=== PATIENT | female | born 1935 | race Caucasian/White ===

== ENCOUNTER 2019-03-11 09:50 | Day surgery (SDC) | payer OTHER | END 2019-03-11 15:15 | disposition home or self-care (01) | LOC: JASU-ENDO 09:50 ==

== ENCOUNTER 2019-05-12 09:10 | Day surgery (SDC) | payer OTHER | END 2019-05-12 15:35 | disposition home or self-care (01) | LOC: JRADIR 09:10 ==

== ENCOUNTER → 2019-05-24 | Day surgery (SDC) | payer OTHER | LOC: JRADIR 08:41 ==

== ENCOUNTER 2019-08-03 11:47 | Inpatient (IN) | payer OTHER ==
--- NOTE | 2019-08-03 12:14 | PDOC ---
History of Present Illness - General Stated Complaint: GI BLEED Time Seen by Provider: 08/03/19 12:11 Past History - Past Medical History Allergies/Adverse Reactions: Allergies Allergy/AdvReac Type Severity Reaction Status Date / Time morphine Allergy Nausea Verified 05/11/19 12:44 Home Medications: Ambulatory Orders Allopurinol 300 mg PO DAILY 03/10/19 Famotidine 20 mg PO DAILY 03/10/19 Fluticasone Prop 0.05% Nasal [Flonase -] 1 spray PO ASDIR 03/10/19 Glipizide [Glipizide ER] 1 tab PO DAILY 03/10/19 Insulin Sliding Scale [Novolog Vial Sliding Scale -] 15 - 30 units SQ ASDIR Levetiracetam [Keppra] 500 mg PO DAILY 03/10/19 Lisinopril 5 mg PO DAILY 03/10/19 Metoprolol Succinate [Toprol Xl] 25 mg PO DAILY 03/10/19 Pregabalin [Lyrica] 50 mg PO DAILY 03/10/19 Rivaroxaban [Xarelto] 15 mg PO DAILY 03/10/19 Simvastatin 10 mg PO HS 03/10/19 Anemia: Yes (PERNICIOUS) Cancer: Yes (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/RAD) Cardiac Disorders: (ATRIAL FIBRILATION,CHF) COPD: Yes (CHF) Diabetes: Yes Hypercholesterolemia: Yes Thyroid Disease: Yes (THYROID NODULES) - Surgical History Lung Surgery: Yes (LOBECTOMY SECONDARY TO LUNG METASTASES) Orthopedic Surgery: Yes (BILATERAL KNEE REPLACEMENTS) - Psycho Social/Smoking Cessation Hx Smoking History: Never smoked Hx Alcohol Use: No Drug/Substance Use Hx: No Substance Use Type: None ED Treatment Course - LABORATORY CBC & Chemistry Diagram: 08/04/19 06:13 08/04/19 06:13 Medical Decision Making - Medical Decision Making HPI: 83yo F with PMH of HLD, DM, CKD, neuropathy, SAUL, CHF, Afib on Xarelto, colon CA (recently diagnosed, scheduled for resection on 08/24 at [facility]) sent by her banana carrier for low hemoglobin of 6.9. Patient states she has felt lightheaded for the past two weeks or so, but denies chest pain or dyspnea on exertion. Patient states her last bowel movement was on Friday. On or Friday, she noticed black formed stools but no blood. Denies hematemesis. Patient was visiting her banana carrier for regular follow-up. No fevers or chills. ROS: Constitutional: no fever, no chills HEENT: no throat pain, no dysphagia Cardiovascular: no chest pain, no palpitations Respiratory: no cough, no shortness of breath Gastrointestinal: no abdominal pain, no nausea Genitourinary: no dysuria, no hematuria Musculoskeletal: no myalgia, no arthralgia Skin: no rash, no itching Neurologic: no headache, +lightheaded PE: General: Awake, alert, and fully oriented, in no acute distress Head: No signs of trauma Eyes: EOMI, sclera anicteric ENT: Moist mucus membranes Neck: Normal ROM, supple Lungs: Lungs clear, Normal breath sounds Cardio: Regular rhythm, S1 and S2 present Abdomen: Soft, nontender. No guarding, no rebound, no masses Extremities: Normal range of motion, Distal pulses present SKIN: Warm, Dry, pallorous Neurologic: Cranial nerves II through XII grossly intact. Normal speech ED Course/MDM: DDX including but not limited to anemia, GI bleed- upper vs lower, electrolyte abnormality Labs, EKG, CXR Protonix 08/03/19 12:14 Rectal exam performed by Dr. Reyes, +stool occult blood test CBC WBC 5.0 K/mm3 (4.0-10.0) 08/03/19 13:00 RBC 2.64 M/mm3 (3.60-5.2) L 08/03/19 13:00 Hgb 7.1 GM/dL (10.7-15.3) L 08/03/19 13:00 Hct 22.6 % (32.4-45.2) L D 08/03/19 13:00 MCV 85.4 fl (80-96) 08/03/19 13:00 MCH 26.8 pg (25.7-33.7) 08/03/19 13:00 MCHC 31.4 g/dl (32.0-36.0) L 08/03/19 13:00 RDW 15.6 % (11.6-15.6) 08/03/19 13:00 Plt Count 231 K/MM3 (134-434) 08/03/19 13:00 MPV 10.5 fl (7.5-11.1) 08/03/19 13:00 Absolute Neuts (auto) 3.1 K/mm3 (1.5-8.0) 08/03/19 13:00 Neutrophils % 62.2 % (42.8-82.8) 08/03/19 13:00 Lymphocytes % 18.4 % (8-40) 08/03/19 13:00 Monocytes % 15.0 % (3.8-10.2) H 08/03/19 13:00 Eosinophils % 3.5 % (0-4.5) 08/03/19 13:00 Basophils % 0.9 % (0-2.0) 08/03/19 13:00 Nucleated RBC % 0 % (0-0) 08/03/19 13:00 No leukocytosis Hgb low, 7.1 CMP Sodium 144 mmol/L (136-145) 08/03/19 13:00 Potassium 5.2 mmol/L (3.5-5.1) H 08/03/19 13:00 Chloride 116 mmol/L (98-107) H 08/03/19 13:00 Carbon Dioxide 25 mmol/L (21-32) 08/03/19 13:00 Anion Gap 3 MMOL/L (8-16) L 08/03/19 13:00 BUN 46.1 mg/dL (7-18) H 08/03/19 13:00 Creatinine 1.5 mg/dL (0.55-1.3) H 08/03/19 13:00 Est GFR (CKD-EPI)AfAm 37.21 08/03/19 13:00 Est GFR (CKD-EPI)NonAf 32.11 08/03/19 13:00 Random Glucose 88 mg/dL (74-106) 08/03/19 13:00 Calcium 9.2 mg/dL (8.5-10.1) 08/03/19 13:00 Total Bilirubin 0.1 mg/dL (0.2-1) L 08/03/19 13:00 AST 21 U/L (15-37) 08/03/19 13:00 ALT 14 U/L (13-61) 08/03/19 13:00 Alkaline Phosphatase 112 U/L (45-117) 08/03/19 13:00 Creatine Kinase 72 U/L (26-192) 08/03/19 13:00 Troponin I < 0.02 ng/ml (0.00-0.05) 08/03/19 13:00 Total Protein 6.0 g/dl (6.4-8.2) L 08/03/19 13:00 Albumin 3.2 g/dl (3.4-5.0) L 08/03/19 13:00 Potassium mildly elevated Cr elevated, 1.5 Tpn undetectable EKG: rate 61, QTc 469, paced rhythm, LBBB 1 unit PRBC ordered for anemia CXR as read by radiology: "Single apical lordotic view reveals a prominent mediastinum, right clips, right base atelectasis or infiltrate and pacemaker. There are degenerative changes. The angles are sharp and the soft tissues are intact. An acute process is not seen. Impression: No acute chest pathology. " Plan for admission for anemia and GI bleed 08/03/19 15:[address] Martinez who accepted patient for med/surg admission under Dr. De Anda 08/03/19 15:51 Discharge - Discharge Information Problems reviewed: Yes Clinical Impression/Diagnosis: Anemia Qualifiers: Anemia type: other cause Other causes of anemia: other cause, not classified Qualified Code(s): D64.89 - Other specified anemias GI bleed Qualifiers: GI bleed type/associated pathology: unspecified gastrointestinal hemorrhage type Qualified Code(s): K92.2 - Gastrointestinal hemorrhage, unspecified Condition: Guarded - Admission Yes - Follow up/Referral - Patient Discharge Instructions - Post Discharge Activity
--- NOTE | 2019-08-03 12:22 | PDOC ---
Attending Attestation - Resident Resident Name: Adri Sun - ED Attending Attestation I have performed the following: I have examined & evaluated the patient, The case was reviewed & discussed with the resident, I agree w/resident's findings & plan, Exceptions are as noted - HPI HPI: 08/03/19 13:17 83yo F hx AF on xarelto and ASA, PPM, colon ca scheduled for resection 08/24 at [facility], CKD, HTN, gout, HL, DM presents to the ED with 1 week of dark, tarry BM and outpt hgb 6.9. Pt reports lightheadedness and generalized weakness , otherwise denies chest pain, shortness of breath. She denies abdominal pain, nausea, vomiting, diarrhea. She denies headache, focal weakness or numbness, lower extremity edema, urinary symptoms. - Physicial Exam PE: 08/03/19 13:26 agree with resident exam - Medical Decision Making 08/03/19 13:26 84-year-old female with multiple medical problems including colon cancer, scheduled for resection on August 24. fib on Xarelto presents the emergency department with 1 week of black tarry stools and anemia to 6.9. Vitals unremarkable. Patient is pale but otherwise well-appearing and in no acute distress. Dr. Traore her electric razor mechanic is at the bedside, reports her rectal exam reveals brown guaiac tracely positive stool, but no melena. Plan at this time will be to repeat labs, transfuse packed red blood cells if anemia is confirmed, give PPI, and admit.
[2019-08-03] MEDS ORDERED: PANTOPRAZOLE SODIUM 40 MG VIAL IVPUSH ONE (12:37)
[2019-08-03] MEDS ORDERED: PANTOPRAZOLE SODIUM 40 MG/100 ML BAG IVPB ONE (13:30)
[2019-08-03 13:43] LABS: BASO % 0.9 % (0-2.0); EOS % 3.5 % (0-4.5); HEMATOCRIT 22.6 % (32.4-45.2); HEMOGLOBIN 7.1 GM/dL (10.7-15.3); LYMPH % 18.4 % (8-40); MCH 26.8 pg (25.7-33.7); MCHC 31.4 g/dl (32.0-36.0); MEAN CELL VOLUME 85.4 fl (80-96); MEAN PLT VOLUME 10.5 fl (7.5-11.1); NEUT % 62.2 % (42.8-82.8); PLATELET COUNT 231 K/MM3 (134-434); RBC 2.64 M/mm3 (3.60-5.2); RDW 15.6 % (11.6-15.6)
[2019-08-03 13:57] LABS: INR 1.15 (0.83-1.09); PROTHROMBIN TIME (PATIENT) 13.6 SEC (9.7-13.0)
[2019-08-03 14:25] LABS: ACTIVATED PTT 27.8 SECONDS (25.2-36.5)
[2019-08-03 14:40] LABS: ALBUMIN 3.2 g/dl (3.4-5.0); ALK PHOS 112 U/L (45-117); ANION GAP 3 MMOL/L (8-16); BILIRUBIN,TOTAL 0.1 mg/dL (0.2-1); BLOOD UREA NITROGEN 46.1 mg/dL (7-18); CALCIUM 9.2 mg/dL (8.5-10.1); CHLORIDE 116 mmol/L (98-107); CO2 25 mmol/L (21-32); CREATININE 1.5 mg/dL (0.55-1.3); GLUCOSE,RANDOM 88 mg/dL (74-106); POTASSIUM 5.2 mmol/L (3.5-5.1); SGOT/AST 21 U/L (15-37); SGPT/ALT 14 U/L (13-61); SODIUM 144 mmol/L (136-145)
--- NOTE | 2019-08-03 14:54 | CON.GI ---
Consult Consult Specialty:: GI Referred by:: Hospitalist Service Reason for Consultation:: Anemia - History of Present Illness Chief Complaint: Dark bowel movements last week History of Present Illness: 83F admitted after she was seen by her patternmaker apprentice metal. Previous blood work revealed Hgb 6.9 last week. He sent her to the ER. Hgb in ER 7.1 She has dark bowel movements last week, none this week. She has felt a bit dizzy and lightheaded. She is not on ASA therapy and does not take any other NSAIDs. She denies gross rectal bleeding, abdominal pain. She does describe a diminished appetite of late. She is being preoped for colon resection at [facility]. This was secondary to a colon cancer at the hepatic flexure noted during colonoscopy 03/07. Vitals sign in the ER stable. Takes xarelto at night and last took yesterday evening. - History Source History Provided By: Patient, Medical Record - Past Medical History Cardio/Vascular: Yes: AFIB, CHF, Hyperlipdemia Renal/: Yes: Renal Inusuff Heme/Onc: Yes: Anemia (pernicious), Other (Metastatic uterine cancer with recurrence, mets to the lung s/p resection with chemo/radiation) Endocrine: Yes: Diabetes Mellitus (DM II), Other (thyroid nodules) - Past Surgical History Past Surgical History: Yes: Appendectomy, Hysterectomy (BHAVANA/BSO), Joint Replacement (b/l Knees), Permanent Pacemaker Additional Surgical History: lobectomy secondary to lung metastases - Alcohol/Substance Use Hx Alcohol Use: No History of Substance Use: reports: None - Smoking History Smoking history: Never smoked - Social History Usual Living Arrangement: Assisted Living ADL: Support Services 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 : [facility] History of Recent Travel: No Home Medications - Allergies Allergies/Adverse Reactions: Allergies Allergy/AdvReac Type Severity Reaction Status Date / Time morphine Allergy Nausea Verified 05/11/19 12:44 - Home Medications Home Medications: Ambulatory Orders Acetaminophen [Tylenol .Extra-Strength -] 1 tab PO DAILY 03/10/19 Allopurinol 300 mg PO DAILY 03/10/19 Cholecalciferol (Vitamin D3) [Vitamin D3] 2,000 unit PO DAILY 03/10/19 Docusate Sodium [Colace] 100 mg PO DAILY 03/10/19 Famotidine 20 mg PO DAILY 03/10/19 Fluticasone Prop 0.05% Nasal [Flonase -] 1 spray PO ASDIR 03/10/19 Glipizide [Glipizide ER] 1 tab PO DAILY 03/10/19 Insulin Sliding Scale [Novolog Vial Sliding Scale -] 15 - 30 units SQ ASDIR Levetiracetam [Keppra] 500 mg PO DAILY 03/10/19 Lisinopril 5 mg PO DAILY 03/10/19 Metoprolol Succinate [Toprol Xl] 25 mg PO DAILY 03/10/19 Multivitamin with Iron [Multivitamins with Iron] 1 each PO DAILY 03/10/19 Polyethylene Glycol 3350 17 gm PO DAILY 03/10/19 Pregabalin [Lyrica] 50 mg PO DAILY 03/10/19 Rivaroxaban [Xarelto] 15 mg PO DAILY 03/10/19 Simvastatin 10 mg PO HS 03/10/19 Family Medical History Family Hx Cancer: Mother (colon) Review of Systems - Review of Systems Constitutional: denies: Chills Cardiovascular: denies: Chest Pain Respiratory: denies: Cough Gastrointestinal: reports: Bloating. denies: Abdominal Pain, Constipation Physical Exam-GI Vital Signs: Vital Signs Temperature 97.4 F L 08/03/19 12:21 Pulse Rate 61 08/03/19 12:21 Respiratory Rate 18 08/03/19 12:21 Blood Pressure 131/46 L 08/03/19 12:21 O2 Sat by Pulse Oximetry (%) 97 08/03/19 12:21 Constitutional: Yes: Calm Eyes: No: Sclera Icterus Cardiovascular: Yes: Regular Rate and Rhythm Respiratory: Yes: CTA Bilaterally Gastrointestinal Inspection: Yes: Scars (+ pelvic scar). No: Distention ...Auscultate: Yes: Normoactive Bowel Sounds ...Palpate: Yes: Soft, Tenderness (mild TTP lower abdomen). No: Hepatomegaly, Splenomegaly ...Percussion: No: Tympanitic ...Rectal Exam: Yes: Other (No external lesions, no masses, formed brown stool, tracely guaiac positive) Edema: No (No LE edema) Neurological: Yes: Alert Labs: CBC, BMP 08/03/19 13:00 08/03/19 13:00 INR, PTT INR 1.15 (0.83-1.09) H 08/03/19 13:00 Problem List - Problems (1) Anemia Assessment/Plan: worsening of baseline anemia and history of black bowel movements last week. Brown stool on exam and hemodynamically stable. Question resolved upper GI bleed. stool on exam tracely guaiac positive, however she has a friable hepatic flexure mass For now: Clear liquids Hold Xarelto Cardio evaluation EGD in with Xarelto for 2 days held given her renal insufficiency Protonix 40mg PO BID. If overt melena, change to infusion Code(s): D64.9 - ANEMIA, UNSPECIFIED
--- NOTE | 2019-08-03 15:49 | HOSP ---
Physical Examination Vital Signs: Vital Signs Temperature 97.4 F L 08/03/19 12:21 Pulse Rate 61 08/03/19 12:21 Respiratory Rate 18 08/03/19 12:21 Blood Pressure 131/46 L 08/03/19 12:21 O2 Sat by Pulse Oximetry (%) 97 08/03/19 12:21 Labs: CBC, BMP 08/03/19 13:00 08/03/19 13:00
--- NOTE | 2019-08-03 15:49 | EKG ---
Test Reason : Blood Pressure : / mmHG Vent. Rate : 061 BPM Atrial Rate : 061 BPM P-R Int : 228 ms QRS Dur : 134 ms QT Int : 464 ms P-R-T Axes : 004 -15 084 degrees QTc Int : 467 ms AV dual-paced rhythm ABNORMAL ECG NO PREVIOUS ECGS AVAILABLE Confirmed by Juanjose Michael ([id number]) on 08/03/2019 3:49:42 PM Referred By: Confirmed By:Juanjose Michael
--- NOTE | 2019-08-03 17:18 | CON.CARD ---
Consult Consult Specialty:: Cardiology Referred by:: Hospitalist Medicine Reason for Consultation:: Pre-procedural CV evaluation - History of Present Illness Chief Complaint: Profound anemia History of Present Illness: 83 yo female h/o CAD, mild decreased LV systolic fxn, sick sinus s/p Medtronic PPM, PAF on Xarelto, HTN heart disease, Type 2 DM, hyperlipidemia, cerebrovascular disease, CKD, colon ca planned for partial colectomy in August , wheelchair-bound last office visit 05/28/2019 presents with anemia Hgb 6.9-7.1 , dark stools, dizzy and lightheadedness without chest pain, dyspnea or fatigue. She is not on ASA therapy and does not take any other NSAIDs. She denies gross rectal bleeding, abdominal pain. She does describe a diminished appetite of late. She is being pre-oped for colon resection at [facility]. This was secondary to a colon cancer at the hepatic flexure noted during colonoscopy 03/07. Takes xarelto at night and last took yesterday evening. 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: Peripheral Neuropathy Cardio/Vascular: Yes: AFIB, CHF, Hyperlipdemia Renal/: Yes: Renal Inusuff Endocrine: Yes: Diabetes Mellitus (DM II), Other (thyroid nodules) - Past Surgical History Past Surgical History: Yes: Appendectomy, Hysterectomy (BHAVANA/BSO), Joint Replacement (b/l Knees), Permanent Pacemaker Additional Surgical History: lobectomy secondary to lung metastases - Alcohol/Substance Use Hx Alcohol Use: No History of Substance Use: reports: None - Smoking History Smoking history: Never smoked - Social History Usual Living Arrangement: Assisted Living ADL: Support Services 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 Travel: No Home Medications - Allergies Allergies/Adverse Reactions: Allergies Allergy/AdvReac Type Severity Reaction Status Date / Time morphine Allergy Nausea Verified 05/11/19 12:44 - Home Medications Home Medications: Ambulatory Orders Allopurinol 300 mg PO DAILY 03/10/19 Famotidine 20 mg PO DAILY 03/10/19 Fluticasone Prop 0.05% Nasal [Flonase -] 1 spray PO ASDIR 03/10/19 Glipizide [Glipizide ER] 1 tab PO DAILY 03/10/19 Insulin Sliding Scale [Novolog Vial Sliding Scale -] 15 - 30 units SQ ASDIR Levetiracetam [Keppra] 500 mg PO DAILY 03/10/19 Lisinopril 5 mg PO DAILY 03/10/19 Metoprolol Succinate [Toprol Xl] 25 mg PO DAILY 03/10/19 Pregabalin [Lyrica] 50 mg PO DAILY 03/10/19 Rivaroxaban [Xarelto] 15 mg PO DAILY 03/10/19 Simvastatin 10 mg PO HS 03/10/19 Review of Systems - Review of Systems Neurological: reports: Dizziness Vital Signs: Vital Signs Temperature 98 F 08/03/19 16:45 Pulse Rate 60 08/03/19 16:45 Respiratory Rate 18 08/03/19 16:45 Blood Pressure 135/77 08/03/19 16:45 O2 Sat by Pulse Oximetry (%) 99 08/03/19 16:45 Constitutional: Yes: No Distress, Calm Neck: Yes: Supple Respiratory: Yes: Regular, CTA Bilaterally Gastrointestinal: Yes: Soft, Hypoactive Bowel Sounds Cardiovascular: Yes: Regular Rate and Rhythm JVD: No Carotid Bruit: No Heart Sounds: Yes: S1, S2 Murmur: Yes: Systolic Murmur, Grade 2 Extremities: Yes: Other (Contracted) Edema: No - Other Data Labs, Other Data: CBC, BMP 08/03/19 13:00 08/03/19 13:00 INR, PTT INR 1.15 (0.83-1.09) H 08/03/19 13:00 Troponin, BNP 08/03/19 13:00 Troponin I < 0.02 Troponin, BNP 08/03/19 13:00 Troponin I < 0.02 AV paced @ 61 Echo: Report Reviewed Ejection Fraction %: LVEF > or = 40 % Imaging - Results Chest X-ray: Report Reviewed (NAD) Problem List - Problems (1) Preprocedural cardiovascular examination Code(s): Z01.810 - ENCOUNTER FOR PREPROCEDURAL CARDIOVASCULAR EXAMINATION (2) Hypertensive cardiovascular disease Code(s): I11.9 - HYPERTENSIVE HEART DISEASE WITHOUT HEART FAILURE Qualifiers: Heart failure presence: without heart failure Qualified Code(s): I11.9 - Hypertensive heart disease without heart failure (3) Hyperlipidemia Code(s): E78.5 - HYPERLIPIDEMIA, UNSPECIFIED Qualifiers: Hyperlipidemia type: pure hypercholesterolemia Qualified Code(s): E78.00 - Pure hypercholesterolemia, unspecified; E78.0 - Pure hypercholesterolemia (4) Coronary artery disease Code(s): I25.10 - ATHSCL HEART DISEASE OF [place] CORONARY ARTERY W/O ANG PCTRS Qualifiers: Coronary Disease-Associated Artery/Lesion type: [place] artery [place] vs. 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 Code(s): I49.5 - SICK SINUS SYNDROME (7) Systolic dysfunction Code(s): I51.9 - HEART DISEASE, UNSPECIFIED (8) Cardiac pacemaker Code(s): Z95.0 - PRESENCE OF CARDIAC PACEMAKER (9) Anemia Code(s): D64.9 - ANEMIA, UNSPECIFIED Qualifiers: Other causes of anemia: acute posthemorrhagic (10) Chronic anticoagulation Code(s): Z79.01 - PRODUCTION CREW SUPERVISOR (CURRENT) USE OF ANTICOAGULANTS (11) CKD (chronic kidney disease) Code(s): N18.9 - CHRONIC KIDNEY DISEASE, UNSPECIFIED Assessment/Plan 05/27/2019 Mild decreased LVEF 45-50%, mod LAE, normal RV size and fxn, mild MR , TR RVSP 32 mmHg, pacemaker lead 01/07/2017 Adenosine Myoview: No ischemia, LVEF 70% 1. Pre-procedure CV evaluation 2. Anemia with underlying hepatic flexure mass r/o UGI source 3. LV systolic dysfunction 4. Sinus node dysfunction with AV Block s/p Medtronic dual chamber pacemaker 5. PAF->SR on Xarelto 6. Hypertensive cardiovascular disease 7. Type 2 DM 8. Hyperlipidemia 9. CKD P:1. Given absence of symptoms of acute coronary syndrome, decompensated CHF or malignant arrhythmia, may proceed with planned EGD from CV-standpoint w/o further testing, hold Xarelto 2 days prior and resume once post procedure hemostasis assured 2. Continue Lisinopril 5 qd, Toprol XL 25 qd, Zocor 10 qhs as hemodynamics tolerate, GI protection 3. Transfuse pRBC to maintain Hgb>8.0 4. Thank you for consultative opportunity
[2019-08-03] MEDS: INSULIN SLIDING SCALE (NOVOLOG) 1 VIAL SQ SCH ×2 (17:28→22:12)
[2019-08-03 18:11] VITALS: BMI 28.5
--- NOTE | 2019-08-03 18:26 | HP ---
<Joanne Martinez - Last Filed: 08/03/19 18:01> CHIEF COMPLAINT: anemia from outpatient PCP: Tory PHILLIPS HISTORY OF PRESENT ILLNESS: Patient is a 83 y/o female with a history of HLD, DM, CKD, neuropathy, SAUL, CHF , afib on xarelto, and colon cancer who presents from outpatient nephrology appointment. Patient was following up for a nephrology visit and her labs indicated that her hemoglobin was low. She has been feeling dizzy lately. She is scheduled for a resection of her colon at [facility] on August 24. She has had transfusions but a long time ago. her last bowel movement was on friday and pellet like. She denies any hematochezia. She is typically constipated. She denies fever, chills, nausea, vomiting, hemetemesis, or headache. ER course was notable for: (1) (2) (3) Recent Travel: denies PAST MEDICAL HISTORY: HLD, DM, CKD, neuropathy, SAUL, CHF, afib on xarelto, and colon cancer PAST SURGICAL HISTORY: R lung nodule resection from previous cancer, appendectomy Social History: Smoking: denies Alcohol: denies Drugs: denies Family hx: mothers of colon cancer Allergies morphine Allergy (Verified 05/11/19 12:44) Nausea HOME MEDICATIONS: Home Medications Medication Instructions Recorded Allopurinol 300 mg PO DAILY 03/10/19 Famotidine 20 mg PO DAILY 03/10/19 Fluticasone Prop 0.05% Nasal 1 spray PO ASDIR 03/10/19 [Flonase -] Glipizide [Glipizide ER] 1 tab PO DAILY 03/10/19 Insulin Sliding Scale [Novolog 15 - 30 units SQ ASDIR 03/10/19 Vial Sliding Scale -] Levetiracetam [Keppra] 500 mg PO DAILY 03/10/19 Lisinopril 5 mg PO DAILY 03/10/19 Metoprolol Succinate [Toprol Xl] 25 mg PO DAILY 03/10/19 Pregabalin [Lyrica] 50 mg PO DAILY 03/10/19 Rivaroxaban [Xarelto] 15 mg PO DAILY 03/10/19 Simvastatin 10 mg PO HS 03/10/19 REVIEW OF SYSTEMS CONSTITUTIONAL: Absent: fever, chills, diaphoresis, generalized weakness, malaise, loss of appetite, weight change HEENT: Absent: rhinorrhea, nasal congestion, throat pain, throat swelling, difficulty swallowing, mouth swelling, ear pain, eye pain, visual changes CARDIOVASCULAR: Absent: chest pain, syncope, palpitations, irregular heart rate, lightheadedness , peripheral edema RESPIRATORY: Absent: cough, shortness of breath, dyspnea with exertion, orthopnea, wheezing, stridor, hemoptysis GASTROINTESTINAL: Absent: abdominal pain, abdominal distension, nausea, vomiting, diarrhea, constipation, melena, hematochezia GENITOURINARY: Absent: dysuria, frequency, urgency, hesitancy, hematuria, flank pain, genital pain MUSCULOSKELETAL: Absent: myalgia, arthralgia, joint swelling, back pain, neck pain SKIN: Absent: rash, itching, pallor HEMATOLOGIC/IMMUNOLOGIC: Absent: easy bleeding, easy bruising, lymphadenopathy, frequent infections ENDOCRINE: Absent: unexplained weight gain, unexplained weight loss, heat intolerance, cold intolerance NEUROLOGIC: dizziness, Absent: headache, focal weakness or paresthesias, unsteady gait, seizure, mental status changes, bladder or bowel incontinence PSYCHIATRIC: Absent: anxiety, depression, suicidal or homicidal ideation, hallucinations. PHYSICAL EXAMINATION Vital Signs - 24 hr 08/03/19 08/03/19 12:21 16:45 Temperature 97.4 F L 98 F Pulse Rate 61 Pulse Rate [ 60 Apical] Respiratory 18 18 Rate Blood Pressure 131/46 L Blood Pressure 135/77 [Left Arm] O2 Sat by Pulse 97 99 Oximetry (%) GENERAL: Awake, alert, and fully oriented, in no acute distress. HEAD: Normal with no signs of trauma. EYES: Pupils equal, round and reactive to light, extraocular movements intact, EARS, NOSE, THROAT: Moist mucous membranes. LUNGS: Breath sounds equal, clear to auscultation bilaterally. No wheezes, and no crackles. No accessory muscle use. HEART: Regular rate and rhythm, normal S1 and S2 without murmur, rub or gallop. ABDOMEN: Soft, nontender, not distended, : deferred rectal exam as had just been previously done by GI MUSCULOSKELETAL: No CVA tenderness. LOWER EXTREMITIES: 2+ pulses, warm, well-perfused. No calf tenderness. No peripheral edema. SKIN: Warm, dry, normal turgor, no rashes or lesions noted, normal capillary refill. CBC, BMP 08/03/19 13:00 08/03/19 13:00 ASSESSMENT/PLAN: Patient is a 83 y/o female with a history of HLD, DM, CKD, neuropathy, SAUL, CHF , afib on xarelto, and colon cancer who is admitted for Anemia. #Anemia - likely 2/2 to chronic colon cancer - hgb 7, transfuse and keep above 8 with patients cardiac hx - keep patient on clear liquid diet - 1 unit PRBC - f/u hgb half hour after - EGD scheduled for 08/05 r/o upper GI bleed - clear liquids until then - protonix BID #hx HTN, afib - continue lisinopril, metoprolol - hold xarelto in setting of bleed - f/u cardio for cardiac clearance #DM - BGM ACHS - pregabalin - ss #hx constipation - likely 2/2 to colon cancer - continue colace - consider adding second agent if patient still straining #HLD - continue atorvastatin DVT ppx - SCD's FEN - clear liquid diet Dispo: monitor and f/u ATTENDING PHYSICIAN STATEMENT I saw and evaluated the patient. I reviewed the resident's note and discussed the case with the resident. I agree with the resident's findings and plan as documented. SUBJECTIVE: OBJECTIVE: ASSESSMENT AND PLAN: <Reji De Anda - Last Filed: 08/04/19 11:18> Seen and examined, discussed at length with resident team. Patient physical examination and historical findings independently confirmed. Independently reviewed all labs and diagnostics unless indicated. Patient meets criteria for admission due to the indicated diagnoses and would benefit from inpatient stay in the hospital. Please see resident history of present illness, past medical and surgical histories, family history, and social history for further subjective and historical information. Will add that the patient has no history of sudden cardiac in the family, nor does the patient have any recent surgeries. Coronary artery disease, mild systolic CHF, sick sinus syndrome status post pacemaker placement, paroxysmal atrial fibrillation on Xarelto, last dose of Xarelto was taken today. Hemoglobin is 6.9-7.1, not on aspirin. Underlying cerebrovascular disease and chronic kidney disease. She does have colon cancer with a friable mass at her hepatic flexure noted on colonoscopy on March 07 for which she will require partial colectomy this August which is being planned at [facility]. No indicated NSAID abuse. Objective: VS, Labs, imaging reviewed NAD, AAO, resting in bed RRR s1/2 no mgr NT ND +BS CN2-12 wnl, no fnd Normal mood, appropriate behavior EKG reviewed GI consult reviewed; pending CV. A/P: Patient with a complex cardiac history involving mild systolic CHF, coronary artery disease, sick sinus syndrome, A. fib on Xarelto with recent dosing, presents to the hospital with noted low hemoglobin. Dr. Sams saw her from gastroenterology and is planning EGD, giving 2 days for the Xarelto to clear her system. We will monitor for bleeding, keeping her on oral Protonix with intent to change to IV showed the patient developed melanotic stools. She denies any current melena and did have a bowel movement today and her stool was noted to be brown. We will avoid inciting agents for GI bleeds, we will continue her on her home medications aside from the Xarelto, and we will place her on SCDs for DVT prophylaxis. Problems include: -GIB (likely lower) -Colon Cancer -Anemia 2/2 acute on chronic blood loss -P-AF on Xarelto -SSS s/p PPM -Hx CVA -Hx CAD (not on ASA) -Need for EGD -CKD-III (Cr. 1.5; consult nephrology in AM) -Acute on chronic constipation (likely secondary to tumor) -Mild systolic CHF, not in exacerbation GI bleed is likely acute on chronic in nature, she is not tachycardic and not rapidly dropping her hemoglobin. Type consult cross, follow-up posttransfusion hemoglobin and continue to monitor. Monitor for tachycardia. Follow-up all gastroenterology recommendations. N.p.o. at midnight on August 04 for EGD. Code status is full Visit type - Emergency Visit Emergency Visit: Yes ED Registration Date: 08/03/19 Care time: The patient presented to the Emergency Department on the above date and was hospitalized for further evaluation of their emergent condition. - New Patient This patient is new to me today: Yes Date on this admission: 08/04/19 - Critical Care Critical Care patient: No ATTENDING PHYSICIAN STATEMENT I saw and evaluated the patient. I reviewed the resident's note and discussed the case with the resident. I agree with the resident's findings and plan as documented. SUBJECTIVE: OBJECTIVE: ASSESSMENT AND PLAN:
[2019-08-03] MEDS: ATORVASTATIN CA 10 MG TABLET (FP) PO SCH (22:08)
[2019-08-03] MEDS: FLUTICASONE PROP 0.05% 16 GM NASAL SPRAY NS SCH (22:08)
[2019-08-03] MEDS: PANTOPRAZOLE 40 MG TABLET (FP) PO SCH (22:08)
[2019-08-04 01:21] LABS: HEMATOCRIT 26.6 % (32.4-45.2); HEMOGLOBIN 8.5 GM/dL (10.7-15.3); MCH 26.9 pg (25.7-33.7); MCHC 31.8 g/dl (32.0-36.0); MEAN CELL VOLUME 84.3 fl (80-96); MEAN PLT VOLUME 9.7 fl (7.5-11.1); PLATELET COUNT 187 K/MM3 (134-434); RBC 3.15 M/mm3 (3.60-5.2); WHITE BLOOD COUNT 4.5 K/mm3 (4.0-10.0)
[2019-08-04] MEDS: INSULIN SLIDING SCALE (NOVOLOG) 1 VIAL SQ SCH (06:54)
[2019-08-04 07:04] LABS: BASO % 0.8 % (0-2.0); EOS % 3.1 % (0-4.5); HEMATOCRIT 25.8 % (32.4-45.2); HEMOGLOBIN 8.5 GM/dL (10.7-15.3); LYMPH % 19.6 % (8-40); MCH 27.4 pg (25.7-33.7); MCHC 32.9 g/dl (32.0-36.0); MEAN CELL VOLUME 83.4 fl (80-96); MEAN PLT VOLUME 10.1 fl (7.5-11.1); MONO % 16.1 % (3.8-10.2); NEUT % 60.4 % (42.8-82.8); PLATELET COUNT 207 K/MM3 (134-434); RBC 3.09 M/mm3 (3.60-5.2); RDW 14.8 % (11.6-15.6); WHITE BLOOD COUNT 4.9 K/mm3 (4.0-10.0)
[2019-08-04 07:22] LABS: ALBUMIN 3.2 g/dl (3.4-5.0); BILIRUBIN,TOTAL 0.5 mg/dL (0.2-1); BLOOD UREA NITROGEN 35.2 mg/dL (7-18); CREATININE 1.3 mg/dL (0.55-1.3); PHOSPHOROUS 3.7 mg/dL (2.5-4.9); POTASSIUM 4.5 mmol/L (3.5-5.1); TOT PROT 5.7 g/dl (6.4-8.2)
[2019-08-04] MEDS ORDERED: FLU VACCINE QUAD 60 MCG/0.5 ML (MDV 19-20) IM ONE (10:00)
[2019-08-04] MEDS ORDERED: FAMOTIDINE 20 MG TABLET PO SCH (10:00)
--- NOTE | 2019-08-04 10:05 | PN ---
Progress Note, Physician History of Present Illness: Denies further dark stools, dizzy and lightheadedness without chest pain, dyspnea or fatigue, planned for EGD 08/05. Hgb stable post transfusion. - Current Medication List Current Medications: Active Medications Allopurinol (Zyloprim -) 300 mg PO DAILY [facility] Atorvastatin Calcium (Lipitor -) 10 mg PO HS [facility] Last Admin: 08/03/19 22:08 Dose: 10 mg Docusate Sodium (Colace -) 100 mg PO DAILY [facility] Famotidine (Pepcid -) 20 mg PO DAILY [facility] Fluticasone Propionate (Flonase -) 1 spray NS BID [facility] Last Admin: 08/03/19 22:08 Dose: 1 spray Levetiracetam (Keppra -) 500 mg PO DAILY [facility] Lisinopril (Prinivil) 5 mg PO DAILY [facility] Metoprolol Succinate (Toprol Xl -) 25 mg PO DAILY [facility] Pantoprazole Sodium (Protonix -) 40 mg PO BID [facility] Last Admin: 08/03/19 22:08 Dose: 40 mg Pregabalin (Lyrica -) 50 mg PO DAILY [facility] - Objective Vital Signs: Vital Signs Temperature 97.6 F 08/04/19 06:42 Pulse Rate 60 08/04/19 06:42 Respiratory Rate 18 08/04/19 06:42 Blood Pressure 107/62 08/04/19 06:42 O2 Sat by Pulse Oximetry (%) 99 08/03/19 16:45 Constitutional: Yes: No Distress, Calm Neck: Yes: Supple Cardiovascular: Yes: Regular Rate and Rhythm Respiratory: Yes: Regular, CTA Bilaterally Gastrointestinal: Yes: Soft, Hypoactive Bowel Sounds Edema: No Labs: CBC, BMP 08/04/19 06:13 08/04/19 06:13 INR, PTT INR 1.15 (0.83-1.09) H 08/03/19 13:00 Problem List - Problems (1) Preprocedural cardiovascular examination Code(s): Z01.810 - ENCOUNTER FOR PREPROCEDURAL CARDIOVASCULAR EXAMINATION (2) Hypertensive cardiovascular disease Code(s): I11.9 - HYPERTENSIVE HEART DISEASE WITHOUT HEART FAILURE Qualifiers: Heart failure presence: without heart failure Qualified Code(s): I11.9 - Hypertensive heart disease without heart failure (3) Hyperlipidemia Code(s): E78.5 - HYPERLIPIDEMIA, UNSPECIFIED Qualifiers: Hyperlipidemia type: pure hypercholesterolemia Qualified Code(s): E78.00 - Pure hypercholesterolemia, unspecified; E78.0 - Pure hypercholesterolemia (4) Coronary artery disease Code(s): I25.10 - ATHSCL HEART DISEASE OF [place] CORONARY ARTERY W/O ANG PCTRS Qualifiers: Coronary Disease-Associated Artery/Lesion type: [place] artery [place] vs. transplanted heart: [place] heart Associated angina: without angina Qualified Code(s): I25.10 - Atherosclerotic heart disease of [place] coronary artery without angina pectoris (5) Paroxysmal atrial fibrillation Code(s): I48.0 - PAROXYSMAL ATRIAL FIBRILLATION (6) Sick sinus syndrome due to sinoatrial node dysfunction Code(s): I49.5 - SICK SINUS SYNDROME (7) Systolic dysfunction Code(s): I51.9 - HEART DISEASE, UNSPECIFIED (8) Cardiac pacemaker Code(s): Z95.0 - PRESENCE OF CARDIAC PACEMAKER (9) Anemia Code(s): D64.9 - ANEMIA, UNSPECIFIED Qualifiers: Other causes of anemia: acute posthemorrhagic (10) Chronic anticoagulation Code(s): Z79.01 - MANDREL MAKER (CURRENT) USE OF ANTICOAGULANTS (11) CKD (chronic kidney disease) Code(s): N18.9 - CHRONIC KIDNEY DISEASE, UNSPECIFIED Assessment/Plan 05/27/2019 Mild decreased LVEF 45-50%, mod LAE, normal RV size and fxn, mild MR , TR RVSP 32 mmHg, pacemaker lead 01/07/2017 Adenosine Myoview: No ischemia, LVEF 70% 1. Pre-procedure CV evaluation 2. Anemia with underlying hepatic flexure mass r/o UGI source post 1 U pRBC 3. LV systolic dysfunction 4. Sinus node dysfunction with AV Block s/p Medtronic dual chamber pacemaker 5. PAF->SR on Xarelto 6. Hypertensive cardiovascular disease 7. Type 2 DM 8. Hyperlipidemia 9. Acute on CKD 3 improving P:1. Given absence of symptoms of acute coronary syndrome, decompensated CHF or malignant arrhythmia, may proceed with planned EGD from CV-standpoint w/o further testing, holding Xarelto 2 days prior and resume once post procedure hemostasis assured 2. Continue Lisinopril 5 qd, Toprol XL 25 qd, Lipitor 10 qhs as hemodynamics tolerate, GI protection 3. Transfuse pRBC to maintain Hgb>8.0
[2019-08-04] MEDS: DOCUSATE SODIUM 100 MG CAPSULE (FP) PO SCH (11:13)
[2019-08-04] MEDS: PREGABALIN 50 MG CAPSULE PO SCH (11:13)
[2019-08-04] MEDS: levETIRAcetam 500 MG TABLET (FP) PO SCH (11:14)
[2019-08-04] MEDS: ALLOPURINOL 300 MG TABLET (FP) PO SCH (11:14)
[2019-08-04] MEDS: LISINOPRIL 5 MG TABLET (FP) PO SCH (11:14)
[2019-08-04] MEDS: metoPROLOL SUCCINATE 25 MG TAB.SR.24H (FP) PO SCH (11:14)
[2019-08-04] MEDS: PANTOPRAZOLE 40 MG TABLET (FP) PO SCH ×2 (11:15→21:48)
[2019-08-04] MEDS ORDERED: PT OWN MED DRAWER 7, Y5N ONE ×2 (11:19→12:04)
[2019-08-04] MEDS: FLUTICASONE PROP 0.05% 16 GM NASAL SPRAY NS SCH ×2 (11:28→21:48)
--- NOTE | 2019-08-04 11:58 | PN ---
Progress Note (short form) - Note Progress Note: Seen and examined, discussed at length with resident team. Patient physical examination and historical findings independently confirmed. Independently reviewed all labs and diagnostics unless indicated. No new complaints today, remains stable on the floor. Does not note any melena. We will continue the p.o. Protonix per GI instructions. Objective: VS, Labs, imaging reviewed NAD, AAO, resting in bed RRR s1/2 no mgr NT ND +BS CN2-12 wnl, no fnd Normal mood, appropriate behavior Problems include: -GIB (likely lower) -Colon Cancer -Anemia 2/2 acute on chronic blood loss -P-AF on Xarelto -SSS s/p PPM -Hx CVA -Hx CAD (not on ASA) -Need for EGD -CKD-III (Cr. 1.5; consult nephrology in AM) -Acute on chronic constipation (likely secondary to tumor) -Mild systolic CHF, not in exacerbation <Reji De Anda - Last Filed: 08/04/19 12:15> - Note Progress Note: HPI: Briefly, 83yo F with h/o of HFrEF, CAD, SSS s/p PPM (medtronic), pAF ( Xarelto), Type 2DM, HTN, HLD, prior CVA, CKD, and Colon ca with planned colectomy 08/2019 who presented to this facility from her manager group home appointment with dizziness found to have normocytic anemia suspected to be of chronic disease and acute blood loss anemia. Pt was transfused 1U PRBC overnight. Pt's symptoms have improved from admission day and she has not had any bloody BM overnight. Pt is to have EGD tomorrow (08/05). Vital Signs Temperature 97.6 F 08/04/19 06:42 Pulse Rate 60 08/04/19 06:42 Respiratory Rate 18 08/04/19 06:42 Blood Pressure 107/62 08/04/19 06:42 O2 Sat by Pulse Oximetry (%) 99 08/03/19 16:45 PE: Gen: NAd, awake, alert, oriented x3 HEENT: Sclera anicteric, slight pallor in conjunctiva, MMM Neck: No JVD Lung: CTA throughout. On RA Card:RRR no murmurs Abd: Soft, NT/ND, normoactive BS Ext: no edema, 2+ pulses CBC, BMP 08/04/19 06:13 08/04/19 06:13 Active Medications Allopurinol (Zyloprim -) 300 mg PO DAILY [facility] Last Admin: 08/04/19 11:14 Dose: 300 mg Atorvastatin Calcium (Lipitor -) 10 mg PO HS [facility] Last Admin: 08/03/19 22:08 Dose: 10 mg Docusate Sodium (Colace -) 100 mg PO DAILY [facility] Last Admin: 08/04/19 11:13 Dose: 100 mg Famotidine (Pepcid -) 20 mg PO DAILY [facility] Fluticasone Propionate (Flonase -) 1 spray NS BID [facility] Last Admin: 08/04/19 11:28 Dose: Not Given Levetiracetam (Keppra -) 500 mg PO DAILY [facility] Last Admin: 08/04/19 11:14 Dose: 500 mg Lisinopril (Prinivil) 5 mg PO DAILY [facility] Last Admin: 08/04/19 11:14 Dose: 5 mg Metoprolol Succinate (Toprol Xl -) 25 mg PO DAILY [facility] Last Admin: 08/04/19 11:14 Dose: 25 mg Pantoprazole Sodium (Protonix -) 40 mg PO BID [facility] Last Admin: 08/04/19 11:15 Dose: 40 mg Pregabalin (Lyrica -) 50 mg PO DAILY [facility] Last Admin: 08/04/19 11:13 Dose: 50 mg INR, PTT INR 1.15 (0.83-1.09) H 08/03/19 13:00 A/P: Normocytic anemia r/o Lower GIB Colon carcinoma SSS s/p PPM insertion H/o CVA H/o CAD CKD stage III HFrEF, baseline --Appreciate all furniture rental consultant recommendations --Continue holding Xarelto for procedure and suspected bleed --Can advance to clears today; NPO after midnight on 23:59h --Monitor CBC (transfusion threshold 8.0 due to cardiac disease) --Protonix 40mg BID PO --Repeat BGM today due to glucose of 56 --Continue home medications as below: Lipitor 10mg HS Lisinopril 5mg qdaily Toprol XL 25mg qdaily Allopurinol 300mg qdaily Lyrica 50mg qdaily Keppra 500mg qdaily FEN: Fluids: None Electrolyte: Hypernatremic and HyperCl; repeat tomorrow AM Nutrition: NPO except meds for now PPX: DVT - scds GI - Protonix already on board Dispo: Endoscopy Friday as discussed with GI due to Xarelto Case discussed with Dr. De Anda and Dr. Esther Cornell, DO - IM PGY-3 <Ruy Cornell - Last Filed: 08/04/19 21:19>
--- NOTE | 2019-08-04 14:59 | PN.GI ---
GI Progress Note Subjective: Pt seen/examined at bedside, feeling better overall. No bms today. - Objective Vital Signs: Vital Signs Temperature 98.4 F 08/04/19 10:00 Pulse Rate 66 08/04/19 10:00 Respiratory Rate 18 08/04/19 10:00 Blood Pressure 143/64 08/04/19 10:00 O2 Sat by Pulse Oximetry (%) 99 08/03/19 16:45 Constitutional: Well Nourished, No Distress, Calm Cardiovascular: Yes: WNL, Regular Rate and Rhythm Respiratory: Yes: WNL, Regular, CTA Bilaterally ...Palpate: Yes: Other (Abd soft, nt, nd) Labs: CBC, BMP 08/04/19 06:13 08/04/19 06:13 INR, PTT INR 1.15 (0.83-1.09) H 08/03/19 13:00 Problem List - Problems (1) GI bleed Assessment/Plan: Worsening anemia with reported dark stools prior to admission. No overt bleeding during hospitalization. Pt also with hepatic flexure mass pending surgery next month at [facility]. -Continue to monitor Hb and for evidence of bleeding -Clear liquid diet -PPI bid -Continue to hold xarelto (last dose on Friday) -Based on GFR would need to be held for 3 days prior to endoscopy - will therefore plan for EGD on Friday. Code(s): K92.2 - GASTROINTESTINAL HEMORRHAGE, UNSPECIFIED
[2019-08-04] MEDS: ATORVASTATIN CA 10 MG TABLET (FP) PO SCH (21:48)
--- NOTE | 2019-08-05 09:19 | PN ---
Progress Note, Physician History of Present Illness: Denies further dark stools, dizzy and lightheadedness without chest pain, dyspnea or fatigue, planned for EGD 08/06. Hgb stable post transfusion. - Current Medication List Current Medications: Active Medications Allopurinol (Zyloprim -) 300 mg PO DAILY [facility] Last Admin: 08/04/19 11:14 Dose: 300 mg Atorvastatin Calcium (Lipitor -) 10 mg PO HS [facility] Last Admin: 08/04/19 21:48 Dose: 10 mg Docusate Sodium (Colace -) 100 mg PO DAILY [facility] Last Admin: 08/04/19 11:13 Dose: 100 mg Fluticasone Propionate (Flonase -) 1 spray NS BID [facility] Last Admin: 08/04/19 21:48 Dose: 1 spray Levetiracetam (Keppra -) 500 mg PO DAILY [facility] Last Admin: 08/04/19 11:14 Dose: 500 mg Lisinopril (Prinivil) 5 mg PO DAILY [facility] Last Admin: 08/04/19 11:14 Dose: 5 mg Metoprolol Succinate (Toprol Xl -) 25 mg PO DAILY [facility] Last Admin: 08/04/19 11:14 Dose: 25 mg Pantoprazole Sodium (Protonix -) 40 mg PO BID [facility] Last Admin: 08/04/19 21:48 Dose: 40 mg Pregabalin (Lyrica -) 50 mg PO DAILY [facility] Last Admin: 08/04/19 11:13 Dose: 50 mg Ranitidine HCl (Zantac -) 150 mg PO DAILY [facility] - Objective Vital Signs: Vital Signs Temperature 98.6 F 08/05/19 04:00 Pulse Rate 66 08/05/19 04:00 Respiratory Rate 20 08/05/19 04:00 Blood Pressure 120/66 08/05/19 04:00 O2 Sat by Pulse Oximetry (%) 94 L 08/04/19 21:00 Constitutional: Yes: No Distress, Calm Neck: Yes: Supple Cardiovascular: Yes: Regular Rate and Rhythm Respiratory: Yes: Regular, CTA Bilaterally Gastrointestinal: Yes: Soft, Hypoactive Bowel Sounds Edema: No Labs: INR, PTT INR 1.15 (0.83-1.09) H 08/03/19 13:00 Problem List - Problems (1) Preprocedural cardiovascular examination Code(s): Z01.810 - ENCOUNTER FOR PREPROCEDURAL CARDIOVASCULAR EXAMINATION (2) Hypertensive cardiovascular disease Code(s): I11.9 - HYPERTENSIVE HEART DISEASE WITHOUT HEART FAILURE Qualifiers: Heart failure presence: without heart failure Qualified Code(s): I11.9 - Hypertensive heart disease without heart failure (3) Hyperlipidemia Code(s): E78.5 - HYPERLIPIDEMIA, UNSPECIFIED Qualifiers: Hyperlipidemia type: pure hypercholesterolemia Qualified Code(s): E78.00 - Pure hypercholesterolemia, unspecified; E78.0 - Pure hypercholesterolemia (4) Coronary artery disease Code(s): I25.10 - ATHSCL HEART DISEASE OF [place] CORONARY ARTERY W/O ANG PCTRS Qualifiers: Coronary Disease-Associated Artery/Lesion type: [place] artery [place] vs. transplanted heart: [place] heart Associated angina: without angina Qualified Code(s): I25.10 - Atherosclerotic heart disease of [place] coronary artery without angina pectoris (5) Paroxysmal atrial fibrillation Code(s): I48.0 - PAROXYSMAL ATRIAL FIBRILLATION (6) Sick sinus syndrome due to sinoatrial node dysfunction Code(s): I49.5 - SICK SINUS SYNDROME (7) Systolic dysfunction Code(s): I51.9 - HEART DISEASE, UNSPECIFIED (8) Cardiac pacemaker Code(s): Z95.0 - PRESENCE OF CARDIAC PACEMAKER (9) Anemia Code(s): D64.9 - ANEMIA, UNSPECIFIED Qualifiers: Anemia type: other cause Other causes of anemia: other cause, not classified Qualified Code(s): D64.89 - Other specified anemias (10) Chronic anticoagulation Code(s): Z79.01 - PENITENTIARY (CURRENT) USE OF ANTICOAGULANTS (11) CKD (chronic kidney disease) Code(s): N18.9 - CHRONIC KIDNEY DISEASE, UNSPECIFIED Assessment/Plan 05/27/2019 Mild decreased LVEF 45-50%, mod LAE, normal RV size and fxn, mild MR , TR RVSP 32 mmHg, pacemaker lead 01/07/2017 Adenosine Myoview: No ischemia, LVEF 70% 1. Pre-procedure CV evaluation 2. Anemia with underlying hepatic flexure mass r/o UGI source post 1 U pRBC 3. LV systolic dysfunction 4. Sinus node dysfunction with AV Block s/p Medtronic dual chamber pacemaker 5. PAF->SR off Xarelto 6. Hypertensive cardiovascular disease 7. Type 2 DM 8. Hyperlipidemia 9. Acute on CKD 3 improving P:1. Given absence of symptoms of acute coronary syndrome, decompensated CHF or malignant arrhythmia, may proceed with planned EGD from CV-standpoint w/o further testing, holding Xarelto 2 days prior and resume once post procedure hemostasis assured 2. Continue Lisinopril 5 qd, Toprol XL 25 qd, Lipitor 10 qhs as hemodynamics tolerate, GI protection 3. Transfuse pRBC to maintain Hgb>8.0
[2019-08-05 09:25] LABS: HEMATOCRIT 26.9 % (32.4-45.2); HEMOGLOBIN 8.9 GM/dL (10.7-15.3); MCH 27.7 pg (25.7-33.7); MCHC 33.1 g/dl (32.0-36.0); MEAN CELL VOLUME 83.8 fl (80-96); MEAN PLT VOLUME 10.2 fl (7.5-11.1); PLATELET COUNT 207 K/MM3 (134-434); RDW 14.9 % (11.6-15.6)
[2019-08-05] MEDS ORDERED: RANITIDINE HCL 150 MG TABLET (FP) PO SCH (10:00)
[2019-08-05 10:05] LABS: BLOOD UREA NITROGEN 28.1 mg/dL (7-18); CALCIUM 8.7 mg/dL (8.5-10.1); CREATININE 1.4 mg/dL (0.55-1.3); POTASSIUM 4.6 mmol/L (3.5-5.1)
[2019-08-05] MEDS: FLUTICASONE PROP 0.05% 16 GM NASAL SPRAY NS SCH ×2 (10:06→21:47)
[2019-08-05] MEDS: DOCUSATE SODIUM 100 MG CAPSULE (FP) PO SCH (10:07)
[2019-08-05] MEDS: levETIRAcetam 500 MG TABLET (FP) PO SCH (10:07)
[2019-08-05] MEDS: metoPROLOL SUCCINATE 25 MG TAB.SR.24H (FP) PO SCH (10:07)
[2019-08-05] MEDS: LISINOPRIL 5 MG TABLET (FP) PO SCH (10:07)
[2019-08-05] MEDS: PANTOPRAZOLE 40 MG TABLET (FP) PO SCH ×2 (10:07→21:47)
[2019-08-05] MEDS: ALLOPURINOL 300 MG TABLET (FP) PO SCH (10:07)
[2019-08-05] MEDS: PREGABALIN 50 MG CAPSULE PO SCH (10:07)
--- NOTE | 2019-08-05 10:48 | PN ---
Physical Exam: Progress Note: Seen and examined, discussed at length with resident team. Patient physical examination and historical findings independently confirmed. Independently reviewed all labs and diagnostics unless indicated. No new complaints today, remains stable on the floor. Does not note any melena. We will continue the p.o. Protonix per GI instructions. Pending EGD ( needed to be delayed as was on xarelto with CKD). Discussed with end user consultant. Objective: VS, Labs, imaging reviewed NAD, AAO, resting in bed RRR s1/2 no mgr NT ND +BS CN2-12 wnl, no fnd Normal mood, appropriate behavior Problems include: -GIB (likely lower) -Colon Cancer -Anemia 2/2 acute on chronic blood loss -P-AF on Xarelto -SSS s/p PPM -Hx CVA -Hx CAD (not on ASA) -Need for EGD -CKD-III (Cr. 1.5; consult nephrology in AM) -Acute on chronic constipation (likely secondary to tumor) -Mild systolic CHF, not in exacerbation Full Code Pending procedure; if negative may DC after procedure per GI Visit type - Emergency Visit Emergency Visit: Yes ED Registration Date: 08/03/19 Care time: The patient presented to the Emergency Department on the above date and was hospitalized for further evaluation of their emergent condition. - New Patient This patient is new to me today: No - Critical Care Critical Care patient: No
--- NOTE | 2019-08-05 11:38 | PN.GI ---
GI Progress Note Subjective: No bleeding + constipation No abdominal pain - Objective Vital Signs: Vital Signs Temperature 98.0 F 08/05/19 10:00 Pulse Rate 64 08/05/19 10:00 Respiratory Rate 18 08/05/19 10:00 Blood Pressure 115/51 L 08/05/19 10:00 O2 Sat by Pulse Oximetry (%) 94 L 08/04/19 21:00 Constitutional: Calm Eyes: No: Sclera Icterus Cardiovascular: Yes: Pulse Irregular Respiratory: Yes: CTA Bilaterally Gastrointestinal Inspection: No: Distention ...Auscultate: Yes: Normoactive Bowel Sounds ...Palpate: Yes: Soft. No: Hepatomegaly, Splenomegaly, Tenderness ...Percussion: No: Tympanitic Neurological: Yes: Alert Labs: CBC, BMP 08/05/19 08:13 08/05/19 08:13 INR, PTT INR 1.15 (0.83-1.09) H 08/03/19 13:00 Problem List - Problems (1) Anemia Assessment/Plan: No overt bleeding Russell has been on hold. Plan for EGD 08/06 Code(s): D64.9 - ANEMIA, UNSPECIFIED Qualifiers: Anemia type: other cause Other causes of anemia: other cause, not classified Qualified Code(s): D64.89 - Other specified anemias (2) Constipation Assessment/Plan: D/C'd colace MiraLAX 17g in AM Senna 2 tabs in PM Code(s): K59.00 - CONSTIPATION, UNSPECIFIED
[2019-08-05] MEDS ORDERED: SENNOSIDES 8.6MG TABLET (FP) PO PRN (11:48)
[2019-08-05] MEDS: ATORVASTATIN CA 10 MG TABLET (FP) PO SCH (21:47)
[2019-08-06 07:22] LABS: BASO % 0.8 % (0-2.0); EOS % 4.3 % (0-4.5); HEMATOCRIT 26.6 % (32.4-45.2); HEMOGLOBIN 9.1 GM/dL (10.7-15.3); LYMPH % 16.9 % (8-40); MCH 28.8 pg (25.7-33.7); MCHC 34.1 g/dl (32.0-36.0); MEAN CELL VOLUME 84.3 fl (80-96); MEAN PLT VOLUME 10.1 fl (7.5-11.1); MONO % 18.7 % (3.8-10.2); NEUT % 59.3 % (42.8-82.8); PLATELET COUNT 188 K/MM3 (134-434); RBC 3.16 M/mm3 (3.60-5.2); RDW 15.1 % (11.6-15.6); WHITE BLOOD COUNT 5.1 K/mm3 (4.0-10.0)
--- NOTE | 2019-08-06 07:23 | PN ---
Progress Note (short form) - Note Progress Note: Seen and examined, discussed at length with resident team. Patient physical examination and historical findings independently confirmed. Independently reviewed all labs and diagnostics unless indicated. No new complaints today, remains stable on the floor. Does not note any melena. We will continue the p.o. Protonix per GI instructions. Pending procedure. If she is stable post EGD with no new findings she may followup with her primary GI and be discharged home pending recovery from anesthesia successfully 10 sys ROS done and negative aside from HPI Objective: VS, Labs, imaging reviewed NAD, AAO, resting in bed RRR s1/2 no mgr NT ND +BS CN2-12 wnl, no fnd Normal mood, appropriate behavior Pending review of EGD Problems include: -GIB (likely lower) -Colon Cancer -Anemia 2/2 acute on chronic blood loss -P-AF on Xarelto -SSS s/p PPM -Hx CVA -Hx CAD (not on ASA) -Need for EGD -CKD-III (Cr. 1.5; consult nephrology in AM) -Acute on chronic constipation (likely secondary to tumor) -Mild systolic CHF, not in exacerbation Agree with resident assessment and plan as documented in DCS.
[2019-08-06 08:08] LABS: INR 1.25 (0.83-1.09); PROTHROMBIN TIME (PATIENT) 14.8 SEC (9.7-13.0)
[2019-08-06] MEDS ORDERED: POLYETHYLENE GLYCOL 3350 119 GM BTL PO SCH (10:00)
[2019-08-06] MEDS: LISINOPRIL 5 MG TABLET (FP) PO SCH (10:10)
[2019-08-06] MEDS: PANTOPRAZOLE 40 MG TABLET (FP) PO SCH (10:10)
[2019-08-06] MEDS: FLUTICASONE PROP 0.05% 16 GM NASAL SPRAY NS SCH (10:10)
[2019-08-06] MEDS: ALLOPURINOL 300 MG TABLET (FP) PO SCH (10:10)
[2019-08-06] MEDS: metoPROLOL SUCCINATE 25 MG TAB.SR.24H (FP) PO SCH (10:10)
[2019-08-06] MEDS: levETIRAcetam 500 MG TABLET (FP) PO SCH (10:10)
[2019-08-06] MEDS: PREGABALIN 50 MG CAPSULE PO SCH (10:10)
--- NOTE | 2019-08-06 10:55 | PN ---
Progress Note, Physician History of Present Illness: Denies further dark stools, dizzy and lightheadedness without chest pain, dyspnea or fatigue, planned for EGD 08/06. Hgb stable post transfusion. - Current Medication List Current Medications: Active Medications Allopurinol (Zyloprim -) 300 mg PO DAILY [facility] Last Admin: 08/06/19 10:10 Dose: 300 mg Atorvastatin Calcium (Lipitor -) 10 mg PO HS [facility] Last Admin: 08/05/19 21:47 Dose: 10 mg Fluticasone Propionate (Flonase -) 1 spray NS BID [facility] Last Admin: 08/06/19 10:10 Dose: 1 spray Levetiracetam (Keppra -) 500 mg PO DAILY [facility] Last Admin: 08/06/19 10:10 Dose: 500 mg Lisinopril (Prinivil) 5 mg PO DAILY [facility] Last Admin: 08/06/19 10:10 Dose: 5 mg Metoprolol Succinate (Toprol Xl -) 25 mg PO DAILY [facility] Last Admin: 08/06/19 10:10 Dose: 25 mg Pantoprazole Sodium (Protonix -) 40 mg PO BID [facility] Last Admin: 08/06/19 10:10 Dose: 40 mg Polyethylene Glycol (Miralax (For Daily Use) -) 17 gm PO DAILY [facility] Last Admin: 08/06/19 10:11 Dose: 17 gm Pregabalin (Lyrica -) 50 mg PO DAILY [facility] Last Admin: 08/06/19 10:10 Dose: 50 mg Senna (Senna -) 2 tab PO HS PRN PRN Reason: CONSTIPATION Last Admin: 08/05/19 21:47 Dose: 2 tab - Objective Vital Signs: Vital Signs Temperature 97.4 F L 08/06/19 09:39 Pulse Rate 76 08/06/19 09:39 Respiratory Rate 18 08/06/19 09:39 Blood Pressure 104/60 08/06/19 09:39 O2 Sat by Pulse Oximetry (%) 98 08/05/19 21:33 Constitutional: Yes: No Distress, Calm Neck: Yes: Supple Cardiovascular: Yes: Regular Rate and Rhythm Respiratory: Yes: Regular, CTA Bilaterally Gastrointestinal: Yes: Soft, Hypoactive Bowel Sounds Edema: No Labs: CBC, BMP 08/06/19 06:07 08/05/19 08:13 INR, PTT INR 1.25 (0.83-1.09) H 08/06/19 06:07 Problem List - Problems (1) Preprocedural cardiovascular examination Code(s): Z01.810 - ENCOUNTER FOR PREPROCEDURAL CARDIOVASCULAR EXAMINATION (2) Hypertensive cardiovascular disease Code(s): I11.9 - HYPERTENSIVE HEART DISEASE WITHOUT HEART FAILURE Qualifiers: Heart failure presence: without heart failure Qualified Code(s): I11.9 - Hypertensive heart disease without heart failure (3) Hyperlipidemia Code(s): E78.5 - HYPERLIPIDEMIA, UNSPECIFIED Qualifiers: Hyperlipidemia type: pure hypercholesterolemia Qualified Code(s): E78.00 - Pure hypercholesterolemia, unspecified; E78.0 - Pure hypercholesterolemia (4) Coronary artery disease Code(s): I25.10 - ATHSCL HEART DISEASE OF [place] CORONARY ARTERY W/O ANG PCTRS Qualifiers: Coronary Disease-Associated Artery/Lesion type: [place] artery [place] vs. transplanted heart: [place] heart Associated angina: without angina Qualified Code(s): I25.10 - Atherosclerotic heart disease of [place] coronary artery without angina pectoris (5) Paroxysmal atrial fibrillation Code(s): I48.0 - PAROXYSMAL ATRIAL FIBRILLATION (6) Sick sinus syndrome due to sinoatrial node dysfunction Code(s): I49.5 - SICK SINUS SYNDROME (7) Systolic dysfunction Code(s): I51.9 - HEART DISEASE, UNSPECIFIED (8) Cardiac pacemaker Code(s): Z95.0 - PRESENCE OF CARDIAC PACEMAKER (9) Anemia Code(s): D64.9 - ANEMIA, UNSPECIFIED Qualifiers: Anemia type: other cause Other causes of anemia: other cause, not classified Qualified Code(s): D64.89 - Other specified anemias (10) Chronic anticoagulation Code(s): Z79.01 - 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 Pre-procedure CV evaluation planned for EGD 2. Anemia with underlying hepatic flexure mass r/o UGI source post 1 U pRBC 3. LV systolic dysfunction 4. Sinus node dysfunction with AV Block s/p Medtronic dual chamber pacemaker 5. PAF->SR off Xarelto 6. Hypertensive cardiovascular disease 7. Type 2 DM 8. Hyperlipidemia 9. Acute on CKD 3 improving P:1. Given absence of symptoms of acute coronary syndrome, decompensated CHF or malignant arrhythmia, may proceed with planned EGD from CV-standpoint w/o further testing, holding Xarelto 2 days prior and resume once post procedure hemostasis assured 2. Continue Lisinopril 5 qd, Toprol XL 25 qd, Lipitor 10 qhs as hemodynamics tolerate, GI protection 3. Transfuse pRBC to maintain Hgb>8.0
--- NOTE | 2019-08-06 15:09 | PN ---
Progress Note (short form) - Note Progress Note: EGD complete. Report left in procedural section of physical chart and will be scanned into [facility] Problem List - Problems (1) Anemia Code(s): D64.9 - ANEMIA, UNSPECIFIED Qualifiers: Anemia type: other cause Other causes of anemia: other cause, not classified Qualified Code(s): D64.89 - Other specified anemias (2) Constipation Code(s): K59.00 - CONSTIPATION, UNSPECIFIED
--- NOTE | 2019-08-06 17:59 | DS ---
Physical Exam: SUBJECTIVE: Pt without acute events overnight. No complaints today. Wondering about timing of EGD today. Pt remains NPO since midnight. OBJECTIVE: Vital Signs Period Temp Pulse Resp BP Sys/Bone Pulse Ox Last 24 Hr 97.4 F-98.7 F 60-76 16-20 95-137/46-95 98-100 PHYSICAL EXAM GENERAL: NAD, awake, alert, and fully oriented HEENT: NC/AT, MIKE, slight pallor, MMM NECK: No JVD LUNGS: CTA bilaterally, no wheezes, no crackles, no accessory muscle use. HEART: RRR, S1, S2 without murmur ABDOMEN: Soft, NT/ND, normoactive bowel sounds, no guarding EXTREMITIES: 2+ pulses, warm, well-perfused, no edema. PSYCH: Normal mood, normal affect. SKIN: Warm, dry, no jaundice, no rashes or lesions noted. LABS Laboratory Results - last 24 hr 08/03/19 08/05/19 08/06/19 14:00 21:44 05:25 WBC RBC Hgb Hct MCV MCH MCHC RDW Plt Count MPV Absolute Neuts (auto) Neutrophils % Lymphocytes % Monocytes % Eosinophils % Basophils % Nucleated RBC % PT with INR INR POC Glucometer 171 110 Blood Type O POSITIVE Antibody Screen Negative Crossmatch See Detail 08/06/19 08/06/19 08/06/19 06:07 06:07 11:23 WBC 5.1 RBC 3.16 L Hgb 9.1 L Hct 26.6 L MCV 84.3 MCH 28.8 MCHC 34.1 RDW 15.1 Plt Count 188 MPV 10.1 Absolute Neuts (auto) 3.0 Neutrophils % 59.3 Lymphocytes % 16.9 Monocytes % 18.7 H Eosinophils % 4.3 Basophils % 0.8 Nucleated RBC % 0 PT with INR 14.80 H INR 1.25 H POC Glucometer 117 Blood Type Antibody Screen Crossmatch 08/06/19 17:19 WBC RBC Hgb Hct MCV MCH MCHC RDW Plt Count MPV Absolute Neuts (auto) Neutrophils % Lymphocytes % Monocytes % Eosinophils % Basophils % Nucleated RBC % PT with INR INR POC Glucometer 100 Blood Type Antibody Screen Crossmatch Active Medications Allopurinol (Zyloprim -) 300 mg PO DAILY [facility] Last Admin: 08/06/19 10:10 Dose: 300 mg Atorvastatin Calcium (Lipitor -) 10 mg PO HS [facility] Last Admin: 08/05/19 21:47 Dose: 10 mg Fluticasone Propionate (Flonase -) 1 spray NS BID [facility] Last Admin: 08/06/19 10:10 Dose: 1 spray Levetiracetam (Keppra -) 500 mg PO DAILY [facility] Last Admin: 08/06/19 10:10 Dose: 500 mg Lisinopril (Prinivil) 5 mg PO DAILY [facility] Last Admin: 08/06/19 10:10 Dose: 5 mg Metoprolol Succinate (Toprol Xl -) 25 mg PO DAILY [facility] Last Admin: 08/06/19 10:10 Dose: 25 mg Pantoprazole Sodium (Protonix -) 20 mg PO DAILY [facility] Polyethylene Glycol (Miralax (For Daily Use) -) 17 gm PO DAILY [facility] Last Admin: 08/06/19 10:11 Dose: 17 gm Pregabalin (Lyrica -) 50 mg PO DAILY [facility] Last Admin: 08/06/19 10:10 Dose: 50 mg Senna (Senna -) 2 tab PO HS PRN PRN Reason: CONSTIPATION Last Admin: 08/05/19 21:47 Dose: 2 tab IMAGING: CXR 08/03: No acute pathology ECG: AV dual-paced rhythm ABNORMAL ECG NO PREVIOUS ECGS AVAILABLE QTc 467ms HOSPITAL COURSE: Date of Admission:08/03/19 Date of Discharge: 08/06/19 Pt was admitted on 08/03/19 due to symptomatic anemia noted at 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 Pt was confirmed to have 7.1 Hgb on admission with symptoms of lightheadedness and pallor. Pt received 1UPRBC and lower GI bleed was ruled out as above. Pt's Xarelto was withheld throughout her admission and she was seen by cardiology for pre-procedural clearance for EGD performed by gastroenterology. Pt's H/H remained stable and pt underwent EGD without complication. It was noted she had a hiatal hernia without any evidence of bleeding noted. Pt recovered from her EGD and was recommended to follow-up as an outpatient. Pt was recommended to restart her Xarelto due to her risk factors and to continue on her home regiments. Pt is being discharged back to her NH in stable condition with instructions to follow-up with GI as an outpatient as well as to continue with follow-up for her planned procedure in August at [facility]. Minutes to complete discharge: 35 <Ruy Cornell - Last Filed: 08/06/19 18:36> Physical Exam: SUBJECTIVE: Patient seen and examined OBJECTIVE: Vital Signs Period Temp Pulse Resp BP Sys/Bone Pulse Ox Last 24 Hr 97.8 F-98.7 F 60-64 16-20 95-137/46-95 100-100 PHYSICAL EXAM GENERAL: The patient is awake, alert, and fully oriented, in no acute distress. HEAD: Normal with no signs of trauma. EYES: PERRL, extraocular movements intact, sclera anicteric, conjunctiva clear. ENT: Ears normal, nares patent, oropharynx clear without exudates, moist mucous membranes. NECK: Trachea midline, full range of motion, supple. LUNGS: Breath sounds equal, clear to auscultation bilaterally, no wheezes, no crackles, no accessory muscle use. HEART: Regular rate and rhythm, S1, S2 without murmur, rub or gallop. ABDOMEN: Soft, nontender, nondistended, normoactive bowel sounds, no guarding, no rebound, no hepatosplenomegaly, no masses. EXTREMITIES: 2+ pulses, warm, well-perfused, no edema. NEUROLOGICAL: Cranial nerves II through XII grossly intact. Normal speech, gait not observed. PSYCH: Normal mood, normal affect. SKIN: Warm, dry, normal turgor, no rashes or lesions noted. LABS Laboratory Results - last 24 hr 08/03/19 08/06/19 14:00 17:19 POC Glucometer 100 Blood Type O POSITIVE Antibody Screen Negative Crossmatch See Detail HOSPITAL COURSE: Date of Admission:08/03/19 Date of Discharge: 08/07/19 <Reji De Anda - Last Filed: 08/07/19 12:01> Discharge Summary Problems reviewed: Yes Reason For Visit: GI BLEED ANEMIA Current Active Problems Anemia (Acute) CKD (chronic kidney disease) (Acute) Cardiac pacemaker (Acute) Chronic anticoagulation (Acute) Constipation (Acute) Coronary artery disease (Acute) GI bleed (Acute) Hyperlipidemia (Acute) Hypertensive cardiovascular disease (Acute) Paroxysmal atrial fibrillation (Acute) Preprocedural cardiovascular examination (Acute) Sick sinus syndrome due to sinoatrial node dysfunction (Acute) Systolic dysfunction (Acute) - Home Medications Comprehensive Discharge Medication List: Ambulatory Orders Allopurinol 300 mg PO DAILY 03/10/19 Famotidine 20 mg PO DAILY 03/10/19 Fluticasone Prop 0.05% Nasal [Flonase -] 1 spray PO ASDIR 03/10/19 Levetiracetam [Keppra] 500 mg PO DAILY 03/10/19 Lisinopril 5 mg PO DAILY 03/10/19 Metoprolol Succinate [Toprol Xl] 25 mg PO DAILY 03/10/19 Pregabalin [Lyrica] 50 mg PO DAILY 03/10/19 Rivaroxaban [Xarelto] 15 mg PO DAILY 03/10/19 Simvastatin 10 mg PO HS 03/10/19 <Ruy Cornell - Last Filed: 08/06/19 18:36> - Home Medications Comprehensive Discharge Medication List: Ambulatory Orders Allopurinol 300 mg PO DAILY 03/10/19 Famotidine 20 mg PO DAILY 03/10/19 Fluticasone Prop 0.05% Nasal [Flonase -] 1 spray PO ASDIR 03/10/19 Levetiracetam [Keppra] 500 mg PO DAILY 03/10/19 Lisinopril 5 mg PO DAILY 03/10/19 Metoprolol Succinate [Toprol Xl] 25 mg PO DAILY 03/10/19 Pregabalin [Lyrica] 50 mg PO DAILY 03/10/19 Rivaroxaban [Xarelto] 15 mg PO DAILY 03/10/19 Simvastatin 10 mg PO HS 03/10/19 <Reji De Anda - Last Filed: 08/07/19 12:01> Condition: Improved - Instructions Diet, Activity, Other Instructions: You were seen here due to a drop in your blood counts. Your counts were monitored and stayed elevated after the one transfusion. You had an EGD which showed a hiatal hernia. MEDICATIONS: Please resume all medications as you have been taking them at home. Please AVOID all NSAIDs including ibuprofen, advil, aleve, naproxen Follow-up: Please follow-up with your primary care physician within 1 week Please follow-up with your [facility] surgical team for your planned August surgery Please follow-up with Dr. Tori Traore. DIET: Diabetic and salt controlled diet to be continued Referrals: Cuco Traore DO [Staff Physician] - Disposition: HOME This patient is new to me today: No Emergency Visit: Yes ED Registration Date: 08/03/19 Care time: The patient presented to the Emergency Department on the above date and was hospitalized for further evaluation of their emergent condition. Critical Care patient: No - Discharge Referral Referred to [facility] Med [facility] Yes Physician Referral: Dwayne Traore DO (GI) <Ruy Cornell - Last Filed: 08/06/19 18:36> ATTENDING PHYSICIAN STATEMENT I saw and evaluated the patient. I reviewed the resident's note and discussed the case with the resident. I agree with the resident's findings and plan as documented. SUBJECTIVE: OBJECTIVE: ASSESSMENT AND PLAN: <Ruy Cornell - Last Filed: 08/06/19 18:36> ATTENDING PHYSICIAN STATEMENT I saw and evaluated the patient. I reviewed the resident's note and discussed the case with the resident. I agree with the resident's findings and plan as documented. Doesnt require PO protonix EGD with hiatal hernia; please see report for full details. D/W team. 33 mins. <Reji De Anda - Last Filed: 08/07/19 12:01>
[2019-08-06 18:42] VITALS: BP 123/61; PULSE 64; TEMP 97.8
[2019-08-07] MEDS ORDERED: PANTOPRAZOLE 20 MG TABLET (FP) PO SCH (10:00)
== END 2019-08-06 21:54 | disposition home or self-care (01) | DRG 378 ==
LOC: JER 11:47 → JERBED 13:18 → J8W 17:05
PROVIDERS: ADMIT Internal Medicine; ATTEND Internal Medicine
PROC: 30233N1 Transfusion of Nonautologous Red Blood Cells into Peripheral Vein, Percutaneous Approach (ICD-10-PCS; 2019-08-03)
PROC: 0DJ08ZZ Inspection of Upper Intestinal Tract, Via Natural or Artificial Opening Endoscopic (ICD-10-PCS; principal; 2019-08-06 13:30)
DX: K92.2 Gastrointestinal hemorrhage, unspecified (principal); I13.0 Hypertensive heart and chronic kidney disease with heart failure and stage 1 through stage 4 chronic kidney disease, or unspecified chronic kidney disease; I50.20 Unspecified systolic (congestive) heart failure; D62 Acute posthemorrhagic anemia; I50.22 Chronic systolic (congestive) heart failure; J98.11 Atelectasis; I48.91 Unspecified atrial fibrillation; N18.3 Chronic kidney disease, stage 3 (moderate); E11.42 Type 2 diabetes mellitus with diabetic polyneuropathy; E11.22 Type 2 diabetes mellitus with diabetic chronic kidney disease; E78.00 Pure hypercholesterolemia, unspecified; K44.9 Diaphragmatic hernia without obstruction or gangrene; R91.8 Other nonspecific abnormal finding of lung field; I48.0 Paroxysmal atrial fibrillation; I44.7 Left bundle-branch block, unspecified; D63.8 Anemia in other chronic diseases classified elsewhere; D64.89 Other specified anemias; M10.9 Gout, unspecified; G47.33 Obstructive sleep apnea (adult) (pediatric); K59.09 Other constipation; Z95.0 Presence of cardiac pacemaker; Z96.653 Presence of artificial knee joint, bilateral; Z85.038 Personal history of other malignant neoplasm of large intestine; Z85.42 Personal history of malignant neoplasm of other parts of uterus; Z79.01 Long term (current) use of anticoagulants
CPT/HCPCS: 36415; 36430; 36511; 71045-TC-FY; 80048; 80053; 82272; 82550; 82962; 83735; 84100; 84484; 85025; 85027; 85610; 85730; 86850; 86900; 86901; 86922; 93005; 93010; 99283-25; G0008; P9038; P9058; Q2036

== ENCOUNTER 2019-08-10 11:06 | Emergency (ER) | payer OTHER ==
[2019-08-10 11:44] VITALS: BMI 25.8
--- NOTE | 2019-08-10 12:04 | PDOC ---
History of Present Illness - General Chief Complaint: Abnormal Lab Results (Outside) Stated Complaint: Abnormal Lab Results (Outside) Time Seen by Provider: 08/10/19 12:03 - History of Present Illness Initial Comments: 08/10/19 14:12 83 y/o female with a history of HLD, DM, CKD, neuropathy, SAUL, CHF, afib on xarelto, and colon cancer sent from [facility] [place] for hgb level of 6.5 requiring blood transfusion from blood drawn yesterday. Patient feels fine, asymptomatic. Labs on the paperwork shows Hgb A1c 6.5, not hgb. Past History - Past Medical History Allergies/Adverse Reactions: Allergies Allergy/AdvReac Type Severity Reaction Status Date / Time morphine Allergy Nausea Verified 08/10/19 11:30 Home Medications: Ambulatory Orders Allopurinol 300 mg PO DAILY 03/10/19 Famotidine 20 mg PO DAILY 03/10/19 Fluticasone Prop 0.05% Nasal [Flonase -] 1 spray PO ASDIR 03/10/19 Levetiracetam [Keppra] 500 mg PO DAILY 03/10/19 Lisinopril 5 mg PO DAILY 03/10/19 Metoprolol Succinate [Toprol Xl] 25 mg PO DAILY 03/10/19 Pregabalin [Lyrica] 50 mg PO DAILY 03/10/19 Rivaroxaban [Xarelto] 15 mg PO DAILY 03/10/19 Simvastatin 10 mg PO HS 03/10/19 Anemia: Yes (PERNICIOUS) Cancer: Yes (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/RAD) Cardiac Disorders: (ATRIAL FIBRILATION,CHF) COPD: Yes (CHF) Diabetes: Yes HTN: Yes Hypercholesterolemia: Yes Thyroid Disease: Yes (THYROID NODULES) - Surgical History Appendectomy: Yes Lung Surgery: Yes (LOBECTOMY SECONDARY TO LUNG METASTASES) Orthopedic Surgery: Yes (BILATERAL KNEE REPLACEMENTS) - Psycho Social/Smoking Cessation Hx Smoking History: Unknown if ever smoked Hx Alcohol Use: No Drug/Substance Use Hx: No Substance Use Type: None Review of Systems - Review of Systems Able to Perform ROS?: Yes Is the patient limited Lebanese proficient: No Constitutional: No: Symptoms Reported HEENTM: No: Symptoms Reported Respiratory: No: Symptoms reported Cardiac (ROS): No: Symptoms Reported ABD/GI: No: Symptoms Reported : No: Symptoms Reported Musculoskeletal: No: Symptoms Reported Integumentary: No: Symptoms Reported Neurological: No: Symptoms reported All Other Systems: Reviewed and Negative *Physical Exam - Vital Signs Last Vital Signs Temp Pulse Resp BP Pulse Ox 97.6 F 59 L 20 105/61 95 08/10/19 11:41 08/10/19 11:41 08/10/19 11:41 08/10/19 11:41 08/10/19 11:41 - Physical Exam General Appearance: Yes: Nourished, Appropriately Dressed. No: Apparent Distress HEENT: positive: EOMI, MEGAN, Normal ENT Inspection Respiratory/Chest: positive: Lungs Clear, Normal Breath Sounds. negative: Chest Tender, Respiratory Distress Cardiovascular: positive: Regular Rhythm, Regular Rate, S1, S2 Gastrointestinal/Abdominal: positive: Normal Bowel Sounds, Flat, Soft. negative : Tender Musculoskeletal: positive: Normal Inspection. negative: CVA Tenderness Extremity: positive: Normal Capillary Refill, Normal Inspection, Normal Range of Motion Integumentary: positive: Normal Color, Dry, Warm Neurologic: positive: Fully Oriented, Alert, Normal Mood/Affect, Normal Response , Motor Strength 5/5 ED Treatment Course - LABORATORY CBC & Chemistry Diagram: 08/10/19 12:15 08/10/19 12:15 Medical Decision Making - Medical Decision Making 08/10/19 14:52 Confirmed that hgb was 8.5 and 6.5 (that was her A1c). Will send back to facility. Spoke to Nurse Coordinator Of Health Services there. Discharge - Discharge Information Problems reviewed: Yes Clinical Impression/Diagnosis: Abnormal laboratory test result Condition: Good Disposition: HOME - Admission No - Follow up/Referral Referrals: Deacon Quiles MD [Primary Care Provider] - - Patient Discharge Instructions Patient Printed Discharge Instructions: Anemia Additional Instructions: Come back to the emergency department for any new, worsening or concerning symptoms. - Post Discharge Activity
--- NOTE | 2019-08-10 12:05 | PDOC ---
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 HEAD: Normal EYES: PERRLA, EOMI, sclera anicteric, conjunctiva clear. ENT: Ears normal, nares patent, oropharynx clear without exudates. Moist mucous membranes. NECK: Normal range of motion, supple LUNGS: Breath sounds equal, clear to auscultation bilaterally. No wheezes, and no crackles. HEART:Regular rate and rhythm, normal S1 and S2 without murmur, rub or gallop. ABDOMEN: Soft, nontender, normoactive bowel sounds. EXTREMITIES: Normal range of motion, no edema. NEUROLOGICAL: Cranial nerves II through XII grossly intact. Normal speech. No focal neurological deficits. MUSCULOSKELETAL: Back non-tender to palpation SKIN: Warm, Dry, normal turgor, no rashes or lesions noted. 08/10/19 14:10 - Medical Decision Making 08/10/19 12:04 EKG - A paced at 60 bpm, RBBB, no ST elevation or depression 08/10/19 13:58 Laboratory Tests 08/05/19 08/06/19 08/10/19 08:13 06:07 12:15 WBC 5.1 Hgb 9.1 L Hct 26.6 L Plt Count 188 PT with INR 14.80 H INR 1.25 H PTT (Actin FS) 37.5 H BUN 28.1 H Creatinine 1.4 H Urine Blood Urine Nitrite Ur Leukocyte Esterase 08/10/19 08/10/19 08/10/19 12:15 12:15 12:24 WBC 4.0 Hgb 8.2 L Hct 25.7 L Plt Count 193 PT with INR INR PTT (Actin FS) BUN 38.0 H Creatinine 1.6 H Urine Blood Negative Urine Nitrite Negative Ur Leukocyte Esterase Negative 08/10/19 14:[address] Wilson slight drop in hgb from 4 days ago BUT given her multiple medical problems may benefit from transfusion Dr. Wilson has no additional recommendation at this time 08/10/19 15:09 Pt will be d/c'ed to the correction
[2019-08-10 12:29] LABS: BASO % 1.3 % (0-2.0); EOS % 3.8 % (0-4.5); HEMATOCRIT 25.7 % (32.4-45.2); HEMOGLOBIN 8.2 GM/dL (10.7-15.3); LYMPH % 20.1 % (8-40); MCH 26.9 pg (25.7-33.7); MCHC 31.9 g/dl (32.0-36.0); MEAN CELL VOLUME 84.2 fl (80-96); MEAN PLT VOLUME 10.7 fl (7.5-11.1); MONO % 19.5 % (3.8-10.2); NEUT % 55.3 % (42.8-82.8); PLATELET COUNT 193 K/MM3 (134-434); RBC 3.05 M/mm3 (3.60-5.2); RDW 15.3 % (11.6-15.6)
[2019-08-10 12:35] LABS: PH,URINE 5.5 (5.0-8.0); URINE APPEARANCE CLEAR; URINE BILIRUBIN NEGATIVE (NEGATIVE); URINE COLOR YELLOW; URINE GLUCOSE (UA) NEGATIVE (NEGATIVE); URINE KETONE NEGATIVE (NEGATIVE); URINE LEUK ESTERASE NEGATIVE (NEGATIVE); URINE NITRITE NEGATIVE (NEGATIVE); URINE PROTEIN NEGATIVE (NEGATIVE); URINE UROBILINOGEN 0.2 mg/dL (0.2-1.0)
[2019-08-10 12:37] LABS: INR 1.25 (0.83-1.09); PROTHROMBIN TIME (PATIENT) 14.8 SEC (9.7-13.0)
[2019-08-10 12:40] LABS: ACTIVATED PTT 37.5 SECONDS (25.2-36.5)
[2019-08-10 12:56] LABS: BILIRUBIN,TOTAL 0.1 mg/dL (0.2-1); CALCIUM 8.8 mg/dL (8.5-10.1); CREATININE 1.6 mg/dL (0.55-1.3); POTASSIUM 4.6 mmol/L (3.5-5.1); TOT PROT 5.7 g/dl (6.4-8.2)
--- NOTE | 2019-08-10 14:45 | EKG ---
Test Reason : Blood Pressure : / mmHG Vent. Rate : 060 BPM Atrial Rate : 059 BPM P-R Int : 256 ms QRS Dur : 156 ms QT Int : 472 ms P-R-T Axes : 000 -85 037 degrees QTc Int : 472 ms POOR DATA QUALITY, INTERPRETATION MAY BE ADVERSELY AFFECTED Atrial-paced rhythm with prolonged AV conduction RIGHT BUNDLE BRANCH BLOCK LEFT ANTERIOR FASCICULAR BLOCK BIFASCICULAR BLOCK ABNORMAL ECG WHEN COMPARED WITH ECG OF 03-AUG-2019 12:16, (RBBB AND LEFT ANTERIOR FASCICULAR BLOCK) HAS REPLACED LEFT BUNDLE BRANCH BLOCK Confirmed by Juanjose Michael ([id number]) on 08/10/2019 2:45:07 PM Referred By: Confirmed By:Juanjose Michael
[2019-08-10 17:51] VITALS: BP 134/78; PULSE 74; TEMP 98.5
== END 2019-08-10 17:58 | disposition home or self-care (01) ==
LOC: JER 11:06
DX: Z00.00 Encounter for general adult medical examination without abnormal findings (principal); I25.10 Atherosclerotic heart disease of native coronary artery without angina pectoris; I13.0 Hypertensive heart and chronic kidney disease with heart failure and stage 1 through stage 4 chronic kidney disease, or unspecified chronic kidney disease; N18.9 Chronic kidney disease, unspecified; I50.9 Heart failure, unspecified; I48.91 Unspecified atrial fibrillation; Z79.01 Long term (current) use of anticoagulants; E11.22 Type 2 diabetes mellitus with diabetic chronic kidney disease; G62.9 Polyneuropathy, unspecified; G47.33 Obstructive sleep apnea (adult) (pediatric); Z85.038 Personal history of other malignant neoplasm of large intestine; Z85.42 Personal history of malignant neoplasm of other parts of uterus; Z85.118 Personal history of other malignant neoplasm of bronchus and lung; E04.1 Nontoxic single thyroid nodule; Z96.653 Presence of artificial knee joint, bilateral; Z90.2 Acquired absence of lung [part of]; Z88.5 Allergy status to narcotic agent
CPT/HCPCS: 36415; 80053; 81003; 85025; 85610; 85730; 86850; 86900; 86901; 93005; 93010; 99284-25

== ENCOUNTER 2019-10-15 20:30 | Inpatient (IN) | payer OTHER ==
--- NOTE | 2019-10-15 20:47 | PDOC ---
History of Present Illness - General Chief Complaint: Abnormal Lab Results (Outside) Stated Complaint: ABNORMAL HEMOGLOBIN Time Seen by Provider: 10/15/19 20:42 - History of Present Illness Initial Comments: 10/15/19 20:47 HPI: 83 y/o F with hx of HLD, DM, CKD, neuropathy, SAUL, CHF, Afib on Xarelto s/p PM, colon CA s/p right hemicolectomy [address] Ny Navarro at [facility] presenting with Hb 6.8 from [place]. She reports black stools over the past 2 weeks that she hasnt mentioned to anyone. Her blood was tested 2 days ago and results showed anemia. She reports LH with exertion or when standing up. She denies AMATO, chest pain, SOB, palpitations, abd pain, emesis. She reports end-stream dysuria but no hematuria. PMHx: as noted above ROS: as noted SHx: Denies tobacco use; occ alcohol use; no rec drugs Allergies: NKDA ROS: GENERAL/CONSTITUTIONAL: No fever or chills. No weakness. HEAD, EYES, EARS, NOSE AND THROAT: No change in vision. No ear pain or discharge. No sore throat. CARDIOVASCULAR: No chest pain or shortness of breath RESPIRATORY: No cough, wheezing, or hemoptysis. GASTROINTESTINAL: No nausea, vomiting, diarrhea or constipation. GENITOURINARY: No dysuria, frequency, or change in urination. MUSCULOSKELETAL: No joint or muscle swelling or pain. No neck or back pain. SKIN: No rash NEUROLOGIC: No headache, vertigo, loss of consciousness, or change in strength/ sensation. ENDOCRINE: No increased thirst. No abnormal weight change HEMATOLOGIC/LYMPHATIC: No anemia, easy bleeding, or history of blood clots. ALLERGIC/IMMUNOLOGIC: No hives or skin allergy. PE: GENERAL: Awake, alert, and fully oriented, no acute distress HEAD: No signs of trauma, normocephalic, atraumatic EYES: EOMI, sclera anicteric, conjunctival pallor ENT: Auricles normal inspection, hearing grossly normal, nares patent, oropharynx clear without exudates. Moist mucosa NECK: Normal ROM, no lymphadenopathy LUNGS: No increased work of breathing, symmetrical chest rise, clear to auscultation bilaterally, no wheezes, crackles or rhonchi HEART: Regular rate and rhythm, normal S1 and S2, no murmur, peripheral pulses 2 + and equal bilaterally. ABDOMEN: Soft, nondistended, midline incision well healed with no signed of infection, mild ttp at RLQ near surigcal site, normoactive bowel sounds. No guarding, no rebound. No masses. No CVAT : no external masses at anus, no hemorrhoids, no angela blood in diaper, nontender on MARIAM, no hemorrhoids palpated, no fissures, brown stool on gloved exam MUSCULOSKELETAL: Normal inspection, FROM NEUROLOGICAL: Cranial nerves II through XII grossly intact. Normal speech, normal gait, no focal sensorimotor deficits SKIN: Warm, Dry, normal turgor, no rashes or lesions noted Past History - Past Medical History Allergies/Adverse Reactions: Allergies Allergy/AdvReac Type Severity Reaction Status Date / Time morphine Allergy Nausea Verified 08/10/19 11:30 Home Medications: Ambulatory Orders Allopurinol 300 mg PO DAILY 03/10/19 Famotidine 20 mg PO DAILY 03/10/19 Fluticasone Prop 0.05% Nasal [Flonase -] 1 spray PO ASDIR 03/10/19 Levetiracetam [Keppra] 500 mg PO DAILY 03/10/19 Lisinopril 5 mg PO DAILY 03/10/19 Metoprolol Succinate [Toprol Xl] 25 mg PO DAILY 03/10/19 Pregabalin [Lyrica] 50 mg PO DAILY 03/10/19 Rivaroxaban [Xarelto] 15 mg PO DAILY 03/10/19 Simvastatin 10 mg PO HS 03/10/19 Anemia: Yes (PERNICIOUS) Cancer: Yes (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/RAD) Cardiac Disorders: (ATRIAL FIBRILATION,CHF) COPD: Yes (CHF) Diabetes: Yes HTN: Yes Hypercholesterolemia: Yes Thyroid Disease: Yes (THYROID NODULES) - Surgical History Appendectomy: Yes Lung Surgery: Yes (LOBECTOMY SECONDARY TO LUNG METASTASES) Orthopedic Surgery: Yes (BILATERAL KNEE REPLACEMENTS) - Psycho Social/Smoking Cessation Hx Smoking History: Unknown if ever smoked Hx Alcohol Use: No Drug/Substance Use Hx: No Substance Use Type: None ED Treatment Course - LABORATORY CBC & Chemistry Diagram: 10/15/19 21:50 10/15/19 21:50 Medical Decision Making - Medical Decision Making 10/15/19 22:46 83 y/o F with hx of HLD, DM, CKD, neuropathy, SAUL, CHF, Afib on Xarelto s/p PM, colon CA s/p right hemicolectomy [address] Ny Navarro at [facility] presenting with Hb 6.8 from NH associated with black stool and LH. VSS, AF. PE with conjunctival pallor and mild ttp at RLQ near surgical site. MARIAM with no angela flood or abnormal masses -cbc, cmp, coags, ua, ekg, cxr, t&s 10/15/19 22:58 Hb 7.0 will transfuse 2 units pRBC ekg: unchanged stool occult positive for blood will admit for anemia and GI bleed to Dr Keating med/surg Discharge - Discharge Information Problems reviewed: Yes Clinical Impression/Diagnosis: Anemia Qualifiers: Anemia type: unspecified type Qualified Code(s): D64.9 - Anemia, unspecified GI bleed Qualifiers: GI bleed type/associated pathology: unspecified gastrointestinal hemorrhage type Qualified Code(s): K92.2 - Gastrointestinal hemorrhage, unspecified Condition: Fair - Admission Yes - Follow up/Referral Referrals: Deacon Quiles MD [Primary Care Provider] - - Patient Discharge Instructions - Post Discharge Activity
--- NOTE | 2019-10-15 20:56 | PDOC ---
Attending Attestation - Resident Resident Name: Mayra Robles - ED Attending Attestation I have performed the following: I have examined & evaluated the patient, The case was reviewed & discussed with the resident, I agree w/resident's findings & plan - HPI HPI: 10/15/19 21:14. SHe feels dizzy when she stands up. Pt comes with black stools, s/p hemicolectomy x 1 mos ago. Done at [facility] by Dr. Kenna Navarro. Pt will likely be admitted for IV blood transfusion. - Physicial Exam PE: 10/15/19 21:58 Pt is afebrile; no rashes A+Ox3 no distress Pt is pale Pt has no abd tenderness; mild expected tenderness over the surgical area in the RLQ No flank pain. Pt has normal heart and lungs. bilat knee replacement scars calf spasms bilaterally; leg flexions 15-20 degrees bilaterally - Medical Decision Making 10/15/19 21:11 Pt will have general labs 10/15/19 22:30 Hb is 7.0 Pt will receive transfusion 2U PRBC here 10/15/19 22:31 Pt is on Xarelto and she has black stolls; she will be admitted for tranfusion and GI evaluation 10/15/19 22:56 INR is 2.0 chem is normal EKG unchanged from previous Heart Score/ECG Review - Randolph Randolph: Normal - P and ID Delta Wave(s) Present: No WPW: No - QRS Widened: LBBB (Pt ihas an atrial pacemaker) Poor R Wave Progression: No Q Wave Present: No - ST and T Early Repolarization: No Non Specific ST-T Wave changes: No Flattened T Waves: No Prolonged Q-T Interval: No - ECG Impressions Normal ECG: No Non-specific ST Elevation: No Ischemic Changes: No Bradycardia: No Torsades ermelinda Pointes: No WPW: No
[2019-10-15 22:01] LABS: EOS % 3.3 % (0-4.5); HEMATOCRIT 20.9 % (32.4-45.2); LYMPH % 17.2 % (8-40); MCH 29.6 pg (25.7-33.7); MCHC 33.3 g/dl (32.0-36.0); MEAN CELL VOLUME 88.7 fl (80-96); MEAN PLT VOLUME 10.1 fl (7.5-11.1); MONO % 9.5 % (3.8-10.2); PLATELET COUNT 245 K/MM3 (134-434); RBC 2.36 M/mm3 (3.60-5.2); RDW 18.8 % (11.6-15.6); WHITE BLOOD COUNT 5.8 K/mm3 (4.0-10.0)
[2019-10-15 22:16] LABS: PROTHROMBIN TIME (PATIENT) 23.8 SEC (9.7-13.0)
[2019-10-15 22:18] LABS: ACTIVATED PTT 43.3 SECONDS (25.2-36.5)
[2019-10-15 22:34] LABS: ALBUMIN 3.1 g/dl (3.4-5.0); BILIRUBIN,TOTAL 0.2 mg/dL (0.2-1); CALCIUM 8.3 mg/dL (8.5-10.1); CREATININE 1.4 mg/dL (0.55-1.3); POTASSIUM 4.9 mmol/L (3.5-5.1)
[2019-10-15] MEDS ORDERED: ACETAMINOPHEN 325 MG TABLET (FP) PO PRN (23:59)
--- NOTE | 2019-10-16 00:12 | PN ---
Teaching Attending Note Name of Resident: Geeta Lopez ATTENDING PHYSICIAN STATEMENT I saw and evaluated the patient. I reviewed the resident's note and discussed the case with the resident. I agree with the resident's findings and plan as documented. SUBJECTIVE: This is an 83 year old woman with a history of hyperlipidemia, PAF, chronic systolic heart failure, pacemaker, type 2 DM, diabetic neuropathy, stage 3 CKD, anemia, uterine cancer, colon cancer, recent hemicolectomy, SAUL who was sent to the ED from [facility] for evaluation of black tarry stools with associated anemia and lightheadedness. She says that she has been having black stools for about 2 weeks. She denies abdominal pain, nausea. She reported that she was having black stools and so labs were done and she was found to have hgb 6.8. She had undergone hemicolectomy for colon cancer at [facility] about 6 weeks ago. OBJECTIVE: Vital Signs Period Temp Pulse Resp BP Sys/Bone Pulse Ox Last 24 Hr 97.6 F 63 16 134/52 100 HEART: S1S2, RRR LUNGS: Clear ABDOMEN: Soft, non-tender, non-distended, normal BS EXTREMITIES: No edema Laboratory Tests 10/15/19 10/15/19 10/15/19 21:30 21:50 21:50 WBC 5.8 RBC 2.36 L Hgb 7.0 L Hct 20.9 L D MCV 88.7 MCH 29.6 D MCHC 33.3 RDW 18.8 H Plt Count 245 D MPV 10.1 Absolute Neuts (auto) 4.0 Neutrophils % 69.0 D Lymphocytes % 17.2 Monocytes % 9.5 Eosinophils % 3.3 Basophils % 1.0 Nucleated RBC % 0 PT with INR INR PTT (Actin FS) Sodium 144 Potassium 4.9 Chloride 119 H Carbon Dioxide 18 L Anion Gap 6 L BUN 48.0 H Creatinine 1.4 H Est GFR (CKD-EPI)AfAm 40.45 Est GFR (CKD-EPI)NonAf 34.90 Random Glucose 243 H Calcium 8.3 L Total Bilirubin 0.2 AST 20 ALT 13 Alkaline Phosphatase 101 Total Protein 6.0 L Albumin 3.1 L Stool Occult Blood Positive Blood Type Antibody Screen Crossmatch 10/15/19 10/15/19 21:50 21:50 WBC RBC Hgb Hct MCV MCH MCHC RDW Plt Count MPV Absolute Neuts (auto) Neutrophils % Lymphocytes % Monocytes % Eosinophils % Basophils % Nucleated RBC % PT with INR 23.80 H INR 2.00 H PTT (Actin FS) 43.3 H Sodium Potassium Chloride Carbon Dioxide Anion Gap BUN Creatinine Est GFR (CKD-EPI)AfAm Est GFR (CKD-EPI)NonAf Random Glucose Calcium Total Bilirubin AST ALT Alkaline Phosphatase Total Protein Albumin Stool Occult Blood Blood Type O POSITIVE Antibody Screen Negative Crossmatch See Detail Home Medications Medication Instructions Recorded Allopurinol 150 mg PO DAILY 03/10/19 Famotidine 20 mg PO DAILY 03/10/19 Fluticasone Prop 0.05% Nasal 1 spray PO ASDIR 03/10/19 [Flonase -] Levetiracetam [Keppra] 500 mg PO DAILY 03/10/19 Lisinopril 5 mg PO DAILY 03/10/19 Metoprolol Succinate [Toprol Xl] 25 mg PO DAILY 03/10/19 Pregabalin [Lyrica] 50 mg PO DAILY 03/10/19 Rivaroxaban [Xarelto] 15 mg PO DAILY 03/10/19 Simvastatin 10 mg PO HS 03/10/19 Docusate Sodium [Colace] 200 mg PO HS 10/16/19 Megestrol Acetate [Megace -] 40 mg PO QID 10/16/19 Multivitamin [One-Daily 1 each PO DAILY 10/16/19 Multi-Vitamin] Polyethylene Glycol 3350 [Miralax 17 g PO DAILY PRN 10/16/19 119 gm Btl -] Sennosides [Senna] 17.2 mg PO HS 10/16/19 ASSESSMENT AND PLAN: This is an 83 year old woman with a history of hyperlipidemia, PAF, chronic systolic heart failure, pacemaker, type 2 DM, diabetic neuropathy, stage 3 CKD, anemia, uterine cancer, colon cancer, recent hemicolectomy, SAUL who was sent to the ED from [facility] because of black tarry stools, anemia, and lightheadedness. 1. Acute GI blood loss anemia on chronic anemia - Hgb 7.0, was 9.1 on 08/06/19 - Stool positive for occult blood - Transfuse 2 units PRBCs - Hold Xarelto - Protonix IV - NPO - GI consult 2. Atrial fib, paroxysmal - Currently in sinus rhythm - Continue Toprol XL - Hold Xarelto secondary to GI bleeding 3. Chronic systolic heart failure - Stable - Continue lisinopril Toprol XL 4. History of sinus node dysfunction, AV block, pacemaker 5. Hyperlipidemia - Continue Zocor 6. Type 2 DM with peripheral neuropathy - Fingersticks with Novolog sliding scale - Continue Lyrica 7. Stage 3 CKD - Stable 8. Uterine cancer 9. Colon cancer, recent hemicolectomy 10. Obstructive sleep apnea
--- NOTE | 2019-10-16 00:13 | HP ---
CHIEF COMPLAINT: Low Hgb, Black stools PCP: Dr. Quiles HISTORY OF PRESENT ILLNESS: 83 y/o F with PMHx of AFib (On Xarelto), CHF, DM with neuropathy, CKD, Uterine Cancer with ?Mets to Retroperitroneum, colon cancer (Now s/p Hemicolectomy @ [facility] 09/07) HLD, SAUL, who presents from [facility] with Low Hgb and Black tarry stools for the past 2 weeks. Patient reports that she has felt better since her surgery in august and has had no new complaints until approx 2 weeks ago, she experienced a Black BM. Since onset, she reports persistent black stools daily. She adheres to her bowel regimen provided by the [facility] and denies any associated NSAID use or abdominal pain. She mentions that her BMs are typically small hard balls ([place] type 1) however have been black over the last 2 weeks. No angela blood or blood streaks seen, No blood when wiping. Patient did not report these findings to her care givers at [facility] because she "became busy recently." 2 days ago she finally mentioned the dark stools prompting lab work to be drawn and today she was reported to have a Hgb of 6.8 and brought to [facility]. Additionally complains of lightheadedness. No associated weakness or difficulty with breathing. Of note, she mentions multiple sick contacts with gastritis at [place]. Denies any BRBPR, Hematemesis, hemoptysis, hematuria, nausea, vomiting, diarrhea. Denies any fevers, chills, chest pain. ER course was notable for: (1) (2) (3) Recent Travel: Denies PAST MEDICAL HISTORY: As per above PAST SURGICAL HISTORY: Hysterectomy Appendectomy Hemicolectomy Cataracts b/l Social History: Smoking: Denies Alcohol: Rarely Drugs: Denies Allergies morphine Allergy (Verified 08/10/19 11:30) Nausea HOME MEDICATIONS: Home Medications Medication Instructions Recorded Allopurinol 300 mg PO DAILY 03/10/19 Famotidine 20 mg PO DAILY 03/10/19 Fluticasone Prop 0.05% Nasal 1 spray PO ASDIR 03/10/19 [Flonase -] Levetiracetam [Keppra] 500 mg PO DAILY 03/10/19 Lisinopril 5 mg PO DAILY 03/10/19 Metoprolol Succinate [Toprol Xl] 25 mg PO DAILY 03/10/19 Pregabalin [Lyrica] 50 mg PO DAILY 03/10/19 Rivaroxaban [Xarelto] 15 mg PO DAILY 03/10/19 Simvastatin 10 mg PO HS 03/10/19 REVIEW OF SYSTEMS As per [facility] PHYSICAL EXAMINATION Vital Signs - 24 hr 10/15/19 20:45 Temperature 97.6 F Pulse Rate 63 Respiratory 16 Rate Blood Pressure 134/52 L O2 Sat by Pulse 100 Oximetry (%) GENERAL: A&Ox3, NAD HEAD: NCAT EYES: PERRL, EOMI, conjunctival pallor EARS, NOSE, THROAT: Moist mucous membranes. NECK: Supple LUNGS: CTAB, No wheezes, no crackles HEART: Regular rate and rhythm, normal S1 and S2 without murmur ABDOMEN: Soft, nontender, not distended, + bowel sounds, no guarding, no rebound EXTREMITIES: No peripheral edema. NEUROLOGICAL: Cranial nerves II-XII intact. Normal speech. SKIN: Warm, dry. Well healed midline surgical scar. RECTAL: MARIAM defferred by patient as it was just done by ED resident, please refer to their note Laboratory Results - last 24 hr 10/15/19 10/15/19 10/15/19 21:30 21:50 21:50 WBC 5.8 RBC 2.36 L Hgb 7.0 L Hct 20.9 L D MCV 88.7 MCH 29.6 D MCHC 33.3 RDW 18.8 H Plt Count 245 D MPV 10.1 Absolute Neuts (auto) 4.0 Neutrophils % 69.0 D Lymphocytes % 17.2 Monocytes % 9.5 Eosinophils % 3.3 Basophils % 1.0 Nucleated RBC % 0 PT with INR INR PTT (Actin FS) Sodium 144 Potassium 4.9 Chloride 119 H Carbon Dioxide 18 L Anion Gap 6 L BUN 48.0 H Creatinine 1.4 H Est GFR (CKD-EPI)AfAm 40.45 Est GFR (CKD-EPI)NonAf 34.90 Random Glucose 243 H Calcium 8.3 L Total Bilirubin 0.2 AST 20 ALT 13 Alkaline Phosphatase 101 Total Protein 6.0 L Albumin 3.1 L Stool Occult Blood Positive Blood Type Antibody Screen Crossmatch 10/15/19 10/15/19 21:50 21:50 WBC RBC Hgb Hct MCV MCH MCHC RDW Plt Count MPV Absolute Neuts (auto) Neutrophils % Lymphocytes % Monocytes % Eosinophils % Basophils % Nucleated RBC % PT with INR 23.80 H INR 2.00 H PTT (Actin FS) 43.3 H Sodium Potassium Chloride Carbon Dioxide Anion Gap BUN Creatinine Est GFR (CKD-EPI)AfAm Est GFR (CKD-EPI)NonAf Random Glucose Calcium Total Bilirubin AST ALT Alkaline Phosphatase Total Protein Albumin Stool Occult Blood Blood Type O POSITIVE Antibody Screen Negative Crossmatch See Detail ASSESSMENT/PLAN: 83 y/o F with PMHx of AFib (On Xarelto), CHF, DM with neuropathy, CKD, Uterine Cancer with ?Mets to Retroperitroneum, colon cancer (Now s/p Hemicolectomy @ [facility] 09/07) HLD, SAUL, who presents from [facility] with Low Hgb and Black tarry stools for the past 2 weeks. #Anemia -Likely Acute blood loss anemia due to GI Bleed given nature of black tarry stools in the setting of DOAC use -VSS stable without tachycardia, FOBT + -2u PRBC order by ED; Will keep Hgb > 8.0 given hx of Cardiac dysfunction -CBC s/p pRBC transfusion -NPO for now; can advance if no GI Intervention planned -PPI BID -GI (Dr. Reyes) consulted -Hold DOAC, Bowel regimen -VS Q4H #AFib, Controlled -Hold DOAC given GIB -Continue home dose Toprol XL #HTN -Continue home dose lisinopril #DM with neuropathy -ISS BGMs ACHS -Continue Lyrica #FEN -No standing fluids -Replete Lytes PRN -NPO #PPx -DVT: SCDs -GI: PPI Dispo: Admit to Med-surg Code status: DNR Visit type - Emergency Visit Emergency Visit: Yes ED Registration Date: 10/15/19 Care time: The patient presented to the Emergency Department on the above date and was hospitalized for further evaluation of their emergent condition. - New Patient This patient is new to me today: Yes Date on this admission: 10/16/19 - Critical Care Critical Care patient: No ATTENDING PHYSICIAN STATEMENT I saw and evaluated the patient. I reviewed the resident's note and discussed the case with the resident. I agree with the resident's findings and plan as documented. SUBJECTIVE: OBJECTIVE: ASSESSMENT AND PLAN:
[2019-10-16] MEDS ORDERED: PANTOPRAZOLE 40 MG TABLET (FP) PO ONE (01:45)
[2019-10-16] MEDS ORDERED: PANTOPRAZOLE 40 MG TABLET (FP) ONE (02:25)
[2019-10-16] MEDS: FLUTICASONE PROP 0.05% 16 GM NASAL SPRAY NS SCH ×3 (02:34→21:35)
[2019-10-16] MEDS: PANTOPRAZOLE SODIUM 40 MG VIAL IVPUSH SCH ×2 (02:36→10:31)
[2019-10-16 03:41] LABS: EPI CELLS 2.7 /HPF (0-5/HPF); HYALINE CASTS 1 /lpf (0-8); PH,URINE 5.5 (5.0-8.0); URINE APPEARANCE CLEAR; URINE BACTERIA 64.7 /hpf (NEGATIVE); URINE BILIRUBIN NEGATIVE (NEGATIVE); URINE COLOR YELLOW; URINE GLUCOSE (UA) NEGATIVE (NEGATIVE); URINE KETONE NEGATIVE (NEGATIVE); URINE LEUK ESTERASE NEGATIVE (NEGATIVE); URINE NITRITE NEGATIVE (NEGATIVE); URINE PROTEIN NEGATIVE (NEGATIVE); URINE RBC 3 /hpf (0-4); URINE UROBILINOGEN 0.2 mg/dL (0.2-1.0); URINE WBC 1 /hpf (0-5)
[2019-10-16 04:29] VITALS: BMI 28.2
[2019-10-16] MEDS: INSULIN SLIDING SCALE (NOVOLOG) 1 VIAL SQ SCH ×4 (06:14→21:39)
[2019-10-16] MEDS ORDERED: PNEUMOC 13-VAL CONJ-DIP CRM/PF 0.5 ML DISP.SYRIN IM ONE (10:00)
[2019-10-16] MEDS ORDERED: PT OWN MED DRAWER 7, Y5N ONE ×2 (10:27→17:13)
[2019-10-16] MEDS: PREGABALIN 25 MG CAPSULE PO SCH (10:28)
[2019-10-16] MEDS: LISINOPRIL 5 MG TABLET (FP) PO SCH (10:28)
[2019-10-16] MEDS: MULTIVITAMINS (DAILY MVI) TABLET (FP) PO SCH (10:29)
[2019-10-16] MEDS: metoPROLOL SUCCINATE 25 MG TAB.SR.24H (FP) PO SCH (10:29)
[2019-10-16] MEDS: levETIRAcetam 250 MG TABLET (FP) PO SCH (10:29)
[2019-10-16] MEDS: MEGESTROL ACETATE 40 MG TABLET PO SCH ×4 (10:30→21:39)
--- NOTE | 2019-10-16 10:32 | CON.GI ---
Consult Consult Specialty:: GI Referred by:: Hospitalist Service Reason for Consultation:: Anemia - History of Present Illness Chief Complaint: Anemia History of Present Illness: 83F admitted from [place] for evaluation of anemia. Had Recent EGD 08/06/19 for anemia that revealed a large hiatal hernia and was otherwise unremarkable. Had colonoscopy 03/07 revealing a cancerous hepatic flexure polyp and she underwent right hemocolectomy recently at [facility]. Describes dark BM's. Hgb 7 on admission. No overt bleeding. 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 Cardio/Vascular: Yes: AFIB, CHF, Hyperlipdemia Gastrointestinal: Yes: Cancer (Colon cancer) Renal/: Yes: Renal Inusuff ...: No Endocrine: Yes: Diabetes Mellitus (DM II), Other (thyroid nodules) - Past Surgical History Past Surgical History: Yes: Appendectomy, Colectomy (S/P right hemicolectomy), Hysterectomy (BHAVANA/BSO), Joint Replacement (b/l Knees), Permanent Pacemaker - Alcohol/Substance Use Hx Alcohol Use: No History of Substance Use: reports: None - Smoking History Smoking history: Never smoked - Social History Usual Living Arrangement: Assisted Living ADL: Support Services 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 Travel: No Home Medications - Allergies Allergies/Adverse Reactions: Allergies Allergy/AdvReac Type Severity Reaction Status Date / Time morphine Allergy Nausea Verified 08/10/19 11:30 - Home Medications Home Medications: Ambulatory Orders Allopurinol 150 mg PO DAILY 03/10/19 Famotidine 20 mg PO BID 03/10/19 Fluticasone Prop 0.05% Nasal [Flonase -] 2 sprays DAILY 03/10/19 Levetiracetam [Keppra] 500 mg PO DAILY 03/10/19 Lisinopril 5 mg PO DAILY 03/10/19 Metoprolol Succinate [Toprol Xl] 12.5 mg PO DAILY 03/10/19 Pregabalin [Lyrica] 50 mg PO DAILY 03/10/19 Rivaroxaban [Xarelto] 15 mg PO DAILY 03/10/19 Simvastatin 10 mg PO HS 03/10/19 Acetaminophen [Tylenol -] 1,000 mg PO DAILY 10/16/19 Cholecalciferol (Vitamin D3) [Vitamin D3] 2,000 unit PO DAILY 10/16/19 Docusate Sodium [Colace] 200 mg PO HS 10/16/19 Megestrol Acetate [Megace -] 40 mg PO QID 10/16/19 Multivitamin [One-Daily Multi-Vitamin] 1 each PO DAILY 10/16/19 Mupirocin Ointment [Bactroban] 1 applic BID 10/16/19 Polyethylene Glycol 3350 [Miralax 119 gm Btl -] 17 g PO DAILY PRN 10/16/19 Sennosides/Docusate Sodium [Senokot-S Tablet] 2 each PO HS 10/16/19 Review of Systems - Review of Systems Constitutional: denies: Chills Respiratory: denies: SOB Gastrointestinal: denies: Abdominal Pain, Nausea, Rectal Bleeding, Vomiting Physical Exam-GI Vital Signs: Vital Signs Temperature 97.5 F L 10/16/19 04:18 Pulse Rate 70 10/16/19 04:18 Respiratory Rate 20 10/16/19 04:18 Blood Pressure 157/77 10/16/19 04:18 O2 Sat by Pulse Oximetry (%) 98 10/16/19 04:53 Constitutional: Yes: Calm Eyes: No: Sclera Icterus Cardiovascular: Yes: Regular Rate and Rhythm, Murmur Respiratory: Yes: CTA Bilaterally Gastrointestinal Inspection: Yes: Scars. No: Distention ...Auscultate: Yes: Normoactive Bowel Sounds ...Palpate: Yes: Soft. No: Hepatomegaly, Splenomegaly, Tenderness ...Percussion: No: Tympanitic ...Rectal Exam: Yes: Other (No external lesions, no masses, no blood / melena. Light brown stool.) Labs: CBC, BMP 10/15/19 21:50 10/15/19 21:50 INR, PTT INR 2.00 (0.83-1.09) H 10/15/19 21:50 Problem List - Problems (1) Anemia Assessment/Plan: Normocytic anemia No overt bleeding noted on my exam with recent endoscopic evaluation and colon surgery for a right sided cancer No interventions planned at this time. Check iron studies. if iron deficient with persistent guaiac positive stool, would consider referral for capsule endoscopy as outpatient to assess for source of occult GI bleeding (Dr. Fatimah Dorado @ [facility], Dr. Carlos A Marshall) Hematology evaluation to assess for concomitant causes of anemia Advance diet Code(s): D64.9 - ANEMIA, UNSPECIFIED Qualifiers: Anemia type: unspecified type Qualified Code(s): D64.9 - Anemia, unspecified
--- NOTE | 2019-10-16 11:11 | PN ---
Physical Exam: SUBJECTIVE: Patient seen and examined, no complaints. Has baseline weakness and fatigue, with no recent change, had a small BM this morning, that was dark. No chest pain, palpitations, dyspnea or dizziness. OBJECTIVE: Vital Signs Period Temp Pulse Resp BP Sys/Bone Pulse Ox Last 24 Hr 97.3 F-97.6 F 62-70 16-20 134-159/49-77 97-100 Intake & Output 10/13/19 10/14/19 10/15/19 10/16/19 23:59 23:59 23:59 23:59 Intake Total 150 Balance 150 Weight 174 lb 174 lb 11.2 oz GENERAL: sitting in bed, no acute distress HEENT:: pos pallor Neck: soft, supple Chest; CTAB, no rales or wheezing Abdomen;Soft, obese, nT Extremities: no edema Home Medications Medication Instructions Recorded Allopurinol 150 mg PO DAILY 03/10/19 Famotidine 20 mg PO BID 03/10/19 Fluticasone Prop 0.05% Nasal 2 sprays DAILY 03/10/19 [Flonase -] Levetiracetam [Keppra] 500 mg PO DAILY 03/10/19 Lisinopril 5 mg PO DAILY 03/10/19 Metoprolol Succinate [Toprol Xl] 12.5 mg PO DAILY 03/10/19 Pregabalin [Lyrica] 50 mg PO DAILY 03/10/19 Rivaroxaban [Xarelto] 15 mg PO DAILY 03/10/19 Simvastatin 10 mg PO HS 03/10/19 Acetaminophen [Tylenol -] 1,000 mg PO DAILY 10/16/19 Cholecalciferol (Vitamin D3) 2,000 unit PO DAILY 10/16/19 [Vitamin D3] Docusate Sodium [Colace] 200 mg PO HS 10/16/19 Megestrol Acetate [Megace -] 40 mg PO QID 10/16/19 Multivitamin [One-Daily 1 each PO DAILY 10/16/19 Multi-Vitamin] Mupirocin Ointment [Bactroban] 1 applic BID 10/16/19 Polyethylene Glycol 3350 [Miralax 17 g PO DAILY PRN 10/16/19 119 gm Btl -] Sennosides/Docusate Sodium 2 each PO HS 10/16/19 [Senokot-S Tablet] Laboratory Results - last 24 hr 10/15/19 10/15/19 10/15/19 21:30 21:50 21:50 WBC 5.8 RBC 2.36 L Hgb 7.0 L Hct 20.9 L D MCV 88.7 MCH 29.6 D MCHC 33.3 RDW 18.8 H Plt Count 245 D MPV 10.1 Absolute Neuts (auto) 4.0 Neutrophils % 69.0 D Lymphocytes % 17.2 Monocytes % 9.5 Eosinophils % 3.3 Basophils % 1.0 Nucleated RBC % 0 PT with INR INR PTT (Actin FS) Sodium 144 Potassium 4.9 Chloride 119 H Carbon Dioxide 18 L Anion Gap 6 L BUN 48.0 H Creatinine 1.4 H Est GFR (CKD-EPI)AfAm 40.45 Est GFR (CKD-EPI)NonAf 34.90 POC Glucometer Random Glucose 243 H Calcium 8.3 L Total Bilirubin 0.2 AST 20 ALT 13 Alkaline Phosphatase 101 Total Protein 6.0 L Albumin 3.1 L Urine Color Urine Appearance Urine pH Ur Specific [place] Urine Protein Urine Glucose (UA) Urine Ketones Urine Blood Urine Nitrite Urine Bilirubin Urine Urobilinogen Ur Leukocyte Esterase Urine WBC (Auto) Urine RBC (Auto) Urine Casts (Auto) U Epithel Cells (Auto) Urine Bacteria (Auto) Stool Occult Blood Positive Blood Type Antibody Screen Crossmatch 10/15/19 10/15/19 10/16/19 21:50 21:50 03:10 WBC RBC Hgb Hct MCV MCH MCHC RDW Plt Count MPV Absolute Neuts (auto) Neutrophils % Lymphocytes % Monocytes % Eosinophils % Basophils % Nucleated RBC % PT with INR 23.80 H INR 2.00 H PTT (Actin FS) 43.3 H Sodium Potassium Chloride Carbon Dioxide Anion Gap BUN Creatinine Est GFR (CKD-EPI)AfAm Est GFR (CKD-EPI)NonAf POC Glucometer Random Glucose Calcium Total Bilirubin AST ALT Alkaline Phosphatase Total Protein Albumin Urine Color Yellow Urine Appearance Clear Urine pH 5.5 Ur Specific [place] 1.013 Urine Protein Negative Urine Glucose (UA) Negative Urine Ketones Negative Urine Blood Trace Urine Nitrite Negative Urine Bilirubin Negative Urine Urobilinogen 0.2 Ur Leukocyte Esterase Negative Urine WBC (Auto) 1 Urine RBC (Auto) 3 Urine Casts (Auto) 1 U Epithel Cells (Auto) 2.7 Urine Bacteria (Auto) 64.7 Stool Occult Blood Blood Type O POSITIVE Antibody Screen Negative Crossmatch See Detail 10/16/19 06:11 WBC RBC Hgb Hct MCV MCH MCHC RDW Plt Count MPV Absolute Neuts (auto) Neutrophils % Lymphocytes % Monocytes % Eosinophils % Basophils % Nucleated RBC % PT with INR INR PTT (Actin FS) Sodium Potassium Chloride Carbon Dioxide Anion Gap BUN Creatinine Est GFR (CKD-EPI)AfAm Est GFR (CKD-EPI)NonAf POC Glucometer 147 Random Glucose Calcium Total Bilirubin AST ALT Alkaline Phosphatase Total Protein Albumin Urine Color Urine Appearance Urine pH Ur Specific [place] Urine Protein Urine Glucose (UA) Urine Ketones Urine Blood Urine Nitrite Urine Bilirubin Urine Urobilinogen Ur Leukocyte Esterase Urine WBC (Auto) Urine RBC (Auto) Urine Casts (Auto) U Epithel Cells (Auto) Urine Bacteria (Auto) Stool Occult Blood Blood Type Antibody Screen Crossmatch Active Medications Generic Name Dose Route Start Last Admin Trade Name Freq PRN Reason Stop Dose Admin Acetaminophen 650 mg 10/15/19 23:59 Tylenol - PO Q4H PRN PAIN LEVEL 1 - 3 Atorvastatin Calcium 10 mg 10/16/19 22:00 Lipitor - PO HS ANTONI Fluticasone Propionate 1 spray 10/16/19 00:15 10/16/19 10:41 Flonase - NS 1 spray BID ANTONI Administration Insulin Aspart 1 vial 10/16/19 07:00 10/16/19 06:14 Novolog Vial Sliding Scale - SQ Not Given ACHS ANTONI Protocol Levetiracetam 500 mg 10/16/19 10:00 10/16/19 10:29 Keppra - PO 500 mg DAILY ANTONI Administration Lisinopril 5 mg 10/16/19 10:00 10/16/19 10:28 Prinivil PO 5 mg DAILY ANTONI Administration Megestrol Acetate 40 mg 10/16/19 10:00 10/16/19 10:30 Megace - PO 40 mg QID ANTONI Administration Metoprolol Succinate 25 mg 10/16/19 10:00 10/16/19 10:29 Toprol Xl - PO 25 mg DAILY ANTONI Administration Multivitamins/Minerals/Vitamin C 1 tab 10/16/19 10:00 10/16/19 10:29 Tab-A-Vit - PO 1 tab DAILY ANTONI Administration Pantoprazole Sodium 40 mg 10/17/19 10:00 Protonix - PO DAILY ANTONI Pregabalin 50 mg 10/16/19 10:00 10/16/19 10:28 Lyrica - PO 50 mg DAILY ANTONI Administration ASSESSMENT/PLAN: 83 yof with PMhx of Uterina Cancer with retroperitoneal metastasis (Follows Dr. 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 Dang) -Hiatal hernia -CAD -Atrial fibrillation on Xarelto -Mild decreased LV function/HTN heart disease -Sick sinus syndrome s/p PPM (Medtronic) -HLD -CKD stage II -Cerebrovascular disease Plan: s/p 2 units PRBC, repeat CBC GI input noted. S/p recent EGD. Will need capsule endoscopy for recurrent bleed. Inpatient transfer vs outpatient based on clinical course. NPO for now. Advance per h/h trend and GI. Hold xarelto. Continue metoprolol/statin/ACei ISS/keppra DVTPPX SCDs Dispo back to [facility] in 24 hours if h/h stable with outpatient CBC monitoring and capsule endoscopy Discussed with patient and nursing, all questions answered. Visit type - Emergency Visit Emergency Visit: Yes ED Registration Date: 10/15/19 Care time: The patient presented to the Emergency Department on the above date and was hospitalized for further evaluation of their emergent condition. - New Patient This patient is new to me today: Yes Date on this admission: 10/16/19 - Critical Care Critical Care patient: No - Discharge Referral Referred to [facility] Med P.C.: No
[2019-10-16 12:10] LABS: BASO % 0.5 % (0-2.0); EOS % 3.5 % (0-4.5); HEMATOCRIT 29.4 % (32.4-45.2); HEMOGLOBIN 9.7 GM/dL (10.7-15.3); LYMPH % 18.4 % (8-40); MCH 29.5 pg (25.7-33.7); MCHC 32.9 g/dl (32.0-36.0); MEAN CELL VOLUME 89.7 fl (80-96); MONO % 12.5 % (3.8-10.2); NEUT % 65.1 % (42.8-82.8); PLATELET COUNT 206 K/MM3 (134-434); RBC 3.28 M/mm3 (3.60-5.2); RDW 16.7 % (11.6-15.6); WHITE BLOOD COUNT 6.2 K/mm3 (4.0-10.0)
[2019-10-16 12:31] LABS: BILIRUBIN,TOTAL 1.2 mg/dL (0.2-1); BLOOD UREA NITROGEN 36.6 mg/dL (7-18); CALCIUM 8.7 mg/dL (8.5-10.1); CREATININE 1.1 mg/dL (0.55-1.3); MAGNESIUM 2.1 mg/dL (1.8-2.4); PHOSPHOROUS 2.9 mg/dL (2.5-4.9); TOT PROT 5.7 g/dl (6.4-8.2)
--- NOTE | 2019-10-16 13:32 | EKG ---
Test Reason : Blood Pressure : / mmHG Vent. Rate : 072 BPM Atrial Rate : 071 BPM P-R Int : 220 ms QRS Dur : 124 ms QT Int : 426 ms P-R-T Axes : 008 004 079 degrees QTc Int : 466 ms Atrial-paced rhythm with prolonged AV conduction LEFT BUNDLE BRANCH BLOCK ABNORMAL ECG WHEN COMPARED WITH ECG OF 10-AUG-2019 11:34, LEFT BUNDLE BRANCH BLOCK HAS REPLACED (RBBB AND LEFT ANTERIOR FASCICULAR BLOCK) Confirmed by MD ASHLEIGH, MAURY ([id number]) on 10/16/2019 1:32:34 PM Referred By: Confirmed By:MAURY SOTELO MD
[2019-10-16] MEDS: ATORVASTATIN CA 10 MG TABLET (FP) PO SCH (21:39)
[2019-10-16] MEDS ORDERED: PATIENT'S OWN MEDICATION (NON-FORMULARY) (Simvastatin [Simvastatin] 10 MG) PO SCH (22:00)
[2019-10-17] MEDS: INSULIN SLIDING SCALE (NOVOLOG) 1 VIAL SQ SCH ×4 (06:43→22:20)
[2019-10-17 07:26] LABS: MCH 29.5 pg (25.7-33.7); MCHC 33.4 g/dl (32.0-36.0); MEAN CELL VOLUME 88.4 fl (80-96); MEAN PLT VOLUME 9.7 fl (7.5-11.1); PLATELET COUNT 207 K/MM3 (134-434); RBC 3.39 M/mm3 (3.60-5.2); RDW 16.8 % (11.6-15.6); WHITE BLOOD COUNT 5.5 K/mm3 (4.0-10.0)
--- NOTE | 2019-10-17 09:41 | PN.GI ---
GI Progress Note Subjective: No overt bleeding H/H stable States feeling well - Objective Vital Signs: Vital Signs Temperature 97.7 F 10/17/19 06:00 Pulse Rate 64 10/17/19 06:00 Respiratory Rate 20 10/17/19 06:00 Blood Pressure 174/71 H 10/17/19 06:00 O2 Sat by Pulse Oximetry (%) 98 10/16/19 21:00 Constitutional: Calm Eyes: No: Sclera Icterus Cardiovascular: Yes: Regular Rate and Rhythm Respiratory: Yes: CTA Bilaterally Gastrointestinal Inspection: No: Distention ...Auscultate: Yes: Normoactive Bowel Sounds ...Palpate: Yes: Soft. No: Tenderness Edema: No (No LE edema) Neurological: Yes: Alert, Oriented Labs: CBC, BMP 10/17/19 06:49 10/16/19 11:40 INR, PTT INR 2.00 (0.83-1.09) H 10/15/19 21:50 Problem List - Problems (1) Anemia Assessment/Plan: No overt bleeding with stable H/H Advance diet Protonix 40mg once daily Resume A/C if medically necessary. Would observe for overt bleeding prior to discharge Other plan per initial consultation Code(s): D64.9 - ANEMIA, UNSPECIFIED Qualifiers: Anemia type: unspecified type Qualified Code(s): D64.9 - Anemia, unspecified
[2019-10-17] MEDS ORDERED: PT OWN MED DRAWER 7, Y5N ONE ×2 (09:46→22:14)
[2019-10-17] MEDS: LISINOPRIL 5 MG TABLET (FP) PO SCH (09:47)
[2019-10-17] MEDS: metoPROLOL SUCCINATE 25 MG TAB.SR.24H (FP) PO SCH (09:47)
[2019-10-17] MEDS: PANTOPRAZOLE 40 MG TABLET (FP) PO SCH (09:47)
[2019-10-17] MEDS: MULTIVITAMINS (DAILY MVI) TABLET (FP) PO SCH (09:47)
[2019-10-17] MEDS: levETIRAcetam 250 MG TABLET (FP) PO SCH (09:47)
[2019-10-17] MEDS: MEGESTROL ACETATE 40 MG TABLET PO SCH ×4 (09:49→22:23)
[2019-10-17] MEDS: PREGABALIN 25 MG CAPSULE PO SCH (09:49)
[2019-10-17] MEDS: FLUTICASONE PROP 0.05% 16 GM NASAL SPRAY NS SCH ×2 (09:50→22:24)
--- NOTE | 2019-10-17 11:15 | PN ---
Teaching Attending Note Name of Resident: Geeta Lopez ATTENDING PHYSICIAN STATEMENT I saw and evaluated the patient. I reviewed the resident's note and discussed the case with the resident. I agree with the resident's findings and plan as documented with exceptions below. SUBJECTIVE: Patient seen and examined, no complaints, no further BM. OBJECTIVE: Vital Signs Period Temp Pulse Resp BP Sys/Bone Pulse Ox Last 24 Hr 95.9 F-97.7 F 62-65 20-20 146-174/66-77 98 Intake & Output 10/14/19 10/15/19 10/16/19 10/17/19 23:59 23:59 23:59 23:59 Intake Total 390 0 Balance 390 0 Weight 174 lb 174 lb 11.2 oz 172 lb 11.2 oz General: lying in bed, no acute distress HEENT: pallor, EOMI Chest: CTAB, no rales or wheezing Abdomen:Soft, NT Extremities: no edema Home Medications Medication Instructions Recorded Allopurinol 150 mg PO DAILY 03/10/19 Famotidine 20 mg PO BID 03/10/19 Fluticasone Prop 0.05% Nasal 2 sprays DAILY 03/10/19 [Flonase -] Levetiracetam [Keppra] 500 mg PO DAILY 03/10/19 Lisinopril 5 mg PO DAILY 03/10/19 Metoprolol Succinate [Toprol Xl] 12.5 mg PO DAILY 03/10/19 Pregabalin [Lyrica] 50 mg PO DAILY 03/10/19 Rivaroxaban [Xarelto] 15 mg PO DAILY 03/10/19 Simvastatin 10 mg PO HS 03/10/19 Acetaminophen [Tylenol -] 1,000 mg PO DAILY 10/16/19 Cholecalciferol (Vitamin D3) 2,000 unit PO DAILY 10/16/19 [Vitamin D3] Docusate Sodium [Colace] 200 mg PO HS 10/16/19 Megestrol Acetate [Megace -] 40 mg PO QID 10/16/19 Multivitamin [One-Daily 1 each PO DAILY 10/16/19 Multi-Vitamin] Mupirocin Ointment [Bactroban] 1 applic BID 10/16/19 Polyethylene Glycol 3350 [Miralax 17 g PO DAILY PRN 10/16/19 119 gm Btl -] Sennosides/Docusate Sodium 2 each PO HS 10/16/19 [Senokot-S Tablet] Active Medications Acetaminophen (Tylenol -) 650 mg PO Q4H PRN PRN Reason: PAIN LEVEL 1 - 3 Atorvastatin Calcium (Lipitor -) 10 mg PO HS [facility] Last Admin: 10/16/19 21:39 Dose: 10 mg Fluticasone Propionate (Flonase -) 1 spray NS BID [facility] Last Admin: 10/17/19 09:50 Dose: 1 spray Insulin Aspart (Novolog Vial Sliding Scale -) 1 vial SQ ACHS [facility]; Protocol Last Admin: 10/17/19 06:43 Dose: Not Given Levetiracetam (Keppra -) 500 mg PO DAILY [facility] Last Admin: 10/17/19 09:47 Dose: 500 mg Lisinopril (Prinivil) 5 mg PO DAILY [facility] Last Admin: 10/17/19 09:47 Dose: 5 mg Megestrol Acetate (Megace -) 40 mg PO QID [facility] Last Admin: 10/17/19 09:49 Dose: 40 mg Metoprolol Succinate (Toprol Xl -) 25 mg PO DAILY [facility] Last Admin: 10/17/19 09:47 Dose: 25 mg Multivitamins/Minerals/Vitamin C (Tab-A-Vit -) 1 tab PO DAILY [facility] Last Admin: 10/17/19 09:47 Dose: 1 tab Pantoprazole Sodium (Protonix -) 40 mg PO DAILY [facility] Last Admin: 10/17/19 09:47 Dose: 40 mg Pregabalin (Lyrica -) 50 mg PO DAILY [facility] Last Admin: 10/17/19 09:49 Dose: 50 mg Rivaroxaban (Xarelto) 15 mg PO DAILY@1800 [facility] Laboratory Results - last 24 hr 10/16/19 10/16/19 10/16/19 11:40 11:40 12:50 WBC 6.2 RBC 3.28 L Hgb 9.7 L Hct 29.4 L D MCV 89.7 MCH 29.5 MCHC 32.9 RDW 16.7 H Plt Count 206 MPV 10.0 Absolute Neuts (auto) 4.0 Neutrophils % 65.1 Lymphocytes % 18.4 Monocytes % 12.5 H Eosinophils % 3.5 Basophils % 0.5 Nucleated RBC % 0 Sodium 145 Potassium 5.0 Chloride 120 H Carbon Dioxide 19 L Anion Gap 5 L BUN 36.6 H Creatinine 1.1 Est GFR (CKD-EPI)AfAm 54.15 Est GFR (CKD-EPI)NonAf 46.72 POC Glucometer 104 Random Glucose 121 H Calcium 8.7 Phosphorus 2.9 Magnesium 2.1 Total Bilirubin 1.2 H AST 13 L ALT 13 Alkaline Phosphatase 99 Total Protein 5.7 L Albumin 3.0 L 10/16/19 10/16/19 10/17/19 17:17 21:36 06:40 WBC RBC Hgb Hct MCV MCH MCHC RDW Plt Count MPV Absolute Neuts (auto) Neutrophils % Lymphocytes % Monocytes % Eosinophils % Basophils % Nucleated RBC % Sodium Potassium Chloride Carbon Dioxide Anion Gap BUN Creatinine Est GFR (CKD-EPI)AfAm Est GFR (CKD-EPI)NonAf POC Glucometer 99 128 109 Random Glucose Calcium Phosphorus Magnesium Total Bilirubin AST ALT Alkaline Phosphatase Total Protein Albumin 10/17/19 06:49 WBC 5.5 RBC 3.39 L Hgb 10.0 L Hct 30.0 L MCV 88.4 MCH 29.5 MCHC 33.4 RDW 16.8 H Plt Count 207 MPV 9.7 Absolute Neuts (auto) Neutrophils % Lymphocytes % Monocytes % Eosinophils % Basophils % Nucleated RBC % Sodium Potassium Chloride Carbon Dioxide Anion Gap BUN Creatinine Est GFR (CKD-EPI)AfAm Est GFR (CKD-EPI)NonAf POC Glucometer Random Glucose Calcium Phosphorus Magnesium Total Bilirubin AST ALT Alkaline Phosphatase Total Protein Albumin ASSESSMENT AND PLAN: 83 yof with PMhx of Uterina Cancer with retroperitoneal metastasis (Follows Dr. 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 Dang) -Hiatal hernia -CAD -Atrial fibrillation on Xarelto -Mild decreased LV function/HTN heart disease -Sick sinus syndrome s/p PPM (Medtronic) -HLD -CKD stage II -Cerebrovascular disease Plan: s/p 2 units PRBC, appropriate response. No gross evidence of bleed or hemodynamic instability GI input noted, start xarelto with inpatient monitoring x 24 hours. S/p recent EGD. Will need capsule endoscopy for recurrent bleed. Inpatient transfer vs outpatient based on clinical course. PO as tolerated. Elevated BP. Increase toprol XL to 37.5 mg daily Continue statin/lisinopril. Uptitration of ACEi limited by borderline and CKD. Continue statin, ISS/keppra DVTPPX SCDs Dispo back to [facility] in 24 hours if h/h stable on xarelto, no over episodes of bleed with outpatient CBC monitoring and GI/colorectal surgery follow up capsule endoscopy and additional testing. Discussed with patient, all questions answered.
--- NOTE | 2019-10-17 13:06 | PN ---
Physical Exam: SUBJECTIVE: Patient seen and examined this AM. No new complaints, feels better. OBJECTIVE: Vital Signs Period Temp Pulse Resp BP Sys/Bone Pulse Ox Last 24 Hr 95.9 F-97.7 F 62-65 20-20 146-174/66-77 98 GENERAL: A&Ox3, NAD HEAD: NCAT EYES: PERRL, EOMI ENT: Moist mucous membranes NECK: Supple LUNGS: CTAB, No wheezes, no crackles HEART: Regular rate and rhythm, normal S1 and S2 without murmur ABDOMEN: Soft, nontender, not distended, + bowel sounds, no guarding, no rebound EXTREMITIES: No peripheral edema. NEUROLOGICAL: Cranial nerves II-XII intact. Normal speech. SKIN: Warm, dry. Well healed midline surgical scar. Laboratory Results - last 24 hr 10/16/19 10/16/19 10/17/19 17:17 21:36 06:40 WBC RBC Hgb Hct MCV MCH MCHC RDW Plt Count MPV POC Glucometer 99 128 109 10/17/19 06:49 WBC 5.5 RBC 3.39 L Hgb 10.0 L Hct 30.0 L MCV 88.4 MCH 29.5 MCHC 33.4 RDW 16.8 H Plt Count 207 MPV 9.7 POC Glucometer Active Medications Acetaminophen (Tylenol -) 650 mg PO Q4H PRN PRN Reason: PAIN LEVEL 1 - 3 Atorvastatin Calcium (Lipitor -) 10 mg PO HS [facility] Last Admin: 10/16/19 21:39 Dose: 10 mg Fluticasone Propionate (Flonase -) 1 spray NS BID [facility] Last Admin: 10/17/19 09:50 Dose: 1 spray Insulin Aspart (Novolog Vial Sliding Scale -) 1 vial SQ ACHS [facility]; Protocol Last Admin: 10/17/19 12:26 Dose: Not Given Levetiracetam (Keppra -) 500 mg PO DAILY [facility] Last Admin: 10/17/19 09:47 Dose: 500 mg Lisinopril (Prinivil) 5 mg PO DAILY [facility] Last Admin: 10/17/19 09:47 Dose: 5 mg Megestrol Acetate (Megace -) 40 mg PO QID [facility] Last Admin: 10/17/19 09:49 Dose: 40 mg Metoprolol Succinate (Toprol Xl -) 12.5 mg PO ONCE ONE Stop: 10/18/19 11:17 Metoprolol Succinate (Toprol Xl -) 37.5 mg PO DAILY [facility] Multivitamins/Minerals/Vitamin C (Tab-A-Vit -) 1 tab PO DAILY [facility] Last Admin: 10/17/19 09:47 Dose: 1 tab Pantoprazole Sodium (Protonix -) 40 mg PO DAILY [facility] Last Admin: 10/17/19 09:47 Dose: 40 mg Pregabalin (Lyrica -) 50 mg PO DAILY [facility] Last Admin: 10/17/19 09:49 Dose: 50 mg Rivaroxaban (Xarelto) 15 mg PO DAILY@1800 [facility] ASSESSMENT/PLAN: 83 y/o F with PMHx of AFib (On Xarelto), CHF, DM with neuropathy, CKD, Uterine Cancer with ?Mets to Retroperitroneum, colon cancer (Now s/p Hemicolectomy @ [facility] 09/07) HLD, SAUL, who presents from [facility] with Low Hgb and Black tarry stools for the past 2 weeks. #Normocytic Anemia -VSS stable without tachycardia, FOBT +, No overt bleeding noted, H&H Stable -Now s/p 2u PRBC with appropriate H&H response; Keep Hgb > 8.0 given hx of Cardiac dysfunction -PPI daily -GI (Dr. Reyes) consulted, Appreciate rec's -Advance diet as tolerated -Monitor H&H as DOAC restarted today -Outpatient follow up for capsule endoscopy for recurrent bleed #AFib, Controlled -Restart DOAC (CHADSVASc 6) -Increase home dose Toprol XL to 37.5mg Daily #HTN -Continue home dose lisinopril -Increase Toprol XL as above #DM with neuropathy -ISS BGMs ACHS -Continue Lyrica #FEN -No standing fluids -Replete Lytes PRN -Diabetic/Sodium diet #PPx -DVT: DOAC -GI: PPI Dispo: Admit to Med-surg; Likely dc tmrw if H&H remains stable Code status: DNR Visit type - Emergency Visit Emergency Visit: Yes ED Registration Date: 10/15/19 Care time: The patient presented to the Emergency Department on the above date and was hospitalized for further evaluation of their emergent condition. - New Patient This patient is new to me today: Yes Date on this admission: 10/17/19 - Critical Care Critical Care patient: No - Discharge Referral Referred to [facility] Med P.C.: No ATTENDING PHYSICIAN STATEMENT I saw and evaluated the patient. I reviewed the resident's note and discussed the case with the resident. I agree with the resident's findings and plan as documented. SUBJECTIVE: OBJECTIVE: ASSESSMENT AND PLAN:
[2019-10-17] MEDS: RIVAROXABAN 15 MG TABLET PO SCH (17:23)
[2019-10-17] MEDS ORDERED: INSULIN (NOVOLOG) ASPART 100 UNITS/ML 10ML VIAL ONE (22:13)
[2019-10-17] MEDS: ATORVASTATIN CA 10 MG TABLET (FP) PO SCH (22:23)
[2019-10-18] MEDS: INSULIN SLIDING SCALE (NOVOLOG) 1 VIAL SQ SCH ×3 (06:00→16:20)
[2019-10-18 08:27] LABS: BASO % 0.5 % (0-2.0); EOS % 2.9 % (0-4.5); HEMATOCRIT 29.9 % (32.4-45.2); HEMOGLOBIN 9.8 GM/dL (10.7-15.3); MCH 29.2 pg (25.7-33.7); MCHC 32.7 g/dl (32.0-36.0); MEAN CELL VOLUME 89.3 fl (80-96); MEAN PLT VOLUME 10.1 fl (7.5-11.1); MONO % 13.3 % (3.8-10.2); NEUT % 65.3 % (42.8-82.8); PLATELET COUNT 218 K/MM3 (134-434); RBC 3.35 M/mm3 (3.60-5.2); RDW 17.4 % (11.6-15.6); WHITE BLOOD COUNT 5.5 K/mm3 (4.0-10.0)
[2019-10-18 09:06] LABS: BILIRUBIN,TOTAL 0.4 mg/dL (0.2-1); BLOOD UREA NITROGEN 35.5 mg/dL (7-18); CALCIUM 9.1 mg/dL (8.5-10.1); CREATININE 1.4 mg/dL (0.55-1.3); MAGNESIUM 1.8 mg/dL (1.8-2.4); PHOSPHOROUS 3.5 mg/dL (2.5-4.9); POTASSIUM 5.4 mmol/L (3.5-5.1); TOT PROT 5.6 g/dl (6.4-8.2)
[2019-10-18] MEDS ORDERED: SODIUM CHLORIDE 250 ML IV STA (09:12)
[2019-10-18] MEDS ORDERED: PT OWN MED DRAWER 7, Y5N ONE (09:39)
[2019-10-18] MEDS: levETIRAcetam 250 MG TABLET (FP) PO SCH (09:41)
[2019-10-18] MEDS: PANTOPRAZOLE 40 MG TABLET (FP) PO SCH (09:41)
[2019-10-18] MEDS: MULTIVITAMINS (DAILY MVI) TABLET (FP) PO SCH (09:41)
[2019-10-18] MEDS: MEGESTROL ACETATE 40 MG TABLET PO SCH ×3 (09:42→17:05)
[2019-10-18] MEDS: PREGABALIN 25 MG CAPSULE PO SCH (09:42)
[2019-10-18] MEDS: FLUTICASONE PROP 0.05% 16 GM NASAL SPRAY NS SCH (09:43)
[2019-10-18] MEDS ORDERED: metoPROLOL SUCCINATE 25 MG TAB.SR.24H (FP) PO SCH (10:00)
--- NOTE | 2019-10-18 10:26 | PN.GI ---
GI Progress Note Subjective: No BM or overt evidence of GI bleed. Hemoblobin stable, 9.8 (from 10.0). - Objective Vital Signs: Vital Signs Temperature 98.3 F 10/18/19 05:36 Pulse Rate 60 10/18/19 05:36 Respiratory Rate 20 10/18/19 05:36 Blood Pressure 119/54 L 10/18/19 05:36 O2 Sat by Pulse Oximetry (%) 99 10/17/19 21:00 Constitutional: Well Nourished, No Distress, Calm Gastrointestinal Inspection: Yes: WNL ...Auscultate: Yes: Normoactive Bowel Sounds ...Palpate: Yes: Soft. No: Mass, Tenderness Labs: CBC, BMP 10/18/19 07:00 10/18/19 06:00 INR, PTT INR 2.00 (0.83-1.09) H 10/15/19 21:50 Assessment/Plan No evidence of recurrent GI bleed. Would continue with anticoagulation. For outpatient video capsule endoscopy with Dr. Traore. Would obtain iron studies and replete iron stores if needed. No objection to hospital discharge at this time.
[2019-10-18] MEDS ORDERED: metoPROLOL SUCCINATE 25 MG TAB.SR.24H (FP) PO ONE (11:16)
--- NOTE | 2019-10-18 15:37 | PN ---
Teaching Attending Note Name of Resident: Gilbert Chou ATTENDING PHYSICIAN STATEMENT I saw and evaluated the patient. I reviewed the resident's note and discussed the case with the resident. I agree with the resident's findings and plan as documented with exceptions below. SUBJECTIVE: Patient seen and examined. no complaints. OBJECTIVE: Vital Signs Period Temp Pulse Resp BP Sys/Bone Pulse Ox Last 24 Hr 97.4 F-98.3 F 60-70 18-20 94-150/37-86 99 Intake & Output 10/15/19 10/16/19 10/17/19 10/18/19 23:59 23:59 23:59 23:59 Intake Total 390 120 Balance 390 120 Weight 174 lb 174 lb 11.2 oz 172 lb 11.2 oz 171 lb 6.4 oz General: sitting in bed in no acute distress HEENT: pallor Chest: CTAB, no rales or wheezing Abdomen:Soft, obese, NT Extremities: no edema Home Medications Medication Instructions Recorded Allopurinol 150 mg PO DAILY 03/10/19 Famotidine 20 mg PO BID 03/10/19 Fluticasone Prop 0.05% Nasal 2 sprays DAILY 03/10/19 [Flonase -] Levetiracetam [Keppra] 500 mg PO DAILY 03/10/19 Metoprolol Succinate [Toprol Xl] 12.5 mg PO DAILY 03/10/19 Pregabalin [Lyrica] 50 mg PO DAILY 03/10/19 Rivaroxaban [Xarelto] 15 mg PO DAILY 03/10/19 Simvastatin 10 mg PO HS 03/10/19 Cholecalciferol (Vitamin D3) 2,000 unit PO DAILY 10/16/19 [Vitamin D3] Docusate Sodium [Colace] 200 mg PO HS 10/16/19 Megestrol Acetate [Megace -] 40 mg PO QID 10/16/19 Multivitamin [One-Daily 1 each PO DAILY 10/16/19 Multi-Vitamin] Mupirocin Ointment [Bactroban 2% 1 applic BID 10/16/19 Ointment -] Polyethylene Glycol 3350 [Miralax 17 g PO DAILY PRN 10/16/19 119 gm Btl -] Sennosides/Docusate Sodium 2 each PO HS 10/16/19 [Senokot-S Tablet] Pantoprazole Sodium [Protonix -] 40 mg PO DAILY #30 tablet.ec 10/18/19 Active Medications Acetaminophen (Tylenol -) 650 mg PO Q4H PRN PRN Reason: PAIN LEVEL 1 - 3 Atorvastatin Calcium (Lipitor -) 10 mg PO HS [facility] Last Admin: 10/17/19 22:23 Dose: 10 mg Fluticasone Propionate (Flonase -) 1 spray NS BID [facility] Last Admin: 10/18/19 09:43 Dose: 1 spray Insulin Aspart (Novolog Vial Sliding Scale -) 1 vial SQ ACHS [facility]; Protocol Last Admin: 10/18/19 12:26 Dose: Not Given Levetiracetam (Keppra -) 500 mg PO DAILY [facility] Last Admin: 10/18/19 09:41 Dose: 500 mg Megestrol Acetate (Megace -) 40 mg PO QID [facility] Last Admin: 10/18/19 14:38 Dose: 40 mg Metoprolol Succinate (Toprol Xl -) 37.5 mg PO DAILY [facility] Last Admin: 10/18/19 09:42 Dose: Not Given Multivitamins/Minerals/Vitamin C (Tab-A-Vit -) 1 tab PO DAILY [facility] Last Admin: 10/18/19 09:41 Dose: 1 tab Pantoprazole Sodium (Protonix -) 40 mg PO DAILY [facility] Last Admin: 10/18/19 09:41 Dose: 40 mg Pregabalin (Lyrica -) 50 mg PO DAILY [facility] Last Admin: 10/18/19 09:42 Dose: 50 mg Rivaroxaban (Xarelto) 15 mg PO DAILY@1800 [facility] Last Admin: 10/17/19 17:23 Dose: 15 mg Laboratory Results - last 24 hr 10/17/19 10/17/19 10/18/19 17:19 22:19 05:59 WBC RBC Hgb Hct MCV MCH MCHC RDW Plt Count MPV Absolute Neuts (auto) Neutrophils % Lymphocytes % Monocytes % Eosinophils % Basophils % Nucleated RBC % Sodium Potassium Chloride Carbon Dioxide Anion Gap BUN Creatinine Est GFR (CKD-EPI)AfAm Est GFR (CKD-EPI)NonAf POC Glucometer 147 176 131 Random Glucose Calcium Phosphorus Magnesium Total Bilirubin AST ALT Alkaline Phosphatase Total Protein Albumin 10/18/19 10/18/19 10/18/19 06:00 07:00 10:20 WBC 5.5 RBC 3.35 L Hgb 9.8 L Hct 29.9 L MCV 89.3 MCH 29.2 MCHC 32.7 RDW 17.4 H Plt Count 218 MPV 10.1 Absolute Neuts (auto) 3.6 Neutrophils % 65.3 Lymphocytes % 18.0 Monocytes % 13.3 H Eosinophils % 2.9 Basophils % 0.5 Nucleated RBC % 0 Sodium 144 Potassium 5.4 H 5.0 Chloride 118 H Carbon Dioxide 21 Anion Gap 5 L BUN 35.5 H Creatinine 1.4 H Est GFR (CKD-EPI)AfAm 40.45 Est GFR (CKD-EPI)NonAf 34.90 POC Glucometer Random Glucose 126 H Calcium 9.1 Phosphorus 3.5 Magnesium 1.8 Total Bilirubin 0.4 AST 14 L ALT 11 L Alkaline Phosphatase 102 Total Protein 5.6 L Albumin 3.0 L 10/18/19 12:10 WBC RBC Hgb Hct MCV MCH MCHC RDW Plt Count MPV Absolute Neuts (auto) Neutrophils % Lymphocytes % Monocytes % Eosinophils % Basophils % Nucleated RBC % Sodium Potassium Chloride Carbon Dioxide Anion Gap BUN Creatinine Est GFR (CKD-EPI)AfAm Est GFR (CKD-EPI)NonAf POC Glucometer 141 Random Glucose Calcium Phosphorus Magnesium Total Bilirubin AST ALT Alkaline Phosphatase Total Protein Albumin ASSESSMENT AND PLAN: 83 yof with PMhx of Uterina Cancer with retroperitoneal metastasis (Follows Dr. 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 Dang) -Hiatal hernia -Hyperkalemia -CAD -Atrial fibrillation on Xarelto -Mild decreased LV function/HTN heart disease -Sick sinus syndrome s/p PPM ([employer]tr[employer]) -HLD -CKD stage II -Cerebrovascular disease Plan: s/p 2 units PRBC, appropriate response. No gross evidence of bleed or hemodynamic instability GI input noted, Started on xarelto, no new events. S/p recent EGD. Will need capsule endoscopy for recurrent bleed. PO as tolerated. Repeat K noted. Low K diet. Hold ACEi on dc BP stable, patient reports low BP at [facility] in AM. Will resume home dose Toprol XL. Continue statin. keppra. dc back to [facility] with outpatient GI/nephrology follow up.
[2019-10-18] MEDS: RIVAROXABAN 15 MG TABLET PO SCH (17:05)
[2019-10-18 17:33] VITALS: BP 155/72; PULSE 61; TEMP 98
--- NOTE | 2019-10-18 17:58 | DS ---
Physical Exam: SUBJECTIVE: Patient seen and examined. Doing well, no acute complaints. No acute events overnight. OBJECTIVE: Vital Signs Period Temp Pulse Resp BP Sys/Bone Pulse Ox Last 24 Hr 98.0 F-98.3 F 60-69 18-20 94-155/37-72 99 PHYSICAL EXAM GENERAL: A&Ox3, NAD HEAD: NCAT EYES: PERRL, EOMI ENT: Moist mucous membranes NECK: Supple LUNGS: CTAB, No wheezes, no crackles. no accessory muscle use. HEART: Regular rate and rhythm, normal S1 and S2 without murmur ABDOMEN: Soft, nontender, not distended, + bowel sounds, no guarding, no rebound EXTREMITIES: No peripheral edema. NEUROLOGICAL: Normal speech. SKIN: Warm, dry LABS Laboratory Results - last 24 hr 10/17/19 10/17/19 10/18/19 17:19 22:19 05:59 WBC RBC Hgb Hct MCV MCH MCHC RDW Plt Count MPV Absolute Neuts (auto) Neutrophils % Lymphocytes % Monocytes % Eosinophils % Basophils % Nucleated RBC % Sodium Potassium Chloride Carbon Dioxide Anion Gap BUN Creatinine Est GFR (CKD-EPI)AfAm Est GFR (CKD-EPI)NonAf POC Glucometer 147 176 131 Random Glucose Calcium Phosphorus Magnesium Total Bilirubin AST ALT Alkaline Phosphatase Total Protein Albumin 10/18/19 10/18/19 10/18/19 06:00 07:00 10:20 WBC 5.5 RBC 3.35 L Hgb 9.8 L Hct 29.9 L MCV 89.3 MCH 29.2 MCHC 32.7 RDW 17.4 H Plt Count 218 MPV 10.1 Absolute Neuts (auto) 3.6 Neutrophils % 65.3 Lymphocytes % 18.0 Monocytes % 13.3 H Eosinophils % 2.9 Basophils % 0.5 Nucleated RBC % 0 Sodium 144 Potassium 5.4 H 5.0 Chloride 118 H Carbon Dioxide 21 Anion Gap 5 L BUN 35.5 H Creatinine 1.4 H Est GFR (CKD-EPI)AfAm 40.45 Est GFR (CKD-EPI)NonAf 34.90 POC Glucometer Random Glucose 126 H Calcium 9.1 Phosphorus 3.5 Magnesium 1.8 Total Bilirubin 0.4 AST 14 L ALT 11 L Alkaline Phosphatase 102 Total Protein 5.6 L Albumin 3.0 L 10/18/19 10/18/19 12:10 16:17 WBC RBC Hgb Hct MCV MCH MCHC RDW Plt Count MPV Absolute Neuts (auto) Neutrophils % Lymphocytes % Monocytes % Eosinophils % Basophils % Nucleated RBC % Sodium Potassium Chloride Carbon Dioxide Anion Gap BUN Creatinine Est GFR (CKD-EPI)AfAm Est GFR (CKD-EPI)NonAf POC Glucometer 141 193 Random Glucose Calcium Phosphorus Magnesium Total Bilirubin AST ALT Alkaline Phosphatase Total Protein Albumin HOSPITAL COURSE: Date of Admission:10/15/19 Date of Discharge: 10/18/19 83 y/o F with PMHx of AFib (On Xarelto), CHF, DM with neuropathy, CKD, Uterine Cancer with ?Mets to Retroperitroneum, colon cancer (Now s/p Hemicolectomy @ [facility] 09/07) HLD, SAUL, who presented from [facility] with Low Hgb and Black tarry stools for the past 2 weeks. Patient was found to have a normocytic anemia with stable vital signs. She was transfused 2 units PRBC with improvement in her anemia. Patient was seen by GI, no evidence of recurrent GI bleed but needs capsule endoscopy. Patient was restarted on her home DOAC for afib, monitored for 24 hours without evidence of bleeding, stable H&H. Patient was found to be borderline hyperkalemic and had elevated kidney function so her lisinopril was discontinued. Patient discharged back to [facility] with GI and Nephro followup. Recommended to have cbc, cmp checked in 3-5 days. Started on Protonix 40mg daily. Minutes to complete discharge: 36 Discharge Summary Problems reviewed: Yes Reason For Visit: GASTROINTESTINAL HEMORRHAGE Current Active Problems Anemia (Acute) GI bleed (Acute) Condition: Stable - Instructions Diet, Activity, Other Instructions: You presented to the hospital with low hemoglobin and dark tarry stool. You were found to have anemia and were transfused 2 units of blood with improvement. You were seen by GI who recommended outpatient follow up for a video capsule endoscopy with Dr. Traore. You were continued on your blood thinning medication without any evidence of recurrent bleeding. Medication Changes: 1. Please stop taking Lisinopril as your Potassium levels were noted borderline high. 2. Start taking Protonix 40mg everyday. Follow up with the following physicians: 1. Please follow up with your primary care provider within one week of discharge. 2. Please follow up with Dr. Traore, Gastroenterology, within one week for further workup of your anemia and follow up capsule endoscopy. 3. Please follow up with your Plate Corrector to monitor your kidney function and potassium levels and additional testing. and to discuss resumption of your BP medication lisinopril. Follow up labs: CBC, BMP in 3-5 days at the alf (to monitor your blood counts, potassium and kidney levels) Activity and Diet 1. You are being discharged back to [facility] for continuing care. 2. Low potassium diet. Continue all your other medications as prescribed. Please return to the ER if you have any signs or symptoms of dark or bloody stools, dizziness, pallor, generalized severe weakness, chest pain, shortness of breath, uncontrollable fever, chills, nausea, vomiting, numbness, tingling, or weakness in any part of your body, changes in vision, or slurred speech. Please return to the ER if symptoms persist, worsen, or new symptoms arise. Referrals: Deacon Quiles MD [Primary Care Provider] - Cuco Traore DO [Staff Physician] - Grover Rao MD [Staff Physician] - Disposition: NURSING HOME FACILITY - Home Medications Comprehensive Discharge Medication List: Ambulatory Orders Allopurinol 150 mg PO DAILY 03/10/19 Famotidine 20 mg PO BID 03/10/19 Fluticasone Prop 0.05% Nasal [Flonase -] 2 sprays DAILY 03/10/19 Levetiracetam [Keppra] 500 mg PO DAILY 03/10/19 Metoprolol Succinate [Toprol Xl] 12.5 mg PO DAILY 03/10/19 Pregabalin [Lyrica] 50 mg PO DAILY 03/10/19 Rivaroxaban [Xarelto] 15 mg PO DAILY 03/10/19 Simvastatin 10 mg PO HS 03/10/19 Cholecalciferol (Vitamin D3) [Vitamin D3] 2,000 unit PO DAILY 10/16/19 Docusate Sodium [Colace] 200 mg PO HS 10/16/19 Megestrol Acetate [Megace -] 40 mg PO QID 10/16/19 Multivitamin [One-Daily Multi-Vitamin] 1 each PO DAILY 10/16/19 Mupirocin Ointment [Bactroban 2% Ointment -] 1 applic BID 10/16/19 Polyethylene Glycol 3350 [Miralax 119 gm Btl -] 17 g PO DAILY PRN 10/16/19 Sennosides/Docusate Sodium [Senokot-S Tablet] 2 each PO HS 10/16/19 Pantoprazole Sodium [Protonix -] 40 mg PO DAILY #30 tablet.ec 10/18/19 This patient is new to me today: Yes Date on this admission: 10/18/19 Emergency Visit: Yes ED Registration Date: 10/15/19 Care time: The patient presented to the Emergency Department on the above date and was hospitalized for further evaluation of their emergent condition. Critical Care patient: No - Discharge Referral Referred to [facility] No ATTENDING PHYSICIAN STATEMENT I saw and evaluated the patient. I reviewed the resident's note and discussed the case with the resident. I agree with the resident's findings and plan as documented. SUBJECTIVE: OBJECTIVE: ASSESSMENT AND PLAN:
== END 2019-10-18 18:08 | DRG 378 ==
LOC: JER 20:30 → JERBED 23:04 → J8W 10-16 04:11
PROVIDERS: ADMIT Internal Medicine; ATTEND Hospitalist
PROC: 30233N1 Transfusion of Nonautologous Red Blood Cells into Peripheral Vein, Percutaneous Approach (ICD-10-PCS; principal; 2019-10-15)
DX: K92.2 Gastrointestinal hemorrhage, unspecified (principal); C78.5 Secondary malignant neoplasm of large intestine and rectum; D62 Acute posthemorrhagic anemia; I50.22 Chronic systolic (congestive) heart failure; C55 Malignant neoplasm of uterus, part unspecified; N18.3 Chronic kidney disease, stage 3 (moderate); E11.42 Type 2 diabetes mellitus with diabetic polyneuropathy; G47.33 Obstructive sleep apnea (adult) (pediatric); E87.5 Hyperkalemia; E78.5 Hyperlipidemia, unspecified; I48.0 Paroxysmal atrial fibrillation; K44.9 Diaphragmatic hernia without obstruction or gangrene; I25.10 Atherosclerotic heart disease of native coronary artery without angina pectoris
CPT/HCPCS: 36415; 36430; 36511; 80053; 81003; 82272; 82962; 83735; 84100; 84132; 85025; 85027; 85610; 85730; 86850; 86900; 86901; 86922; 93005; 93010; 97116-GP; 97162-GP; 99285-25; J8999; P9038; P9058

== ENCOUNTER 2019-12-15 22:26 | Inpatient (IN) | payer OTHER ==
[2019-12-16 02:29] LABS: MCH 31.8 pg (25.7-33.7); MCHC 32.7 g/dl (32.0-36.0); MEAN CELL VOLUME 97.3 fl (80-96); MEAN PLT VOLUME 10.7 fl (7.5-11.1); PLATELET COUNT 157 K/MM3 (134-434); RBC 2.16 M/mm3 (3.60-5.2); RDW 18.8 % (11.6-15.6); WHITE BLOOD COUNT 5.4 K/mm3 (4.0-10.0)
[2019-12-16 02:56] LABS: HEMOGLOBIN 6.9 GM/dL (10.7-15.3)
[2019-12-16 03:06] LABS: ALBUMIN 3.2 g/dl (3.4-5.0); ALK PHOS 93 U/L (45-117); ANION GAP 6 MMOL/L (8-16); BILIRUBIN,TOTAL 0.2 mg/dL (0.2-1); BLOOD UREA NITROGEN 58.3 mg/dL (7-18); CALCIUM 8.8 mg/dL (8.5-10.1); CHLORIDE 123 mmol/L (98-107); CO2 16 mmol/L (21-32); CREATININE 1.8 mg/dL (0.55-1.3); GLUCOSE,RANDOM 164 mg/dL (74-106); POTASSIUM 5.7 mmol/L (3.5-5.1); SGOT/AST 13 U/L (15-37); SGPT/ALT 15 U/L (13-61); SODIUM 144 mmol/L (136-145); TOT PROT 5.7 g/dl (6.4-8.2)
[2019-12-16] MEDS ORDERED: SODIUM CHLORIDE 0.9% 500 ML INFUS.BAG IV ONE (03:23)
--- NOTE | 2019-12-16 03:51 | PDOC ---
Documentation entered by Avis Tran SCRIBE, acting as scribe for Maddie Coelho DO. Maddie Coelho DO: This documentation has been prepared by the Chelsea garcía Nirvannie, SCRIBE, under my direction and personally reviewed by me in its entirety. I confirm that the documentation accurately reflects all work, treatment, procedures, and medical decision making performed by me. History of Present Illness - General Chief Complaint: Blood Transfusion Stated Complaint: ABNORMAL LABS Time Seen by Provider: 12/16/19 00:02 History Source: Patient Exam Limitations: No Limitations - History of Present Illness Initial Comments: 12/16/19 01:34 The patient is a 84 year old female, with a significant past medical history of HLD, DM, CKD, neuropathy, SAUL, CHF, Afib on Xarelto s/p PM, colon CA s/p right hemicolectomy, who presents to the emergency department with anemia. Patient was found to have a dropping hemoglobin from 9 to 6 on [facility] (12/15). While in the ED, the patient's only complaint is black stool. She denies any hematemesis. She denies recent chest pain or shortness of breath. Allergies: Morphine Past History - Past Medical History Allergies/Adverse Reactions: Allergies Allergy/AdvReac Type Severity Reaction Status Date / Time morphine Allergy Nausea Verified 08/10/19 11:30 Home Medications: Ambulatory Orders Allopurinol 150 mg PO DAILY 03/10/19 Famotidine 20 mg PO BID 03/10/19 Fluticasone Prop 0.05% Nasal [Flonase -] 2 sprays DAILY 03/10/19 Levetiracetam [Keppra] 500 mg PO DAILY 03/10/19 Metoprolol Succinate [Toprol Xl] 12.5 mg PO DAILY 03/10/19 Pregabalin [Lyrica] 50 mg PO DAILY 03/10/19 Rivaroxaban [Xarelto] 15 mg PO DAILY 03/10/19 Simvastatin 10 mg PO HS 03/10/19 Cholecalciferol (Vitamin D3) [Vitamin D3] 2,000 unit PO DAILY 10/16/19 Docusate Sodium [Colace] 200 mg PO HS 10/16/19 Megestrol Acetate [Megace -] 40 mg PO QID 10/16/19 Multivitamin [One-Daily Multi-Vitamin] 1 each PO DAILY 10/16/19 Mupirocin Ointment [Bactroban 2% Ointment -] 1 applic BID 10/16/19 Polyethylene Glycol 3350 [Miralax 119 gm Btl -] 17 g PO DAILY PRN 10/16/19 Sennosides/Docusate Sodium [Senokot-S Tablet] 2 each PO HS 10/16/19 Pantoprazole Sodium [Protonix -] 40 mg PO DAILY #30 tablet.ec 10/18/19 Anemia: Yes (PERNICIOUS) Cancer: Yes (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/RAD) Cardiac Disorders: Yes (ATRIAL FIBRILATION,CHF) COPD: Yes CHF: Yes Diabetes: Yes (type II, NEUROPATHY) HTN: Yes Hypercholesterolemia: Yes Thyroid Disease: Yes (THYROID NODULES) - Surgical History Appendectomy: Yes Lung Surgery: Yes (LOBECTOMY SECONDARY TO LUNG METASTASES) Orthopedic Surgery: Yes (BILATERAL KNEE REPLACEMENTS) - Psycho Social/Smoking Cessation Hx Smoking History: Never smoked Hx Alcohol Use: No Drug/Substance Use Hx: No Substance Use Type: None Review of Systems - Review of Systems Able to Perform ROS?: Yes Comments:: 12/16/19 01:34 GENERAL/CONSTITUTIONAL: No fever or chills. No weakness. HEAD, EYES, EARS, NOSE AND THROAT: No change in vision. No ear pain or discharge. No sore throat. GASTROINTESTINAL: +Black stool. No nausea, vomiting, diarrhea or constipation. GENITOURINARY: No dysuria, frequency, or change in urination. CARDIOVASCULAR: No chest pain or shortness of breath. RESPIRATORY: No cough, wheezing, or hemoptysis. MUSCULOSKELETAL: No joint or muscle swelling or pain. No neck or back pain. SKIN: No rash NEUROLOGIC: No headache, vertigo, loss of consciousness, or change in strength/ sensation. ENDOCRINE: No increased thirst. No abnormal weight change. HEMATOLOGIC/LYMPHATIC: +Anemia. No easy bleeding, or history of blood clots. ALLERGIC/IMMUNOLOGIC: No hives or skin allergy. All Other Systems: Reviewed and Negative *Physical Exam - Vital Signs Last Vital Signs Temp Pulse Resp BP Pulse Ox 97.2 F L 62 18 120/54 L 98 12/15/19 22:47 12/15/19 22:47 12/15/19 22:47 12/15/19 22:47 12/15/19 22:47 - Physical Exam 12/16/19 01:34 GENERAL: Awake, in no acute distress HEAD: No signs of trauma EYES: PERRLA, EOMI, sclera anicteric, conjunctiva clear, visual acuity grossly intact ENT: Moist mucosa NECK: Normal ROM, supple, no lymphadenopathy or JVD. LUNGS: Breath sounds equal, clear to auscultation bilaterally. No wheezes, and no crackles. Normal work of breathing. HEART: Regular rate and rhythm, normal S1 and S2, no murmurs, rubs or gallops ABDOMEN: Soft, nontender, normoactive bowel sounds. No guarding. Non- distended. BACK: No midline tenderness. RECTAL: Large amount of black stool in the vault. Black stool in the diaper from a bowel movement. EXTREMITIES: Normal range of motion, no edema. No clubbing or cyanosis. No erythema, or tenderness NEUROLOGICAL: Alert, and oriented x4, Nonfocal. SKIN: Warm, Dry, normal turgor, no rashes or lesions noted. Heart Score/ECG Review - ECG Impressions Comment:: 12/16/19 03:50 EKG shows an atrial paced rhythm with a left bundle branch block at 60 bpm, no change from previous ED Treatment Course - LABORATORY CBC & Chemistry Diagram: 12/16/19 02:20 12/16/19 02:20 - ADDITIONAL ORDERS Additional order review: Laboratory Results 12/16/19 12/16/19 12/16/19 02:45 02:20 02:20 PT with INR Cancelled INR Cancelled Sodium 144 Potassium 5.7 H Chloride 123 H Carbon Dioxide 16 L Anion Gap 6 L BUN 58.3 H Creatinine 1.8 H Est GFR (CKD-EPI)AfAm 29.64 Est GFR (CKD-EPI)NonAf 25.58 Random Glucose 164 H Calcium 8.8 Total Bilirubin 0.2 AST 13 L ALT 15 Alkaline Phosphatase 93 Troponin I < 0.02 Total Protein 5.7 L Albumin 3.2 L Crossmatch See Detail 12/16/19 02:20 RBC 2.16 L MCV 97.3 H D MCHC 32.7 RDW 18.8 H MPV 10.7 - RADIOLOGY Radiology Studies Ordered: Category Date Time Status ABDOMEN & PELVIS CT W/O CONTR [CT] Stat CT Scan 12/16/19 03:23 Taken Medical Decision Making - Critical Care Time Total Critical Care Time (minutes): 60 Critical Care Statement: The care of this patient involved high complexity decision making to prevent further life threatening deterioration of the patient 's condition and/or to evaluate & treat vital organ system(s) failure or risk of failure. - Medical Decision Making 12/16/19 03:48 84-year-old female with dark stools and acute anemia Hemoglobin 6.9 requiring transfusion, 1 unit of PRBCs ordered Stool on exam shows no obvious bright red blood but is black in color, Plan for CT scan abdomen and pelvis We will admit to medical service for further management Discharge - Discharge Information Problems reviewed: Yes Clinical Impression/Diagnosis: Symptomatic anemia, Black stools Condition: Guarded - Admission Yes - Follow up/Referral - Patient Discharge Instructions - Post Discharge Activity
--- NOTE | 2019-12-16 04:10 | PN ---
Teaching Attending Note Name of Resident: Derek Howard ATTENDING PHYSICIAN STATEMENT I saw and evaluated the patient. I reviewed the resident's note and discussed the case with the resident. I agree with the resident's findings and plan as documented. SUBJECTIVE: Patient is an 84 year old woman with a significant past medical history of HLD, DM, CKD, Neuropathy, SAUL, CHF, Afib on Xarelto s/p PM, Metastatic uterine cancer to the lungs (s/p lobectomy, chemo/radiotherapy), Colon cancer (s/p right hemicolectomy), Bilateral knee replacements, Pernicious anemia and Thyroid nodules who presents to the emergency department with anemia. Patient was found to have a dropping hemoglobin from 9 to 6 on outpatient [facility] labs (12/15/2019). While in the ED, the patient's only complaint is black stool. She denies any hematemesis. She denies recent chest pain, shortness of breath, fever, vomiting, chills, headache, abdominal pain, dysuria or dizziness. Denies alcohol, tobacco or illicit drug use. No sick contacts or recent travels. OBJECTIVE: Alert Vital Signs Period Temp Pulse Resp BP Sys/Bone Pulse Ox Last 24 Hr 97.2 F 62 18 120/54 98 HEENT: No Jaundice, eye redness or discharge, PERRLA, EOMI. Normocephalic, atraumatic. External ears are normal and hearing is grossly intact. No nasal discharge. Neck: Supple, nontender. No palpable adenopathy or thyromegaly. No JVD Chest: Good effort. Clear to auscultation and percussion. Heart: Irregularly irregular. No S3, rub or murmur Abdomen: Not distended, soft, nontender and no HSM. No rebound or guarding. Normal bowel sounds. Ext: Peripheral pulses intact. No leg edema. Skin: Warm and dry. No petechiae, rash or ecchymosis. Neuro: Alert. Oriented x3. CN 2-12 grossly intact. Sensation grossly intact in all four extremities and DTR are symmetric. Psych: Appropriate mood and affect. Good insight. Home Medications Medication Instructions Recorded Allopurinol 150 mg PO DAILY 03/10/19 Famotidine 20 mg PO BID 03/10/19 Fluticasone Prop 0.05% Nasal 2 sprays DAILY 03/10/19 [Flonase -] Levetiracetam [Keppra] 500 mg PO DAILY 03/10/19 Metoprolol Succinate [Toprol Xl] 12.5 mg PO DAILY 03/10/19 Pregabalin [Lyrica] 50 mg PO DAILY 03/10/19 Rivaroxaban [Xarelto] 15 mg PO DAILY 03/10/19 Simvastatin 10 mg PO HS 03/10/19 Cholecalciferol (Vitamin D3) 2,000 unit PO DAILY 10/16/19 [Vitamin D3] Docusate Sodium [Colace] 200 mg PO HS 10/16/19 Megestrol Acetate [Megace -] 40 mg PO QID 10/16/19 Multivitamin [One-Daily 1 each PO DAILY 10/16/19 Multi-Vitamin] Mupirocin Ointment [Bactroban 2% 1 applic BID 10/16/19 Ointment -] Polyethylene Glycol 3350 [Miralax 17 g PO DAILY PRN 10/16/19 119 gm Btl -] Sennosides/Docusate Sodium 2 each PO HS 10/16/19 [Senokot-S Tablet] Pantoprazole Sodium [Protonix -] 40 mg PO DAILY #30 tablet.ec 10/18/19 Abnormal Lab Results 12/16/19 12/16/19 12/16/19 02:20 02:20 02:45 RBC 2.16 L Hgb 6.9 L* Hct 21.0 L D MCV 97.3 H D RDW 18.8 H Potassium 5.7 H Chloride 123 H Carbon Dioxide 16 L Anion Gap 6 L BUN 58.3 H Creatinine 1.8 H Random Glucose 164 H AST 13 L Total Protein 5.7 L Albumin 3.2 L Crossmatch See Detail ASSESSMENT AND PLAN: 1. Symptomatic anemia - Likely multifactorial including GI bleeding, renal anemia, cancer anemia and chronic inflammation. Result of CT abdomen/pelvis pending. Stool guaiac is positive. Will get iron studies. Being transfused PRBC in the ER. Consult Hematology and GI. Going forward, would benefit from Procrit therapy once iron replete. EKG shows an atrial paced rhythm with a left bundle branch block at 60 bpm, no change from previous. UA and CXR pending. Will give IV Protonix, keep her NPO, hold Xarelto and discuss reinitiation with Cardiology. Will continue comprehensive care for all of patients comorbid conditions. 2. Hypoalbuminemia - Possibly due to combined effects of malnutrition and inflammation associated with comorbid chronic conditions. Will ensure adequate dietary protein intake and also consult entry level sales consultant. 3. DM For now, we will hold the home diabetes drugs and implement sliding scale insulin regimen. Provide comprehensive diabetes care with patient teaching and counseling about the importance of adherence to prescribed diabetes regimen, euglycemia, eye care and foot care. 4. CKD - Has risk factors for CKD. Likely has superimposed EDGARDO due to volume loss. 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 Will hydrate gently to correct EDGARDO and enhance K excretion. No EKG changes of hyperkalemia. If repeat K is still high, will treat with insulin and D50W as well as Lokelma. Will consult nephrology and avoid nephrotoxic agents such as NSAIDS, aminoglycosides, contrast dyes and certain Alternative medicine products. 5. DVT prophylaxis - SCD 6. Advance directives - Full code
[2019-12-16 04:38] LABS: INR 1.84 (0.83-1.09); PROTHROMBIN TIME (PATIENT) 21.9 SEC (9.7-13.0)
[2019-12-16 04:41] LABS: ACTIVATED PTT 43.4 SECONDS (25.2-36.5)
--- NOTE | 2019-12-16 07:24 | HP ---
CHIEF COMPLAINT: melena PCP: cristiane mejia HISTORY OF PRESENT ILLNESS: 84 y.o. F PMH HTN, HLD, DM, GERD, CHF, A-fib (on xarelto), uterine CA w/ mets, colon CA s/p chemo/ resection in august 2019 at [facility], chronic kidney dz , SAUL presenting for melena x 2 weeks. The patient states she began having loose stools which progressed to melena-- no angela bleeding noted or streaking noticed on toilet paper when wiping. Labs drawn at [facility] showed a low hgb so was sent to ED. She had no changes in diet. Patient has had a significant anemia history with recent admission aug-sep 2019 for similar symptoms of melena and low hgb, was transfused at this time and discharged with instructions to have outpatient video capsule endoscopy with Dr. Reyes. Denies BRBPR/ Hematemesis/ oral bleeding/ hemoptysis/ hematuria/ vaginal bleeding/ N/V/ fevers/ chills/ lightheadedness. ER course was notable for: (1) 1 large melenotic stool in ED (2) given 500cc bolus NS (3) 1U pRBC ordered Recent Travel: denies PAST MEDICAL HISTORY: as per hpi PAST SURGICAL HISTORY: BHAVANA, appendectomy, right hemicolectomy, b/l cataract, pacemaker Social History: Smoking: denies Alcohol: denies Drugs: denies Allergies morphine Allergy (Verified 08/10/19 11:30) Nausea HOME MEDICATIONS: Home Medications Medication Instructions Recorded Allopurinol 150 mg PO DAILY 03/10/19 Famotidine 20 mg PO BID 03/10/19 Fluticasone Prop 0.05% Nasal 2 sprays DAILY 03/10/19 [Flonase -] Levetiracetam [Keppra] 500 mg PO DAILY 03/10/19 Metoprolol Succinate [Toprol Xl] 12.5 mg PO DAILY 03/10/19 Pregabalin [Lyrica] 50 mg PO DAILY 03/10/19 Rivaroxaban [Xarelto] 15 mg PO DAILY 03/10/19 Simvastatin 10 mg PO HS 03/10/19 Cholecalciferol (Vitamin D3) 2,000 unit PO DAILY 10/16/19 [Vitamin D3] Docusate Sodium [Colace] 200 mg PO HS 10/16/19 Megestrol Acetate [Megace -] 40 mg PO QID 10/16/19 Multivitamin [One-Daily 1 each PO DAILY 10/16/19 Multi-Vitamin] Mupirocin Ointment [Bactroban 2% 1 applic BID 10/16/19 Ointment -] Sennosides/Docusate Sodium 2 each PO HS 10/16/19 [Senokot-S Tablet] Pantoprazole Sodium [Protonix -] 40 mg PO DAILY #30 tablet.ec 10/18/19 Acetaminophen [Tylenol -] 500 mg PO PRN 12/16/19 Lisinopril 5 mg PO DAILY 12/16/19 Miconazole Nitrate [Miconazorb AF] 71 gm TP BID 12/16/19 Psyllium Husk/Aspartame [Reguloid 284 gm PO Q72H 12/16/19 Powder] PHYSICAL EXAMINATION Vital Signs - 24 hr 12/15/19 22:47 Temperature 97.2 F L Pulse Rate 62 Respiratory 18 Rate Blood Pressure 120/54 L O2 Sat by Pulse 98 Oximetry (%) GENERAL: Awake, alert, and fully oriented, in no acute distress. HEENT: NCAT MMM no oral sores/ bleeding noted LUNGS: Breath sounds equal, clear to auscultation bilaterally. No wheezes, and no crackles. No accessory muscle use. HEART: 2/6 systolic murmur noted. Regular rate. ABDOMEN: Mild TTP lower abdomen, LLQ>RLQ. Soft, not distended, normoactive bowel sounds, no guarding. No rebound tenderness, no guarding. EXTREMITIES: 2+ pulses, warm, well-perfused. No calf tenderness. No peripheral edema. NEUROLOGICAL: Cranial nerves II-XII intact. PSYCHIATRIC: Appropriate mood and affect. SKIN: R hand hematoma, healing Laboratory Results - last 24 hr 12/16/19 12/16/19 12/16/19 02:20 02:20 02:20 WBC 5.4 RBC 2.16 L Hgb 6.9 L* Hct 21.0 L D MCV 97.3 H D MCH 31.8 MCHC 32.7 RDW 18.8 H Plt Count 157 D MPV 10.7 PT with INR 21.90 H INR 1.84 H PTT (Actin FS) 43.4 H Sodium 144 Potassium 5.7 H Chloride 123 H Carbon Dioxide 16 L Anion Gap 6 L BUN 58.3 H Creatinine 1.8 H Est GFR (CKD-EPI)AfAm 29.64 Est GFR (CKD-EPI)NonAf 25.58 Random Glucose 164 H Calcium 8.8 Total Bilirubin 0.2 AST 13 L ALT 15 Alkaline Phosphatase 93 Troponin I < 0.02 Total Protein 5.7 L Albumin 3.2 L Stool Occult Blood Blood Type Antibody Screen Crossmatch 12/16/19 12/16/19 12/16/19 02:20 02:20 02:45 WBC RBC Hgb Hct MCV MCH MCHC RDW Plt Count MPV PT with INR Cancelled INR Cancelled PTT (Actin FS) Sodium Potassium Chloride Carbon Dioxide Anion Gap BUN Creatinine Est GFR (CKD-EPI)AfAm Est GFR (CKD-EPI)NonAf Random Glucose Calcium Total Bilirubin AST ALT Alkaline Phosphatase Troponin I Total Protein Albumin Stool Occult Blood Positive Blood Type O POSITIVE Antibody Screen Negative Crossmatch See Detail ASSESSMENT/PLAN: 84 y.o. F PMH HTN, HLD, DM, GERD, CHF, A-fib (on xarelto), uterine CA w/ mets, colon CA s/p chemo/ resection in august 2019 at [facility], chronic kidney dz , SAUL presenting for GI bleed #Acute blood loss anemia 2/2 GIB -hgb found to be 6.9 on admission -+ stool occult -iron studies pending -Vitals stable; s/p 500cc bolus NS; continuing IVF gently, monitor BPs -transfuse to maintain hgb >8 -f/u repeat CBC s/p prbc unit -NPO, PPI -holding xarelto -GI consulted-- Dr. Reyes #A-fib -holding xarelto in setting of GIB -ekg showing atrial paced rhythm, rate 60 -cardio consulted-- Dr. Pozo #HTN -hold home anti HTN meds -monitor BPs -EKG: Atrial paced rhythm, prolonged AV conduction, LBBB. qtc 466 -trop neg x1 #EDGARDO on CKD -Cr 1.8, baseline ~1.3 -continue IVF -trend renal labs, ctm #FEN -NS @75cc/hr -hyperkalemic 5.7, re-drawing stat BMP -NPO #PPX -protonix 40mg IV daily -holding xarelto Visit type - Emergency Visit Emergency Visit: Yes ED Registration Date: 12/16/19 Care time: The patient presented to the Emergency Department on the above date and was hospitalized for further evaluation of their emergent condition. - New Patient This patient is new to me today: Yes Date on this admission: 12/16/19 - Critical Care Critical Care patient: No ATTENDING PHYSICIAN STATEMENT I saw and evaluated the patient. I reviewed the resident's note and discussed the case with the resident. I agree with the resident's findings and plan as documented. SUBJECTIVE: OBJECTIVE: ASSESSMENT AND PLAN:
[2019-12-16] MEDS: SODIUM CHLORIDE 1,000 ML IV SCH ×2 (07:30→20:58)
[2019-12-16] MEDS: INSULIN SLIDING SCALE (NOVOLOG) 1 VIAL SQ SCH ×4 (07:46→21:47)
[2019-12-16 08:06] LABS: BLOOD UREA NITROGEN 55.2 mg/dL (7-18); CALCIUM 9.2 mg/dL (8.5-10.1); CREATININE 1.7 mg/dL (0.55-1.3); POTASSIUM 5.2 mmol/L (3.5-5.1)
[2019-12-16] MEDS ORDERED: PANTOPRAZOLE SODIUM 40 MG VIAL ONE (10:07)
[2019-12-16] MEDS: PANTOPRAZOLE SODIUM 40 MG VIAL IVPUSH SCH (10:08)
--- NOTE | 2019-12-16 11:52 | EKG ---
Test Reason : Blood Pressure : / mmHG Vent. Rate : 060 BPM Atrial Rate : 060 BPM P-R Int : 210 ms QRS Dur : 128 ms QT Int : 466 ms P-R-T Axes : 057 -05 099 degrees QTc Int : 466 ms POOR DATA QUALITY, INTERPRETATION MAY BE ADVERSELY AFFECTED Atrial-paced rhythm with prolonged AV conduction LEFT BUNDLE BRANCH BLOCK ABNORMAL ECG WHEN COMPARED WITH ECG OF 15-OCT-2019 21:07, NO SIGNIFICANT CHANGE WAS FOUND Confirmed by RICKY MEDRANO MD ([id number]) on 12/16/2019 11:52:34 AM Referred By: Confirmed By:RICKY MEDRANO MD
--- NOTE | 2019-12-16 15:38 | CON.CARD ---
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 She is not on ASA therapy and does not take any other NSAIDs. She denies gross rectal bleeding, abdominal pain, hematemesis. Did not undergo capsule endoscopy as recommended during previous visit. Had Recent EGD 08/06/19 for anemia that revealed a large hiatal hernia and was otherwise unremarkable. Had colonoscopy 03/07 revealing a cancerous hepatic flexure polyp and she underwent right hemocolectomy at [facility] towards the end of 2018. She received 1 U PRBC. There has been no melena today. She remains hemodynamically stable. 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: Peripheral Neuropathy Cardio/Vascular: Yes: AFIB, CHF, Hyperlipdemia Gastrointestinal: Yes: Cancer (Colon cancer) Renal/: Yes: Renal Inusuff Endocrine: Yes: Diabetes Mellitus (DM II), Other (thyroid nodules) - Past Surgical History Past Surgical History: Yes: Appendectomy, Colectomy (S/P right hemicolectomy), Hysterectomy (BHAVANA/BSO), Joint Replacement (b/l Knees), Permanent Pacemaker - Alcohol/Substance Use Hx Alcohol Use: No History of Substance Use: reports: None - Smoking History Smoking history: Never smoked - Social History Usual Living Arrangement: Assisted Living ADL: Support Services 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 Travel: No Home Medications - Allergies Allergies/Adverse Reactions: Allergies Allergy/AdvReac Type Severity Reaction Status Date / Time morphine Allergy Nausea Verified 08/10/19 11:30 - Home Medications Home Medications: Ambulatory Orders Allopurinol 150 mg PO DAILY 03/10/19 Famotidine 20 mg PO BID 03/10/19 Fluticasone Prop 0.05% Nasal [Flonase -] 2 sprays DAILY 03/10/19 Levetiracetam [Keppra] 500 mg PO DAILY 03/10/19 Metoprolol Succinate [Toprol Xl] 12.5 mg PO DAILY 03/10/19 Pregabalin [Lyrica] 50 mg PO DAILY 03/10/19 Rivaroxaban [Xarelto] 15 mg PO DAILY 03/10/19 Simvastatin 10 mg PO HS 03/10/19 Cholecalciferol (Vitamin D3) [Vitamin D3] 2,000 unit PO DAILY 10/16/19 Docusate Sodium [Colace] 200 mg PO HS 10/16/19 Megestrol Acetate [Megace -] 40 mg PO QID 10/16/19 Multivitamin [One-Daily Multi-Vitamin] 1 each PO DAILY 10/16/19 Mupirocin Ointment [Bactroban 2% Ointment -] 1 applic BID 10/16/19 Sennosides/Docusate Sodium [Senokot-S Tablet] 2 each PO HS 10/16/19 Pantoprazole Sodium [Protonix -] 40 mg PO DAILY #30 tablet.ec 10/18/19 Acetaminophen [Tylenol -] 500 mg PO PRN 12/16/19 Lisinopril 5 mg PO DAILY 12/16/19 Miconazole Nitrate [Miconazorb AF] 71 gm TP BID 12/16/19 Psyllium Husk/Aspartame [Reguloid Powder] 284 gm PO Q72H 12/16/19 Review of Systems - Review of Systems Gastrointestinal: reports: Melena Neurological: reports: Dizziness Vital Signs: Vital Signs Temperature 97.4 F L 12/16/19 14:55 Pulse Rate 56 L 12/16/19 14:55 Respiratory Rate 18 12/16/19 14:55 Blood Pressure 134/50 L 12/16/19 14:55 O2 Sat by Pulse Oximetry (%) 97 12/16/19 14:55 Constitutional: Yes: No Distress, Calm Neck: Yes: Supple Respiratory: Yes: Regular, CTA Bilaterally Gastrointestinal: Yes: Soft, Hypoactive Bowel Sounds, Melena Cardiovascular: Yes: Regular Rate and Rhythm JVD: No Carotid Bruit: No Heart Sounds: Yes: S1, S2 Murmur: Yes: Systolic Murmur, Grade 1 Edema: No - Other Data Labs, Other Data: CBC, BMP 12/16/19 02:20 12/16/19 06:59 INR, PTT INR 1.84 (0.83-1.09) H 12/16/19 02:20 Troponin, BNP 12/16/19 02:20 Troponin I < 0.02 Troponin, BNP 12/16/19 02:20 Troponin I < 0.02 AV paced @ 60 Echo: Report Reviewed Ejection Fraction %: LVEF > or = 40 % Imaging - Results Cat Scan: Report Reviewed (Abd&pelvic CT: No acute changes) Problem List - Problems (1) Black stools Code(s): K92.1 - MELENA (2) Anemia Code(s): D64.9 - ANEMIA, UNSPECIFIED Qualifiers: Anemia type: iron deficiency Iron deficiency anemia type: chronic blood loss Qualified Code(s): D50.0 - Iron deficiency anemia secondary to blood loss (chronic) (3) GI bleed Code(s): K92.2 - GASTROINTESTINAL HEMORRHAGE, UNSPECIFIED Qualifiers: GI bleed type/associated pathology: unspecified gastrointestinal hemorrhage type Qualified Code(s): K92.2 - Gastrointestinal hemorrhage, unspecified (4) CKD (chronic kidney disease) Code(s): N18.9 - CHRONIC KIDNEY DISEASE, UNSPECIFIED Qualifiers: Chronic kidney disease stage: stage 3 (moderate) Qualified Code(s): N18.3 - Chronic kidney disease, stage 3 (moderate) (5) Cardiac pacemaker Code(s): Z95.0 - PRESENCE OF CARDIAC PACEMAKER (6) Chronic anticoagulation Code(s): Z79.01 - CUSTOMER DATA TECHNICIAN (CURRENT) USE OF ANTICOAGULANTS (7) Coronary artery disease Code(s): I25.10 - ATHSCL HEART DISEASE OF [place] CORONARY ARTERY W/O ANG PCTRS Qualifiers: Coronary Disease-Associated Artery/Lesion type: [place] artery [place] vs. transplanted heart: [place] heart Associated angina: without angina Qualified Code(s): I25.10 - Atherosclerotic heart disease of [place] coronary artery without angina pectoris (8) Hyperlipidemia Code(s): E78.5 - HYPERLIPIDEMIA, UNSPECIFIED Qualifiers: Hyperlipidemia type: pure hypercholesterolemia Qualified Code(s): E78.00 - Pure hypercholesterolemia, unspecified; E78.0 - Pure hypercholesterolemia (9) Hypertensive cardiovascular disease Code(s): I11.9 - HYPERTENSIVE HEART DISEASE WITHOUT HEART FAILURE Qualifiers: Heart failure presence: without heart failure Qualified Code(s): I11.9 - Hypertensive heart disease without heart failure (10) Paroxysmal atrial fibrillation Code(s): I48.0 - PAROXYSMAL ATRIAL FIBRILLATION (11) Systolic dysfunction Code(s): I51.9 - HEART DISEASE, UNSPECIFIED Assessment/Plan 05/27/2019 Mild decreased LVEF 45-50%, mod LAE, normal RV size and fxn, mild MR , TR RVSP 32 mmHg, pacemaker lead 01/07/2017 Adenosine Myoview: No ischemia, LVEF 70% 1. Pre-procedure CV evaluation planned for EGD 2. Acute blood loss anemia post transfusion 3. Colon ca s/p right hemicolectomy 4. LV systolic dysfunction 5. Sinus node dysfunction with AV Block s/p Medtronic dual chamber pacemaker last interrogated 10/22/2019 6. PAF->SR off Xarelto 7. Hypertensive cardiovascular disease 8. Type 2 DM 9. Hyperlipidemia 10. Acute on CKD 3 with hyperkalemia P:1. Given absence of symptoms of acute coronary syndrome, decompensated CHF or malignant arrhythmia, may proceed with planned EGD from CV-standpoint w/o further testing, not ideal a/c candidate given recurrent GI bleeds w/o identifiable source thus far, consider STEVEN occlusion with Watchman as outpatient. Plan for inpatient colonoscopy and capsule endoscopy if EGD unrevealing for bleeding source 2. Resume Toprol XL 25 qd, as hemodynamics tolerate, GI protection, resume lisinopril 5 qd as renal fxn and hyperkalemia stabilizes 3. Transfuse pRBC to maintain Hgb>8.0, clear liquid diet 4. Thank you for consultative opportunity
--- NOTE | 2019-12-16 17:24 | CON.GI ---
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 She is not on ASA therapy and does not take any other NSAIDs. Had Recent EGD 08/06/19 for anemia that revealed a large hiatal hernia and was otherwise unremarkable. Had colonoscopy 03/07 revealing a cancerous hepatic flexure polyp and she underwent right hemocolectomy at [facility] towards the end of 2018. She received 1 U PRBC. There has been no melena today. She remains hemodynamically stable. 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 Cardio/Vascular: Yes: AFIB, CHF, Hyperlipdemia Gastrointestinal: Yes: Cancer (Colon cancer) Renal/: Yes: Renal Inusuff Endocrine: Yes: Diabetes Mellitus (DM II), Other (thyroid nodules) - Past Surgical History Past Surgical History: Yes: Appendectomy, Colectomy (S/P right hemicolectomy), Hysterectomy (BHAVANA/BSO), Joint Replacement (b/l Knees), Permanent Pacemaker - Alcohol/Substance Use Hx Alcohol Use: No History of Substance Use: reports: None - Smoking History Smoking history: Never smoked - Social History Usual Living Arrangement: Assisted Living ADL: Support Services 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 Travel: No Home Medications - Allergies Allergies/Adverse Reactions: Allergies Allergy/AdvReac Type Severity Reaction Status Date / Time morphine Allergy Nausea Verified 08/10/19 11:30 - Home Medications Home Medications: Ambulatory Orders Allopurinol 150 mg PO DAILY 03/10/19 Famotidine 20 mg PO BID 03/10/19 Fluticasone Prop 0.05% Nasal [Flonase -] 2 sprays DAILY 03/10/19 Levetiracetam [Keppra] 500 mg PO DAILY 03/10/19 Metoprolol Succinate [Toprol Xl] 12.5 mg PO DAILY 03/10/19 Pregabalin [Lyrica] 50 mg PO DAILY 03/10/19 Rivaroxaban [Xarelto] 15 mg PO DAILY 03/10/19 Simvastatin 10 mg PO HS 03/10/19 Cholecalciferol (Vitamin D3) [Vitamin D3] 2,000 unit PO DAILY 10/16/19 Docusate Sodium [Colace] 200 mg PO HS 10/16/19 Megestrol Acetate [Megace -] 40 mg PO QID 10/16/19 Multivitamin [One-Daily Multi-Vitamin] 1 each PO DAILY 10/16/19 Mupirocin Ointment [Bactroban 2% Ointment -] 1 applic BID 10/16/19 Sennosides/Docusate Sodium [Senokot-S Tablet] 2 each PO HS 10/16/19 Pantoprazole Sodium [Protonix -] 40 mg PO DAILY #30 tablet.ec 10/18/19 Acetaminophen [Tylenol -] 500 mg PO PRN 12/16/19 Lisinopril 5 mg PO DAILY 12/16/19 Miconazole Nitrate [Miconazorb AF] 71 gm TP BID 12/16/19 Psyllium Husk/Aspartame [Reguloid Powder] 284 gm PO Q72H 12/16/19 Review of Systems - Review of Systems Gastrointestinal: reports: Diarrhea, Melena. denies: Constipation, Rectal Bleeding Physical Exam-GI Vital Signs: Vital Signs Temperature 97.4 F L 12/16/19 14:55 Pulse Rate 56 L 12/16/19 14:55 Respiratory Rate 18 12/16/19 14:55 Blood Pressure 134/50 L 12/16/19 14:55 O2 Sat by Pulse Oximetry (%) 97 12/16/19 14:55 Constitutional: Yes: Calm Eyes: No: Sclera Icterus Cardiovascular: Yes: Regular Rate and Rhythm. No: Murmur Respiratory: Yes: CTA Bilaterally Gastrointestinal Inspection: Yes: Scars. No: Distention ...Auscultate: Yes: Normoactive Bowel Sounds ...Palpate: Yes: Soft. No: Hepatomegaly, Splenomegaly, Tenderness ...Rectal Exam: Yes: Other (No external lesions, no masses, scant brown stool in rectal vault, guaiac +. No melena/blood.) Neurological: Yes: Alert Labs: CBC, BMP 12/16/19 02:20 12/16/19 06:59 INR, PTT INR 1.84 (0.83-1.09) H 12/16/19 02:20 Problem List - Problems (1) Melena Assessment/Plan: Currently no melena. Plan as follows: Hold Xarelto. Plan for EGD on Friday. Would defer to cardiology If bridging anticoagulation is needed in the interim. Discussed w/ Dr. Santana, securities research analyst @ [facility]. If EGD unrevealing for a source of melena, then transfer to [facility] for inpatient colonoscopy and capsule endoscopy (as both require bowel prep). Monitor H/H and for active GI bleeding. Keep Hgb >8 Clear liquids Code(s): K92.1 - MELENA
[2019-12-16 18:36] VITALS: BMI 28.0
[2019-12-16 21:21] LABS: BASO % 0.3 % (0-2.0); EOS % 1.8 % (0-4.5); HEMATOCRIT 26.8 % (32.4-45.2); HEMOGLOBIN 8.7 GM/dL (10.7-15.3); LYMPH % 17.3 % (8-40); MCH 29.4 pg (25.7-33.7); MCHC 32.5 g/dl (32.0-36.0); MEAN CELL VOLUME 90.7 fl (80-96); MEAN PLT VOLUME 10.7 fl (7.5-11.1); MONO % 11.9 % (3.8-10.2); NEUT % 68.7 % (42.8-82.8); PLATELET COUNT 154 K/MM3 (134-434); RBC 2.96 M/mm3 (3.60-5.2); RDW 24.2 % (11.6-15.6); WHITE BLOOD COUNT 5.2 K/mm3 (4.0-10.0)
[2019-12-16 21:50] LABS: BLOOD UREA NITROGEN 42.1 mg/dL (7-18); CALCIUM 8.5 mg/dL (8.5-10.1); CREATININE 1.4 mg/dL (0.55-1.3); POTASSIUM 5.3 mmol/L (3.5-5.1)
[2019-12-16 22:35] LABS: ANISOCYTOSIS 3+; MACROCYTOSIS 2+
[2019-12-17 06:50] LABS: BASO % 0.4 % (0-2.0); EOS % 1.8 % (0-4.5); HEMATOCRIT 29.8 % (32.4-45.2); HEMOGLOBIN 9.9 GM/dL (10.7-15.3); LYMPH % 14.3 % (8-40); MCH 29.8 pg (25.7-33.7); MCHC 33.3 g/dl (32.0-36.0); MEAN CELL VOLUME 89.6 fl (80-96); MEAN PLT VOLUME 10.3 fl (7.5-11.1); MONO % 13.4 % (3.8-10.2); NEUT % 70.1 % (42.8-82.8); PLATELET COUNT 151 K/MM3 (134-434); RBC 3.33 M/mm3 (3.60-5.2); RDW 21.5 % (11.6-15.6); WHITE BLOOD COUNT 5.4 K/mm3 (4.0-10.0)
[2019-12-17] MEDS: INSULIN SLIDING SCALE (NOVOLOG) 1 VIAL SQ SCH ×4 (06:58→21:26)
[2019-12-17 07:00] LABS: INR 1.07 (0.83-1.09); PROTHROMBIN TIME (PATIENT) 12.6 SEC (9.7-13.0)
[2019-12-17 07:26] LABS: CALCIUM 9.2 mg/dL (8.5-10.1); CREATININE 1.4 mg/dL (0.55-1.3); POTASSIUM 5.5 mmol/L (3.5-5.1)
[2019-12-17] MEDS: DEXTROSE 5%-WATER - 1,000 ML IV SCH (08:39)
--- NOTE | 2019-12-17 08:57 | PN ---
Progress Note, Physician History of Present Illness: In bed, feels fine, no CP/SOB. No cardiac events; NSR;Hb improved 9.9, Cr 1.4 - Current Medication List Current Medications: Active Medications Dextrose (D5w -) 1,000 mls @ 83 mls/hr IV ASDIR [facility] Last Admin: 12/17/19 08:39 Dose: 83 mls/hr Insulin Aspart (Novolog Vial Sliding Scale -) 1 vial SQ ACHS [facility]; Protocol Last Admin: 12/17/19 06:58 Dose: Not Given Metoprolol Succinate (Toprol Xl -) 25 mg PO DAILY ANTONI Pantoprazole Sodium (Protonix Iv) 40 mg IVPUSH DAILY [facility] Last Admin: 12/16/19 10:08 Dose: 40 mg - Objective Vital Signs: Vital Signs Temperature 97.5 F L 12/17/19 06:00 Pulse Rate 60 12/17/19 06:00 Respiratory Rate 18 12/17/19 06:00 Blood Pressure 151/59 L 12/17/19 06:00 O2 Sat by Pulse Oximetry (%) 97 12/16/19 21:00 Cardiovascular: Yes: Regular Rate and Rhythm Respiratory: No: Rales Edema: No Labs: CBC, BMP 12/17/19 06:25 12/17/19 06:25 INR, PTT INR 1.07 (0.83-1.09) 12/17/19 06:25 Assessment/Plan 05/27/2019 Mild decreased LVEF 45-50%, mod LAE, normal RV size and fxn, mild MR , TR RVSP 32 mmHg, pacemaker lead 01/07/2017 Adenosine Myoview: No ischemia, LVEF 70% 1. Pre-procedure CV evaluation planned for EGD 2. Acute blood loss anemia post transfusion 3. Colon ca s/p right hemicolectomy 4. LV systolic dysfunction 5. Sinus node dysfunction with AV Block s/p Medtronic dual chamber pacemaker last interrogated 10/22/2019 6. PAF->SR off Xarelto 7. Hypertensive cardiovascular disease 8. Type 2 DM 9. Hyperlipidemia 10. Acute on CKD 3 with hyperkalemia P: 1. Given absence of symptoms of acute coronary syndrome, decompensated CHF or malignant arrhythmia, may proceed with planned EGD from CV-standpoint w/o further testing, not ideal a/c candidate given recurrent GI bleeds w/o identifiable source thus far, consider STEVEN occlusion with Watchman as outpatient. Plan for inpatient colonoscopy and capsule endoscopy if EGD unrevealing for bleeding source 2.NO ANTICOAGULATIONs/ No bridging 3. Resume Toprol XL 25 qd, as hemodynamics tolerate, GI protection, resume lisinopril 5 qd as renal fxn and hyperkalemia stabilizes
[2019-12-17] MEDS: PANTOPRAZOLE SODIUM 40 MG VIAL IVPUSH SCH (09:11)
[2019-12-17] MEDS: metoPROLOL SUCCINATE 25 MG TAB.SR.24H (FP) PO SCH (09:11)
--- NOTE | 2019-12-17 10:11 | PN ---
Physical Exam: SUBJECTIVE: Patient seen and examined at the bedside. denies abdominal pain, no nausea or vomiting. no BM overnight. OBJECTIVE: s/p prbc infusion stable hmg/hct for planned egd friday electrolyte imbalance, K elevated at 5.5, hypernatremia. 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 She has a past medical history of HTN, HLD, DM, GERD, CHF, A-fib (on xarelto), uterine CA w/ mets, colon CA s/p chemo/ [facility] in august [facility], chronic kidney dz , SAUL presenting for melena x 2 weeks. The patient states she began having loose stools which progressed to melena-- no angela bleeding noted or streaking noticed on toilet paper when wiping. Labs drawn at [facility] showed a low hgb so was sent to ED. She had no changes in diet. Patient has had a significant anemia history with recent admission aug-sep 2019 for similar symptoms of melena and low hgb, was transfused at this time and discharged with instructions to have outpatient video capsule endoscopy with Dr. Reyes. Patient for an EGD on Friday. Vital Signs Period Temp Pulse Resp BP Sys/Obne Pulse Ox Last 24 Hr 97.3 F-97.6 F 56-70 18-18 134-156/50-79 97-100 GENERAL: The patient is awake, alert, and fully oriented, in no acute distress. HEAD: Normal with no signs of trauma. EYES: PERRL, extraocular movements intact, sclera anicteric, conjunctiva clear. No ptosis. ENT: Ears normal, nares patent, oropharynx clear without exudates, moist mucous membranes. NECK: Trachea midline, full range of motion, supple. LUNGS: left lung clear, right lung clear/diminished. HEART: Regular rate and rhythm, S1, S2 without murmur, rub or gallop. ABDOMEN: Soft, nontender, nondistended, normoactive bowel sounds, no guarding EXTREMITIES: no edema. NEUROLOGICAL: C Normal speech, gait not observed. PSYCH: Normal mood, normal affect. SKIN: Warm, dry, normal turgor, no rashes or lesions noted Laboratory Results - last 24 hr 12/16/19 12/16/19 12/16/19 02:45 06:59 11:11 WBC RBC Hgb Hct MCV MCH MCHC RDW Plt Count MPV Absolute Neuts (auto) Neutrophils % Lymphocytes % Monocytes % Eosinophils % Basophils % Nucleated RBC % Anisocytosis Microcytosis Macrocytosis PT with INR INR Sodium Potassium Chloride Carbon Dioxide Anion Gap BUN Creatinine Est GFR (CKD-EPI)AfAm Est GFR (CKD-EPI)NonAf POC Glucometer 93 Random Glucose Calcium Transferrin 310 Blood Type O POSITIVE Antibody Screen Negative Crossmatch See Detail 12/16/19 12/16/19 12/16/19 16:46 19:45 19:45 WBC 5.2 RBC 2.96 L Hgb 8.7 L Hct 26.8 L D MCV 90.7 D MCH 29.4 MCHC 32.5 RDW 24.2 H Plt Count 154 MPV 10.7 Absolute Neuts (auto) 3.6 Neutrophils % 68.7 Lymphocytes % 17.3 Monocytes % 11.9 H Eosinophils % 1.8 Basophils % 0.3 Nucleated RBC % 0 Anisocytosis 3+ Microcytosis 2+ Macrocytosis 2+ PT with INR INR Sodium 149 H Potassium 5.3 H Chloride 126 H Carbon Dioxide 19 L Anion Gap 5 L BUN 42.1 H Creatinine 1.4 H Est GFR (CKD-EPI)AfAm 40.17 Est GFR (CKD-EPI)NonAf 34.66 POC Glucometer 85 Random Glucose 78 Calcium 8.5 Transferrin Blood Type Antibody Screen Crossmatch 12/16/19 12/17/19 12/17/19 21:46 06:25 06:25 WBC 5.4 RBC 3.33 L Hgb 9.9 L Hct 29.8 L MCV 89.6 MCH 29.8 MCHC 33.3 RDW 21.5 H Plt Count 151 MPV 10.3 Absolute Neuts (auto) 3.8 Neutrophils % 70.1 Lymphocytes % 14.3 Monocytes % 13.4 H Eosinophils % 1.8 Basophils % 0.4 Nucleated RBC % 0 Anisocytosis Microcytosis Macrocytosis PT with INR 12.60 INR 1.07 Sodium Potassium Chloride Carbon Dioxide Anion Gap BUN Creatinine Est GFR (CKD-EPI)AfAm Est GFR (CKD-EPI)NonAf POC Glucometer 102 Random Glucose Calcium Transferrin Blood Type Antibody Screen Crossmatch 12/17/19 12/17/19 06:25 06:57 WBC RBC Hgb Hct MCV MCH MCHC RDW Plt Count MPV Absolute Neuts (auto) Neutrophils % Lymphocytes % Monocytes % Eosinophils % Basophils % Nucleated RBC % Anisocytosis Microcytosis Macrocytosis PT with INR INR Sodium 148 H Potassium 5.5 H Chloride 126 H Carbon Dioxide 18 L Anion Gap 4 L BUN 38.0 H Creatinine 1.4 H Est GFR (CKD-EPI)AfAm 40.17 Est GFR (CKD-EPI)NonAf 34.66 POC Glucometer 72 Random Glucose 78 Calcium 9.2 Transferrin Blood Type Antibody Screen Crossmatch Active Medications Generic Name Dose Route Start Last Admin Trade Name Freq PRN Reason Stop Dose Admin Dextrose 1,000 mls @ 83 mls/hr 12/17/19 08:15 12/17/19 08:39 D5w - IV 83 mls/hr ASDIR ANTONI Administration Insulin Aspart 1 vial 12/16/19 07:00 12/17/19 06:58 Novolog Vial Sliding Scale - SQ Not Given ACHS ANTONI Protocol Metoprolol Succinate 25 mg 12/17/19 10:00 12/17/19 09:11 Toprol Xl - PO 25 mg DAILY ANTONI Administration Pantoprazole Sodium 40 mg 12/16/19 10:00 12/17/19 09:11 Protonix Iv IVPUSH 40 mg DAILY ANTONI Administration ASSESSMENT/PLAN: Problem List - Problems (1) Black stools Assessment/Plan: stable hmg/hct for egd on Friday Xarelto on hold Code(s): K92.1 - MELENA (2) Melena Code(s): K92.1 - MELENA (3) Symptomatic anemia Assessment/Plan: s/p prbc tranfusion currently asymptomatic Code(s): D64.9 - ANEMIA, UNSPECIFIED (4) CKD (chronic kidney disease) Assessment/Plan: monitor with daily labs renal dose medications Code(s): N18.9 - CHRONIC KIDNEY DISEASE, UNSPECIFIED Qualifiers: Chronic kidney disease stage: stage 3 (moderate) Qualified Code(s): N18.3 - Chronic kidney disease, stage 3 (moderate) (5) Chronic anticoagulation Assessment/Plan: hold xarelto per cardiology, no need to bridge with heparin Code(s): Z79.01 - ASSISTED (CURRENT) USE OF ANTICOAGULANTS (6) Paroxysmal atrial fibrillation Assessment/Plan: monitor on tele hold xarelto rate controlled Code(s): I48.0 - PAROXYSMAL ATRIAL FIBRILLATION (7) Prophylactic measure Assessment/Plan: fen tolerating po monitor electrolyes clear liquid diet Code(s): Z29.9 - ENCOUNTER FOR PROPHYLACTIC MEASURES, UNSPECIFIED Visit type - Emergency Visit Emergency Visit: Yes ED Registration Date: 12/16/19 Care time: The patient presented to the Emergency Department on the above date and was hospitalized for further evaluation of their emergent condition. - New Patient This patient is new to me today: Yes Date on this admission: 12/17/19 - Critical Care Critical Care patient: No - Discharge Referral Referred to [facility] Med P.C.: No
[2019-12-17] MEDS ORDERED: PT OWN MED DRAWER 7, Y5N ONE (14:06)
[2019-12-17 16:22] LABS: ALBUMIN 3.1 g/dl (3.4-5.0); BILIRUBIN,TOTAL 1.2 mg/dL (0.2-1); BLOOD UREA NITROGEN 32.7 mg/dL (7-18); CALCIUM 8.2 mg/dL (8.5-10.1); CREATININE 1.5 mg/dL (0.55-1.3); POTASSIUM 4.9 mmol/L (3.5-5.1); TOT PROT 5.7 g/dl (6.4-8.2)
[2019-12-18] MEDS: INSULIN SLIDING SCALE (NOVOLOG) 1 VIAL SQ SCH ×2 (06:18→11:23)
[2019-12-18 06:46] LABS: BASO % 0.3 % (0-2.0); EOS % 1.2 % (0-4.5); HEMATOCRIT 31.5 % (32.4-45.2); HEMOGLOBIN 10.5 GM/dL (10.7-15.3); MCH 29.8 pg (25.7-33.7); MCHC 33.2 g/dl (32.0-36.0); MEAN CELL VOLUME 89.6 fl (80-96); MONO % 18.5 % (3.8-10.2); PLATELET COUNT 146 K/MM3 (134-434); RBC 3.52 M/mm3 (3.60-5.2); RDW 21.7 % (11.6-15.6); WHITE BLOOD COUNT 7.1 K/mm3 (4.0-10.0)
[2019-12-18 07:15] LABS: ALBUMIN 2.9 g/dl (3.4-5.0); BILIRUBIN,TOTAL 0.9 mg/dL (0.2-1); BLOOD UREA NITROGEN 25.6 mg/dL (7-18); CREATININE 1.4 mg/dL (0.55-1.3); MAGNESIUM 1.4 mg/dL (1.8-2.4); POTASSIUM 4.8 mmol/L (3.5-5.1); TOT PROT 5.4 g/dl (6.4-8.2)
[2019-12-18] MEDS ORDERED: MAGNESIUM SULF 50% (8.12 MEQ/2 ML-1 GM VIAL) IVPB ONE (08:48)
--- NOTE | 2019-12-18 08:52 | PN ---
Physical Exam: SUBJECTIVE: Patient seen and examined. Asymptomatic an afebrile. No events overnight. denies f/c/n/v//sob OBJECTIVE: Last Vital Signs Temp Pulse Resp BP Pulse Ox 98.3 F 60 18 153/70 98 12/18/19 05:20 12/18/19 05:20 12/18/19 05:20 12/18/19 05:20 12/17/19 21:00 GENERAL: Awake, alert, and fully oriented, in no acute distress. HEENT: NCAT MMM LUNGS: Breath sounds equal, clear to auscultation bilaterally. No wheezes, and no crackles. No accessory muscle use. HEART: 2/6 systolic murmur noted. Regular rate. ABDOMEN: Mild TTP lower abdomen, LLQ>RLQ. Soft, not distended, normoactive bowel sounds, no guarding. No rebound tenderness, no guarding. Erythema of the abdominal folds EXTREMITIES: 2+ pulses, warm, well-perfused. No calf tenderness. No peripheral edema. Laboratory Results - last 24 hr Active Medications Current Medications Dextrose (D5w -) 1,000 mls @ 83 mls/hr IV ASDIR [facility] Last Admin: 12/17/19 08:39 Dose: 83 mls/hr Insulin Aspart (Novolog Vial Sliding Scale -) 1 vial SQ [facility]; Protocol Last Admin: 12/18/19 06:18 Dose: 2 units Metoprolol Succinate (Toprol Xl -) 25 mg PO DAILY [facility] Last Admin: 12/17/19 09:11 Dose: 25 mg Pantoprazole Sodium (Protonix Iv) 40 mg IVPUSH DAILY [facility] Last Admin: 12/17/19 09:11 Dose: 40 mg Home Medications Medication Instructions Recorded Allopurinol 150 mg PO DAILY 03/10/19 Famotidine 20 mg PO BID 03/10/19 Fluticasone Prop 0.05% Nasal 2 sprays DAILY 03/10/19 [Flonase -] Levetiracetam [Keppra] 500 mg PO DAILY 03/10/19 Metoprolol Succinate [Toprol Xl] 12.5 mg PO DAILY 03/10/19 Pregabalin [Lyrica] 50 mg PO DAILY 03/10/19 Rivaroxaban [Xarelto] 15 mg PO DAILY 03/10/19 Simvastatin 10 mg PO HS 03/10/19 Cholecalciferol (Vitamin D3) 2,000 unit PO DAILY 10/16/19 [Vitamin D3] Docusate Sodium [Colace] 200 mg PO HS 10/16/19 Megestrol Acetate [Megace -] 40 mg PO QID 10/16/19 Multivitamin [One-Daily 1 each PO DAILY 10/16/19 Multi-Vitamin] Mupirocin Ointment [Bactroban 2% 1 applic BID 10/16/19 Ointment -] Sennosides/Docusate Sodium 2 each PO HS 10/16/19 [Senokot-S Tablet] Pantoprazole Sodium [Protonix -] 40 mg PO DAILY #30 tablet.ec 10/18/19 Acetaminophen [Tylenol -] 500 mg PO PRN 12/16/19 Lisinopril 5 mg PO DAILY 12/16/19 Miconazole Nitrate [Miconazorb AF] 71 gm TP BID 12/16/19 Psyllium Husk/Aspartame [Reguloid 284 gm PO Q72H 12/16/19 Powder] ASSESSMENT/PLAN: 84 y/o F, from [facility], pm of HTN, HLD, GERD, Atrial Fibrillation (on Xarelto), Uterine Ca with Mets, Colon Ca s/p Chemo/resection 09/07 at [facility], CKD, SAUL presented to the ED w/ melena and low hb of 6.9, dark stools, dizzy and lightheadedness is admitted for Acute on Chronic Blood loss anemia #Acute on Chronic Blood Loss Anemia likely 2/2 to GI bleed H/H 10.8/31.5 2 units PRBCs given IV PPI GI consulted- appreciate consult Plan for EGD on Friday. As per GI, if EGD is unrevealing, then transfer to [facility] for inpt colonoscopy and capsule endoscopy can be considered Monitor H/H and for active GI bleeding. Keep Hgb >8 #Paroxysmal Atrial fibrillation Xarelto on hold Cardio recom no need for bridging or AC at this moment, proceed with EGD as planned Not ideal AC candidate given GI bleeds, can consider STEVEN occlusion w/ Watchman as outpt #EDGARDO on CKD-3 Lisinopril cont IVF at 75 #HTN cont Metoprolol Lisinopril cont #HLD Statin held, consider restarting DVT ppx SCDs FEN IVF, monitor lytes NPO after MN on Friday night, until then clear liquids Dispo: cont IVF, EGD friday Visit type - Emergency Visit Emergency Visit: Yes ED Registration Date: 12/16/19 Care time: The patient presented to the Emergency Department on the above date and was hospitalized for further evaluation of their emergent condition. - New Patient This patient is new to me today: Yes Date on this admission: 12/22/19 - Critical Care Critical Care patient: No - Discharge Referral Referred to [facility] Med P.C.: No ATTENDING PHYSICIAN STATEMENT I saw and evaluated the patient. I reviewed the resident's note and discussed the case with the resident. I agree with the resident's findings and plan as documented. SUBJECTIVE: OBJECTIVE: ASSESSMENT AND PLAN:
[2019-12-18] MEDS: DEXTROSE 5%-WATER - 1,000 ML IV SCH (09:07)
[2019-12-18] MEDS: PANTOPRAZOLE SODIUM 40 MG VIAL IVPUSH SCH (09:12)
[2019-12-18] MEDS: metoPROLOL SUCCINATE 25 MG TAB.SR.24H (FP) PO SCH (09:12)
[2019-12-18] MEDS: NYSTATIN 100,000 UNIT/GM TOPICAL CREAM 15 GM TUBE TP SCH ×2 (12:00→22:14)
--- NOTE | 2019-12-18 12:47 | PN ---
Teaching Attending Note Name of Resident: Brendon Ramires ATTENDING PHYSICIAN STATEMENT I saw and evaluated the patient. I reviewed the resident's note and discussed the case with the resident. I agree with the resident's findings and plan as documented. SUBJECTIVE: Feels well, no further melena. No abdominal pain/nausea/vomiting/ hematemesis. OBJECTIVE: Afebrile, Hemodynamically Stable. Last Vital Signs Temp Pulse Resp BP Pulse Ox 98.1 F 61 18 129/57 L 97 12/18/19 10:12/18/19 10:00 12/18/19 10:12/18/19 10:12/18/19 09:00 HEENT - Atraumatic, normocephalic. Heart - S1, S2, RRR Lungs - clear to auscultation Abdomen - Soft, non-tender. Bowel Sounds normal. Extremities - no edema, no calf tenderness Laboratory Results - last 24 hr 12/17/19 12/17/19 12/17/19 15:05 16:55 21:25 WBC RBC Hgb Hct MCV MCH MCHC RDW Plt Count MPV Absolute Neuts (auto) Neutrophils % Lymphocytes % Monocytes % Eosinophils % Basophils % Nucleated RBC % Sodium 145 Potassium 4.9 Chloride 122 H Carbon Dioxide 17 L Anion Gap 5 L BUN 32.7 H Creatinine 1.5 H Est GFR (CKD-EPI)AfAm 36.95 Est GFR (CKD-EPI)NonAf 31.88 POC Glucometer 92 169 Random Glucose 106 Calcium 8.2 L Magnesium Total Bilirubin 1.2 H AST 21 ALT 17 Alkaline Phosphatase 99 Total Protein 5.7 L Albumin 3.1 L 12/18/19 12/18/19 12/18/19 06:15 06:15 06:17 WBC 7.1 RBC 3.52 L Hgb 10.5 L Hct 31.5 L MCV 89.6 MCH 29.8 MCHC 33.2 RDW 21.7 H Plt Count 146 MPV 10.0 Absolute Neuts (auto) 5.1 Neutrophils % 71.0 Lymphocytes % 9.0 D Monocytes % 18.5 H Eosinophils % 1.2 Basophils % 0.3 Nucleated RBC % 0 Sodium 144 Potassium 4.8 Chloride 120 H Carbon Dioxide 19 L Anion Gap 5 L BUN 25.6 H Creatinine 1.4 H Est GFR (CKD-EPI)AfAm 40.17 Est GFR (CKD-EPI)NonAf 34.66 POC Glucometer 158 Random Glucose 161 H Calcium 8.0 L Magnesium 1.4 L Total Bilirubin 0.9 AST 19 ALT 16 Alkaline Phosphatase 96 Total Protein 5.4 L Albumin 2.9 L 12/18/19 11:22 WBC RBC Hgb Hct MCV MCH MCHC RDW Plt Count MPV Absolute Neuts (auto) Neutrophils % Lymphocytes % Monocytes % Eosinophils % Basophils % Nucleated RBC % Sodium Potassium Chloride Carbon Dioxide Anion Gap BUN Creatinine Est GFR (CKD-EPI)AfAm Est GFR (CKD-EPI)NonAf POC Glucometer 169 Random Glucose Calcium Magnesium Total Bilirubin AST ALT Alkaline Phosphatase Total Protein Albumin Current Medications Generic Name Dose Route Start Last Admin Trade Name Freq PRN Reason Stop Dose Admin Sodium Chloride 1,000 mls @ 75 mls/hr 12/18/19 13:45 Normal Saline - IV ASDIR ANTONI Lisinopril 5 mg 12/19/19 10:00 Prinivil PO DAILY ANTONI Metoprolol Succinate 25 mg 12/17/19 10:00 12/18/19 09:12 Toprol Xl - PO 25 mg DAILY ANTONI Administration Nystatin 1 applic 12/18/19 11:31 Mycostatin Cream - TP BID ANTONI Pantoprazole Sodium 40 mg 12/16/19 10:00 12/18/19 09:12 Protonix Iv IVPUSH 40 mg DAILY ANTONI Administration Home Medications Medication Instructions Recorded Allopurinol 150 mg PO DAILY 03/10/19 Famotidine 20 mg PO BID 03/10/19 Fluticasone Prop 0.05% Nasal 2 sprays DAILY 03/10/19 [Flonase -] Levetiracetam [Keppra] 500 mg PO DAILY 03/10/19 Metoprolol Succinate [Toprol Xl] 12.5 mg PO DAILY 03/10/19 Pregabalin [Lyrica] 50 mg PO DAILY 03/10/19 Rivaroxaban [Xarelto] 15 mg PO DAILY 03/10/19 Simvastatin 10 mg PO HS 03/10/19 Cholecalciferol (Vitamin D3) 2,000 unit PO DAILY 10/16/19 [Vitamin D3] Docusate Sodium [Colace] 200 mg PO HS 10/16/19 Megestrol Acetate [Megace -] 40 mg PO QID 10/16/19 Multivitamin [One-Daily 1 each PO DAILY 10/16/19 Multi-Vitamin] Mupirocin Ointment [Bactroban 2% 1 applic BID 10/16/19 Ointment -] Sennosides/Docusate Sodium 2 each PO HS 10/16/19 [Senokot-S Tablet] Pantoprazole Sodium [Protonix -] 40 mg PO DAILY #30 tablet.ec 10/18/19 Acetaminophen [Tylenol -] 500 mg PO PRN 12/16/19 Lisinopril 5 mg PO DAILY 12/16/19 Miconazole Nitrate [Miconazorb AF] 71 gm TP BID 12/16/19 Psyllium Husk/Aspartame [Reguloid 284 gm PO Q72H 12/16/19 Powder] ASSESSMENT AND PLAN: 84 year old female [facility] resident with history of HTN, HLD, GERD, Atrial Fibrillation (on Xarelto), Uterine Ca with Mets, Colon Ca s/p Chemo/resection at [facility], CKD, SAUL presents with melena and low H/H. Denies CP/palpitations/ SOB. 1. Acute on Chronic Blood Loss Anemia H/H 10.8/31.5 s/p 2 units PRBCs. IV PPI Seen by GI - for EGD on Friday. 2. Paroxysmal Atrial fibrillation Xarelto held. Patient cleared by Cardio for procedure. 3. HTN - continue Metoprolol. Lisinopril held. 4. EDGARDO on CKD 3 - improving. Lisinopril held. Gentle IV hydration. 5. HLD - normally on Statin. DVT Px - SCDs.
--- NOTE | 2019-12-18 13:03 | PN ---
Progress Note, Physician History of Present Illness: No further melena, Hgb stable post transfusion. Remains in NSR. - Current Medication List Current Medications: Active Medications Dextrose (D5w -) 1,000 mls @ 83 mls/hr IV ASDIR [facility] Last Admin: 12/18/19 09:07 Dose: Not Given Insulin Aspart (Novolog Vial Sliding Scale -) 1 vial SQ ACHS [facility]; Protocol Last Admin: 12/18/19 11:23 Dose: 2 units Metoprolol Succinate (Toprol Xl -) 25 mg PO DAILY [facility] Last Admin: 12/18/19 09:12 Dose: 25 mg Nystatin (Mycostatin Cream -) 1 applic TP BID [facility] Pantoprazole Sodium (Protonix Iv) 40 mg IVPUSH DAILY [facility] Last Admin: 12/18/19 09:12 Dose: 40 mg - Objective Vital Signs: Vital Signs Temperature 98.1 F 12/18/19 10:00 Pulse Rate 61 12/18/19 10:00 Respiratory Rate 18 12/18/19 10:00 Blood Pressure 129/57 L 12/18/19 10:00 O2 Sat by Pulse Oximetry (%) 97 12/18/19 09:00 Constitutional: Yes: No Distress, Calm Neck: Yes: Supple Cardiovascular: Yes: Regular Rate and Rhythm Respiratory: Yes: Regular, CTA Bilaterally Gastrointestinal: Yes: Soft, Hypoactive Bowel Sounds Edema: No Labs: CBC, BMP 12/18/19 06:15 12/18/19 06:15 INR, PTT INR 1.07 (0.83-1.09) 12/17/19 06:25 - ....Imaging EKG: Report Reviewed (Tele: NSR) Problem List - Problems (1) Black stools Code(s): K92.1 - MELENA (2) Anemia Code(s): D64.9 - ANEMIA, UNSPECIFIED Qualifiers: Anemia type: iron deficiency Iron deficiency anemia type: chronic blood loss Qualified Code(s): D50.0 - Iron deficiency anemia secondary to blood loss (chronic) (3) GI bleed Code(s): K92.2 - GASTROINTESTINAL HEMORRHAGE, UNSPECIFIED Qualifiers: GI bleed type/associated pathology: unspecified gastrointestinal hemorrhage type Qualified Code(s): K92.2 - Gastrointestinal hemorrhage, unspecified (4) CKD (chronic kidney disease) Code(s): N18.9 - CHRONIC KIDNEY DISEASE, UNSPECIFIED Qualifiers: Chronic kidney disease stage: stage 3 (moderate) Qualified Code(s): N18.3 - Chronic kidney disease, stage 3 (moderate) (5) Cardiac pacemaker Code(s): Z95.0 - PRESENCE OF CARDIAC PACEMAKER (6) Coronary artery disease Code(s): I25.10 - ATHSCL HEART DISEASE OF [place] CORONARY ARTERY W/O ANG PCTRS Qualifiers: Coronary Disease-Associated Artery/Lesion type: [place] artery [place] vs. transplanted heart: [place] heart Associated angina: without angina Qualified Code(s): I25.10 - Atherosclerotic heart disease of [place] coronary artery without angina pectoris (7) Hyperlipidemia Code(s): E78.5 - HYPERLIPIDEMIA, UNSPECIFIED Qualifiers: Hyperlipidemia type: pure hypercholesterolemia Qualified Code(s): E78.00 - Pure hypercholesterolemia, unspecified; E78.0 - Pure hypercholesterolemia (8) Hypertensive cardiovascular disease Code(s): I11.9 - HYPERTENSIVE HEART DISEASE WITHOUT HEART FAILURE Qualifiers: Heart failure presence: without heart failure Qualified Code(s): I11.9 - Hypertensive heart disease without heart failure (9) Paroxysmal atrial fibrillation Code(s): I48.0 - PAROXYSMAL ATRIAL FIBRILLATION (10) Systolic dysfunction Code(s): I51.9 - HEART DISEASE, UNSPECIFIED Assessment/Plan 05/27/2019 Mild decreased LVEF 45-50%, mod LAE, normal RV size and fxn, mild MR , TR RVSP 32 mmHg, pacemaker lead 01/07/2017 Adenosine Myoview: No ischemia, LVEF 70% 1. Pre-procedure CV evaluation planned for EGD 2. Acute blood loss anemia post 2 u pRBC transfusion 3. Colon ca s/p right hemicolectomy 4. LV systolic dysfunction 5. Sinus node dysfunction with AV Block s/p Medtronic dual chamber pacemaker last interrogated 10/22/2019 6. PAF->SR off Xarelto 7. Hypertensive cardiovascular disease 8. Type 2 DM 9. Hyperlipidemia 10. Acute on CKD 3 with hyperkalemia improved P:1. Given absence of symptoms of acute coronary syndrome, decompensated CHF or malignant arrhythmia, may proceed with planned EGD from CV-standpoint w/o further testing, not ideal a/c and bridging candidate given recurrent GI bleeds w/o identifiable source thus far, consider STEVEN occlusion with Watchman as outpatient. Plan for inpatient colonoscopy and capsule endoscopy if EGD unrevealing for bleeding source 2. Continue Toprol XL 25 qd, as hemodynamics tolerate, GI protection, resume lisinopril 5 qd as renal fxn and hyperkalemia stabilizes 3. Transfuse pRBC to maintain Hgb>8.0, clear liquid diet 4. OOB to chair
[2019-12-18] MEDS ORDERED: PT OWN MED DRAWER 7, Y5N ONE (13:27)
[2019-12-18] MEDS: SODIUM CHLORIDE 1,000 ML IV SCH (14:28)
[2019-12-19] MEDS: SODIUM CHLORIDE 1,000 ML IV SCH (03:27)
[2019-12-19 07:19] LABS: HEMATOCRIT 28.9 % (32.4-45.2); HEMOGLOBIN 9.8 GM/dL (10.7-15.3); MCH 30.2 pg (25.7-33.7); MCHC 33.8 g/dl (32.0-36.0); MEAN CELL VOLUME 89.3 fl (80-96); MEAN PLT VOLUME 10.1 fl (7.5-11.1); PLATELET COUNT 142 K/MM3 (134-434); RBC 3.23 M/mm3 (3.60-5.2); RDW 21.7 % (11.6-15.6)
[2019-12-19 07:56] LABS: ALBUMIN 2.8 g/dl (3.4-5.0); BLOOD UREA NITROGEN 22.3 mg/dL (7-18); CALCIUM 8.1 mg/dL (8.5-10.1); CREATININE 1.5 mg/dL (0.55-1.3); MAGNESIUM 1.9 mg/dL (1.8-2.4); POTASSIUM 4.8 mmol/L (3.5-5.1); TOT PROT 5.3 g/dl (6.4-8.2)
[2019-12-19] MEDS: LISINOPRIL 5 MG TABLET (FP) PO SCH (10:19)
[2019-12-19] MEDS: PANTOPRAZOLE SODIUM 40 MG VIAL IVPUSH SCH (10:20)
[2019-12-19] MEDS: NYSTATIN 100,000 UNIT/GM TOPICAL CREAM 15 GM TUBE TP SCH ×2 (10:20→21:16)
[2019-12-19] MEDS: metoPROLOL SUCCINATE 25 MG TAB.SR.24H (FP) PO SCH (10:20)
--- NOTE | 2019-12-19 12:18 | PN ---
Progress Note (short form) - Note Progress Note: SUBJECTIVE: Feels well, no further melena. No abdominal pain/nausea/vomiting/ hematemesis. OBJECTIVE: Afebrile, Hemodynamically Stable. Last Vital Signs Temp Pulse Resp BP Pulse Ox 98.4 F 68 18 154/62 96 12/19/19 09:50 12/19/19 09:50 12/19/19 09:50 12/19/19 09:50 12/19/19 09:00 Heart - S1, S2, RRR Lungs - clear to auscultation Abdomen - high BMI, Soft, non-tender. Bowel Sounds normal. Extremities - no calf tenderness Neuro - AAO x 3. Power normal. Laboratory Results - last 24 hr 12/16/19 12/18/19 12/18/19 02:45 17:13 22:12 WBC RBC Hgb Hct MCV MCH MCHC RDW Plt Count MPV Sodium Potassium Chloride Carbon Dioxide Anion Gap BUN Creatinine Est GFR (CKD-EPI)AfAm Est GFR (CKD-EPI)NonAf POC Glucometer 141 122 Random Glucose Calcium Magnesium Total Bilirubin AST ALT Alkaline Phosphatase Total Protein Albumin Blood Type O POSITIVE Antibody Screen Negative Crossmatch See Detail 12/19/19 12/19/19 12/19/19 05:35 06:34 06:34 WBC 5.0 RBC 3.23 L Hgb 9.8 L Hct 28.9 L MCV 89.3 MCH 30.2 MCHC 33.8 RDW 21.7 H Plt Count 142 MPV 10.1 Sodium 145 Potassium 4.8 Chloride 121 H Carbon Dioxide 20 L Anion Gap 5 L BUN 22.3 H Creatinine 1.5 H Est GFR (CKD-EPI)AfAm 36.95 Est GFR (CKD-EPI)NonAf 31.88 POC Glucometer 105 Random Glucose 106 Calcium 8.1 L Magnesium 1.9 Total Bilirubin 1.0 AST 17 ALT 13 Alkaline Phosphatase 93 Total Protein 5.3 L Albumin 2.8 L Blood Type Antibody Screen Crossmatch 12/19/19 11:48 WBC RBC Hgb Hct MCV MCH MCHC RDW Plt Count MPV Sodium Potassium Chloride Carbon Dioxide Anion Gap BUN Creatinine Est GFR (CKD-EPI)AfAm Est GFR (CKD-EPI)NonAf POC Glucometer 131 Random Glucose Calcium Magnesium Total Bilirubin AST ALT Alkaline Phosphatase Total Protein Albumin Blood Type Antibody Screen Crossmatch Current Medications Generic Name Dose Route Start Last Admin Trade Name Freq PRN Reason Stop Dose Admin Sodium Chloride 1,000 mls @ 75 mls/hr 12/18/19 13:45 12/19/19 03:27 Normal Saline - IV 75 mls/hr ASDIR ANTONI Administration Lisinopril 5 mg 12/19/19 10:00 12/19/19 10:19 Prinivil PO 5 mg DAILY ANTONI Administration Metoprolol Succinate 25 mg 12/17/19 10:00 12/19/19 10:20 Toprol Xl - PO 25 mg DAILY ANTONI Administration Nystatin 1 applic 12/18/19 11:31 12/19/19 10:20 Mycostatin Cream - TP 1 applic BID ANTONI Administration Pantoprazole Sodium 40 mg 12/16/19 10:00 12/19/19 10:20 Protonix Iv IVPUSH 40 mg DAILY ANTONI Administration Home Medications Medication Instructions Recorded Allopurinol 150 mg PO DAILY 03/10/19 Famotidine 20 mg PO BID 03/10/19 Fluticasone Prop 0.05% Nasal 2 sprays DAILY 03/10/19 [Flonase -] Levetiracetam [Keppra] 500 mg PO DAILY 03/10/19 Metoprolol Succinate [Toprol Xl] 12.5 mg PO DAILY 03/10/19 Pregabalin [Lyrica] 50 mg PO DAILY 03/10/19 Rivaroxaban [Xarelto] 15 mg PO DAILY 03/10/19 Simvastatin 10 mg PO HS 03/10/19 Cholecalciferol (Vitamin D3) 2,000 unit PO DAILY 10/16/19 [Vitamin D3] Docusate Sodium [Colace] 200 mg PO HS 10/16/19 Megestrol Acetate [Megace -] 40 mg PO QID 10/16/19 Multivitamin [One-Daily 1 each PO DAILY 10/16/19 Multi-Vitamin] Mupirocin Ointment [Bactroban 2% 1 applic BID 10/16/19 Ointment -] Sennosides/Docusate Sodium 2 each PO HS 10/16/19 [Senokot-S Tablet] Pantoprazole Sodium [Protonix -] 40 mg PO DAILY #30 tablet.ec 10/18/19 Acetaminophen [Tylenol -] 500 mg PO PRN 12/16/19 Lisinopril 5 mg PO DAILY 12/16/19 Miconazole Nitrate [Miconazorb AF] 71 gm TP BID 12/16/19 Psyllium Husk/Aspartame [Reguloid 284 gm PO Q72H 12/16/19 Powder] ASSESSMENT AND PLAN: 84 [facility] old female [facility] resident with history of HTN, HLD, GERD, Atrial Fibrillation (on Xarelto), Uterine Ca with Mets, Colon Ca s/p Chemo/resection at [facility], CKD, SAUL presents with melena and low H/H. Denies CP/palpitations/ SOB. 1. Acute on Chronic Blood Loss Anemia H/H stable, 9.8/28.9 s/p 2 units PRBCs. IV PPI Seen by GI - for EGD on Friday. 2. Paroxysmal Atrial fibrillation Xarelto held. Patient cleared by Cardio for procedure. 3. HTN - continue Metoprolol. Lisinopril resumed. 4. EDGARDO on CKD 3 - Creat appears to be at baseline. Will discontinue Gentle IV hydration. 5. HLD - normally on Statin. DVT Px - SCDs. Visit type - Emergency Visit Emergency Visit: Yes ED Registration Date: 12/16/19 Care time: The patient presented to the Emergency Department on the above date and was hospitalized for further evaluation of their emergent condition. - New Patient This patient is new to me today: No - Critical Care Critical Care patient: No - Discharge Referral Referred to [facility] Med P.C.: No
--- NOTE | 2019-12-19 12:49 | PN ---
Progress Note, Physician History of Present Illness: No further melena, Hgb stable post transfusion. Orthopneic this AM, PAF with RVR and pacemaker tracking on telemetry. - Current Medication List Current Medications: Active Medications Lisinopril (Prinivil) 5 mg PO DAILY [facility] Last Admin: 12/19/19 10:19 Dose: 5 mg Metoprolol Succinate (Toprol Xl -) 25 mg PO DAILY [facility] Last Admin: 12/19/19 10:20 Dose: 25 mg Nystatin (Mycostatin Cream -) 1 applic TP BID [facility] Last Admin: 12/19/19 10:20 Dose: 1 applic Pantoprazole Sodium (Protonix Iv) 40 mg IVPUSH DAILY [facility] Last Admin: 12/19/19 10:20 Dose: 40 mg - Objective Vital Signs: Vital Signs Temperature 98.4 F 12/19/19 09:50 Pulse Rate 68 12/19/19 09:50 Respiratory Rate 18 12/19/19 09:50 Blood Pressure 154/62 12/19/19 09:50 O2 Sat by Pulse Oximetry (%) 96 12/19/19 09:00 Constitutional: Yes: No Distress, Calm Neck: Yes: Supple Cardiovascular: Yes: Regular Rate and Rhythm Respiratory: Yes: Regular, Diminished Gastrointestinal: Yes: Normal Bowel Sounds, Soft, Abdomen, Obese Edema: No Labs: CBC, BMP 12/19/19 06:34 12/19/19 06:34 INR, PTT INR 1.07 (0.83-1.09) 12/17/19 06:25 - ....Imaging EKG: Report Reviewed (Tele: PAF with RVR and pacemaker tracking) Problem List - Problems (1) Black stools Code(s): K92.1 - MELENA (2) Anemia Code(s): D64.9 - ANEMIA, UNSPECIFIED Qualifiers: Anemia type: iron deficiency Iron deficiency anemia type: chronic blood loss Qualified Code(s): D50.0 - Iron deficiency anemia secondary to blood loss (chronic) (3) GI bleed Code(s): K92.2 - GASTROINTESTINAL HEMORRHAGE, UNSPECIFIED Qualifiers: GI bleed type/associated pathology: unspecified gastrointestinal hemorrhage type Qualified Code(s): K92.2 - Gastrointestinal hemorrhage, unspecified (4) CKD (chronic kidney disease) Code(s): N18.9 - CHRONIC KIDNEY DISEASE, UNSPECIFIED Qualifiers: Chronic kidney disease stage: stage 3 (moderate) Qualified Code(s): N18.3 - Chronic kidney disease, stage 3 (moderate) (5) Cardiac pacemaker Code(s): Z95.0 - PRESENCE OF CARDIAC PACEMAKER (6) Coronary artery disease Code(s): I25.10 - ATHSCL HEART DISEASE OF [place] CORONARY ARTERY W/O ANG PCTRS Qualifiers: Coronary Disease-Associated Artery/Lesion type: [place] artery [place] vs. transplanted heart: [place] heart Associated angina: without angina Qualified Code(s): I25.10 - Atherosclerotic heart disease of [place] coronary artery without angina pectoris (7) Hyperlipidemia Code(s): E78.5 - HYPERLIPIDEMIA, UNSPECIFIED Qualifiers: Hyperlipidemia type: pure hypercholesterolemia Qualified Code(s): E78.00 - Pure hypercholesterolemia, unspecified; E78.0 - Pure hypercholesterolemia (8) Hypertensive cardiovascular disease Code(s): I11.9 - HYPERTENSIVE HEART DISEASE WITHOUT HEART FAILURE Qualifiers: Heart failure presence: without heart failure Qualified Code(s): I11.9 - Hypertensive heart disease without heart failure (9) Paroxysmal atrial fibrillation Code(s): I48.0 - PAROXYSMAL ATRIAL FIBRILLATION (10) Systolic dysfunction Code(s): I51.9 - HEART DISEASE, UNSPECIFIED Assessment/Plan 05/27/2019 Mild decreased LVEF 45-50%, mod LAE, normal RV size and fxn, mild MR , TR RVSP 32 mmHg, pacemaker lead 01/07/2017 Adenosine Myoview: No ischemia, LVEF 70% 1. Acute on chronic LV systolic/diastolic heart failure 2. Pre-procedure CV evaluation planned for EGD 3. Acute blood loss anemia post 2 u pRBC transfusion 4. Colon ca s/p right hemicolectomy 5. Sinus node dysfunction with AV Block s/p Medtronic dual chamber pacemaker last interrogated 10/22/2019 6. PAF->SR with RVR off Xarelto 7. Hypertensive cardiovascular disease 8. Type 2 DM 9. Hyperlipidemia 10. Acute on CKD 3 with hyperkalemia improved P:1. D/c IVF, check pCXR, IV diuresis with monitor diuretic response, renal fxn and electrolytes 2. Achieve euvolemia and rate-control prior to proceeding with planned EGD, not ideal a/c and bridging candidate given recurrent GI bleeds w/o identifiable source thus far, consider STEVEN occlusion with Watchman as outpatient. Plan for inpatient colonoscopy and capsule endoscopy if EGD unrevealing for bleeding source 2. Increase Toprol XL 50 qd, as hemodynamics tolerate, GI protection, resume lisinopril 5 qd as renal fxn and hyperkalemia stabilizes 3. Transfuse pRBC to maintain Hgb>8.0, clear liquid diet 4. OOB to chair
[2019-12-19] MEDS ORDERED: metoPROLOL SUCCINATE 25 MG TAB.SR.24H (FP) PO ONE (13:04)
[2019-12-19] MEDS ORDERED: FUROSEMIDE 40 MG/4 ML INJECTABLE VIAL IVPUSH ONE (13:15)
--- NOTE | 2019-12-20 08:08 | PN ---
Progress Note, Physician Chief Complaint: Awaiting EGD with Dr Perry. States no further melena. No c/o abdominal pain. Pt aware that if EGD is unrevealing she will need transfer to [facility] for colonscopy and capsule endoscopy History of Present Illness: 84 year old female [facility] resident with history of HTN, HLD, GERD, Atrial Fibrillation (on Xarelto), Uterine Ca with Mets, Colon Ca s/p Chemo/resection 09/07 at [facility], CKD, SAUL presents with melena and low H/H. Denies CP/ palpitations/SOB. - Current Medication List Current Medications: Active Medications Lisinopril (Prinivil) 5 mg PO DAILY [facility] Last Admin: 12/19/19 10:19 Dose: 5 mg Metoprolol Succinate (Toprol Xl -) 50 mg PO DAILY [facility] Nystatin (Mycostatin Cream -) 1 applic TP BID [facility] Last Admin: 12/19/19 21:16 Dose: 1 applic Pantoprazole Sodium (Protonix Iv) 40 mg IVPUSH DAILY [facility] Last Admin: 12/19/19 10:20 Dose: 40 mg - Objective Vital Signs: Vital Signs Temperature 98.0 F 12/20/19 06:00 Pulse Rate 65 12/20/19 06:00 Respiratory Rate 18 12/20/19 06:00 Blood Pressure 144/66 12/20/19 06:00 O2 Sat by Pulse Oximetry (%) 96 12/19/19 21:00 Constitutional: Yes: Well Nourished, No Distress, Calm Eyes: Yes: WNL, Conjunctiva Clear HENT: Yes: WNL, Atraumatic, Normocephalic Neck: Yes: WNL, Supple, Trachea Midline Cardiovascular: Yes: WNL, Regular Rate and Rhythm Respiratory: Yes: WNL, Regular, CTA Bilaterally Gastrointestinal: Yes: WNL, Normal Bowel Sounds, Soft, Abdomen, Obese ...Rectal Exam: Yes: Deferred Genitourinary: Yes: WNL Breast(s): Yes: WNL Musculoskeletal: Yes: WNL Extremities: Yes: WNL Edema: No Peripheral Pulses WNL: Yes Peripheral Pulses: Left Radial: 2+, Right Radial: 2+, Left Doralis Pedis: 2+, Right Dorsalis Pedis: 2+, Left Femoral: 2+, Right Femoral: 2+ Integumentary: Yes: WNL Neurological: Yes: WNL, Alert, Oriented ...Motor Strength: WNL Psychiatric: Yes: WNL Labs: CBC, BMP 12/19/19 06:34 12/19/19 06:34 INR, PTT INR 1.07 (0.83-1.09) 12/17/19 06:25 - ....Imaging Cat Scan: Report Reviewed (Abd CT: no acute pathology) Problem List - Problems (1) HTN (hypertension) Assessment/Plan: BP well controlled c/w lisinipril Code(s): I10 - ESSENTIAL (PRIMARY) HYPERTENSION (2) A-fib Assessment/Plan: rate controlled c/w toprol holding xarelto tele monitoring cardiology following Code(s): I48.91 - UNSPECIFIED ATRIAL FIBRILLATION (3) Uterine cancer Assessment/Plan: history of Code(s): C55 - MALIGNANT NEOPLASM OF UTERUS, PART UNSPECIFIED (4) Colon cancer Assessment/Plan: history of Code(s): C18.9 - MALIGNANT NEOPLASM OF COLON, UNSPECIFIED (5) S/P colon resection Code(s): Z90.49 - ACQUIRED ABSENCE OF OTHER SPECIFIED PARTS OF DIGESTIVE TRACT (6) SAUL (obstructive sleep apnea) Assessment/Plan: BiPap at night and prn Code(s): G47.33 - OBSTRUCTIVE SLEEP APNEA (ADULT) (PEDIATRIC) (7) Melena Assessment/Plan: resolved, no episodes overnight awaiting EGD today if unrevealing then will need transfer to [facility] for coloscopy and capsule endoscopy Dr Perry discussed w/ Dr. Santana, light rail transit operator @ [facility]. Code(s): K92.1 - MELENA (8) Prophylactic measure Assessment/Plan: FEN Fluids: adequate PO intake Electrolytes: monitor & replete as needed Nutrition: NPO for test DVT no chemical anticogualtion given bleed. Scd, early ambu;ation Dispo Maintain on tele full code discharge planning Code(s): Z29.9 - ENCOUNTER FOR PROPHYLACTIC MEASURES, UNSPECIFIED (9) Symptomatic anemia Assessment/Plan: Hgb 10.4 continue to monitor Code(s): D64.9 - ANEMIA, UNSPECIFIED (10) Cardiac pacemaker Assessment/Plan: c/w tele monitoring Code(s): Z95.0 - PRESENCE OF CARDIAC PACEMAKER (11) CKD (chronic kidney disease) Assessment/Plan: Cr 1.6 continue to monitor avoid nephrotoxic agents Code(s): N18.9 - CHRONIC KIDNEY DISEASE, UNSPECIFIED Qualifiers: Chronic kidney disease stage: stage 3 (moderate) Qualified Code(s): N18.3 - Chronic kidney disease, stage 3 (moderate) Visit type - Emergency Visit Emergency Visit: Yes ED Registration Date: 12/16/19 Care time: The patient presented to the Emergency Department on the above date and was hospitalized for further evaluation of their emergent condition. - New Patient This patient is new to me today: Yes Date on this admission: 12/20/19 - Critical Care Critical Care patient: No - Discharge Referral Referred to [facility] Med P.C.: No
[2019-12-20 08:39] LABS: BASO % 0.6 % (0-2.0); EOS % 2.6 % (0-4.5); HEMATOCRIT 31.2 % (32.4-45.2); HEMOGLOBIN 10.4 GM/dL (10.7-15.3); LYMPH % 14.8 % (8-40); MCH 29.8 pg (25.7-33.7); MCHC 33.3 g/dl (32.0-36.0); MEAN CELL VOLUME 89.4 fl (80-96); MEAN PLT VOLUME 9.8 fl (7.5-11.1); MONO % 20.2 % (3.8-10.2); NEUT % 61.8 % (42.8-82.8); PLATELET COUNT 156 K/MM3 (134-434); RBC 3.49 M/mm3 (3.60-5.2); RDW 20.8 % (11.6-15.6); WHITE BLOOD COUNT 4.8 K/mm3 (4.0-10.0)
[2019-12-20 09:05] LABS: BLOOD UREA NITROGEN 22.2 mg/dL (7-18); CALCIUM 8.8 mg/dL (8.5-10.1); CREATININE 1.6 mg/dL (0.55-1.3)
[2019-12-20] MEDS: NYSTATIN 100,000 UNIT/GM TOPICAL CREAM 15 GM TUBE TP SCH (09:19)
[2019-12-20] MEDS: LISINOPRIL 5 MG TABLET (FP) PO SCH (09:23)
[2019-12-20] MEDS: PANTOPRAZOLE SODIUM 40 MG VIAL IVPUSH SCH (09:24)
[2019-12-20 09:37] LABS: ANISOCYTOSIS 1+; MACROCYTOSIS 1+; PLATELET ESTIMATE DECREASED
--- NOTE | 2019-12-20 12:18 | PN ---
Progress Note, Physician History of Present Illness: No further melena, Hgb stable post transfusion, underwent EGD showing hiatal hernia, biopsies taken, no bleeding source seen. Yesterday's orthopnea resolved with d/c IVF and Lasix. No further PAF with RVR and pacemaker tracking on telemetry after increase of Toprol XL dose. - Current Medication List Current Medications: Active Medications Lisinopril (Prinivil) 5 mg PO DAILY [facility] Last Admin: 12/20/19 09:23 Dose: 5 mg Metoprolol Succinate (Toprol Xl -) 50 mg PO DAILY [facility] Last Admin: 12/20/19 09:24 Dose: 50 mg Nystatin (Mycostatin Cream -) 1 applic TP BID [facility] Last Admin: 12/19/19 21:16 Dose: 1 applic Pantoprazole Sodium (Protonix Iv) 40 mg IVPUSH DAILY [facility] Last Admin: 12/20/19 09:24 Dose: 40 mg - Objective Vital Signs: Vital Signs Temperature 98.0 F 12/20/19 11:30 Pulse Rate 74 12/20/19 12:09 Respiratory Rate 16 12/20/19 12:09 Blood Pressure 138/74 12/20/19 12:09 O2 Sat by Pulse Oximetry (%) 98 12/20/19 12:09 Constitutional: Yes: No Distress, Calm Neck: Yes: Supple Cardiovascular: Yes: Regular Rate and Rhythm Respiratory: Yes: Regular, CTA Bilaterally Gastrointestinal: Yes: Soft, Hypoactive Bowel Sounds Edema: No Labs: CBC, BMP 12/20/19 08:30 12/20/19 08:30 INR, PTT INR 1.07 (0.83-1.09) 12/17/19 06:25 - ....Imaging EKG: Report Reviewed (Tele: A-paced) Problem List - Problems (1) Black stools Code(s): K92.1 - MELENA (2) Anemia Code(s): D64.9 - ANEMIA, UNSPECIFIED Qualifiers: Anemia type: iron deficiency Iron deficiency anemia type: chronic blood loss Qualified Code(s): D50.0 - Iron deficiency anemia secondary to blood loss (chronic) (3) GI bleed Code(s): K92.2 - GASTROINTESTINAL HEMORRHAGE, UNSPECIFIED Qualifiers: GI bleed type/associated pathology: unspecified gastrointestinal hemorrhage type Qualified Code(s): K92.2 - Gastrointestinal hemorrhage, unspecified (4) CKD (chronic kidney disease) Code(s): N18.9 - CHRONIC KIDNEY DISEASE, UNSPECIFIED Qualifiers: Chronic kidney disease stage: stage 3 (moderate) Qualified Code(s): N18.3 - Chronic kidney disease, stage 3 (moderate) (5) Cardiac pacemaker Code(s): Z95.0 - PRESENCE OF CARDIAC PACEMAKER (6) Coronary artery disease Code(s): I25.10 - ATHSCL HEART DISEASE OF [place] CORONARY ARTERY W/O ANG PCTRS Qualifiers: Coronary Disease-Associated Artery/Lesion type: [place] artery [place] vs. transplanted heart: [place] heart Associated angina: without angina Qualified Code(s): I25.10 - Atherosclerotic heart disease of [place] coronary artery without angina pectoris (7) Hyperlipidemia Code(s): E78.5 - HYPERLIPIDEMIA, UNSPECIFIED Qualifiers: Hyperlipidemia type: pure hypercholesterolemia Qualified Code(s): E78.00 - Pure hypercholesterolemia, unspecified; E78.0 - Pure hypercholesterolemia (8) Hypertensive cardiovascular disease Code(s): I11.9 - HYPERTENSIVE HEART DISEASE WITHOUT HEART FAILURE Qualifiers: Heart failure presence: without heart failure Qualified Code(s): I11.9 - Hypertensive heart disease without heart failure (9) Paroxysmal atrial fibrillation Code(s): I48.0 - PAROXYSMAL ATRIAL FIBRILLATION (10) Systolic dysfunction Code(s): I51.9 - HEART DISEASE, UNSPECIFIED Assessment/Plan 05/27/2019 Mild decreased LVEF 45-50%, mod LAE, normal RV size and fxn, mild MR, TR RVSP 32 mmHg, pacemaker lead 01/07/2017 Adenosine Myoview: No ischemia, LVEF 70% 1. Acute on chronic LV systolic/diastolic heart failure resolved 2. Acute blood loss anemia post 2 u pRBC transfusion 3. Colon ca s/p right hemicolectomy 4. Sinus node dysfunction with AV Block s/p Medtronic dual chamber pacemaker last interrogated 10/22/2019 5. PAF->SR with RVR off Xarelto 6. Hypertensive cardiovascular disease 7. Type 2 DM 8. Hyperlipidemia 9. Acute on CKD 3 with hyperkalemia improved P:1. Diuresis as needed with monitor diuretic response, renal fxn and electrolytes 2. Not ideal a/c and bridging candidate given recurrent GI bleeds w/o identifiable source thus far, consider STEVEN occlusion with Watchman as outpatient. Plan for inpatient colonoscopy and capsule endoscopy as EGD unrevealing for bleeding source 3. Continue Toprol XL 50 qd with increase as hemodynamics tolerate, GI protection, lisinopril 5 qd as renal fxn and hyperkalemia stabilized 4. Transfuse pRBC to maintain Hgb>8.0, clear liquid diet 5. OOB to chair, f/u formal EGD report
--- NOTE | 2019-12-20 18:46 | DS ---
Physical Exam: SUBJECTIVE: Patient seen and examined OBJECTIVE: Vital Signs Period Temp Pulse Resp BP Sys/Bone Pulse Ox Last 24 Hr 98.0 F-98.7 F 62-80 16-18 93-158/60-74 96-98 PHYSICAL EXAM Constitutional: Yes: Well Nourished, No Distress, Calm Eyes: Yes: WNL, Conjunctiva Clear HENT: Yes: WNL, Atraumatic, Normocephalic Neck: Yes: WNL, Supple, Trachea Midline Cardiovascular: Yes: WNL, Regular Rate and Rhythm Respiratory: Yes: WNL, Regular, CTA Bilaterally Gastrointestinal: Yes: WNL, Normal Bowel Sounds, Soft, Abdomen, Obese ...Rectal Exam: Yes: Deferred Genitourinary: Yes: WNL Breast(s): Yes: WNL Musculoskeletal: Yes: WNL Extremities: Yes: WNL Edema: No Peripheral Pulses WNL: Yes Peripheral Pulses: Left Radial: 2+, Right Radial: 2+, Left Doralis Pedis: 2+, Right Dorsalis Pedis: 2+, Left Femoral: 2+, Right Femoral: 2+ Integumentary: Yes: WNL Neurological: Yes: WNL, Alert, Oriented ...Motor Strength: WNL Psychiatric: Yes: WNL LABS Laboratory Results - last 24 hr 12/16/19 12/19/19 12/20/19 02:45 21:15 05:48 WBC RBC Hgb Hct MCV MCH MCHC RDW Plt Count MPV Absolute Neuts (auto) Neutrophils % Neutrophils % (Manual) Band Neutrophils % Lymphocytes % Lymphocytes % (Manual) Monocytes % Monocytes % (Manual) Eosinophils % Eosinophils % (Manual) Basophils % Basophils % (Manual) Myelocytes % (Man) Promyelocytes % (Man) Blast Cells % (Manual) Nucleated RBC % Metamyelocytes Hypochromia Platelet Estimate Polychromasia Poikilocytosis Anisocytosis Microcytosis Macrocytosis Sodium Potassium Chloride Carbon Dioxide Anion Gap BUN Creatinine Est GFR (CKD-EPI)AfAm Est GFR (CKD-EPI)NonAf POC Glucometer 138 109 Random Glucose Calcium Blood Type O POSITIVE Antibody Screen Negative Crossmatch See Detail 12/20/19 12/20/19 08:30 08:30 WBC 4.8 RBC 3.49 L Hgb 10.4 L Hct 31.2 L MCV 89.4 MCH 29.8 MCHC 33.3 RDW 20.8 H Plt Count 156 MPV 9.8 Absolute Neuts (auto) 3.0 Neutrophils % 61.8 Neutrophils % (Manual) 59.0 Band Neutrophils % 0.0 Lymphocytes % 14.8 D Lymphocytes % (Manual) 15.0 D Monocytes % 20.2 H Monocytes % (Manual) 16 H Eosinophils % 2.6 D Eosinophils % (Manual) 5.0 H Basophils % 0.6 Basophils % (Manual) 2.0 Myelocytes % (Man) 2 D Promyelocytes % (Man) 0 Blast Cells % (Manual) 0 Nucleated RBC % 0 Metamyelocytes 0 Hypochromia 1+ Platelet Estimate Decreased Polychromasia 1+ Poikilocytosis 1+ Anisocytosis 1+ Microcytosis 1+ Macrocytosis 1+ Sodium 142 Potassium 4.0 Chloride 114 H Carbon Dioxide 24 Anion Gap 5 L BUN 22.2 H Creatinine 1.6 H Est GFR (CKD-EPI)AfAm 34.18 Est GFR (CKD-EPI)NonAf 29.49 POC Glucometer Random Glucose 109 H Calcium 8.8 Blood Type Antibody Screen Crossmatch HOSPITAL COURSE: Date of Admission:12/16/19 Date of Discharge: 12/20/19 - ....Imaging Cat Scan: Report Reviewed (Abd CT: no acute pathology) Problem List - Problems (1) HTN (hypertension) Assessment/Plan: BP well controlled during stay c/w lisinipril Code(s): I10 - ESSENTIAL (PRIMARY) HYPERTENSION (2) A-fib Assessment/Plan: rate controlled c/w toprol holding xarelto AF rate controlled montitored on tele due to anemia and hx of AFib no episodes of RVR on tele cardiology following during stay Code(s): I48.91 - UNSPECIFIED ATRIAL FIBRILLATION (3) Uterine cancer Assessment/Plan: history of Code(s): C55 - MALIGNANT NEOPLASM OF UTERUS, PART UNSPECIFIED (4) Colon cancer Assessment/Plan: history of Code(s): C18.9 - MALIGNANT NEOPLASM OF COLON, UNSPECIFIED (5) S/P colon resection s/p resection 09/07 Code(s): Z90.49 - ACQUIRED ABSENCE OF OTHER SPECIFIED PARTS OF DIGESTIVE TRACT (6) SAUL (obstructive sleep apnea) Assessment/Plan: BiPap at night and prn Code(s): G47.33 - OBSTRUCTIVE SLEEP APNEA (ADULT) (PEDIATRIC) (7) Melena Assessment/Plan: resolved, no episodes overnight EGD with normal esophagus, medium size hiatal hernia, small sessile polyps in gastric body (biopsy sent), other normal EGD Plan for transfer to [facility] for colonoscopy and capsule endoscopy Dr Perry discussed w/ Dr. Santana, research nurse @ [facility]. WILL ADMIT TO MEDICINE SERVICE WITH GI CONSULTED Code(s): K92.1 - MELENA (8) Prophylactic measure Assessment/Plan: FEN Fluids: adequate PO intake Electrolytes: monitor & replete as needed Nutrition: low sodium presently. NPO past mn for possible testing DVT no chemical anticogualtion given bleed. Scd, early ambulation Dispo Maintain on tele full code discharge planning Code(s): Z29.9 - ENCOUNTER FOR PROPHYLACTIC MEASURES, UNSPECIFIED (9) Symptomatic anemia Assessment/Plan: Hgb 10.4 continue to monitor recieved 1 u of PRBC admission day 1, nor further transfusion required Code(s): D64.9 - ANEMIA, UNSPECIFIED (10) Cardiac pacemaker Assessment/Plan: c/w tele monitoring Code(s): Z95.0 - PRESENCE OF CARDIAC PACEMAKER (11) CKD (chronic kidney disease) Assessment/Plan: Cr 1.6 continue to monitor avoid nephrotoxic agents Code(s): N18.9 - CHRONIC KIDNEY DISEASE, UNSPECIFIED Qualifiers: Chronic kidney disease stage: stage 3 (moderate) Qualified Code(s): N18.3 - Chronic kidney disease, stage 3 (moderate) Transfer to [facility] for further testing Minutes to complete discharge: 45 Discharge Summary Problems reviewed: Yes Reason For Visit: GASTRINTESTINAL HEMORRHAGE, ANEMIA Current Active Problems A-fib (Acute) Black stools (Acute) Colon cancer (Acute) HTN (hypertension) (Acute) Melena (Acute) SAUL (obstructive sleep apnea) (Acute) Prophylactic measure (Acute) S/P colon resection (Acute) Symptomatic anemia (Acute) Uterine cancer (Acute) - Instructions Diet, Activity, Other Instructions: Transfer to [facility] for colonscopy and capsule endoscopy Disposition: TRANSFER ACUTE CARE/OTHER HOSP - Home Medications Comprehensive Discharge Medication List: Ambulatory Orders Allopurinol 150 mg PO DAILY 03/10/19 Fluticasone Prop 0.05% Nasal [Flonase -] 2 sprays DAILY 03/10/19 Levetiracetam [Keppra] 500 mg PO DAILY 03/10/19 Metoprolol Succinate [Toprol Xl] 12.5 mg PO DAILY 03/10/19 Pregabalin [Lyrica] 50 mg PO DAILY 03/10/19 Simvastatin 10 mg PO HS 03/10/19 Cholecalciferol (Vitamin D3) [Vitamin D3] 2,000 unit PO DAILY 10/16/19 Docusate Sodium [Colace] 200 mg PO HS 10/16/19 Megestrol Acetate [Megace -] 40 mg PO QID 10/16/19 Multivitamin [One-Daily Multi-Vitamin] 1 each PO DAILY 10/16/19 Mupirocin Ointment [Bactroban 2% Ointment -] 1 applic BID 10/16/19 Sennosides/Docusate Sodium [Senokot-S Tablet] 2 each PO HS 10/16/19 Acetaminophen [Tylenol .Extra-Strength -] 500 mg PO PRN 12/16/19 Lisinopril 5 mg PO DAILY 12/16/19 Miconazole Nitrate [Miconazorb AF] 71 gm TP BID 12/16/19 Psyllium Husk/Aspartame [Reguloid Powder] 284 gm PO Q72H 12/16/19 Lisinopril [Prinivil] 5 mg PO DAILY tablet 12/20/19 Nystatin Cream [Mycostatin Cream -] 1 applic TP BID applic 12/20/19 Pantoprazole Sodium [Protonix IV] 40 mg IVPUSH DAILY vial 12/20/19 Problem List - Problems (1) HTN (hypertension) Code(s): I10 - ESSENTIAL (PRIMARY) HYPERTENSION (2) A-fib Code(s): I48.91 - UNSPECIFIED ATRIAL FIBRILLATION (3) Uterine cancer Code(s): C55 - MALIGNANT NEOPLASM OF UTERUS, PART UNSPECIFIED (4) Colon cancer Code(s): C18.9 - MALIGNANT NEOPLASM OF COLON, UNSPECIFIED (5) S/P colon resection Code(s): Z90.49 - ACQUIRED ABSENCE OF OTHER SPECIFIED PARTS OF DIGESTIVE TRACT (6) SAUL (obstructive sleep apnea) Code(s): G47.33 - OBSTRUCTIVE SLEEP APNEA (ADULT) (PEDIATRIC) (7) Melena Code(s): K92.1 - MELENA (8) Prophylactic measure Code(s): Z29.9 - ENCOUNTER FOR PROPHYLACTIC MEASURES, UNSPECIFIED (9) Symptomatic anemia Code(s): D64.9 - ANEMIA, UNSPECIFIED (10) Cardiac pacemaker Code(s): Z95.0 - PRESENCE OF CARDIAC PACEMAKER (11) CKD (chronic kidney disease) Code(s): N18.9 - CHRONIC KIDNEY DISEASE, UNSPECIFIED Qualifiers: Chronic kidney disease stage: stage 3 (moderate) Qualified Code(s): N18.3 - Chronic kidney disease, stage 3 (moderate) This patient is new to me today: Yes Date on this admission: 12/20/19 Emergency Visit: Yes ED Registration Date: 12/16/19 Care time: The patient presented to the Emergency Department on the above date and was hospitalized for further evaluation of their emergent condition. Critical Care patient: No - Discharge Referral Referred to [facility] No
[2019-12-20 19:00] VITALS: BP 155/60; PULSE 60; TEMP 98.1
--- NOTE | 2019-12-21 16:23 | PATH ---
Surgical Pathology Report Patient Name: CAR LITTLE [facility]. Rec. #: [id number] /Age/Gender: 1935 (Age: 84) / F Account: [id number] Location: [facility] PEDS/ADOL Taken: 12/20/2019 Received: 12/20/2019 Reported: 12/21/2019 Physicians: Ike Vee MD Specimen(s) Received BODY OF STOMACH Clinical History Obscure GI bleed Postoperative diagnosis: Hiatal hernia, obscure GI bleed, polyp body of stomach Final Diagnosis STOMACH, BODY, POLYP, BIOPSY: POLYPOID GASTRIC BODY MUCOSA WITH MILD CHRONIC GASTRITIS. IMMUNOHISTOCHEMICAL STAIN FOR H. PYLORI IS NEGATIVE. Positive and negative controls (internal if applicable) show appropriate results. Electronically Signed Joanne Ibarra M.D. Gross Description Received in formalin, labeled "body of stomach polyp biopsy" is a lemus, irregular portion of soft tissue measuring 0.3 cm. in greatest dimension. The specimen is submitted in toto in one cassette. /12/20/2019 [facility]12/20/2019
== END 2019-12-20 20:42 | disposition short-term general hospital (02) | DRG 377 ==
LOC: JER 22:26 → JERBED 12-16 00:08 → J4S 12-16 17:55
PROVIDERS: ADMIT Internal Medicine; ATTEND Nurse Practitioner Acute Care
PROC: 30233N1 Transfusion of Nonautologous Red Blood Cells into Peripheral Vein, Percutaneous Approach (ICD-10-PCS; principal; 2019-12-16)
PROC: 0DD68ZX Extraction of Stomach, Via Natural or Artificial Opening Endoscopic, Diagnostic (ICD-10-PCS; 2019-12-20)
DX: K92.2 Gastrointestinal hemorrhage, unspecified (principal); I50.43 Acute on chronic combined systolic (congestive) and diastolic (congestive) heart failure; E46 Unspecified protein-calorie malnutrition; N17.9 Acute kidney failure, unspecified; I13.0 Hypertensive heart and chronic kidney disease with heart failure and stage 1 through stage 4 chronic kidney disease, or unspecified chronic kidney disease; D62 Acute posthemorrhagic anemia; D64.9 Anemia, unspecified; E78.5 Hyperlipidemia, unspecified; E11.40 Type 2 diabetes mellitus with diabetic neuropathy, unspecified; G47.33 Obstructive sleep apnea (adult) (pediatric); I48.91 Unspecified atrial fibrillation; K44.9 Diaphragmatic hernia without obstruction or gangrene; I48.0 Paroxysmal atrial fibrillation; E04.1 Nontoxic single thyroid nodule; E11.22 Type 2 diabetes mellitus with diabetic chronic kidney disease; N18.3 Chronic kidney disease, stage 3 (moderate); J44.9 Chronic obstructive pulmonary disease, unspecified; Z96.653 Presence of artificial knee joint, bilateral; Z68.28 Body mass index [BMI] 28.0-28.9, adult; E88.09 Other disorders of plasma-protein metabolism, not elsewhere classified; K21.9 Gastro-esophageal reflux disease without esophagitis; E87.5 Hyperkalemia; I25.10 Atherosclerotic heart disease of native coronary artery without angina pectoris; D50.9 Iron deficiency anemia, unspecified; Z95.0 Presence of cardiac pacemaker; Z79.01 Long term (current) use of anticoagulants; Z85.038 Personal history of other malignant neoplasm of large intestine; Z85.42 Personal history of malignant neoplasm of other parts of uterus; Z85.118 Personal history of other malignant neoplasm of bronchus and lung
CPT/HCPCS: 36415; 36430; 36511; 71045-TC-FY; 74176-TC; 80048; 80053; 82272; 82728; 82962; 83540; 83550; 83735; 84466; 84484; 85025; 85027; 85044; 85610; 85730; 86850; 86900; 86901; 86922; 88305-TC; 93005; 93010; 97116-GP; 97161-GP; 99291; J7030; P9038; P9058

== ENCOUNTER → 2020-05-04 | Day surgery (SDC) | payer OTHER ==
--- NOTE | 2020-05-05 18:06 | PATH ---
Cytology Non-Gynecological Report Patient Name: CAR LITTLE [facility]. Rec. #: [id number] /Age/Gender: 1935 (Age: 84) / F Account: [id number] Location: RADIOLOGY INTER Taken: 05/04/2020 Received: 05/04/2020 Reported: 05/05/2020 Physicians: Demetri Perez M.D. Specimen(s) Received THYROID FNA Clinical History Right thyroid 2.67 x 2.24 x 2.96 nodule Final Diagnosis THYROID, RIGHT, FINE NEEDLE ASPIRATION: SATISFACTORY FOR EVALUATION BETHESDA CLASS II: BENIGN SMALL FOLLICULAR CELLS AND COLLOID PRESENT, CONSISTENT WITH A BENIGN FOLLICULAR NODULE. Electronically Signed Emelina Rosas M.D. Gross Description Received are eight direct smears, four of which are air-dried and Diff-Quik stained, and four of which are alcohol fixed and Pap stained. Also received is 20 ml of bloody formalin from which one cellblock is prepared.
== END | disposition home or self-care (01) ==
LOC: JRADIR 09:42
PROVIDERS: ATTEND Internal Medicine Endocrinology, Diabetes & Metabolism
PROC: 0G9K3ZX Drainage of Thyroid Gland, Percutaneous Approach, Diagnostic (ICD-10-PCS; principal; 2020-05-04)
DX: E04.1 Nontoxic single thyroid nodule (principal)
CPT/HCPCS: 76942; 88173; 88305-TC

== ENCOUNTER 2020-05-23 16:37 | Emergency (ER) | payer OTHER ==
--- NOTE | 2020-05-23 17:05 | PDOC ---
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 Per the patient, she has been having melena for over a year. December was the last time she was transfused. EGD and colonoscopy were done without finding a source for the blood. She has had negative FOBT up until recently. In the past 3 days she has been experiencing SOB and weakness, and has stayed in bed (she does not ambulate). She denies any chest pain, lightheadedness, loss of consciousness, headache, abdominal pain, or focal neurological deficits. Oncology: Dr. Dang Cardio: Amy GI: DiGiomas ROS: GENERAL/CONSTITUTIONAL: No fever/chills. Yes weakness. HEAD, EYES, EARS, NOSE AND THROAT: No change in vision. No blurry vision. CARDIOVASCULAR: No chest pain. Yes shortness of breath. RESPIRATORY: No cough, wheezing GASTROINTESTINAL: No nausea, vomiting. Yes loose dark sticky stool GENITOURINARY: No dysuria, frequency, or change in urination. MUSCULOSKELETAL: No joint or muscle swelling or pain. No neck or back pain. NEUROLOGIC: No headache, vertigo, loss of consciousness, or change in strength/sensation. HEMATOLOGIC/LYMPHATIC: Yes easy bleeding, no history of blood clots. ALLERGIC/IMMUNOLOGIC: No hives or skin allergy. PMH: CAD, decreased LV function systolic HF, sick sinus syndrome w/ medtronic pacer, paroxysmal afib, HTN, DM2, HLD, CVA, CKA, Colon Ca, Uterine cancer with mets to lungs s/p resection PSx: Social Hx: Denied etoh, tobacco Meds: See nurse note Allergies: Morphine PE: GENERAL: Awake, alert, and fully oriented, in no acute distress. Patient laying in bed, conversational. HEAD: No signs of trauma EYES: PERRLA, EOMI, sclera anicteric, conjunctiva clear ENT: Moist mucosa NECK: Normal ROM, supple, no lymphadenopathy, JVD, or masses LUNGS: Breath sounds equal, clear to auscultation bilaterally. No wheezes, and no crackles HEART: Regular rate and rhythm, paced. Capillary refill >3 seconds bilaterally in upper extremities. Pulses equal bilaterally in upper and lower extremities. ABDOMEN: Soft, nontender, normoactive bowel sounds. No guarding, no rebound. No masses EXTREMITIES: Limited range of motion, no edema. NEUROLOGICAL: Cranial nerves II through XII grossly intact. 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 Patient has a DNR, DNI, DNH (do not hospitalize) - CBC - CMP - EKG - Type and Screen - Transfuse CBC WBC 9.2 K/mm3 (4.0-10.0) 05/23/20 17:45 RBC 2.26 M/mm3 (3.60-5.2) L 05/23/20 17:45 Hgb 7.2 GM/dL (10.7-15.3) L 05/23/20 17:45 Hct 21.8 % (32.4-45.2) L D 05/23/20 17:45 MCV 96.2 fl (80-96) H 05/23/20 17:45 MCH 31.7 pg (25.7-33.7) 05/23/20 17:45 MCHC 33.0 g/dl (32.0-36.0) 05/23/20 17:45 RDW 14.5 % (11.6-15.6) D 05/23/20 17:45 Plt Count 146 K/MM3 (134-434) 05/23/20 17:45 MPV 10.2 fl (7.5-11.1) 05/23/20 17:45 Absolute Neuts (auto) 7.7 K/mm3 (1.5-8.0) 05/23/20 17:45 Neutrophils % 83.8 % (42.8-82.8) H D 05/23/20 17:45 Lymphocytes % 7.0 % (8-40) L D 05/23/20 17:45 Monocytes % 8.2 % (3.8-10.2) 05/23/20 17:45 Eosinophils % 0.9 % (0-4.5) 05/23/20 17:45 Basophils % 0.1 % (0-2.0) 05/23/20 17:45 Nucleated RBC % 0 % (0-0) 05/23/20 17:45 Patient anemic at 7.2, no leukocytosis CMP Sodium 144 mmol/L (136-145) 05/23/20 17:45 Potassium 4.7 mmol/L (3.5-5.1) 05/23/20 17:45 Chloride 121 mmol/L (98-107) H 05/23/20 17:45 Carbon Dioxide 15 mmol/L (21-32) L 05/23/20 17:45 Anion Gap 8 MMOL/L (8-16) 05/23/20 17:45 BUN 46.8 mg/dL (7-18) H 05/23/20 17:45 Creatinine 1.7 mg/dL (0.55-1.3) H 05/23/20 17:45 Est GFR (CKD-EPI)AfAm 31.77 05/23/20 17:45 Est GFR (CKD-EPI)NonAf 27.41 05/23/20 17:45 Random Glucose 199 mg/dL (74-106) H 05/23/20 17:45 Calcium 8.7 mg/dL (8.5-10.1) 05/23/20 17:45 Total Bilirubin 0.2 mg/dL (0.2-1) 05/23/20 17:45 AST 10 U/L (15-37) L 05/23/20 17:45 ALT 10 U/L (13-61) L 05/23/20 17:45 Alkaline Phosphatase 72 U/L (45-117) 05/23/20 17:45 Total Protein 5.4 g/dl (6.4-8.2) L 05/23/20 17:45 Albumin 3.2 g/dl (3.4-5.0) L 05/23/20 17:45 No electrolyte abnormalities. Glucose elevated Dr. Guardado ordered 2 units PRBC. - Patient will be returning to nursing facility following transfusion. 05/23/20 22:01 - Signed out to Dr. Mcclure Past History - Medical History Allergies/Adverse Reactions: Allergies Allergy/AdvReac Type Severity Reaction Status Date / Time morphine Allergy Nausea Verified 05/23/20 18:30 Home Medications: Ambulatory Orders Allopurinol 150 mg PO DAILY 03/10/19 Fluticasone Prop 0.05% Nasal [Flonase -] 2 sprays DAILY 03/10/19 Levetiracetam [Keppra] 500 mg PO DAILY 03/10/19 Metoprolol Succinate [Toprol Xl] 12.5 mg PO DAILY 03/10/19 Pregabalin [Lyrica] 50 mg PO DAILY 03/10/19 Simvastatin 10 mg PO HS 03/10/19 Cholecalciferol (Vitamin D3) [Vitamin D3] 2,000 unit PO DAILY 10/16/19 Docusate Sodium [Colace] 200 mg PO HS 10/16/19 Megestrol Acetate [Megace -] 40 mg PO QID 10/16/19 Multivitamin [One-Daily Multi-Vitamin] 1 each PO DAILY 10/16/19 Mupirocin Ointment [Bactroban 2% Ointment -] 1 applic BID 10/16/19 Sennosides/Docusate Sodium [Senokot-S Tablet] 2 each PO HS 10/16/19 Acetaminophen [Tylenol .Extra-Strength -] 500 mg PO PRN 12/16/19 Lisinopril 5 mg PO DAILY 12/16/19 Miconazole Nitrate [Miconazorb AF] 71 gm TP BID 12/16/19 Psyllium Husk/Aspartame [Reguloid Powder] 284 gm PO Q72H 12/16/19 Nystatin Cream [Mycostatin Cream -] 1 applic TP BID applic 12/20/19 Pantoprazole Sodium [Protonix IV] 40 mg IVPUSH DAILY vial 12/20/19 Anemia: Yes (PERNICIOUS) Asthma: No Cancer: Yes (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/RAD) Cardiac Disorders: Yes (ATRIAL FIBRILATION,CHF) CVA: No COPD: Yes CHF: Yes Dementia: No Diabetes: Yes (type II, NEUROPATHY) GI Disorders: Yes Disorders: No HTN: Yes Hypercholesterolemia: Yes Liver Disease: No Seizures: No Thyroid Disease: Yes (THYROID NODULES) - Surgical History Abdominal Surgery: No Appendectomy: Yes Cardiac Surgery: Yes Cholecystectomy: No Lung Surgery: Yes (LOBECTOMY SECONDARY TO LUNG METASTASES) Neurologic Surgery: No Orthopedic Surgery: Yes (BILATERAL KNEE REPLACEMENTS) - Psycho-Social/Smoking History Smoking History: Never smoked Have you smoked in the past 12 months: No ED Treatment Course - LABORATORY CBC & Chemistry Diagram: 05/23/20 17:45 05/23/20 17:45 Discharge - Discharge Information Problems reviewed: Yes Clinical Impression/Diagnosis: Anemia Qualifiers: Anemia type: iron deficiency Iron deficiency anemia type: chronic blood loss Qualified Code(s): D50.0 - Iron deficiency anemia secondary to blood loss (chronic) Condition: Stable Disposition: HOME - Admission No - Follow up/Referral Referrals: Dakota Guardado MD [Primary Care Provider] - - Patient Discharge Instructions Patient Printed Discharge Instructions: DI for Blood Transfusion Additional Instructions: You received two units of blood as ordered by Dr. Guardado. Your vitals did not change while you were observed in the emergency department. Please see attached packet with today's ED lab results. Would discuss any need for return ED visit with Dr. Guardado first as the pt repo rtedly has a do not hospitalized order signed. Print Language: POLISH - Post Discharge Activity
[2020-05-23 17:46] VITALS: BMI 28.2
[2020-05-23 18:50] LABS: BASO % 0.1 % (0-2.0); EOS % 0.9 % (0-4.5); HEMATOCRIT 21.8 % (32.4-45.2); HEMOGLOBIN 7.2 GM/dL (10.7-15.3); MCH 31.7 pg (25.7-33.7); MEAN CELL VOLUME 96.2 fl (80-96); MEAN PLT VOLUME 10.2 fl (7.5-11.1); MONO % 8.2 % (3.8-10.2); NEUT % 83.8 % (42.8-82.8); PLATELET COUNT 146 K/MM3 (134-434); RBC 2.26 M/mm3 (3.60-5.2); RDW 14.5 % (11.6-15.6); WHITE BLOOD COUNT 9.2 K/mm3 (4.0-10.0)
[2020-05-23] MEDS ORDERED: FUROSEMIDE 40 MG/4 ML INJECTABLE VIAL IVPUSH ONE (18:59)
[2020-05-23 19:00] LABS: INR 1.19 (0.83-1.09); PROTHROMBIN TIME (PATIENT) 14.1 SEC (9.7-13.0)
[2020-05-23 19:03] LABS: ACTIVATED PTT 30.2 SECONDS (25.2-36.5)
--- NOTE | 2020-05-23 19:04 | PDOC ---
Documentation entered by Janette Pro SCRIBE, acting as scribe for Brant Martin MD. Brant Martin MD: This documentation has been prepared by the scribe, Janette Pro SCRIBE, under my direction and personally reviewed by me in its entirety. I confirm that the documentation accurately reflects all work, treatment, procedures, and medical decision making performed by me. Attending Attestation - Resident Resident Name: Apoorva Santacruz - ED Attending Attestation I have performed the following: I have examined & evaluated the patient, The case was reviewed & discussed with the resident, I agree w/resident's findings & plan, Exceptions are as noted - HPI HPI: 05/23/20 17:21 84y F hx of HLD, DM, CKD, Neuropathy, SAUL, CHF, afib (off a/c) sp PM, colon ca sp hemicolectomy, presents with anemia. Pt was found to be anemic at [place] so was sent to the ED for evaluation. Pt notes she has had dark colored stool, but takes iron. Hasnt had any other symotms including cp, sob, palpitations, lightaededness, vision changes, focal numbnes/tingling/weakness., n/v. She notes she has had several transfusions in the past and was taken off of AC. - Physicial Exam PE: exam: General: pale appearing card: regular pulm cta b/l abd: soft nontender - Medical Decision Making will recheck pts labs to eval for aenmia, if low will transfuse signed out to evening team to fu with cbc Heart Score/ECG Review - ECG Impressions Comment:: 05/23/20 18:43 Twelve-lead EKG was performed and reviewed by me. av dual paced rhythm rate of 62 Discharge - Discharge Information Problems reviewed: Yes Clinical Impression/Diagnosis: Anemia Qualifiers: Anemia type: iron deficiency Iron deficiency anemia type: chronic blood loss Qualified Code(s): D50.0 - Iron deficiency anemia secondary to blood loss (chronic) Condition: Stable Disposition: HOME - Follow up/Referral Referrals: Dakota Guardado MD [Primary Care Provider] - - Patient Discharge Instructions Patient Printed Discharge Instructions: DI for Blood Transfusion Additional Instructions: You received two units of blood as ordered by Dr. Guardado. Your vitals did not change while you were observed in the emergency department. Please see attached packet with today's ED lab results. Would discuss any need for return ED visit with Dr. Geo walker as the pt reportedly has a do not hospitalized order signed. Print Language: [place]ER[place] LEONEAN - Post Discharge Activity
[2020-05-23 19:24] LABS: ALBUMIN 3.2 g/dl (3.4-5.0); BILIRUBIN,TOTAL 0.2 mg/dL (0.2-1); BLOOD UREA NITROGEN 46.8 mg/dL (7-18); CALCIUM 8.7 mg/dL (8.5-10.1); CREATININE 1.7 mg/dL (0.55-1.3); POTASSIUM 4.7 mmol/L (3.5-5.1); TOT PROT 5.4 g/dl (6.4-8.2)
[2020-05-23 21:02] LABS: ANISOCYTOSIS 0; MACROCYTOSIS 0; OVALOCYTE 1+; PLATELET ESTIMATE DECREASED
--- NOTE | 2020-05-23 22:02 | PDOC ---
*Physical Exam - Vital Signs Last Vital Signs Temp Pulse Resp BP Pulse Ox 97.4 F L 64 17 129/58 L 97 05/23/20 17:00 05/23/20 17:00 05/23/20 17:00 05/23/20 17:00 05/23/20 21:32 ED Treatment Course - LABORATORY CBC & Chemistry Diagram: 05/23/20 17:45 05/23/20 17:45 - ADDITIONAL ORDERS Additional order review: Laboratory Results 05/23/20 05/23/20 05/23/20 17:45 17:45 17:45 PT with INR INR PTT (Actin FS) Sodium 144 Potassium 4.7 Chloride 121 H Carbon Dioxide 15 L Anion Gap 8 BUN 46.8 H Creatinine 1.7 H Est GFR (CKD-EPI)AfAm 31.77 Est GFR (CKD-EPI)NonAf 27.41 Random Glucose 199 H Calcium 8.7 Total Bilirubin 0.2 AST 10 L ALT 10 L Alkaline Phosphatase 72 Total Protein 5.4 L Albumin 3.2 L Stool Occult Blood Positive Blood Type O POSITIVE Antibody Screen Negative Crossmatch See Detail 05/23/20 17:45 PT with INR 14.10 H INR 1.19 H PTT (Actin FS) 30.2 Sodium Potassium Chloride Carbon Dioxide Anion Gap BUN Creatinine Est GFR (CKD-EPI)AfAm Est GFR (CKD-EPI)NonAf Random Glucose Calcium Total Bilirubin AST ALT Alkaline Phosphatase Total Protein Albumin Stool Occult Blood Blood Type Antibody Screen Crossmatch 05/23/20 17:45 RBC 2.26 L MCV 96.2 H MCHC 33.0 RDW 14.5 D MPV 10.2 Neutrophils % 83.8 H D Lymphocytes % 7.0 L D Monocytes % 8.2 Eosinophils % 0.9 Basophils % 0.1 Medical Decision Making - Medical Decision Making Received sign out from resident Dr. Santacruz. In short, pt is a 84 y/o female presenting with anemia from [facility]. Pt is a DNR/DNI/DNH. Dr. Guardado, the pt's PCP, ordered 2 units PRBC and Lasix. Verbally requested the pt be transfused and returned to SNF. 24 May 2020 04:20 AM Pt completed second transfusion. Repeat vitals unchanged from established trend. Pt to be discharged back to [facility] on [address]. Sumeet Mcclure M.D., PGY3 Emergency Medicine Resident Discharge - Discharge Information Problems reviewed: Yes Clinical Impression/Diagnosis: Anemia Qualifiers: Anemia type: iron deficiency Iron deficiency anemia type: chronic blood loss Qualified Code(s): D50.0 - Iron deficiency anemia secondary to blood loss (chronic) Condition: Good Disposition: HOME - Admission No - Follow up/Referral - Patient Discharge Instructions Patient Printed Discharge Instructions: DI for Blood Transfusion Additional Instructions: You received two units of blood as ordered by Dr. Guardado. Your vitals did not change while you were observed in the emergency department. Please see attached packet with today's ED lab results. Would discuss any need for return ED visit with Dr. Guardado first as the pt rep ortedly has a do not hospitalized order signed. Print Language: KAZAKH - Post Discharge Activity
[2020-05-23] MEDS ORDERED: FUROSEMIDE 40 MG/4 ML INJECTABLE VIAL ONE (23:20)
[2020-05-24 04:25] VITALS: BP 160/72; PULSE 62; TEMP 98.4
--- NOTE | 2020-05-24 09:07 | EKG ---
Test Reason : Blood Pressure : / mmHG Vent. Rate : 062 BPM Atrial Rate : 052 BPM P-R Int : 186 ms QRS Dur : 160 ms QT Int : 474 ms P-R-T Axes : 031 -60 082 degrees QTc Int : 481 ms AV dual-paced rhythm ABNORMAL ECG WHEN COMPARED WITH ECG OF 16-DEC-2019 00:50, ELECTRONIC VENTRICULAR PACEMAKER HAS REPLACED ELECTRONIC ATRIAL PACEMAKER Confirmed by Juanjose Michael ([id number]) on 05/24/2020 9:07:21 AM Referred By: Confirmed By:Juanjose Michael
== END 2020-05-24 05:01 | disposition home or self-care (01) ==
LOC: JER 16:37 → SUPCPDRO 16:37 → JER 05-24 05:01
PROC: 3E0337Z Introduction of Electrolytic and Water Balance Substance into Peripheral Vein, Percutaneous Approach (ICD-10-PCS; principal; 2020-05-23)
DX: D50.0 Iron deficiency anemia secondary to blood loss (chronic) (principal)
CPT/HCPCS: 36415; 36430; 80053; 82272; 85025; 85610; 85730; 86850; 86900; 86901; 86922; 93005; 93010; 99284-25; P9058

== ENCOUNTER 2020-06-09 18:51 | Inpatient (IN) | payer OTHER ==
--- NOTE | 2020-06-09 19:29 | PDOC ---
History of Present Illness - General Chief Complaint: Blood Transfusion Stated Complaint: LOW BLOOD COUNT Time Seen by Provider: 06/09/20 19:29 History Source: Patient Exam Limitations: No Limitations - History of Present Illness Initial Comments: 06/09/20 19:31 84 y/o female with PMHx HLD, DM, afib off AC, uterine cancer with mets to lung s/p resection, colon cancer, CKD, anemia, and a known occult GI bleed presenting from [facility] anemia Hgb 6.4 requiring blood transfusion and intermittent lightheadedness. Not on anticoagulation, denies recent gross rectal bleeding. Ca me in past for anemia, last seen 05/23, received 2u pRBC. Worked up extensively for anemia in past, attributed to CKD, anemia of chronic disease, cancer. Denies fever, n/v, SOB, chest pain. Past History - Medical History Allergies/Adverse Reactions: Allergies Allergy/AdvReac Type Severity Reaction Status Date / Time morphine Allergy Nausea Verified 06/09/20 19:10 Home Medications: Ambulatory Orders Allopurinol 150 mg PO DAILY 03/10/19 Fluticasone Prop 0.05% Nasal [Flonase -] 2 sprays DAILY 03/10/19 Levetiracetam [Keppra] 500 mg PO DAILY 03/10/19 Metoprolol Succinate [Toprol Xl] 12.5 mg PO DAILY 03/10/19 Pregabalin [Lyrica] 50 mg PO DAILY 03/10/19 Simvastatin 10 mg PO HS 03/10/19 Cholecalciferol (Vitamin D3) [Vitamin D3] 2,000 unit PO DAILY 10/16/19 Docusate Sodium [Colace] 200 mg PO HS 10/16/19 Megestrol Acetate [Megace -] 40 mg PO QID 10/16/19 Multivitamin [One-Daily Multi-Vitamin] 1 each PO DAILY 10/16/19 Mupirocin Ointment [Bactroban 2% Ointment -] 1 applic BID 10/16/19 Sennosides/Docusate Sodium [Senokot-S Tablet] 2 each PO HS 10/16/19 Acetaminophen [Tylenol .Extra-Strength -] 500 mg PO PRN 12/16/19 Lisinopril 5 mg PO DAILY 12/16/19 Miconazole Nitrate [Miconazorb AF] 71 gm TP BID 12/16/19 Psyllium Husk/Aspartame [Reguloid Powder] 284 gm PO Q72H 12/16/19 Nystatin Cream [Mycostatin Cream -] 1 applic TP BID applic 12/20/19 Pantoprazole Sodium [Protonix IV] 40 mg IVPUSH DAILY vial 12/20/19 Anemia: Yes (PERNICIOUS) Asthma: No Cancer: Yes (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/RAD) Cardiac Disorders: Yes (ATRIAL FIBRILATION,CHF) CVA: No COPD: Yes CHF: Yes Dementia: No Diabetes: Yes (type II, NEUROPATHY) GI Disorders: Yes Disorders: No HTN: Yes Hypercholesterolemia: Yes Liver Disease: No Seizures: No Thyroid Disease: Yes (THYROID NODULES) - Surgical History Abdominal Surgery: No Appendectomy: Yes Cardiac Surgery: Yes Cholecystectomy: No Lung Surgery: Yes (LOBECTOMY SECONDARY TO LUNG METASTASES) Neurologic Surgery: No Orthopedic Surgery: Yes (BILATERAL KNEE REPLACEMENTS) - Reproductive History Is Patient Now?: No - Psycho-Social/Smoking History Smoking History: Never smoked Have you smoked in the past 12 months: No Information on smoking cessation initiated: No - Substance Abuse Hx (Audit-C & DAST Scrn) How often the patient has a drink containing alcohol: Never Score: In Men: 4 or > Positive; In Women: 3 or > Positive: 0 Screen Result (Pos requires Nsg. Audit-10AR): Negative In the last yr the pt used illegal drug/Rx for NonMed reason: No Score: Yes response is considered Positive: 0 Screen Result (Positive result requires Nsg. DAST-10): Negative Review of Systems - Review of Systems Constitutional: No: Chills, Fever HEENTM: No: Eye Pain, Nose Congestion Respiratory: No: Cough, Shortness of Breath Cardiac (ROS): No: Chest Pain, Palpitations ABD/GI: No: Constipated, Diarrhea, Nausea, Vomiting : No: Burning, Dysuria Musculoskeletal: No: Back Pain, Joint Pain Integumentary: No: Bruising, Flushing Neurological: No: Headache, Seizure Psychiatric: No: Anxiety, Depression Endocrine: No: Intolerance to Cold, Intolerance to Heat Hematologic/Lymphatic: Yes: Anemia. No: Blood Clots *Physical Exam - Vital Signs Last Vital Signs Temp Pulse Resp BP Pulse Ox 97.8 F 72 18 113/62 100 06/09/20 19:11 06/09/20 19:11 06/09/20 19:11 06/09/20 19:11 06/09/20 19:11 - Physical Exam General Appearance: Yes: Nourished, Appropriately Dressed. No: Apparent Distress HEENT: positive: EOMI, MEGAN, Normal Voice, Hearing Grossly Normal. negative: Scleral Icterus (R), Scleral Icterus (L) Respiratory/Chest: positive: Lungs Clear, Normal Breath Sounds. negative: Chest Tender, Respiratory Distress Cardiovascular: positive: Regular Rate, S1, S2, Irregularly Irregular. negative: Edema, Murmur Gastrointestinal/Abdominal: positive: Normal Bowel Sounds, Flat, Soft. negative: Tender, Organomegaly Integumentary: positive: Normal Color, Warm Neurologic: positive: Fully Oriented, Alert, Normal Mood/Affect, Normal Response, Responsive ED Treatment Course - LABORATORY CBC & Chemistry Diagram: 06/09/20 19:50 06/09/20 19:50 Medical Decision Making - Medical Decision Making 06/09/20 20:02 EKG - AV dual paced rhythm , unchanged, HR 60, QTc 484 CXR --- 84 y/o female with PMHx HLD, DM, afib off AC, uterine cancer with mets to lung s/p resection, colon cancer, CKD, anemia, and a known occult GI bleed presenting from [facility] w anemia Hgb 7.4 requiring blood transfusion and intermittent lightheadedness. Also has acute on chronic kidney disease (Cr 2.3 from 1.7, no dysuria) Pt consented for blood. Ordered 1u pRBC for anemia <8 w cardiovascular hx Admitted m/s for anemia requiring transfusion, acute on chronic kidney disease PCP Geo to hospitalist Discharge - Discharge Information Problems reviewed: Yes Clinical Impression/Diagnosis: Anemia Qualifiers: Anemia type: unspecified type Qualified Code(s): D64.9 - Anemia, unspecified Acute on chronic kidney failure Qualifiers: Acute renal failure type: unspecified Chronic kidney disease stage: unspecified stage Qualified Code(s): N17.9 - Acute kidney failure, unspecified Condition: Stable - Follow up/Referral - Patient Discharge Instructions - Post Discharge Activity
[2020-06-09 20:15] LABS: BASO % 0.1 % (0-2.0); EOS % 0.5 % (0-4.5); HEMATOCRIT 22.4 % (32.4-45.2); HEMOGLOBIN 7.4 GM/dL (10.7-15.3); LYMPH % 4.4 % (8-40); MCH 31.8 pg (25.7-33.7); MCHC 32.8 g/dl (32.0-36.0); MEAN CELL VOLUME 96.9 fl (80-96); MEAN PLT VOLUME 10.5 fl (7.5-11.1); MONO % 11.8 % (3.8-10.2); NEUT % 83.2 % (42.8-82.8); PLATELET COUNT 146 K/MM3 (134-434); RBC 2.31 M/mm3 (3.60-5.2); RDW 15.2 % (11.6-15.6); WHITE BLOOD COUNT 7.9 K/mm3 (4.0-10.0)
[2020-06-09 20:22] LABS: INR 0.84 (0.83-1.09); PROTHROMBIN TIME (PATIENT) 9.9 SEC (9.7-13.0)
[2020-06-09 21:07] LABS: ALBUMIN 2.8 g/dl (3.4-5.0); BILIRUBIN,TOTAL 0.2 mg/dL (0.2-1); BLOOD UREA NITROGEN 63.7 mg/dL (7-18); CALCIUM 7.9 mg/dL (8.5-10.1); CREATININE 2.3 mg/dL (0.55-1.3); POTASSIUM 4.6 mmol/L (3.5-5.1); TOT PROT 4.8 g/dl (6.4-8.2)
[2020-06-09 21:48] LABS: ANISOCYTOSIS 2+; MACROCYTOSIS 1+
[2020-06-09 21:49] LABS: OVALOCYTE 1+; PLATELET ESTIMATE ADEQUATE; TEAR DROP CELLS 1+
--- NOTE | 2020-06-09 22:12 | HP ---
Admitting History and Physical - Primary Care Physician PCP: Naomi Burns ([facility]) - Admission Chief Complaint: Abnormal Lab Report History of Present Illness: This is a 84 y/o female from [facility] with a PMHx of Anemia, Afib (no AC), GI Bleed, CKD Uterine Ca. Who presents to the ED via ambulance for abnormal lab report Hgb 6.4 sent in for evaluation and blood transfusion. Patient reports having POWELL and lightheadedness. Patient reports having black stools which she attributes to taking ferrous sulfate. She reports having urinary hesitancy and supra pubic pain x several days. Patient denies fever, chills, AMATO, CP, palpitations, N/V/D, constipation, hematochezia. History Source: Patient, Transfer Record Limitations to Obtaining History: No Limitations - Past Medical History ROUTER TENDER: Yes: Peripheral Neuropathy Cardiovascular: Yes: AFIB, CHF, Hyperlipdemia Gastrointestinal: Yes: Cancer (Colon cancer) Renal/: Yes: Renal Inusuff ...: No Heme/Onc: Yes: Anemia (pernicious), Other (Metastatic uterine cancer with recurrence, mets to the lung s/p resection with chemo/radiation) Endocrine: Yes: Diabetes Mellitus (DM II), Other (thyroid nodules) - Past Surgical History Past Surgical History: Yes: Appendectomy, Colectomy (S/P right hemicolectomy), Hysterectomy (BHAVANA/BSO), Joint Replacement (b/l Knees), Permanent Pacemaker - Smoking History Smoking history: Never smoked Have you smoked in the past 12 months: No - Alcohol/Substance Use Hx Alcohol Use: No History of Substance Use: reports: None - Social History Usual Living Arrangement: Yes: Alf ADL: Support Services 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 Travel: No Home Medications - Allergies Allergies/Adverse Reactions: Allergies Allergy/AdvReac Type Severity Reaction Status Date / Time morphine Allergy Nausea Verified 06/09/20 19:10 - Home Medications Home Medications: Ambulatory Orders Allopurinol 150 mg PO DAILY 03/10/19 Fluticasone Prop 0.05% Nasal [Flonase -] 1 sprays DAILY 03/10/19 Levetiracetam [Keppra] 500 mg PO DAILY 03/10/19 Metoprolol Succinate [Toprol Xl] 12.5 mg PO BID 03/10/19 Pregabalin [Lyrica] 50 mg PO HS 03/10/19 Simvastatin 10 mg PO HS 03/10/19 Cholecalciferol (Vitamin D3) [Vitamin D3] 2,000 unit PO DAILY 10/16/19 Docusate Sodium [Colace] 200 mg PO HS 10/16/19 Megestrol Acetate [Megace -] 40 mg PO QID 10/16/19 Multivitamin [One-Daily Multi-Vitamin] 1 each PO DAILY 10/16/19 Mupirocin Ointment [Bactroban 2% Ointment -] 1 applic BID 10/16/19 Sennosides/Docusate Sodium [Senokot-S Tablet] 2 each PO HS 10/16/19 Acetaminophen [Tylenol .Extra-Strength -] 500 mg PO PRN 12/16/19 Lisinopril 5 mg PO DAILY 12/16/19 Miconazole Nitrate [Miconazorb AF] 71 gm TP BID 12/16/19 Psyllium Husk/Aspartame [Reguloid Powder] 284 gm PO Q72H 12/16/19 Nystatin Cream [Mycostatin Cream -] 1 applic TP BID applic 12/20/19 Pantoprazole Sodium [Protonix IV] 40 mg IVPUSH DAILY vial 12/20/19 Ascorbic Acid 500 mg PO BID 06/10/20 Ferrous Sulfate [Feosol] 1 tab PO BID 06/10/20 Insulin Glargine,Hum.rec.anlog [Lantus] 5 unit SQ HS 06/10/20 Insulin Lispro [Humalog] 5 unit SQ AC 06/10/20 Megestrol Acetate Oral Susp [Megace Oral Suspension -] 10 ml PO BID 06/10/20 Pantoprazole Sodium 40 mg PO BID 06/10/20 Family Medical History Family History: As Documented Family Hx Cancer: Mother (Colon ) Review of Systems - Review of Systems Constitutional: reports: No Symptoms Eyes: reports: No Symptoms HENT: reports: No Symptoms Neck: reports: No Symptoms Cardiovascular: reports: Shortness of Breath Respiratory: reports: SOB on Exertion Gastrointestinal: reports: Abdominal Pain (lower), Melena Genitourinary: reports: Dysuria, Urgency Breasts: reports: No Symptoms Reported Musculoskeletal: reports: No Symptoms Integumentary: reports: No Symptoms Neurological: reports: Dizziness Endocrine: reports: No Symptoms Hematology/Lymphatic: reports: No Symptoms Psychiatric: reports: No Symptoms Pain Intensity: 6 Physical Examination Vital Signs: Vital Signs Temperature 97.8 F 06/09/20 19:11 Pulse Rate 72 06/09/20 19:11 Respiratory Rate 18 06/09/20 19:11 Blood Pressure 113/62 06/09/20 19:11 O2 Sat by Pulse Oximetry (%) 100 06/09/20 19:11 Constitutional: Yes: Well Nourished, No Distress, Calm, Obese, Pallor Eyes: Yes: Conjunctiva Clear (pale), EOM Intact, PERRL HENT: Yes: Atraumatic, Normocephalic Neck: Yes: Supple, Trachea Midline Cardiovascular: Yes: Regular Rate and Rhythm, S1, S2, Other (pacemaker noted- LCW) Respiratory: Yes: Diminished (bases), On Nasal O2, SOB on Exertion Gastrointestinal: Yes: Soft, Abdomen, Obese, Hypoactive Bowel Sounds ...Rectal Exam: Yes: Guaiac Positive Renal/: Yes: WNL Breast(s): Yes: WNL Musculoskeletal: Yes: WNL Extremities: Yes: WNL Edema: No Peripheral Pulses WNL: Yes Integumentary: Yes: Rash (under breast) Neurological: Yes: Alert, Oriented, Aphasia, Cran Nerves II-XII Intact ...Motor Strength: WNL Psychiatric: Yes: WNL, Alert, Oriented Labs: CBC, BMP 06/09/20 19:50 06/09/20 19:50 Laboratory Results - last 24 hr 06/09/20 06/09/20 06/09/20 19:50 19:50 19:50 WBC 7.9 RBC 2.31 L Hgb 7.4 L Hct 22.4 L MCV 96.9 H MCH 31.8 MCHC 32.8 RDW 15.2 Plt Count 146 MPV 10.5 Absolute Neuts (auto) 6.5 Neutrophils % 83.2 H Neutrophils % (Manual) 84.0 H Lymphocytes % 4.4 L D Lymphocytes % (Manual) 6.0 L Monocytes % 11.8 H Monocytes % (Manual) 10 Eosinophils % 0.5 Basophils % 0.1 Nucleated RBC % 0 Platelet Estimate Adequate Platelet Comment No clumping noted Anisocytosis 2+ Microcytosis 1+ Macrocytosis 1+ Tear Drop Cells 1+ Ovalocytes 1+ [place] Cells 1+ PT with INR 9.90 INR 0.84 PTT (Actin FS) 25.0 L Sodium 144 Potassium 4.6 Chloride 120 H Carbon Dioxide 16 L Anion Gap 9 BUN 63.7 H Creatinine 2.3 H Est GFR (CKD-EPI)AfAm 22.04 Est GFR (CKD-EPI)NonAf 19.02 Random Glucose 262 H Calcium 7.9 L Total Bilirubin 0.2 AST 14 L ALT 15 Alkaline Phosphatase 68 Total Protein 4.8 L Albumin 2.8 L Urine Color Urine Appearance Urine pH Ur Specific [place] Urine Protein Urine Glucose (UA) Urine Ketones Urine Blood Urine Nitrite Urine Bilirubin Urine Urobilinogen Ur Leukocyte Esterase Stool Occult Blood Blood Type Antibody Screen Crossmatch 06/09/20 06/09/20 06/10/20 19:50 21:50 01:30 WBC RBC Hgb Hct MCV MCH MCHC RDW Plt Count MPV Absolute Neuts (auto) Neutrophils % Neutrophils % (Manual) Lymphocytes % Lymphocytes % (Manual) Monocytes % Monocytes % (Manual) Eosinophils % Basophils % Nucleated RBC % Platelet Estimate Platelet Comment Anisocytosis Microcytosis Macrocytosis Tear Drop Cells Ovalocytes [place] Cells PT with INR INR PTT (Actin FS) Sodium Potassium Chloride Carbon Dioxide Anion Gap BUN Creatinine Est GFR (CKD-EPI)AfAm Est GFR (CKD-EPI)NonAf Random Glucose Calcium Total Bilirubin AST ALT Alkaline Phosphatase Total Protein Albumin Urine Color Yellow Urine Appearance Clear Urine pH 7.0 D Ur Specific [place] 1.015 Urine Protein 2+ H Urine Glucose (UA) Negative Urine Ketones Negative Urine Blood 2+ H Urine Nitrite Negative Urine Bilirubin Negative Urine Urobilinogen 0.2 Ur Leukocyte Esterase 3+ H Stool Occult Blood Positive Blood Type O POSITIVE Antibody Screen Negative Crossmatch See Detail Intake & Output 06/07/20 06/08/20 06/09/20 06/10/20 23:59 23:59 23:59 23:59 Weight 79.379 kg 88.451 kg Current Medications Generic Name Dose Route Start Last Admin Trade Name Freq PRN Reason Stop Dose Admin Fluticasone Propionate 1 spray 06/10/20 10:00 Flonase - NS DAILY ANTONI Ceftriaxone Sodium 1 gm/ 50 mls @ 200 mls/hr 06/10/20 05:11 Dextrose IVPB 06/10/20 05:25 ONCE ONE Protocol Ceftriaxone Sodium 1 gm/ 50 mls @ 200 mls/hr 06/11/20 10:00 Dextrose IVPB DAILY [facility] Protocol Levetiracetam 500 mg 06/10/20 10:00 Keppra - PO DAILY [facility] Lisinopril 5 mg 06/10/20 10:00 Prinivil PO DAILY [facility] Metoprolol Succinate 12.5 mg 06/10/20 10:00 Toprol Xl - PO BID [facility] Non-Formulary Medication 10 mg 06/10/20 22:00 Simvastatin [Simvastatin] PO HS [facility] Nystatin 1 applic 06/10/20 10:00 Mycostatin Cream - TP BID [facility] Pregabalin 50 mg 06/10/20 22:00 Lyrica - PO HS [facility] Imaging - Results Chest X-ray: Image Reviewed EKG: Image Reviewed Problem List - Problems (1) Anemia Assessment/Plan: Likely secondary to GI Bleed vs CKD Cardiac Monitoring PRBCs ordered in ED Stool Occult + Appreciate GI consult Consider Hematology consult Reviewed iron studies from 11/2019 Monitor CBC NPO Protonix Code(s): D64.9 - ANEMIA, UNSPECIFIED Qualifiers: Anemia type: unspecified type Qualified Code(s): D64.9 - Anemia, unspecif ied (2) GI bleed Assessment/Plan: r/o Malignancy vs Diverticular Hx GIB Hx Uterine Ca Appreciate GI consult Monitor CBC, CMP Monitor vitals CTAP- pending Code(s): K92.2 - GASTROINTESTINAL HEMORRHAGE, UNSPECIFIED Qualifiers: GI bleed type/associated pathology: unspecified gastrointestinal hemorrhage type Qualified Code(s): K92.2 - Gastrointestinal hemorrhage, unspecified (3) Acute on chronic kidney failure Assessment/Plan: Cr 2.3 (baseline 1.1-1.7) Appreciate Nephrology consult Monitor CMP Avoid Nephrotoxic drugs Code(s): N17.9 - ACUTE KIDNEY FAILURE, UNSPECIFIED; N18.9 - CHRONIC KIDNEY DISEASE, UNSPECIFIED Qualifiers: Acute renal failure type: unspecified Chronic kidney disease stage: unspecified stage Qualified Code(s): N17.9 - Acute kidney failure, unspecified; N18.9 - Chronic kidney disease, unspecified (4) HTN (hypertension) Assessment/Plan: stable Monitor BP Continue home meds with parameters Monitor renal function Code(s): I10 - ESSENTIAL (PRIMARY) HYPERTENSION (5) Coronary artery disease Assessment/Plan: Stable EKG reviewed- paced rhythm Continue home meds Code(s): I25.10 - ATHSCL HEART DISEASE OF [place] CORONARY ARTERY W/O ANG PCTRS Qualifiers: Coronary Disease-Associated Artery/Lesion type: [place] artery [place] vs. transplanted heart: [place] heart Associated angina: without angina Qualified Code(s): I25.10 - Atherosclerotic heart disease of [place] coronary artery without angina pectoris (6) Paroxysmal atrial fibrillation Assessment/Plan: stable EKG- reviewed No AC 2/2 GIB [id number] Continue Metoprolol with parameters Code(s): I48.0 - PAROXYSMAL ATRIAL FIBRILLATION (7) Hyperlipidemia Assessment/Plan: stable Continue Lipitor Monitor LFTs Code(s): E78.5 - HYPERLIPIDEMIA, UNSPECIFIED Qualifiers: Hyperlipidemia type: pure hypercholesterolemia Qualified Code(s): E78.00 - Pure hypercholesterolemia, unspecified; E78.0 - Pure hypercholesterolemia (8) Encounter for screening laboratory testing for COVID-19 virus Assessment/Plan: Low Risk COVID PCR-pending Isolation Precautions Code(s): Z11.59 - ENCOUNTER FOR SCREENING FOR OTHER VIRAL DISEASES Assessment/Plan his is a 84 y/o female from [facility] with a PMHx of Anemia, Afib (no AC), GI Bleed, CKD Uterine Ca. Admitted to Telemetry for Anemia, GI bleed, Acute on Chronic CKD for further evaluation of their emergent condition. Plan: See Problem List FEN Replete lytes prn DVT ppx OOB SCDs Hold AC 2/2 Anemia, GI Bleed Code Status: MOLST, DNR/DNI, HCP Dispo: Requires Inpatient Care Visit type - Medication Review Med list reviewed for High Risk Meds patients 65 and older: Yes - Emergency Visit Emergency Visit: Yes ED Registration Date: 06/09/20 Care time: The patient presented to the Emergency Department on the above date and was hospitalized for further evaluation of their emergent condition. - New Patient This patient is new to me today: Yes Date on this admission: 06/09/20 - Critical Care Critical Care patient: No
--- NOTE | 2020-06-09 23:05 | PDOC ---
Documentation entered by Janette Pro SCRIBE, acting as scribe for Wendy Cade MD. Wendy Cade MD: This documentation has been prepared by the Morteza garcía Ana, SCRIBE, under my direction and personally reviewed by me in its entirety. I confirm that the documentation accurately reflects all work, treatment, procedures, and medical decision making performed by me. Attending Attestation - Resident Resident Name: Niraj Johnson - ED Attending Attestation I have performed the following: I have examined & evaluated the patient, The case was reviewed & discussed with the resident, I agree w/resident's findings & plan, Exceptions are as noted - HPI HPI: 06/09/20 19:48 Patient is an 84 year old female with a significant past medical history of of diabetes, hyperlipidemia, afib, uterine cancer s/p resection, colon cancer, CKD, anemia, and a known occult GI bleed, who [facility], with lightheadedness and anemia needing a blood transfusion. Per staff at [facility], hgb 6.4. Patient denies: CP, SOB, focal weakness/numbness, recent rectal bleeding, or any other related symptoms Allergies: morphine - Physicial Exam PE: 06/09/20 23:01 Agree with resident exam - Medical Decision Making 06/09/20 23:01 84yo F with MMP including GIB requiring transfusion presents to the ED for transfusion after outpt hgb level 6.4 Pt is hemodynamically stable Rpt hgb here is 7.4, likely due to persistent GIB Creatinine also elevated to 2.3 from 1.7 Plan to transfuse, admit Pt signed out to TAMRA Chaidez Case discussed in detail with admitting physician including history, physical exam and ancillary studies. Admitting physician has assumed care for the patient, will follow all pending diagnostics and will complete the evaluation and treatment. Discharge - Discharge Information Problems reviewed: Yes Clinical Impression/Diagnosis: Symptomatic anemia Anemia Qualifiers: Anemia type: unspecified type Qualified Code(s): D64.9 - Anemia, unspecified Acute on chronic kidney failure Qualifiers: Acute renal failure type: unspecified Chronic kidney disease stage: unspecified stage Qualified Code(s): N17.9 - Acute kidney failure, unspecified GI bleed Qualifiers: GI bleed type/associated pathology: unspecified gastrointestinal hemorrhage type Qualified Code(s): K92.2 - Gastrointestinal hemorrhage, unspecified Condition: Stable - Follow up/Referral - Patient Discharge Instructions - Post Discharge Activity
[2020-06-09] MEDS ORDERED: PANTOPRAZOLE SODIUM 40 MG VIAL IVPUSH ONE (23:52)
[2020-06-10] MEDS ORDERED: PANTOPRAZOLE SODIUM 40 MG/100 ML BAG IVPB ONE (00:12)
[2020-06-10 05:09] LABS: URINE APPEARANCE Clear; URINE BILIRUBIN Negative (NEGATIVE); URINE COLOR Yellow; URINE GLUCOSE (UA) Negative (NEGATIVE); URINE KETONE Negative (NEGATIVE); URINE LEUK ESTERASE 3+ (NEGATIVE); URINE NITRITE Negative (NEGATIVE); URINE PROTEIN 2+ (NEGATIVE); URINE UROBILINOGEN 0.2 mg/dL (0.2-1.0)
[2020-06-10] MEDS ORDERED: CEFTRIAXONE 1 GM in DEXTROSE 5%-WATER - 50 ML IVPB ONE (05:11)
[2020-06-10] MEDS ORDERED: cefTRIAXone SODIUM 1 GM VIAL ONE (05:49)
[2020-06-10] MEDS ORDERED: DEXTROSE 5%-WATER - 50 ML IVPB ONE (05:49)
[2020-06-10 08:05] LABS: URINE RBC 30-40 /uL (0-23.9)
[2020-06-10 08:06] LABS: URINE BACTERIA MANY /uL (0-1359); URINE WBC >100 /uL (0-25.8)
[2020-06-10 08:46] LABS: BASO % 0.1 % (0-2.0); EOS % 0.9 % (0-4.5); HEMATOCRIT 24.2 % (32.4-45.2); LYMPH % 8.6 % (8-40); MCH 31.3 pg (25.7-33.7); MCHC 33.2 g/dl (32.0-36.0); MEAN CELL VOLUME 94.3 fl (80-96); MEAN PLT VOLUME 9.9 fl (7.5-11.1); MONO % 12.1 % (3.8-10.2); NEUT % 78.3 % (42.8-82.8); PLATELET COUNT 119 K/MM3 (134-434); RBC 2.56 M/mm3 (3.60-5.2); RDW 14.8 % (11.6-15.6); WHITE BLOOD COUNT 7.3 K/mm3 (4.0-10.0)
[2020-06-10 09:02] LABS: ALBUMIN 2.6 g/dl (3.4-5.0); BILIRUBIN,TOTAL 0.3 mg/dL (0.2-1); BLOOD UREA NITROGEN 60.2 mg/dL (7-18); CALCIUM 8.2 mg/dL (8.5-10.1); CREATININE 2.3 mg/dL (0.55-1.3); POTASSIUM 4.5 mmol/L (3.5-5.1); TOT PROT 4.6 g/dl (6.4-8.2)
--- NOTE | 2020-06-10 09:11 | CON.GI ---
Consult Consult Specialty:: Referred by:: Hospitalist Service Reason for Consultation:: Anemia - History of Present Illness Chief Complaint: Anemia History of Present Illness: 84 yo female h/o CAD, mild decreased LV systolic fxn, sick sinus s/p [employer] PPM, PAF on ? Xarelto, HTN heart disease, Type 2 DM, hyperlipidemia, cere brovascular disease, OSAS, CKD, colon ca s/p right hemicolectomy, metastatic uterine cancer to the lungs (s/p lobectomy, chemo/radiotherapy), bilateral knee replacements, wheelchair-bound presenting to [facility] from [place] for evaluation of anemia, with Hgb 7.4. Has chronic anemia. She is not on ASA therapy and does not take any other NSAIDs. Had Recent EGD 08/06/19 for anemia that revealed a large hiatal hernia and was otherwise unremarkable. Had another EGD 01/[address] Ike Vee @ [facility] for anemia that revealed a medium sized hiatal hernia and was otherwise unrevealing. The plan at that time was a transfer to [facility] for colonoscopy followed by capsule endoscopy while inpatient as both required bowel prep. Sister explains that while at [facility] 12/09 she underwent 2 capsule endoscopies (the 1st stopped recording prematurely and 2 colonoscopies. She believes that these studies were unremarkable. She states that her stool may have been dark at some point. Currently no melena. States feeling well. Prior to this she had a colonoscopy 03/07 revealing a cancerous hepatic flexure polyp and she underwent right hemocolectomy at [facility] towards the end of 2018. She received 1 U PRBC. There has been no melena today. Noted to have a macrocytosis. She remains hemodynamically stable. 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: Peripheral Neuropathy Cardio/Vascular: Yes: AFIB, CHF, Hyperlipdemia Gastrointestinal: Yes: Cancer (Colon cancer) Renal/: Yes: Renal Inusuff ...: No Endocrine: Yes: Diabetes Mellitus (DM II), Other (thyroid nodules) - Past Surgical History Past Surgical History: Yes: Appendectomy, Colectomy (S/P right hemicolectomy), Hysterectomy (BHAVANA/BSO), Joint Replacement (b/l Knees), Permanent Pacemaker - Alcohol/Substance Use Hx Alcohol Use: No History of Substance Use: reports: None - Smoking History Smoking history: Never smoked Have you smoked in the past 12 months: No - Social History Usual Living Arrangement: Assisted Living ADL: Support Services 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 : [facility] History of Recent Travel: No Home Medications - Allergies Allergies/Adverse Reactions: Allergies Allergy/AdvReac Type Severity Reaction Status Date / Time morphine Allergy Nausea Verified 06/09/20 19:10 - Home Medications Home Medications: Ambulatory Orders Allopurinol 150 mg PO DAILY 03/10/19 Fluticasone Prop 0.05% Nasal [Flonase -] 1 sprays DAILY 03/10/19 Levetiracetam [Keppra] 500 mg PO DAILY 03/10/19 Metoprolol Succinate [Toprol Xl] 12.5 mg PO BID 03/10/19 Pregabalin [Lyrica] 50 mg PO HS 03/10/19 Simvastatin 10 mg PO HS 03/10/19 Cholecalciferol (Vitamin D3) [Vitamin D3] 2,000 unit PO DAILY 10/16/19 Docusate Sodium [Colace] 200 mg PO HS 10/16/19 Megestrol Acetate [Megace -] 40 mg PO QID 10/16/19 Multivitamin [One-Daily Multi-Vitamin] 1 each PO DAILY 10/16/19 Mupirocin Ointment [Bactroban 2% Ointment -] 1 applic BID 10/16/19 Sennosides/Docusate Sodium [Senokot-S Tablet] 2 each PO HS 10/16/19 Acetaminophen [Tylenol .Extra-Strength -] 500 mg PO PRN 12/16/19 Lisinopril 5 mg PO DAILY 12/16/19 Miconazole Nitrate [Miconazorb AF] 71 gm TP BID 12/16/19 Psyllium Husk/Aspartame [Reguloid Powder] 284 gm PO Q72H 12/16/19 Nystatin Cream [Mycostatin Cream -] 1 applic TP BID applic 12/20/19 Pantoprazole Sodium [Protonix IV] 40 mg IVPUSH DAILY vial 12/20/19 Ascorbic Acid 500 mg PO BID 06/10/20 Ferrous Sulfate [Feosol] 1 tab PO BID 06/10/20 Insulin Glargine,Hum.rec.anlog [Lantus] 5 unit SQ HS 06/10/20 Insulin Lispro [Humalog] 5 unit SQ AC 06/10/20 Megestrol Acetate Oral Susp [Megace Oral Suspension -] 10 ml PO BID 06/10/20 Pantoprazole Sodium 40 mg PO BID 06/10/20 Family Medical History Family Hx Cancer: Mother (Colon ca) Review of Systems - Review of Systems Constitutional: denies: Chills Cardiovascular: denies: Chest Pain, Shortness of Breath Respiratory: denies: Cough Physical Exam-GI Vital Signs: Vital Signs Temperature 98 F 06/10/20 06:00 Pulse Rate 61 06/10/20 06:00 Respiratory Rate 18 06/10/20 06:00 Blood Pressure 130/66 06/10/20 06:00 O2 Sat by Pulse Oximetry (%) 100 06/10/20 06:00 Constitutional: Yes: Calm Eyes: No: Sclera Icterus Cardiovascular: Yes: Regular Rate and Rhythm. No: Murmur Gastrointestinal Inspection: Yes: Scars. No: Distention ...Auscultate: Yes: Normoactive Bowel Sounds ...Palpate: Yes: Soft. No: Hepatomegaly, Splenomegaly, Tenderness Neurological: Yes: Alert Labs: CBC, BMP 06/10/20 08:20 06/10/20 08:20 INR, PTT INR 0.84 (0.83-1.09) 06/09/20 19:50 Problem List - Problems (1) Anemia Assessment/Plan: Suspect multifactorial. Some componenet of obscure occult GI blood loss, however with renal insufficiency and ? hematologic d/o. was noted to have macrocytic anemia on admission Advise: Advance diet Heme evaluation No GI interventions planned at this time Code(s): D64.9 - ANEMIA, UNSPECIFIED Qualifiers: Anemia type: unspecified type Qualified Code(s): D64.9 - Anemia, unspecified
[2020-06-10] MEDS: FLUTICASONE PROP 0.05% 16 GM NASAL SPRAY NS SCH (09:53)
[2020-06-10] MEDS ORDERED: NYSTATIN 100000 UNIT/GM TOPICAL OINTMENT 15 GM TUBE TP SCH (10:00)
[2020-06-10] MEDS: NYSTATIN 100,000 UNIT/GM TOPICAL CREAM 15 GM TUBE TP SCH ×2 (10:52→22:33)
[2020-06-10 11:28] LABS: ANISOCYTOSIS 1+; MACROCYTOSIS 0; PLATELET ESTIMATE DECREASED; TEAR DROP CELLS 1+
[2020-06-10] MEDS: metoPROLOL SUCCINATE 25 MG TAB.SR.24H (FP) PO SCH ×2 (11:35→22:33)
[2020-06-10] MEDS: levETIRAcetam 250 MG TABLET PO SCH (11:35)
[2020-06-10] MEDS: LISINOPRIL 5 MG TABLET (FP) PO SCH (11:35)
--- NOTE | 2020-06-10 13:45 | PN ---
Progress Note, Physician Chief Complaint: AWAKE ALERT NO DISTRESS EVENTS AND NOTES REVIEWED - Current Medication List Current Medications: Active Medications Atorvastatin Calcium (Lipitor -) 10 mg PO [facility] Fluticasone Propionate (Flonase -) 1 spray NS DAILY [facility] Last Admin: 06/10/20 09:53 Dose: 1 spray Documented by: Ceftriaxone Sodium 1 gm/ (Dextrose) 50 mls @ 100 mls/hr IVPB DAILY [facility]; Protoc ol Levetiracetam (Keppra -) 500 mg PO DAILY [facility] Last Admin: 06/10/20 11:35 Dose: 500 mg Documented by: Lisinopril (Prinivil) 5 mg PO DAILY [facility] Last Admin: 06/10/20 11:35 Dose: 5 mg Documented by: Metoprolol Succinate (Toprol Xl -) 12.5 mg PO BID [facility] Last Admin: 06/10/20 11:35 Dose: 12.5 mg Documented by: Nystatin (Mycostatin Cream -) 1 applic TP BID [facility] Last Admin: 06/10/20 10:52 Dose: 1 applic Documented by: Pregabalin (Lyrica -) 50 mg PO [facility] - Objective Vital Signs: Vital Signs Temperature 97.5 F L 06/10/20 10:00 Pulse Rate 73 06/10/20 10:00 Respiratory Rate 18 06/10/20 10:00 Blood Pressure 133/67 06/10/20 10:00 O2 Sat by Pulse Oximetry (%) 100 06/10/20 10:00 Constitutional: Yes: No Distress Cardiovascular: Yes: Regular Rate and Rhythm Respiratory: Yes: CTA Bilaterally Gastrointestinal: Yes: Soft Genitourinary: Yes: WNL Musculoskeletal: Yes: Muscle Weakness Edema: No Integumentary: Yes: WNL Wound/Incision: Yes: Clean/Dry Neurological: Yes: Pre-Existing Deficit ...Motor Strength: LLE, RLE Psychiatric: Yes: WNL Labs: CBC, BMP 06/10/20 08:20 06/10/20 08:20 INR, PTT INR 0.84 (0.83-1.09) 06/09/20 19:50 Problem List - Problems (1) Acute on chronic kidney failure Code(s): N17.9 - ACUTE KIDNEY FAILURE, UNSPECIFIED; N18.9 - CHRONIC KIDNEY DISEASE, UNSPECIFIED Qualifiers: Acute renal failure type: unspecified Chronic kidney disease stage: unspecified stage Qualified Code(s): N17.9 - Acute kidney failure, u nspecified; N18.9 - Chronic kidney disease, unspecified (2) Anemia Code(s): D64.9 - ANEMIA, UNSPECIFIED Qualifiers: Anemia type: unspecified type Qualified Code(s): D64.9 - Anemia, unspecified (3) GI bleed Code(s): K92.2 - GASTROINTESTINAL HEMORRHAGE, UNSPECIFIED Qualifiers: GI bleed type/associated pathology: unspecified gastrointestinal hemorrhage type Qualified Code(s): K92.2 - Gastrointestinal hemorrhage, unspecified (4) A-fib Code(s): I48.91 - UNSPECIFIED ATRIAL FIBRILLATION (5) Colon cancer Code(s): C18.9 - MALIGNANT NEOPLASM OF COLON, UNSPECIFIED (6) S/P colon resection Code(s): Z90.49 - ACQUIRED ABSENCE OF OTHER SPECIFIED PARTS OF DIGESTIVE TRACT Assessment/Plan MONITOR H/H PRBC TRANSFUSION ARF/CRF RENAL EVAL APPRECIATED ON COSTA - AND HAS ELEVATED CREATININE TODAY WILL HAVE NEPHROLOGY REEVALUATE IF SHOULD CONTINUE OR NOT.
--- NOTE | 2020-06-10 16:02 | CON.NEP ---
Consult Consult Specialty:: Nephrology Referred by:: Sherine Chaidez Reason for Consultation:: Acute on CKD - History of Present Illness Chief Complaint: light headedness anemia History of Present Illness: transferred from [place] with lightheadedness and worsening anemia h/o previous anemia and transfusions - Past Medical History SAP SD ANALYST: Yes: Peripheral Neuropathy Cardio/Vascular: Yes: AFIB, CHF, Hyperlipdemia Gastrointestinal: Yes: Cancer (Colon cancer) Renal/: Yes: Renal Inusuff ...: No Endocrine: Yes: Diabetes Mellitus (DM II), Other (thyroid nodules) - Past Surgical History Past Surgical History: Yes: Appendectomy, Colectomy (S/P right hemicolectomy), Hysterectomy (BHAVANA/BSO), Joint Replacement (b/l Knees), Permanent Pacemaker - Alcohol/Substance Use Hx Alcohol Use: No History of Substance Use: reports: None - Smoking History Smoking history: Never smoked Have you smoked in the past 12 months: No - Social History Usual Living Arrangement: Assisted Living ADL: Support Services 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 Travel: No Home Medications - Allergies Allergies/Adverse Reactions: Allergies Allergy/AdvReac Type Severity Reaction Status Date / Time morphine Allergy Nausea Verified 06/09/20 19:10 - Home Medications Home Medications: Ambulatory Orders Allopurinol 150 mg PO DAILY 03/10/19 Fluticasone Prop 0.05% Nasal [Flonase -] 1 sprays DAILY 03/10/19 Levetiracetam [Keppra] 500 mg PO DAILY 03/10/19 Metoprolol Succinate [Toprol Xl] 12.5 mg PO BID 03/10/19 Pregabalin [Lyrica] 50 mg PO HS 03/10/19 Simvastatin 10 mg PO HS 03/10/19 Cholecalciferol (Vitamin D3) [Vitamin D3] 2,000 unit PO DAILY 10/16/19 Docusate Sodium [Colace] 200 mg PO HS 10/16/19 Megestrol Acetate [Megace -] 40 mg PO QID 10/16/19 Multivitamin [One-Daily Multi-Vitamin] 1 each PO DAILY 10/16/19 Mupirocin Ointment [Bactroban 2% Ointment -] 1 applic BID 10/16/19 Sennosides/Docusate Sodium [Senokot-S Tablet] 2 each PO HS 10/16/19 Acetaminophen [Tylenol .Extra-Strength -] 500 mg PO PRN 12/16/19 Lisinopril 5 mg PO DAILY 12/16/19 Miconazole Nitrate [Miconazorb AF] 71 gm TP BID 12/16/19 Psyllium Husk/Aspartame [Reguloid Powder] 284 gm PO Q72H 12/16/19 Nystatin Cream [Mycostatin Cream -] 1 applic TP BID applic 12/20/19 Pantoprazole Sodium [Protonix IV] 40 mg IVPUSH DAILY vial 12/20/19 Ascorbic Acid 500 mg PO BID 06/10/20 Ferrous Sulfate [Feosol] 1 tab PO BID 06/10/20 Insulin Glargine,Hum.rec.anlog [Lantus] 5 unit SQ HS 06/10/20 Insulin Lispro [Humalog] 5 unit SQ AC 06/10/20 Megestrol Acetate Oral Susp [Megace Oral Suspension -] 10 ml PO BID 06/10/20 Pantoprazole Sodium 40 mg PO BID 06/10/20 Family Medical History Family Hx Cancer: Mother (Colon ca) Nephrology Consult - Height Height: 5 ft 6 in - Weight Weight: 195 lb 9.6 oz - BMI Body Mass Index (BMI): 31.6 - Lab Results CBC,BMP: CBC, BMP 06/10/20 08:20 06/10/20 08:20 Anion Gap: Anion Gap Anion Gap 7 MMOL/L (8-16) L 06/10/20 08:20 - Physical Examination Vital Signs: Vital Signs Temperature 95.8 F L 06/10/20 14:39 Pulse Rate 66 06/10/20 14:39 Respiratory Rate 18 06/10/20 14:39 Blood Pressure 116/53 L 06/10/20 14:39 O2 Sat by Pulse Oximetry (%) 100 06/10/20 14:39 Assessment/Plan EDGARDO on CKD Worsening Anemia Afib HTN BPs lower Plan- agree with holding ACEI
[2020-06-10 16:03] VITALS: BMI 31.6
[2020-06-10] MEDS: PREGABALIN 50 MG CAPSULE PO SCH (22:33)
[2020-06-10] MEDS: ATORVASTATIN CA 10 MG TABLET (FP) PO SCH (22:33)
[2020-06-11 07:27] LABS: HEMATOCRIT 24.4 % (32.4-45.2); HEMOGLOBIN 8.1 GM/dL (10.7-15.3); MCH 30.9 pg (25.7-33.7); MCHC 33.2 g/dl (32.0-36.0); MEAN CELL VOLUME 93.1 fl (80-96); MEAN PLT VOLUME 9.9 fl (7.5-11.1); PLATELET COUNT 131 K/MM3 (134-434); RBC 2.63 M/mm3 (3.60-5.2); RDW 15.2 % (11.6-15.6); WHITE BLOOD COUNT 6.3 K/mm3 (4.0-10.0)
[2020-06-11 07:30] LABS: ALBUMIN 2.7 g/dl (3.4-5.0); BILIRUBIN,TOTAL 0.2 mg/dL (0.2-1); CALCIUM 8.5 mg/dL (8.5-10.1); CREATININE 2.4 mg/dL (0.55-1.3); POTASSIUM 5.4 mmol/L (3.5-5.1); TOT PROT 4.7 g/dl (6.4-8.2)
[2020-06-11] MEDS ORDERED: PT OWN MED DRAWER 7, Y5N ONE (09:36)
[2020-06-11] MEDS ORDERED: cefTRIAXone SODIUM 1 GM VIAL ONE (09:36)
[2020-06-11] MEDS ORDERED: DEXTROSE 5%-WATER - 50 ML IVPB ONE (09:36)
[2020-06-11] MEDS: levETIRAcetam 250 MG TABLET PO SCH (09:42)
[2020-06-11] MEDS: CEFTRIAXONE 1 GM in DEXTROSE 5%-WATER - 50 ML IVPB SCH (09:42)
[2020-06-11] MEDS: NYSTATIN 100,000 UNIT/GM TOPICAL CREAM 15 GM TUBE TP SCH ×2 (09:42→21:32)
[2020-06-11] MEDS: metoPROLOL SUCCINATE 25 MG TAB.SR.24H (FP) PO SCH ×2 (09:42→21:32)
[2020-06-11] MEDS: FLUTICASONE PROP 0.05% 16 GM NASAL SPRAY NS SCH (09:43)
[2020-06-11] MEDS ORDERED: SODIUM POLYSTYRENE SULFONATE 15 GM/60 ML BOTTLE PO ONE (09:59)
[2020-06-11] MEDS: SODIUM CHLORIDE 0.45% 1,000 ML IV SCH ×2 (10:24→23:51)
--- NOTE | 2020-06-11 12:33 | PN ---
Progress Note, Physician Chief Complaint: AWAKE ALERT S/P CT SCAN ABD DENIES HEMATOCHEZIA OR FEVERS RENAL FUNCTION WORSE - Current Medication List Current Medications: Active Medications Atorvastatin Calcium (Lipitor -) 10 mg PO HS [facility] Last Admin: 06/10/20 22:33 Dose: 10 mg Documented by: Fluticasone Propionate (Flonase -) 1 spray NS DAILY [facility] Last Admin: 06/11/20 09:43 Dose: 1 spray Documented by: Ceftriaxone Sodium 1 gm/ (Dextrose) 50 mls @ 100 mls/hr IVPB DAILY [facility]; Protocol Last Admin: 06/11/20 09:42 Dose: 100 mls/hr Documented by: Sodium Chloride (1/2 Normal Saline) 1,000 mls @ 75 mls/hr IV ASDIR [facility] Last Admin: 06/11/20 10:24 Dose: 75 mls/hr Documented by: Levetiracetam (Keppra -) 500 mg PO DAILY [facility] Last Admin: 06/11/20 09:42 Dose: 500 mg Documented by: Lisinopril (Prinivil) 5 mg PO DAILY [facility] Last Admin: 06/10/20 11:35 Dose: 5 mg Documented by: Metoprolol Succinate (Toprol Xl -) 12.5 mg PO BID [facility] Last Admin: 06/11/20 09:42 Dose: 12.5 mg Documented by: Nystatin (Mycostatin Cream -) 1 applic TP BID [facility] Last Admin: 06/11/20 09:42 Dose: 1 applic Documented by: Pregabalin (Lyrica -) 50 mg PO [facility] Last Admin: 06/10/20 22:33 Dose: 50 mg Documented by: - Objective Vital Signs: Vital Signs Temperature 98.7 F 06/11/20 09:40 Pulse Rate 61 06/11/20 09:40 Respiratory Rate 20 06/11/20 09:40 Blood Pressure 143/59 L 06/11/20 09:40 O2 Sat by Pulse Oximetry (%) 99 06/11/20 09:40 Constitutional: Yes: Mild Distress Cardiovascular: Yes: Regular Rate and Rhythm Respiratory: Yes: CTA Bilaterally Gastrointestinal: Yes: Soft Genitourinary: Yes: WNL Musculoskeletal: Yes: Muscle Weakness Neurological: Yes: Pre-Existing Deficit Labs: CBC, BMP 06/11/20 06:40 06/11/20 06:40 INR, PTT INR 0.84 (0.83-1.09) 06/09/20 19:50 Problem List - Problems (1) Acute on chronic kidney failure Code(s): N17.9 - ACUTE KIDNEY FAILURE, UNSPECIFIED; N18.9 - CHRONIC KIDNEY DISEASE, UNSPECIFIED Qualifiers: Acute renal failure type: unspecified Chronic kidney disease stage: unspecified stage Qualified Code(s): N17.9 - Acute kidney failure, unspecified; N18.9 - Chronic kidney disease, unspecified (2) Anemia Code(s): D64.9 - ANEMIA, UNSPECIFIED Qualifiers: Anemia type: unspecified type Qualified Code(s): D64.9 - Anemia, unspecified (3) GI bleed Code(s): K92.2 - GASTROINTESTINAL HEMORRHAGE, UNSPECIFIED Qualifiers: GI bleed type/associated pathology: unspecified gastrointestinal hemorrhage type Qualified Code(s): K92.2 - Gastrointestinal hemorrhage, unspecified (4) A-fib Code(s): I48.91 - UNSPECIFIED ATRIAL FIBRILLATION (5) Colon cancer Code(s): C18.9 - MALIGNANT NEOPLASM OF COLON, UNSPECIFIED (6) S/P colon resection Code(s): Z90.49 - ACQUIRED ABSENCE OF OTHER SPECIFIED PARTS OF DIGESTIVE TRACT Assessment/Plan MONITOR H/H PRBC TRANSFUSION ARF/CRF RENAL EVAL APPRECIATED ON COSTA - AND HAS ELEVATED CREATININE TODAY WILL STOP LISINOPRIL IVF GENTLE HYDRATION KAYEXALATE FOR HYPERKALEMIA REPEAT BMP,MG,PHOS AT 3PM TODAY RENAL F/U AND GI FOR BLEED.
[2020-06-11 16:10] LABS: BLOOD UREA NITROGEN 63.7 mg/dL (7-18); CALCIUM 7.8 mg/dL (8.5-10.1); CREATININE 2.4 mg/dL (0.55-1.3); MAGNESIUM 1.4 mg/dL (1.8-2.4); PHOSPHOROUS 3.1 mg/dL (2.5-4.9); POTASSIUM 4.8 mmol/L (3.5-5.1)
--- NOTE | 2020-06-11 17:49 | PN ---
Progress Note (short form) - Note Progress Note: EDGARDO on CKD Worsening Anemia Afib HTN BPs lower Active Medications Atorvastatin Calcium (Lipitor -) 10 mg PO HS [facility] Last Admin: 06/10/20 22:33 Dose: 10 mg Documented by: Fluticasone Propionate (Flonase -) 1 spray NS DAILY [facility] Last Admin: 06/11/20 09:43 Dose: 1 spray Documented by: Ceftriaxone Sodium 1 gm/ (Dextrose) 50 mls @ 100 mls/hr IVPB DAILY [facility]; Protocol Last Admin: 06/11/20 09:42 Dose: 100 mls/hr Documented by: Sodium Chloride (1/2 Normal Saline) 1,000 mls @ 75 mls/hr IV ASDIR [facility] Last Admin: 06/11/20 10:24 Dose: 75 mls/hr Documented by: Levetiracetam (Keppra -) 500 mg PO DAILY [facility] Last Admin: 06/11/20 09:42 Dose: 500 mg Documented by: Lisinopril (Prinivil) 5 mg PO DAILY [facility] Last Admin: 06/10/20 11:35 Dose: 5 mg Documented by: Metoprolol Succinate (Toprol Xl -) 12.5 mg PO BID [facility] Last Admin: 06/11/20 09:42 Dose: 12.5 mg Documented by: Nystatin (Mycostatin Cream -) 1 applic TP BID [facility] Last Admin: 06/11/20 09:42 Dose: 1 applic Documented by: Pregabalin (Lyrica -) 50 mg PO [facility] Last Admin: 06/10/20 22:33 Dose: 50 mg Documented by: Last Vital Signs Temp Pulse Resp BP Pulse Ox 97.6 F 65 20 124/51 L 96 06/11/20 14:00 06/11/20 14:00 06/11/20 14:00 06/11/20 14:00 06/11/20 14:00 Constitutional: Yes: Well Nourished, No Distress, Calm, Obese, Pallor Eyes: Yes: Conjunctiva Clear (pale), EOM Intact, PERRL HENT: Yes: Atraumatic, Normocephalic Neck: Yes: Supple, Trachea Midline Cardiovascular: Yes: Regular Rate and Rhythm, S1, S2, Other (pacemaker noted- LCW) Respiratory: Yes: Diminished (bases), On Nasal O2, SOB on Exertion Gastrointestinal: Yes: Soft, Abdomen, Obese, Hypoactive Bowel Sounds ...Rectal Exam: Yes: Guaiac Positive Renal/: Yes: WNL Breast(s): Yes: WNL Musculoskeletal: Yes: WNL Extremities: Yes: WNL Edema: No Peripheral Pulses WNL: Yes Integumentary: Yes: Rash (under breast) Neurological: Yes: Alert, Oriented, Aphasia, Cran Nerves II-XII Intact ...Motor Strength: WNL Psychiatric: Yes: WNL, Alert, Oriented CBC, BMP 06/11/20 06:40 06/11/20 15:06 IMP- EDGARDO 2/2 fluid deficits Hypernatremia Metabolic acidosis Plan- agree with holding ACEI
[2020-06-11] MEDS: ATORVASTATIN CA 10 MG TABLET (FP) PO SCH (21:21)
[2020-06-11] MEDS: PREGABALIN 50 MG CAPSULE PO SCH (21:21)
[2020-06-11] MEDS ORDERED: MAGNESIUM SULF 50% (8.12 MEQ/2 ML-1 GM VIAL) IVPB ONE (23:30)
[2020-06-12 07:40] LABS: HEMATOCRIT 23.5 % (32.4-45.2); HEMOGLOBIN 7.8 GM/dL (10.7-15.3); MCH 31.2 pg (25.7-33.7); MCHC 33.4 g/dl (32.0-36.0); MEAN CELL VOLUME 93.5 fl (80-96); MEAN PLT VOLUME 10.3 fl (7.5-11.1); PLATELET COUNT 129 K/MM3 (134-434); RBC 2.51 M/mm3 (3.60-5.2); RDW 15.3 % (11.6-15.6); WHITE BLOOD COUNT 6.2 K/mm3 (4.0-10.0)
[2020-06-12 07:57] LABS: POTASSIUM 5.2 mmol/L (3.5-5.1)
[2020-06-12 08:05] LABS: BLOOD UREA NITROGEN 59.7 mg/dL (7-18); CALCIUM 8.2 mg/dL (8.5-10.1); CREATININE 2.3 mg/dL (0.55-1.3); MAGNESIUM 2.2 mg/dL (1.8-2.4)
[2020-06-12] MEDS ORDERED: cefTRIAXone SODIUM 1 GM VIAL ONE (09:38)
[2020-06-12] MEDS ORDERED: DEXTROSE 5%-WATER - 50 ML IVPB ONE (09:38)
[2020-06-12] MEDS: FLUTICASONE PROP 0.05% 16 GM NASAL SPRAY NS SCH (10:09)
[2020-06-12] MEDS: NYSTATIN 100,000 UNIT/GM TOPICAL CREAM 15 GM TUBE TP SCH ×2 (10:09→21:27)
[2020-06-12] MEDS: levETIRAcetam 250 MG TABLET PO SCH (10:09)
[2020-06-12] MEDS: CEFTRIAXONE 1 GM in DEXTROSE 5%-WATER - 50 ML IVPB SCH (10:10)
[2020-06-12] MEDS: metoPROLOL SUCCINATE 25 MG TAB.SR.24H (FP) PO SCH ×2 (10:10→21:26)
[2020-06-12] MEDS: LISINOPRIL 5 MG TABLET (FP) PO SCH (10:10)
--- NOTE | 2020-06-12 11:02 | PN ---
Progress Note, Physician Chief Complaint: Anemia UTI EDGARDO History of Present Illness: NAD Denies any SOB or pain Was supposed to go for watchman device on 06/14 at [facility] By chance finding of UTI, upon questioning, pt states she felt little burning on urination Xarelto has been on hold for past 2 months as per Andie Sanchez- due to anemia Is also followed by [facility] for anemia Followed by Jose De Jesus Johnson for afib and coordination of watchman device. Was at [facility] as per Andie in midst of [facility], where they were not able to investigate the actual cause of bleeding even though her guaiac ww\as + then as well - Current Medication List Current Medications: Active Medications Atorvastatin Calcium (Lipitor -) 10 mg PO HS [facility] Last Admin: 06/11/20 21:21 Dose: 10 mg Documented by: Fluticasone Propionate (Flonase -) 1 spray NS DAILY [facility] Last Admin: 06/12/20 10:09 Dose: 1 spray Documented by: Sodium Chloride (1/2 Normal Saline) 1,000 mls @ 75 mls/hr IV ASDIR [facility] Last Admin: 06/11/20 23:51 Dose: 75 mls/hr Documented by: Levetiracetam (Keppra -) 500 mg PO DAILY [facility] Last Admin: 06/12/20 10:09 Dose: 500 mg Documented by: Lisinopril (Prinivil) 5 mg PO DAILY [facility] Last Admin: 06/12/20 10:10 Dose: 5 mg Documented by: Metoprolol Succinate (Toprol Xl -) 12.5 mg PO BID [facility] Last Admin: 06/12/20 10:10 Dose: 12.5 mg Documented by: Nystatin (Mycostatin Cream -) 1 applic TP BID [facility] Last Admin: 06/12/20 10:09 Dose: 1 applic Documented by: Pregabalin (Lyrica -) 50 mg PO [facility] Last Admin: 06/11/20 21:21 Dose: 50 mg Documented by: - Objective Vital Signs: Vital Signs Temperature 98.7 F 06/12/20 10:05 Pulse Rate 60 06/12/20 10:05 Respiratory Rate 20 06/12/20 10:05 Blood Pressure 124/49 L 06/12/20 10:05 O2 Sat by Pulse Oximetry (%) 97 06/12/20 10:05 Constitutional: Yes: Well Nourished, No Distress, Calm Cardiovascular: Yes: Regular Rate and Rhythm Respiratory: Yes: Regular, CTA Bilaterally Gastrointestinal: Yes: Normal Bowel Sounds, Soft, Abdomen, Obese Genitourinary: Yes: Incontinence Musculoskeletal: Yes: Muscle Weakness Extremities: Yes: WNL Edema: No Peripheral Pulses WNL: Yes Neurological: Yes: Alert, Oriented Psychiatric: Yes: Alert, Oriented Labs: CBC, BMP 06/12/20 06:35 06/12/20 06:35 INR, PTT INR 0.84 (0.83-1.09) 06/09/20 19:50 Problem List - Problems (1) Guaiac + stool Assessment/Plan: -Seen by GI -Has had multiple scopes without an actual source of GI bleed identified -Continue to hold AC -s/p 1 U PRBC -Monitor H/H closely -PPI Problems reviewed: Yes Code(s): R19.5 - OTHER FECAL ABNORMALITIES (2) Acute on chronic kidney failure Assessment/Plan: -Baseline Cr at 1.8 -Gentle IVF -Nephrology consult -2/2 to UTI? -Monitor trend Problems reviewed: Yes Code(s): N17.9 - ACUTE KIDNEY FAILURE, UNSPECIFIED; N18.9 - CHRONIC KIDNEY DISEASE, UNSPECIFIED Qualifiers: Acute renal failure type: unspecified Chronic kidney disease stage: unsp ecified stage Qualified Code(s): N17.9 - Acute kidney failure, unspecified; N18.9 - Chronic kidney disease, unspecified (3) Anemia Assessment/Plan: -Multifactorial -Previously low in Iron % -Injectafer once -Continue feosol BID -Hematology consult -s/p 1 U PRBC -Transfuse only if Hg<7.0 to avoid fluid overload -monitor trend -Also check B12, Thyroid and FA Problems reviewed: Yes Code(s): D64.9 - ANEMIA, UNSPECIFIED Qualifiers: Anemia type: unspecified type Qualified Code(s): D64.9 - Anemia, unspecified (4) UTI (urinary tract infection) Assessment/Plan: -UC: Microbiology 06/10/20 01:30 Urine - Urine Clean Catch Urine Culture - Final Escherichia Coli Proteus Species -IV rocephin -ID consult -Afebrile Problems reviewed: Yes Code(s): N39.0 - URINARY TRACT INFECTION, SITE NOT SPECIFIED (5) Coronary artery disease Assessment/Plan: -Cardiology consult -Continue BB + Statin Problems reviewed: Yes Code(s): I25.10 - ATHSCL HEART DISEASE OF [place] CORONARY ARTERY W/O ANG PCTRS Qualifiers: Coronary Disease-Associated Artery/Lesion type: [place] artery [place] vs. transplanted heart: [place] heart Associated angina: without angina Qualified Code(s): I25.10 - Atherosclerotic heart disease of [place] coronary artery without angina pectoris (6) Paroxysmal atrial fibrillation Assessment/Plan: -Chronic, rate controlled -Hold AC -For Watchman device -Echo on Cardiology discretion Problems reviewed: Yes Code(s): I48.0 - PAROXYSMAL ATRIAL FIBRILLATION Assessment/Plan See problem list Spoke to Andie Sanchez for pt update.
[2020-06-12] MEDS: SODIUM CHLORIDE 0.45% 1,000 ML IV SCH ×2 (11:40→14:37)
--- NOTE | 2020-06-12 12:08 | PN ---
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- s/p one unit PRBC transfusion UTI- continue rocephin, f/u cultures and transition to po [place]/ckd-on ivf Problem List - Problems (1) UTI (urinary tract infection) Code(s): N39.0 - URINARY TRACT INFECTION, SITE NOT SPECIFIED (2) Anemia Code(s): D64.9 - ANEMIA, UNSPECIFIED Qualifiers: Anemia type: unspecified type Qualified Code(s): D64.9 - Anemia, unspecified (3) Acute on chronic kidney failure Code(s): N17.9 - ACUTE KIDNEY FAILURE, UNSPECIFIED; N18.9 - CHRONIC KIDNEY DISEASE, UNSPECIFIED Qualifiers: Acute renal failure type: unspecified Chronic kidney disease stage: unspecified stage Qualified Code(s): N17.9 - Acute kidney failure, unspecified; N18.9 - Chronic kidney disease, unspecified
--- NOTE | 2020-06-12 14:31 | PN ---
Progress Note, Physician History of Present Illness: Pt seen and examined at bedside. She is awake and alert. She complains of shortness of breath with ambulation. - Current Medication List Current Medications: Active Medications Atorvastatin Calcium (Lipitor -) 10 mg PO HS [facility] Last Admin: 06/11/20 21:21 Dose: 10 mg Documented by: Fluticasone Propionate (Flonase -) 1 spray NS DAILY [facility] Last Admin: 06/12/20 10:09 Dose: 1 spray Documented by: Sodium Chloride (1/2 Normal Saline) 1,000 mls @ 75 mls/hr IV ASDIR [facility] Last Admin: 06/12/20 11:40 Dose: 75 mls/hr Documented by: Ceftriaxone Sodium 1 gm/ (Dextrose) 50 mls @ 100 mls/hr IVPB DAILY [facility]; Protocol Levetiracetam (Keppra -) 500 mg PO DAILY [facility] Last Admin: 06/12/20 10:09 Dose: 500 mg Documented by: Lisinopril (Prinivil) 5 mg PO DAILY [facility] Last Admin: 06/12/20 10:10 Dose: 5 mg Documented by: Metoprolol Succinate (Toprol Xl -) 12.5 mg PO BID [facility] Last Admin: 06/12/20 10:10 Dose: 12.5 mg Documented by: Nystatin (Mycostatin Cream -) 1 applic TP BID [facility] Last Admin: 06/12/20 10:09 Dose: 1 applic Documented by: Pregabalin (Lyrica -) 50 mg PO HS [facility] Last Admin: 06/11/20 21:21 Dose: 50 mg Documented by: - Objective Vital Signs: Vital Signs Temperature 98.7 F 06/12/20 10:05 Pulse Rate 60 06/12/20 10:05 Respiratory Rate 20 06/12/20 10:05 Blood Pressure 124/49 L 06/12/20 10:05 O2 Sat by Pulse Oximetry (%) 97 06/12/20 10:05 Constitutional: Yes: Calm Eyes: Yes: Conjunctiva Clear HENT: Yes: Atraumatic Cardiovascular: Yes: S1, S2 Respiratory: Yes: CTA Bilaterally Gastrointestinal: Yes: Soft Genitourinary: Yes: Other (external catheter) Musculoskeletal: Yes: Muscle Weakness Edema: No Neurological: Yes: Oriented Psychiatric: Yes: Oriented Labs: CBC, BMP 06/12/20 06:35 06/12/20 06:35 INR, PTT INR 0.84 (0.83-1.09) 06/09/20 19:50 Problem List - Problems (1) Acute on chronic kidney failure Code(s): N17.9 - ACUTE KIDNEY FAILURE, UNSPECIFIED; N18.9 - CHRONIC KIDNEY DISEASE, UNSPECIFIED Qualifiers: Acute renal failure type: unspecified Chronic kidney disease stage: unspecified stage Qualified Code(s): N17.9 - Acute kidney failure, unspecified; N18.9 - Chronic kidney disease, unspecified Assessment/Plan Current Medications Generic Name Dose Route Start Last Admin Trade Name Freq PRN Reason Stop Dose Admin Atorvastatin Calcium 10 mg 06/10/20 22:00 06/11/20 21:21 Lipitor - PO 10 mg HS ANTONI Administration Fluticasone Propionate 1 spray 06/10/20 10:00 06/12/20 10:09 Flonase - NS 1 spray DAILY ANTONI Administration Sodium Chloride 1,000 mls @ 75 mls/hr 06/11/20 10:15 06/12/20 11:40 1/2 Normal Saline IV 75 mls/hr ASDIR ANTONI Administration Ceftriaxone Sodium 1 gm/ 50 mls @ 100 mls/hr 06/13/20 10:00 Dextrose IVPB DAILY ANTONI Protocol Levetiracetam 500 mg 06/10/20 10:00 06/12/20 10:09 Keppra - PO 500 mg DAILY ANTONI Administration Lisinopril 5 mg 06/10/20 10:00 06/12/20 10:10 Prinivil PO 5 mg DAILY ANTONI Administration Metoprolol Succinate 12.5 mg 06/10/20 10:00 06/12/20 10:10 Toprol Xl - PO 12.5 mg BID ANTONI Administration Nystatin 1 applic 06/10/20 10:00 06/12/20 10:09 Mycostatin Cream - TP 1 applic BID ANTONI Administration Pregabalin 50 mg 06/10/20 22:00 06/11/20 21:21 Lyrica - PO 50 mg HS ANTONI Administration Impression 1. CKD 2. EDGARDO 3. hyperkalemia 4. hld 5. anemia 6. a-fib 7. gi bleed 8. uterine cancer 9. hypernatremia Plan - will give a dose of lokelma - decrease rate off fluids - hold jose guadalupe as bp is low and potassium elevated - cont to monitor renal function - avoid nsaids - encourage po free water intake
--- NOTE | 2020-06-12 16:27 | CONS ---
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 She is admitted with anemia for a transfusion. She apparently has a history of prior anemia and status post right hemicolectomy in 2019. She has had prior colonoscopy and upper endoscopies as well. I am asked to see her for possible UTI. She notes she has had dysuria for the last several days, discomfort every time she urinates that she reports as new. She otherwise has no fevers or chills. PAST MEDICAL HISTORY: Notable for coronary artery disease, atrial fibrillation, CHF, hyperlipidemia, peripheral neuropathy. She has a history of colon cancer, renal insufficiency, diabetes type II, thyroid nodules, sick sinus syndrome. 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 SURGICAL HISTORY: Notable for right colectomy performed last year for colon cancer. She has had a lobectomy to her right lung secondary to the metastatic uterine cancer, bilateral knee replacement. She is nonambulatory. She has a history of appendectomy. She has had a hysterectomy, BHAVANA/BSO, and she has a permanent pacemaker. SOCIAL HISTORY: No history of cigarette, alcohol, or substance use. She resides at the [facility]. 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 She is nonambulatory. ALLERGIES: She is allergic to MORPHINE. MEDICATION: Her medications as an outpatient include: 1. Vitamin C. 2. Pantoprazole. 3. Megace. 4. Lantus insulin. 5. Insulin. 6. Feosol. 7. Lyrica. 8. Multivitamins. 9. Toprol XL. 10. Keppra. 11. Lisinopril. 12. Calcium. 13. Simvastatin. 14. Allopurinol. REVIEW OF SYSTEMS: Notable for some dysuria. She denies any cough or shortness of breath. She reports to me that she is scheduled for cardiac procedure at [facility] this week. PHYSICAL EXAMINATION: Vital Signs: Temperature 98.7, she has had no fevers since admission. Pulse is 60, blood pressure 124/49, respiratory rate 20. She is saturating 97% on room air. HEENT: Normocephalic. Eyes are anicteric. Neck: Supple. Lungs: Diminished breath sounds at the bases. Heart: Regular rate and rhythm. Abdomen: She has no CVA tenderness or suprapubic pain. Extremities: Without edema. LABORATORY: Notable for white count of 6.2, hemoglobin 7.8, platelets of 129. BUN and creatinine are 59 and 2.3. LFTs are normal. Urinalysis has 2+ blood, 3+ leukocytes with greater than 100 white cells. Stool occult blood is positive. COVID-19 is negative. Urine has greater than 100,000 E. coli, less than 10,000 proteus. She had a CT of her abdomen and pelvis done without contrast that showed a large hiatal hernia, cholelithiasis, status post right colon resection, status post hysterectomy, and fecal retention. This was conveyed to the patient. Chest x-ray on admission shows the pacemaker and some right base clips with scarring of the right base. IMPRESSION: 1. In summary, this is an 84-year-old woman with anemia status post 1 unit packed red blood cells transfusion for the workup for gastrointestinal and hematology. 2. Urinary tract infection. She is symptomatic, would continue Rocephin, follow up cultures and transition to p.o. as appropriate. 3. Acute kidney injury, chronic kidney disease, on intravenous fluids per renal. Further recommendations to follow. MIKE SUAREZ M.D. [id number]
[2020-06-12] MEDS: SODIUM ZIRCONIUM CYCLOSILICATE (LOKELMA) 5 GM PACKET PO SCH (17:23)
--- NOTE | 2020-06-12 18:16 | CON.CARD ---
Consult Consult Specialty:: Cardiology Referred by:: Hospitalist Reason for Consultation:: Cardiac evaluation - History of Present Illness History of Present Illness: Patient is an 84 year old female well known to our service (sees Dr. Jose De Jesus Cox) with underlying history of CAD, angina pectoris, systolic/diastolic LV dysfunction with chronic class 0-1 NYHA classification heart failure, sinus node dysfunction with AV block s/p PPM ([employer]), PAF currently off anticoagulation therapy (previously on DOAC/Xarelto) in view of GI bleed, [id number] score of 9, mitral valve regurgitation, aortic valve regurgitation, tricuspid valve regurgitation, HTN, DM , hypercholesterolemia, carotid stenosis, cerebrovascular disease, seizure, PAD, COPD, sleep apnea, CKD and anemia who presented with low Hgb 6.4 for transfusion. She reported having dyspnea on exertion and dizziness. She reports having black stools which may be due to iron pills. She was ev aluated by Dr. Jacky Bar of [facility] heart valve/intervention team for Watchman device recently. She received transfusion PRBC. She denies chest pain, shortness of breath or palpitations. She denies fever or chills. She denies headache or lightheadedness. She denies nausea, vomiting, diarrhea or abdominal pain. 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 Cardio/Vascular: Yes: AFIB, Aortic Insufficiency, CAD, CHF, Hyperlipdemia, Mitral Insufficiency Gastrointestinal: Yes: Cancer (Colon cancer), GERD, GI Bleed Renal/: Yes: Renal Inusuff Heme/Onc: Yes: Anemia Endocrine: Yes: Diabetes Mellitus (DM II), Other (thyroid nodules) - Past Surgical History Past Surgical History: Yes: Appendectomy, Colectomy (S/P right hemicolectomy), Hysterectomy (BHAVANA/BSO), Joint Replacement (b/l Knees), Permanent Pacemaker - Alcohol/Substance Use Hx Alcohol Use: No History of Substance Use: reports: None - Smoking History Smoking history: Never smoked Have you smoked in the past 12 months: No - Social History Usual Living Arrangement: Assisted Living ADL: Support Services 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 Travel: No Home Medications - Allergies Allergies/Adverse Reactions: Allergies Allergy/AdvReac Type Severity Reaction Status Date / Time morphine Allergy Nausea Verified 06/09/20 19:10 - Home Medications Home Medications: Ambulatory Orders Allopurinol 150 mg PO DAILY 03/10/19 Fluticasone Prop 0.05% Nasal [Flonase -] 1 sprays DAILY 03/10/19 Levetiracetam [Keppra] 500 mg PO DAILY 03/10/19 Metoprolol Succinate [Toprol Xl] 12.5 mg PO BID 03/10/19 Pregabalin [Lyrica] 50 mg PO HS 03/10/19 Simvastatin 10 mg PO HS 03/10/19 Cholecalciferol (Vitamin D3) [Vitamin D3] 2,000 unit PO DAILY 10/16/19 Docusate Sodium [Colace] 200 mg PO HS 10/16/19 Megestrol Acetate [Megace -] 40 mg PO QID 10/16/19 Multivitamin [One-Daily Multi-Vitamin] 1 each PO DAILY 10/16/19 Mupirocin Ointment [Bactroban 2% Ointment -] 1 applic BID 10/16/19 Sennosides/Docusate Sodium [Senokot-S Tablet] 2 each PO HS 10/16/19 Acetaminophen [Tylenol .Extra-Strength -] 500 mg PO PRN 12/16/19 Lisinopril 5 mg PO DAILY 12/16/19 Miconazole Nitrate [Miconazorb AF] 71 gm TP BID 12/16/19 Psyllium Husk/Aspartame [Reguloid Powder] 284 gm PO Q72H 12/16/19 Nystatin Cream [Mycostatin Cream -] 1 applic TP BID applic 12/20/19 Pantoprazole Sodium [Protonix IV] 40 mg IVPUSH DAILY vial 12/20/19 Ascorbic Acid 500 mg PO BID 06/10/20 Ferrous Sulfate [Feosol] 1 tab PO BID 06/10/20 Insulin Glargine,Hum.rec.anlog [Lantus] 5 unit SQ HS 06/10/20 Insulin Lispro [Humalog] 5 unit SQ AC 06/10/20 Megestrol Acetate Oral Susp [Megace Oral Suspension -] 10 ml PO BID 06/10/20 Pantoprazole Sodium 40 mg PO BID 06/10/20 Family Medical History Family Hx Cancer: Mother (Colon ca) Review of Systems - Review of Systems Constitutional: denies: Chills, Fever Cardiovascular: reports: Shortness of Breath. denies: Chest Pain, Palpitations Respiratory: reports: SOB. denies: Cough, Hemoptysis, Orthopnea, PND, Wheezing Gastrointestinal: denies: Abdominal Pain, Constipation, Diarrhea, Melena, Nausea, Rectal Bleeding, Vomiting Genitourinary: denies: Dysuria, Hematuria Musculoskeletal: denies: Back Pain, Joint Pain Neurological: denies: Dizziness, Headache, Syncope, Tremors Vital Signs: Vital Signs Temperature 98.7 F 06/12/20 10:05 Pulse Rate 60 06/12/20 10:05 Respiratory Rate 20 06/12/20 10:05 Blood Pressure 124/49 L 06/12/20 10:05 O2 Sat by Pulse Oximetry (%) 97 06/12/20 10:05 HENT: Yes: Atraumatic Neck: Yes: Supple Respiratory: Yes: CTA Bilaterally Gastrointestinal: Yes: Normal Bowel Sounds, Soft. No: Tenderness Cardiovascular: Yes: Regular Rate and Rhythm JVD: No PMI: Non-Displaced Heart Sounds: Yes: S1, S2. No: Gallop Murmur: Yes: Systolic Murmur, Grade 2 Edema: No - Other Data Labs, Other Data: CBC, BMP 06/12/20 06:35 06/12/20 06:35 INR, PTT INR 0.84 (0.83-1.09) 06/09/20 19:50 AV sequential paced rhythm Echo: Report Reviewed ((May 27 2019) mildly reduced LVEF 45-50%, moderate LAD, mild to moderate AR, mild MR, mild TR, PASP 32 mmHg, pacemaker lead) Imaging - Results Chest X-ray: Report Reviewed Cat Scan: Report Reviewed (Abd CT: hiatal hernia, cholelithiasis) EKG: Report Reviewed Problem List - Problems (1) Acute on chronic kidney failure Code(s): N17.9 - ACUTE KIDNEY FAILURE, UNSPECIFIED; N18.9 - CHRONIC KIDNEY DISEASE, UNSPECIFIED Qualifiers: Acute renal failure type: unspecified Chronic kidney disease stage: unspecified stage Qualified Code(s): N17.9 - Acute kidney failure, unspecified; N18.9 - Chronic kidney disease, unspecified (2) Anemia Code(s): D64.9 - ANEMIA, UNSPECIFIED Qualifiers: Anemia type: unspecified type Qualified Code(s): D64.9 - Anemia, unspecified (3) GI bleed Code(s): K92.2 - GASTROINTESTINAL HEMORRHAGE, UNSPECIFIED Qualifiers: GI bleed type/associated pathology: unspecified gastrointestinal hemorrhage type Qualified Code(s): K92.2 - Gastrointestinal hemorrhage, unspecified (4) Symptomatic anemia Code(s): D64.9 - ANEMIA, UNSPECIFIED (5) HTN (hypertension) Code(s): I10 - ESSENTIAL (PRIMARY) HYPERTENSION (6) SAUL (obstructive sleep apnea) Code(s): G47.33 - OBSTRUCTIVE SLEEP APNEA (ADULT) (PEDIATRIC) (7) Cardiac pacemaker Code(s): Z95.0 - PRESENCE OF CARDIAC PACEMAKER (8) Coronary artery disease Code(s): I25.10 - ATHSCL HEART DISEASE OF [place] CORONARY ARTERY W/O ANG PCTRS Qualifiers: Coronary Disease-Associated Artery/Lesion type: [place] artery [place] vs. transplanted heart: [place] heart Associated angina: without angina Qualified Code(s): I25.10 - Atherosclerotic heart disease of [place] coronary artery without angina pectoris (9) Hyperlipidemia Code(s): E78.5 - HYPERLIPIDEMIA, UNSPECIFIED Qualifiers: Hyperlipidemia type: pure hypercholesterolemia Qualified Code(s): E78.00 - Pure hypercholesterolemia, unspecified; E78.0 - Pure hypercholesterolemia (10) Hypertensive cardiovascular disease Code(s): I11.9 - HYPERTENSIVE HEART DISEASE WITHOUT HEART FAILURE Qualifiers: Heart failure presence: without heart failure Qualified Code(s): I11.9 - Hypertensive heart disease without heart failure (11) Paroxysmal atrial fibrillation Code(s): I48.0 - PAROXYSMAL ATRIAL FIBRILLATION (12) Systolic dysfunction Code(s): I51.9 - HEART DISEASE, UNSPECIFIED Assessment/Plan 1. Anemia s/p transfusion PRBC 2. CAD, angina pectoris 3. Diastolic/systolic dysfunction with class 0-1 NYHA classification heart failure 4. Sick sinus syndrome s/p PPM 5. PAF not on anticoagulation due to GI bleed 6. HTN 7. DM 8. Hypercholesterolemia 9. Mitral valve and tricuspid valve regurgitations 10. Aortic valve regurgitation 11. CKD 12. Hyperkalemia PLAN: 1. Follow CBC and transfuse PRBC as needed 2. Continue Metoprolol Succinate 12.5 mg BID 3. Atorvastatin 10 mg QHS 4. ACEI held due to renal insufficiency 5. Watchman as outpatient as planned 6. Fay Singh MD
[2020-06-12] MEDS ORDERED: FERRIC CARBOXYMALTOSE 750 MG in SODIUM CHLORIDE 250 ML IVPB ONE (19:00)
--- NOTE | 2020-06-12 20:45 | EKG ---
Test Reason : Blood Pressure : / mmHG Vent. Rate : 060 BPM Atrial Rate : 060 BPM P-R Int : 186 ms QRS Dur : 170 ms QT Int : 484 ms P-R-T Axes : 045 -55 097 degrees QTc Int : 484 ms AV dual-paced rhythm ABNORMAL ECG WHEN COMPARED WITH ECG OF 23-MAY-2020 17:53, VENT. RATE HAS DECREASED BY 2 BPM Confirmed by PATRICK PEREA MD ([id number]) on 06/12/2020 8:45:00 PM Referred By: Confirmed By:PATRICK PEREA MD
[2020-06-12] MEDS: PREGABALIN 50 MG CAPSULE PO SCH (21:27)
[2020-06-12] MEDS: PANTOPRAZOLE SODIUM 40 MG VIAL IVPUSH SCH (21:27)
[2020-06-12] MEDS: ATORVASTATIN CA 10 MG TABLET (FP) PO SCH (21:27)
--- NOTE | 2020-06-13 06:28 | PN ---
Progress Note (short form) - Note Progress Note: Chief Complaint: Events noted, notes reviewed, resting in bed, denies any chest discomfort, denies dyspnea History of Present Illness: Seen and examined on telemetry. Events noted, notes reviewed, resting in bed, denies any chest discomfort, denies dyspnea Patient is scheduled to proceed with Watchman device implantation/left atrial appendage closure device in view of inability to utilize anticoagulation therapy for management of her paroxysmal atrial fibrillation with [id number] score of 9- Procedure was scheduled for tomorrow at this point may need to be deferred in view of active antibiotic therapy administration for management of a urinary tract infection/elective outpatient procedure- No indication at this point for echocardiography study Medications: Current Medications Generic Name Dose Route Start Last Admin Trade Name Freq PRN Reason Stop Dose Admin Atorvastatin Calcium 10 mg 06/10/20 22:00 06/12/20 21:27 Lipitor - PO 10 mg HS ANTONI Administration Fluticasone Propionate 1 spray 06/10/20 10:00 06/12/20 10:09 Flonase - NS 1 spray DAILY ANTONI Administration Ceftriaxone Sodium 1 gm/ 50 mls @ 100 mls/hr 06/13/20 10:00 Dextrose IVPB DAILY ANTONI Protocol Sodium Chloride 1,000 mls @ 42 mls/hr 06/12/20 14:34 06/12/20 14:37 1/2 Normal Saline IV 42 mls/hr ASDIR ANTONI Administration Levetiracetam 500 mg 06/10/20 10:00 06/12/20 10:09 Keppra - PO 500 mg DAILY ANTONI Administration Metoprolol Succinate 12.5 mg 06/10/20 10:00 06/12/20 21:26 Toprol Xl - PO 12.5 mg BID ANTONI Administration Nystatin 1 applic 06/10/20 10:00 06/12/20 21:27 Mycostatin Cream - TP 1 applic BID ANTONI Administration Pantoprazole Sodium 40 mg 06/12/20 22:00 06/12/20 21:27 Protonix Iv IVPUSH 40 mg BID ANTONI Administration Pregabalin 50 mg 06/10/20 22:00 06/12/20 21:27 Lyrica - PO 50 mg HS ANTONI Administration Sodium Zirconium Cyclosilicate 10 gm 06/12/20 14:45 06/12/20 17:23 Lokelma PO 06/13/20 10:01 10 gm DAILY ANTONI Administration Review of Systems Constitutional: denies Chills or Fever Respiratory: denies: Dyspnea Cardiovascular: As noted above Gastrointestinal: denies Nausea, Vomiting, Diarrhea or Constipation or Abdominal Discomfort Genitourinary: reports: Hematuria Musculoskeletal: No Symptoms Reported Vital Signs: Last Vital Signs Temp Pulse Resp BP Pulse Ox 97.8 F 63 20 160/62 100 06/13/20 05:00 06/13/20 05:00 06/13/20 05:00 06/13/20 05:00 06/13/20 05:00 Intake & Output 06/10/20 06/11/20 06/12/20 06/13/20 23:59 23:59 23:59 23:59 Intake Total 1080 1437 2145 Output Total 1100 1300 Balance 1080 337 845 Weight 195 lb 9.6 oz 190 lb Neck: Supple Negative JVD Respiratory: Diminished Breath Sounds at the Bases Cardiovascular: S1 S2 Regular Rate Rhythm Gastrointestinal: Soft Benign Normal Bowel Sounds Ext: Negative Edema Labs: CBC, BMP 06/13/20 06:00 CBC, BMP 06/12/20 06:35 06/12/20 06:35 Hepatic Panel Total Bilirubin 0.2 mg/dL (0.2-1) 06/11/20 06:40 AST 13 U/L (15-37) L 06/11/20 06:40 ALT 15 U/L (13-61) 06/11/20 06:40 Alkaline Phosphatase 48 U/L (45-117) 06/11/20 06:40 Albumin 2.7 g/dl (3.4-5.0) L 06/11/20 06:40 INR, PTT INR 0.84 (0.83-1.09) 06/09/20 19:50 Assessment/Plan ASSESSMENT: 1. Recurrent anemia post-transfusion most likely related to gastrointestinal blood loss etiology of which/source of which remains unclear 2. Coronary artery disease angina pectoris 3. Diastolic/systolic left ventricular dysfunction with class 0-1 NYHA classification heart failure, clinically compensated/euvolemic 4. Sick sinus syndrome post permanent pacemaker implantation 5. Paroxysmal atrial fibrillation [id number] score of 9 currently off of anticoagulation therapy related to recurrent gastrointestinal bleed/anemia requiring transfusion for Watchman device implantation as noted above 6. HTN 7. DM 8. Hypercholesterolemia 9. Mitral valve regurgitation 10. Aortic valve regurgitation 11. Tricuspid valve regurgitation 12. CKD 13. Urinary tract infection 14. Hypernatremia 15. Hyperkalemia, resolved 16. Thrombocytopenia PLAN: 1. Follow hemoglobin level and transfuse as needed maintaining hemoglobin equal or greater than 8.0 2. Continue Toprol-XL therapy 3. Continue Lipitor therapy 4. Recommend resumption of COSTA inhibitor or angiotensin receptor mendel therapy once renal function is at baseline and hyperkalemia is not evident 5. As outlined above in reference to Watchman device implantation/left atrial appendage closure device implantation- procedure was scheduled for tomorrow at this point may need to be deferred in view of active antibiotic therapy administration for management of a urinary tract infection/elective outpatient procedure Jose De Jesus Cox MD
[2020-06-13 07:45] LABS: BASO % 0.1 % (0-2.0); EOS % 1.1 % (0-4.5); HEMATOCRIT 25.3 % (32.4-45.2); HEMOGLOBIN 8.4 GM/dL (10.7-15.3); LYMPH % 10.2 % (8-40); MCH 31.1 pg (25.7-33.7); MEAN CELL VOLUME 94.1 fl (80-96); MEAN PLT VOLUME 10.3 fl (7.5-11.1); MONO % 12.3 % (3.8-10.2); NEUT % 76.3 % (42.8-82.8); PLATELET COUNT 134 K/MM3 (134-434); RBC 2.69 M/mm3 (3.60-5.2); RDW 15.4 % (11.6-15.6); WHITE BLOOD COUNT 7.1 K/mm3 (4.0-10.0)
[2020-06-13 08:16] LABS: ALBUMIN 2.6 g/dl (3.4-5.0); BILIRUBIN,TOTAL 0.2 mg/dL (0.2-1); BLOOD UREA NITROGEN 52.8 mg/dL (7-18); CALCIUM 8.1 mg/dL (8.5-10.1); POTASSIUM 4.9 mmol/L (3.5-5.1); TOT PROT 4.9 g/dl (6.4-8.2)
--- NOTE | 2020-06-13 08:18 | PN ---
Progress Note, Physician - Current Medication List Current Medications: Active Medications Atorvastatin Calcium (Lipitor -) 10 mg PO HS [facility] Last Admin: 06/12/20 21:27 Dose: 10 mg Documented by: Fluticasone Propionate (Flonase -) 1 spray NS DAILY [facility] Last Admin: 06/12/20 10:09 Dose: 1 spray Documented by: Ceftriaxone Sodium 1 gm/ (Dextrose) 50 mls @ 100 mls/hr IVPB DAILY [facility]; Protocol Sodium Chloride (1/2 Normal Saline) 1,000 mls @ 42 mls/hr IV ASDIR [facility] Last Admin: 06/12/20 14:37 Dose: 42 mls/hr Documented by: Levetiracetam (Keppra -) 500 mg PO DAILY [facility] Last Admin: 06/12/20 10:09 Dose: 500 mg Documented by: Metoprolol Succinate (Toprol Xl -) 12.5 mg PO BID [facility] Last Admin: 06/12/20 21:26 Dose: 12.5 mg Documented by: Nystatin (Mycostatin Cream -) 1 applic TP BID [facility] Last Admin: 06/12/20 21:27 Dose: 1 applic Documented by: Pantoprazole Sodium (Protonix Iv) 40 mg IVPUSH BID [facility] Last Admin: 06/12/20 21:27 Dose: 40 mg Documented by: Pregabalin (Lyrica -) 50 mg PO [facility] Last Admin: 06/12/20 21:27 Dose: 50 mg Documented by: Sodium Zirconium Cyclosilicate (Lokelma) 10 gm PO DAILY [facility] Stop: 06/13/20 10:01 Last Admin: 06/12/20 17:23 Dose: 10 gm Documented by: - Objective Vital Signs: Vital Signs Temperature 97.8 F 06/13/20 05:00 Pulse Rate 63 06/13/20 05:00 Respiratory Rate 20 06/13/20 05:00 Blood Pressure 160/62 06/13/20 05:00 O2 Sat by Pulse Oximetry (%) 100 06/13/20 05:00 Cardiovascular: Yes: S1, S2 Respiratory: Yes: Regular, CTA Bilaterally Gastrointestinal: Yes: Normal Bowel Sounds, Soft Labs: CBC, BMP 06/13/20 06:00 INR, PTT INR 0.84 (0.83-1.09) 06/09/20 19:50 Assessment/Plan - Problems (1) Guaiac + stool Assessment/Plan: -Seen by GI -Has had multiple scopes without an actual source of GI bleed identified -Continue to hold AC -s/p 1 U PRBC -Monitor H/H closely -PPI Problems reviewed: Yes Code(s): R19.5 - OTHER FECAL ABNORMALITIES (2) Acute on chronic kidney failure Assessment/Plan: -Baseline Cr at 1.8 -Gentle IVF -Nephrology consult -2/2 to UTI? -Monitor trend Problems reviewed: Yes Code(s): N17.9 - ACUTE KIDNEY FAILURE, UNSPECIFIED; N18.9 - CHRONIC KIDNEY DISEASE, UNSPECIFIED Qualifiers: Acute renal failure type: unspecified Chronic kidney disease stage: unspecified stage Qualified Code(s): N17.9 - Acute kidney failure, unspecified; N18.9 - Chronic kidney disease, unspecified (3) Anemia Assessment/Plan: -Multifactorial -Previously low in Iron % -Injectafer once -Continue feosol BID -Hematology consult -s/p 1 U PRBC -Transfuse only if Hg<7.0 to avoid fluid overload -monitor trend -Also check B12, Thyroid and FA Problems reviewed: Yes Code(s): D64.9 - ANEMIA, UNSPECIFIED Qualifiers: Anemia type: unspecified type Qualified Code(s): D64.9 - Anemia, unspecified (4) UTI (urinary tract infection) Assessment/Plan: -UC: Microbiology 06/10/20 01:30 Urine - Urine Clean Catch Urine Culture - Final Escherichia Coli Proteus Species -IV rocephin -ID consult -Afebrile Problems reviewed: Yes Code(s): N39.0 - URINARY TRACT INFECTION, SITE NOT SPECIFIED (5) Coronary artery disease Assessment/Plan: -Cardiology consult -Continue BB + Statin Problems reviewed: Yes Code(s): I25.10 - ATHSCL HEART DISEASE OF [place] CORONARY ARTERY W/O ANG PCTRS Qualifiers: Coronary Disease-Associated Artery/Lesion type: [place] artery [place] vs. transplanted heart: [place] heart Associated angina: without angina Qualified Code(s): I25.10 - Atherosclerotic heart disease of [place] coronary artery without angina pectoris (6) Paroxysmal atrial fibrillation Assessment/Plan: -Chronic, rate controlled -Hold AC -For Watchman device -Echo on Cardiology discretion Problems reviewed: Yes Code(s): I48.0 - PAROXYSMAL ATRIAL FIBRILLATION
[2020-06-13 09:38] LABS: ANISOCYTOSIS 0; MACROCYTOSIS 0; PLATELET ESTIMATE DECREASED
[2020-06-13] MEDS ORDERED: CEFTRIAXONE 1 GM in DEXTROSE 5%-WATER - 50 ML IVPB SCH (10:00)
[2020-06-13] MEDS ORDERED: DEXTROSE 5%-WATER - 50 ML IVPB ONE (10:16)
[2020-06-13] MEDS ORDERED: cefTRIAXone SODIUM 1 GM VIAL ONE (10:16)
[2020-06-13] MEDS ORDERED: PT OWN MED DRAWER 7, Y5N ONE (10:18)
[2020-06-13] MEDS: FLUTICASONE PROP 0.05% 16 GM NASAL SPRAY NS SCH (10:23)
[2020-06-13] MEDS: metoPROLOL SUCCINATE 25 MG TAB.SR.24H (FP) PO SCH ×2 (10:24→21:36)
[2020-06-13] MEDS: levETIRAcetam 250 MG TABLET PO SCH (10:24)
[2020-06-13] MEDS: PANTOPRAZOLE SODIUM 40 MG VIAL IVPUSH SCH ×2 (10:25→21:36)
[2020-06-13] MEDS: SODIUM ZIRCONIUM CYCLOSILICATE (LOKELMA) 5 GM PACKET PO SCH (10:25)
[2020-06-13] MEDS: NYSTATIN 100,000 UNIT/GM TOPICAL CREAM 15 GM TUBE TP SCH ×2 (10:25→21:36)
--- NOTE | 2020-06-13 10:41 | CONSULT ---
Consultation: Heme-Onc Resident Note REQUESTING PROVIDER: Dr. Burns CONSULT REQUEST: We have been asked to medically evaluate this patient for anemia. HISTORY OF PRESENT ILLNESS: Patient is an 84 year old female with past medical history of anemia, Afib (previously on Xarelto), GI bleed, CKD, CHF, DM with neuropathy, Uterine and Colon Ca, presented from [facility] after she was found to have anemia with Hgb at 6.4 as well as episodes of black tarry stools, which patient also attributed to iron pills that she started taking not long ago as well. Patient denies any weakness, dizziness or shortness of breath. She reported that she has had multiple episodes of anemia requiring blood transfusions that started last year. EGD done revealed hiatal hernia without any active bleeding. She was initially on Xarelto for Afib that was subsequently stopped in November due to recurrent anemia. During her last admission in December, patient was transferred to [facility] for capsule endoscopy, which she reported was unremarkable and that they didn't find any bleeding. Patient denies any recent illness or sick contacts. She has been at [facility] for rehab. Today, patient reports feeling well and denies any fevers, chills, headache, dizziness, nausea, vomiting, chest pain, SOB, abdominal pain, diarrhea, urinary symptoms. On admission, patient received 1u prbc. Patient has not had any episodes of rectal bleeding or black stools since admission. PMHx: anemia, Afib (previously on Xarelto), GI bleed, CKD, CHF, DM with neuropathy, Uterine and Colon Ca PSHx: Hysterectomy, Appendectomy, Hemicolectomy, Cataracts b/l Allergies: morphine SHx: denies smoking, etoh drinking, illicit drug use REVIEW OF SYSTEMS: CONSTITUTIONAL: Absent: fever, chills, diaphoresis, generalized weakness, malaise, loss of appetite, weight change HEENT: Absent: rhinorrhea, nasal congestion, throat pain, throat swelling, difficulty swallowing, mouth swelling, ear pain, eye pain, visual changes CARDIOVASCULAR: Absent: chest pain, syncope, palpitations, irregular heart rate, lighthe adedness, peripheral edema RESPIRATORY: Absent: cough, shortness of breath, dyspnea with exertion, orthopnea, wheezing, stridor, hemoptysis GASTROINTESTINAL: Absent: abdominal pain, abdominal distension, nausea, vomiting, diarrhea, constipation, melena, hematochezia GENITOURINARY: Absent: dysuria, frequency, urgency, hesitancy, hematuria, flank pain, genital pain MUSCULOSKELETAL: Absent: myalgia, arthralgia, joint swelling, back pain, neck pain SKIN: Absent: rash, itching, pallor HEMATOLOGIC/IMMUNOLOGIC: Absent: easy bleeding, easy bruising, lymphadenopathy, frequent infections ENDOCRINE: Absent: unexplained weight gain, unexplained weight loss, heat intolerance, cold intolerance NEUROLOGIC: Absent: headache, focal weakness or paresthesias, dizziness, unsteady gait, seizure, mental status changes, bladder or bowel incontinence PSYCHIATRIC: Absent: anxiety, depression, suicidal or homicidal ideation, hallucinations. PHYSICAL EXAMINATION Vital Signs - 24 hr 06/12/20 06/12/20 06/12/20 17:00 21:00 22:48 Temperature 97.6 F 97.7 F Pulse Rate 60 60 Respiratory 20 20 Rate Blood Pressure 139/60 144/53 L O2 Sat by Pulse 99 98 98 Oximetry (%) 06/13/20 06/13/20 05:00 09:50 Temperature 97.8 F 97.7 F Pulse Rate 63 62 Respiratory 20 20 Rate Blood Pressure 160/62 134/61 O2 Sat by Pulse 100 97 Oximetry (%) GENERAL: Awake, alert, and fully oriented, in no acute distress. HEAD: Normal with no signs of trauma. EYES: PERRLA, EOMI, sclera anicteric, conjunctiva clear. EARS, NOSE, THROAT: Moist mucous membranes. NECK: Normal range of motion, supple LUNGS: Breath sounds equal, clear to auscultation bilaterally. HEART: Regular rate and rhythm, normal S1 and S2 ABDOMEN: Soft, nontender, not distended, normoactive bowel sounds LOWER EXTREMITIES: 2+ pulses, warm, well-perfused. No peripheral edema. NEUROLOGICAL: Cranial nerves II-XII intact. Normal speech. PSYCHIATRIC: Cooperative. Good eye contact. Appropriate mood and affect. SKIN: Warm, dry, normal turgor, no rashes or lesions noted. Laboratory Results - last 24 hr 06/09/20 06/13/20 06/13/20 19:50 06:00 06:00 WBC 7.1 RBC 2.69 L Hgb 8.4 L Hct 25.3 L MCV 94.1 MCH 31.1 MCHC 33.0 RDW 15.4 Plt Count 134 MPV 10.3 Absolute Neuts (auto) 5.4 Neutrophils % 76.3 Lymphocytes % 10.2 Monocytes % 12.3 H Eosinophils % 1.1 Basophils % 0.1 Nucleated RBC % 0 Sodium 146 H Potassium 4.9 Chloride 119 H Carbon Dioxide 19 L Anion Gap 7 L BUN 52.8 H Creatinine 2.0 H Est GFR (CKD-EPI)AfAm 26.10 Est GFR (CKD-EPI)NonAf 22.52 Random Glucose 173 H Calcium 8.1 L Iron 497 H TIBC 479 H Iron Saturation 103 H Unsaturated IBC -18 L Ferritin 237.6 Total Bilirubin 0.2 AST 14 L ALT 14 Alkaline Phosphatase 56 Total Protein 4.9 L Albumin 2.6 L Vitamin B12 1249 H TSH 0.69 Free T4 0.70 L Blood Type O POSITIVE Antibody Screen Negative Crossmatch See Detail Active Medications Generic Name Dose Route Start Last Admin Trade Name Freq PRN Reason Stop Dose Admin Atorvastatin Calcium 10 mg 06/10/20 22:00 06/12/20 21:27 Lipitor - PO 10 mg HS ANTONI Administration Fluticasone Propionate 1 spray 06/10/20 10:00 06/12/20 10:09 Flonase - NS 1 spray DAILY ANTONI Administration Ceftriaxone Sodium 1 gm/ 50 mls @ 100 mls/hr 06/13/20 10:00 Dextrose IVPB DAILY ANTONI Protocol Sodium Chloride 1,000 mls @ 42 mls/hr 06/12/20 14:34 06/12/20 14:37 1/2 Normal Saline IV 42 mls/hr ASDIR ANTONI Administration Levetiracetam 500 mg 06/10/20 10:00 06/12/20 10:09 Keppra - PO 500 mg DAILY ANTONI Administration Metoprolol Succinate 12.5 mg 06/10/20 10:00 06/12/20 21:26 Toprol Xl - PO 12.5 mg BID ANTONI Administration Nystatin 1 applic 06/10/20 10:00 06/12/20 21:27 Mycostatin Cream - TP 1 applic BID ANTONI Administration Pantoprazole Sodium 40 mg 06/12/20 22:00 06/12/20 21:27 Protonix Iv IVPUSH 40 mg BID ANTONI Administration Pregabalin 50 mg 06/10/20 22:00 06/12/20 21:27 Lyrica - PO 50 mg HS ANTONI Administration ASSESSMENT/PLAN: Patient is an 84 year old female with past medical history of anemia, Afib (previously on Xarelto), GI bleed, CKD, CHF, DM with neuropathy, Uterine and Colon Ca, presented from [facility] after she was found to have anemia with Hgb at 6.4. We have been asked to medically evaluate this patient for anemia. #Anemia -likely multifactorial including anemia of chronic disease with CKD and CANDELARIA / occult GI bleed -Hgb 6.9, MCV 96.9 on admission -FOBT + -Iron studies on 11/2019 revealed iron 58, TSAT 14%, indicate iron deficiency -B12 and folate pending, TSH normal -iron studies 06/13 elevated - patient received iron supplement yesterday -follows up with Dr. Dang outpatient Dispo: We will continue to follow the patient. Thank you for this consultative opportunity. Visit type - Medication Review Med list reviewed for High Risk Meds patients 65 and older: Yes - Emergency Visit Emergency Visit: Yes ED Registration Date: 06/09/20 Care time: The patient presented to the Emergency Department on the above date and was hospitalized for further evaluation of their emergent condition. - New Patient This patient is new to me today: Yes Date on this admission: 06/13/20 - Critical Care Critical Care patient: No ATTENDING PHYSICIAN STATEMENT I saw and evaluated the patient. I reviewed the resident's note and discussed the case with the resident. I agree with the resident's findings and plan as documented. SUBJECTIVE: OBJECTIVE: ASSESSMENT AND PLAN:
--- NOTE | 2020-06-13 11:52 | PN ---
Progress Note, Physician History of Present Illness: Pt seen and examined at bedside. She is awake and appears comfortable. - Current Medication List Current Medications: Active Medications Atorvastatin Calcium (Lipitor -) 10 mg PO HS [facility] Last Admin: 06/12/20 21:27 Dose: 10 mg Documented by: Fluticasone Propionate (Flonase -) 1 spray NS DAILY [facility] Last Admin: 06/13/20 10:23 Dose: 1 spray Documented by: Ceftriaxone Sodium 1 gm/ (Dextrose) 50 mls @ 100 mls/hr IVPB DAILY [facility]; Protocol Last Admin: 06/13/20 10:24 Dose: 100 mls/hr Documented by: Sodium Chloride (1/2 Normal Saline) 1,000 mls @ 42 mls/hr IV ASDIR [facility] Last Admin: 06/12/20 14:37 Dose: 42 mls/hr Documented by: Levetiracetam (Keppra -) 500 mg PO DAILY [facility] Last Admin: 06/13/20 10:24 Dose: 500 mg Documented by: Metoprolol Succinate (Toprol Xl -) 12.5 mg PO BID [facility] Last Admin: 06/13/20 10:24 Dose: 12.5 mg Documented by: Nystatin (Mycostatin Cream -) 1 applic TP BID [facility] Last Admin: 06/13/20 10:25 Dose: 1 applic Documented by: Pantoprazole Sodium (Protonix Iv) 40 mg IVPUSH BID [facility] Last Admin: 06/13/20 10:25 Dose: 40 mg Documented by: Pregabalin (Lyrica -) 50 mg PO HS [facility] Last Admin: 06/12/20 21:27 Dose: 50 mg Documented by: - Objective Vital Signs: Vital Signs Temperature 97.7 F 06/13/20 09:50 Pulse Rate 62 06/13/20 09:50 Respiratory Rate 20 06/13/20 09:50 Blood Pressure 134/61 06/13/20 09:50 O2 Sat by Pulse Oximetry (%) 97 06/13/20 09:50 Constitutional: Yes: Calm Eyes: Yes: Conjunctiva Clear HENT: Yes: Atraumatic Neck: Yes: Supple Cardiovascular: Yes: S1, S2 Respiratory: Yes: CTA Bilaterally Gastrointestinal: Yes: Soft Genitourinary: Yes: WNL Edema: No Neurological: Yes: Oriented Psychiatric: Yes: Oriented Labs: CBC, BMP 06/13/20 06:00 INR, PTT INR 0.84 (0.83-1.09) 06/09/20 19:50 Problem List - Problems (1) Acute on chronic kidney failure Code(s): N17.9 - ACUTE KIDNEY FAILURE, UNSPECIFIED; N18.9 - CHRONIC KIDNEY DISEASE, UNSPECIFIED Qualifiers: Acute renal failure type: unspecified Chronic kidney disease stage: unspecified stage Qualified Code(s): N17.9 - Acute kidney failure, unspecified; N18.9 - Chronic kidney disease, unspecified Assessment/Plan Current Medications Generic Name Dose Route Start Last Admin Trade Name Freq PRN Reason Stop Dose Admin Atorvastatin Calcium 10 mg 06/10/20 22:00 06/12/20 21:27 Lipitor - PO 10 mg HS ANTONI Administration Fluticasone Propionate 1 spray 06/10/20 10:00 06/13/20 10:23 Flonase - NS 1 spray DAILY ANTONI Administration Ceftriaxone Sodium 1 gm/ 50 mls @ 100 mls/hr 06/13/20 10:00 06/13/20 10:24 Dextrose IVPB 100 mls/hr DAILY ANTONI Administration Protocol Sodium Chloride 1,000 mls @ 42 mls/hr 06/12/20 14:34 06/12/20 14:37 1/2 Normal Saline IV 42 mls/hr ASDIR ANTONI Administration Levetiracetam 500 mg 06/10/20 10:00 06/13/20 10:24 Keppra - PO 500 mg DAILY ANTONI Administration Metoprolol Succinate 12.5 mg 06/10/20 10:00 06/13/20 10:24 Toprol Xl - PO 12.5 mg BID ANTONI Administration Nystatin 1 applic 06/10/20 10:00 06/13/20 10:25 Mycostatin Cream - TP 1 applic BID ANTONI Administration Pantoprazole Sodium 40 mg 06/12/20 22:00 06/13/20 10:25 Protonix Iv IVPUSH 40 mg BID ANTONI Administration Pregabalin 50 mg 06/10/20 22:00 06/12/20 21:27 Lyrica - PO 50 mg HS ANTONI Administration Impression 1. CKD 2. EDGARDO 3. hyperkalemia 4. hld 5. anemia 6. a-fib 7. gi bleed 8. uterine cancer 9. hypernatremia Plan - potassium improved - cont gentle hydration - repeat labs in am - keep jose guadalupe on hold for now, bp is improved - cont to monitor renal function - avoid nsaids - encourage po free water intake
[2020-06-13] MEDS: SODIUM CHLORIDE 0.45% 1,000 ML IV SCH ×2 (15:00→21:48)
--- NOTE | 2020-06-13 15:38 | PN ---
Progress Note (short form) - Note Progress Note: doing well less dysuria Vital Signs Period Temp Pulse Resp BP Sys/Bone Pulse Ox Last 24 Hr 97.6 F-97.9 F 60-63 18-20 134-160/53-62 97-100 cor-rrr lungs clear abd soft,nt ext no edema CBC, BMP 06/13/20 06:00 Microbiology 06/10/20 01:30 Urine - Urine Clean Catch Urine Culture - Final Escherichia Coli Proteus Species imp/reccd 84 yo female 5 year resident of [facility] admitted with anemia for transfusion anemia- s/p one unit PRBC transfusion UTI- will switch to po keflex in am davonte/ckd-on ivf Problem List - Problems (1) UTI (urinary tract infection) Code(s): N39.0 - URINARY TRACT INFECTION, SITE NOT SPECIFIED (2) Anemia Code(s): D64.9 - ANEMIA, UNSPECIFIED Qualifiers: Anemia type: unspecified type Qualified Code(s): D64.9 - Anemia, unspecified (3) Acute on chronic kidney failure Code(s): N17.9 - ACUTE KIDNEY FAILURE, UNSPECIFIED; N18.9 - CHRONIC KIDNEY DISEASE, UNSPECIFIED Qualifiers: Acute renal failure type: unspecified Chronic kidney disease stage: unspecified stage Qualified Code(s): N17.9 - Acute kidney failure, unspecified; N18.9 - Chronic kidney disease, unspecified
--- NOTE | 2020-06-13 16:43 | PN ---
Teaching Attending Note Name of Resident: Veronica Gonzalez ATTENDING PHYSICIAN STATEMENT I saw and evaluated the patient. I reviewed the resident's note and discussed the case with the resident. I agree with the resident's findings and plan as documented. SUBJECTIVE: Pt seen and examined. Voices no complaints. OBJECTIVE: 06/13/20 06:00 ASSESSMENT AND PLAN: 84 year old lady with past medical history of anemia, Afib (previously on Xarelto), GI bleed, CKD, CHF, DM with neuropathy, Uterine and Colon Ca, presented from [facility] after she was found to have anemia with Hgb at 6.4. We have been asked to medically evaluate this patient for anemia. Recommend: 1) Anemia, likely multifactorial including CKD, Occult GI bleed. FOBT+. GI following. 2) Iron level possibly inaccurate due to sample hemolyzed. She was already transfused and supplemented with iron. May consider testing iron levels in the future. 3) Continue to follow outpatient with Dr. Dang 4) Thank you very much for this consultation.
[2020-06-13] MEDS: PREGABALIN 50 MG CAPSULE PO SCH (21:36)
[2020-06-13] MEDS: ATORVASTATIN CA 10 MG TABLET (FP) PO SCH (21:36)
--- NOTE | 2020-06-14 06:23 | PN ---
Progress Note (short form) - Note Progress Note: Chief Complaint: Events noted, notes reviewed, resting in bed, denies any chest discomfort, denies dyspnea, reporting constipation History of Present Illness: Seen and examined on telemetry. Events noted, notes reviewed, resting in bed, denies any chest discomfort, denies dyspnea, reporting constipation As outlined in yesterday's note patient is scheduled to proceed with Watchman device implantation/left atrial appendage closure device in view of inability to utilize anticoagulation therapy for management of her paroxysmal atrial fibrill ation with [id number] score of 9- Procedure was scheduled for today at this point to be deferred in view of active antibiotic therapy administration for management of a urinary tract infection/elective outpatient procedure Medications: Current Medications Generic Name Dose Route Start Last Admin Trade Name Freq PRN Reason Stop Dose Admin Atorvastatin Calcium 10 mg 06/10/20 22:00 06/13/20 21:36 Lipitor - PO 10 mg HS ANTONI Administration Cephalexin HCl 500 mg 06/14/20 10:00 Keflex - PO BID ANTONI Fluticasone Propionate 1 spray 06/10/20 10:00 06/13/20 10:23 Flonase - NS 1 spray DAILY ANTONI Administration Sodium Chloride 1,000 mls @ 42 mls/hr 06/12/20 14:34 06/13/20 21:48 1/2 Normal Saline IV 42 mls/hr ASDIR ANTONI Administration Levetiracetam 500 mg 06/10/20 10:00 06/13/20 10:24 Keppra - PO 500 mg DAILY ANTONI Administration Metoprolol Succinate 12.5 mg 06/10/20 10:00 06/13/20 21:36 Toprol Xl - PO 12.5 mg BID ANTONI Administration Nystatin 1 applic 06/10/20 10:00 06/13/20 21:36 Mycostatin Cream - TP 1 applic BID ANTONI Administration Pantoprazole Sodium 40 mg 06/12/20 22:00 06/13/20 21:36 Protonix Iv IVPUSH 40 mg BID ANTONI Administration Pregabalin 50 mg 06/10/20 22:00 06/13/20 21:36 Lyrica - PO 50 mg HS ANTONI Administration Review of Systems Constitutional: denies Chills or Fever Respiratory: denies: Dyspnea Cardiovascular: As noted above Gastrointestinal: denies Nausea, Vomiting, Diarrhea or Constipation or Abdominal Discomfort Genitourinary: denies: Hematuria Musculoskeletal: No Symptoms Reported Vital Signs: Last Vital Signs Temp Pulse Resp BP Pulse Ox 97.7 F 62 19 153/67 98 06/14/20 02:14 06/14/20 02:14 06/14/20 02:14 06/14/20 02:14 06/13/20 21:00 Intake & Output 06/11/20 06/12/20 06/13/20 06/14/20 23:59 23:59 23:59 23:59 Intake Total 1437 2306 1312 Output Total 1100 1300 1000 Balance 337 1006 312 Weight 190 lb 193 lb 4 oz Neck: Supple Negative JVD Respiratory: Diminished Breath Sounds at the Bases Cardiovascular: S1 S2 Regular Rate Rhythm Gastrointestinal: Soft Benign Normal Bowel Sounds Ext: Negative Edema Labs: CBC, BMP 06/13/20 06:00 Hepatic Panel Total Bilirubin 0.2 mg/dL (0.2-1) 06/13/20 06:00 AST 14 U/L (15-37) L 06/13/20 06:00 ALT 14 U/L (13-61) 06/13/20 06:00 Alkaline Phosphatase 56 U/L (45-117) 06/13/20 06:00 Albumin 2.6 g/dl (3.4-5.0) L 06/13/20 06:00 INR, PTT INR 0.84 (0.83-1.09) 06/09/20 19:50 Assessment/Plan ASSESSMENT: 1. Recurrent anemia post-transfusion most likely related to gastrointestinal blood loss etiology of which/source of which remains unclear 2. Coronary artery disease angina pectoris 3. Diastolic/systolic left ventricular dysfunction with class 0-1 NYHA class ification heart failure, clinically compensated/euvolemic 4. Sick sinus syndrome post permanent pacemaker implantation 5. Paroxysmal atrial fibrillation [id number] score of 9 currently off of anticoagulation therapy related to recurrent gastrointestinal bleed/anemia requiring transfusion for Watchman device implantation as noted above 6. HTN 7. DM 8. Hypercholesterolemia 9. Mitral valve regurgitation 10. Aortic valve regurgitation 11. Tricuspid valve regurgitation 12. CKD 13. Urinary tract infection 14. Hypernatremia 15. Hyperkalemia, resolved 16. Thrombocytopenia PLAN: 1. Follow hemoglobin level and transfuse as needed maintaining hemoglobin equal or greater than 8.0 2. Continue Toprol-XL therapy 3. Continue Lipitor therapy 4. Recommend resumption of COSTA inhibitor or angiotensin receptor mendel therapy once renal function is at baseline 5. As outlined above in reference to Watchman device implantation/left atrial appendage closure device implantation- procedure was scheduled for today to be deferred in view of active antibiotic therapy administration for management of a urinary tract infection/elective outpatient procedure Jose De Jesus Cox MD
[2020-06-14 08:32] LABS: ALBUMIN 2.5 g/dl (3.4-5.0); BILIRUBIN,TOTAL 0.2 mg/dL (0.2-1); BLOOD UREA NITROGEN 56.7 mg/dL (7-18); CALCIUM 8.1 mg/dL (8.5-10.1); CREATININE 1.9 mg/dL (0.55-1.3); POTASSIUM 4.7 mmol/L (3.5-5.1); TOT PROT 4.6 g/dl (6.4-8.2)
--- NOTE | 2020-06-14 08:40 | DS ---
Physical Examination Vital Signs: Vital Signs Temperature 98.3 F 06/14/20 06:00 Pulse Rate 60 06/14/20 06:00 Respiratory Rate 18 06/14/20 06:00 Blood Pressure 150/60 06/14/20 06:00 O2 Sat by Pulse Oximetry (%) 98 06/13/20 21:00 Cardiovascular: Yes: S1, S2 Respiratory: Yes: Regular, CTA Bilaterally Gastrointestinal: Yes: Normal Bowel Sounds, Soft. No: Tenderness Edema: No Labs: CBC, BMP 06/14/20 06:34 Discharge Summary Problems reviewed: Yes Reason For Visit: ANEMIA Current Active Problems Acute on chronic kidney failure (Acute) Anemia (Acute) Encounter for screening laboratory testing for COVID-19 virus (Acute) GI bleed (Acute) Guaiac + stool (Acute) Symptomatic anemia (Acute) UTI (urinary tract infection) (Acute) Hospital Course: - Problems (1) Guaiac + stool Assessment/Plan: -Seen by GI -Has had multiple scopes without an actual source of GI bleed identified -Continue to hold AC -s/p 1 U PRBC -Monitor H/H closely -PPI Problems reviewed: Yes Code(s): R19.5 - OTHER FECAL ABNORMALITIES (2) Acute on chronic kidney failure Assessment/Plan: -Baseline Cr at 1.8 -dc IVF -Nephrology consult -2/ to UTI? -Monitor trend Problems reviewed: Yes Code(s): N17.9 - ACUTE KIDNEY FAILURE, UNSPECIFIED; N18.9 - CHRONIC KIDNEY DISEASE, UNSPECIFIED Qualifiers: Acute renal failure type: unspecified Chronic kidney disease stage: unspecified stage Qualified Code(s): N17.9 - Acute kidney failure, unspecified; N18.9 - Chronic kidney disease, unspecified (3) Anemia Assessment/Plan: -Multifactorial -Previously low in Iron % -Injectafer once -Continue feosol BID -Hematology consult -s/p 1 U PRBC -Transfuse only if Hg<7.0 to avoid fluid overload -monitor trend -Also check B12, Thyroid and FA Problems reviewed: Yes Code(s): D64.9 - ANEMIA, UNSPECIFIED Qualifiers: Anemia type: unspecified type Qualified Code(s): D64.9 - Anemia, unspecified (4) UTI (urinary tract infection) Assessment/Plan: -UC: Microbiology 08/22/20 01:30 Urine - Urine Clean Catch Urine Culture - Final Escherichia Coli Proteus Species -IV rocephin--to po -ID consult -Afebrile Problems reviewed: Yes Code(s): N39.0 - URINARY TRACT INFECTION, SITE NOT SPECIFIED (5) Coronary artery disease Assessment/Plan: -Cardiology consult -Continue BB + Statin Problems reviewed: Yes Code(s): I25.10 - ATHSCL HEART DISEASE OF [place] CORONARY ARTERY W/O ANG PCTRS Qualifiers: Coronary Disease-Associated Artery/Lesion type: [place] artery [place] vs. transplanted heart: [place] heart Associated angina: without angina Qualified Code(s): I25.10 - Atherosclerotic heart disease of [place] coronary artery without angina pectoris (6) Paroxysmal atrial fibrillation Assessment/Plan: -Chronic, rate controlled -Hold AC -For Watchman device as outpatient -Echo on Cardiology discretion Problems reviewed: Yes Code(s): I48.0 - PAROXYSMAL ATRIAL FIBRILLATION dc snf if cbc stable Condition: Stable - Instructions Diet, Activity, Other Instructions: bmp and cbc twice a week - Home Medications Comprehensive Discharge Medication List: Ambulatory Orders Fluticasone Prop 0.05% Nasal [Flonase -] 1 sprays DAILY 03/10/19 Levetiracetam [Keppra] 500 mg PO DAILY 03/10/19 Metoprolol Succinate [Toprol Xl] 12.5 mg PO BID 03/10/19 Pregabalin [Lyrica] 50 mg PO HS 03/10/19 Simvastatin 10 mg PO HS 03/10/19 Cholecalciferol (Vitamin D3) [Vitamin D3] 2,000 unit PO DAILY 10/16/19 Docusate Sodium [Colace] 200 mg PO HS 10/16/19 Mupirocin Ointment [Bactroban 2% Ointment -] 1 applic BID 10/16/19 Sennosides/Docusate Sodium [Senokot-S Tablet] 2 each PO HS 10/16/19 Acetaminophen [Tylenol .Extra-Strength -] 500 mg PO PRN 12/16/19 Nystatin Cream [Mycostatin Cream -] 1 applic TP BID applic 12/20/19 Ascorbic Acid 500 mg PO BID 06/10/20 Ferrous Sulfate [Feosol] 1 tab PO BID 06/10/20 Insulin Glargine,Hum.rec.anlog [Lantus] 5 unit SQ HS 06/10/20 Insulin Lispro [Humalog] 5 unit SQ AC 06/10/20 Pantoprazole Sodium 40 mg PO BID 06/10/20 Cephalexin Monohydrate [Keflex -] 500 mg PO BID capsule 06/14/20 Sodium Zirconium Cyclosilicate [Lokelma] 10 gm PO DAILY packet 06/14/20
[2020-06-14] MEDS: FLUTICASONE PROP 0.05% 16 GM NASAL SPRAY NS SCH (10:30)
[2020-06-14] MEDS: levETIRAcetam 250 MG TABLET PO SCH (10:31)
[2020-06-14] MEDS: CEPHALEXIN MONOHYDRATE 500 MG CAPSULE (UD) PO SCH ×2 (10:31→21:34)
[2020-06-14] MEDS: PANTOPRAZOLE 40 MG TABLET PO SCH ×2 (10:31→21:34)
[2020-06-14] MEDS: NYSTATIN 100,000 UNIT/GM TOPICAL CREAM 15 GM TUBE TP SCH ×2 (10:31→21:34)
[2020-06-14] MEDS: metoPROLOL SUCCINATE 25 MG TAB.SR.24H (FP) PO SCH ×2 (10:31→21:34)
--- NOTE | 2020-06-14 10:46 | PN ---
Progress Note, Physician History of Present Illness: Pt seen and examined at bedside. She is awake and alert. She denies shortness of breath. - Current Medication List Current Medications: Active Medications Atorvastatin Calcium (Lipitor -) 10 mg PO HS [facility] Last Admin: 06/13/20 21:36 Dose: 10 mg Documented by: Cephalexin HCl (Keflex -) 500 mg PO BID [facility] Last Admin: 06/14/20 10:31 Dose: 500 mg Documented by: Fluticasone Propionate (Flonase -) 1 spray NS DAILY [facility] Last Admin: 06/14/20 10:30 Dose: 1 spray Documented by: Levetiracetam (Keppra -) 500 mg PO DAILY [facility] Last Admin: 06/14/20 10:31 Dose: 500 mg Documented by: Metoprolol Succinate (Toprol Xl -) 12.5 mg PO BID [facility] Last Admin: 06/14/20 10:31 Dose: 12.5 mg Documented by: Nystatin (Mycostatin Cream -) 1 applic TP BID [facility] Last Admin: 06/14/20 10:31 Dose: 1 applic Documented by: Pantoprazole Sodium (Protonix -) 40 mg PO BID [facility] Last Admin: 06/14/20 10:31 Dose: 40 mg Documented by: Pregabalin (Lyrica -) 50 mg PO [facility] Last Admin: 06/13/20 21:36 Dose: 50 mg Documented by: - Objective Vital Signs: Vital Signs Temperature 98.3 F 06/14/20 06:00 Pulse Rate 60 06/14/20 06:00 Respiratory Rate 18 06/14/20 06:00 Blood Pressure 150/60 06/14/20 06:00 O2 Sat by Pulse Oximetry (%) 98 06/13/20 21:00 Constitutional: Yes: Calm Eyes: Yes: Conjunctiva Clear HENT: Yes: Atraumatic Neck: Yes: Supple Cardiovascular: Yes: S1, S2 Respiratory: Yes: CTA Bilaterally Gastrointestinal: Yes: Normal Bowel Sounds, Soft Musculoskeletal: Yes: WNL Edema: Yes Edema: LLE: Trace, RLE: Trace Neurological: Yes: Oriented Psychiatric: Yes: Oriented Labs: CBC, BMP 06/14/20 06:34 INR, PTT INR 0.84 (0.83-1.09) 06/09/20 19:50 Problem List - Problems (1) Acute on chronic kidney failure Code(s): N17.9 - ACUTE KIDNEY FAILURE, UNSPECIFIED; N18.9 - CHRONIC KIDNEY DISEASE, UNSPECIFIED Qualifiers: Acute renal failure type: unspecified Chronic kidney disease stage: unspecified stage Qualified Code(s): N17.9 - Acute kidney failure, unspecified; N18.9 - Chronic kidney disease, unspecified Assessment/Plan Current Medications Generic Name Dose Route Start Last Admin Trade Name Freq PRN Reason Stop Dose Admin Atorvastatin Calcium 10 mg 06/10/20 22:00 06/13/20 21:36 Lipitor - PO 10 mg HS ANTONI Administration Cephalexin HCl 500 mg 06/14/20 10:00 06/14/20 10:31 Keflex - PO 500 mg BID ANTONI Administration Fluticasone Propionate 1 spray 06/10/20 10:00 06/14/20 10:30 Flonase - NS 1 spray DAILY ANTONI Administration Levetiracetam 500 mg 06/10/20 10:00 06/14/20 10:31 Keppra - PO 500 mg DAILY ANTONI Administration Metoprolol Succinate 12.5 mg 06/10/20 10:00 06/14/20 10:31 Toprol Xl - PO 12.5 mg BID ANTONI Administration Nystatin 1 applic 06/10/20 10:00 06/14/20 10:31 Mycostatin Cream - TP 1 applic BID ANTONI Administration Pantoprazole Sodium 40 mg 06/14/20 10:00 06/14/20 10:31 Protonix - PO 40 mg BID ANTONI Administration Pregabalin 50 mg 06/10/20 22:00 06/13/20 21:36 Lyrica - PO 50 mg HS ANTONI Administration Impression 1. CKD 2. EDGARDO 3. hyperkalemia 4. hld 5. anemia 6. a-fib 7. gi bleed 8. uterine cancer 9. hypernatremia Plan - sodium improved - renal function stabilizing - can d/c fluids - cardio input appreciated - avoid nsaids - encourage po free water intake
[2020-06-14 17:08] LABS: BASO % 0.2 % (0-2.0); HEMATOCRIT 25.6 % (32.4-45.2); HEMOGLOBIN 8.6 GM/dL (10.7-15.3); MCH 32.2 pg (25.7-33.7); MCHC 33.7 g/dl (32.0-36.0); MEAN CELL VOLUME 95.7 fl (80-96); MEAN PLT VOLUME 10.5 fl (7.5-11.1); MONO % 12.6 % (3.8-10.2); NEUT % 79.2 % (42.8-82.8); PLATELET COUNT 132 K/MM3 (134-434); RBC 2.68 M/mm3 (3.60-5.2); WHITE BLOOD COUNT 8.1 K/mm3 (4.0-10.0)
[2020-06-14] MEDS: ATORVASTATIN CA 10 MG TABLET (FP) PO SCH (21:34)
[2020-06-14] MEDS: PREGABALIN 50 MG CAPSULE PO SCH (21:34)
[2020-06-15 00:21] VITALS: PULSE 60
[2020-06-15 10:19] VITALS: BP 155/78; TEMP 98.4
[2020-06-15] MEDS: FLUTICASONE PROP 0.05% 16 GM NASAL SPRAY NS SCH (10:56)
[2020-06-15] MEDS: CEPHALEXIN MONOHYDRATE 500 MG CAPSULE (UD) PO SCH (10:56)
[2020-06-15] MEDS: levETIRAcetam 250 MG TABLET PO SCH (10:56)
[2020-06-15] MEDS: PANTOPRAZOLE 40 MG TABLET PO SCH (10:57)
[2020-06-15] MEDS: NYSTATIN 100,000 UNIT/GM TOPICAL CREAM 15 GM TUBE TP SCH (10:57)
[2020-06-15] MEDS: metoPROLOL SUCCINATE 25 MG TAB.SR.24H (FP) PO SCH (10:57)
--- NOTE | 2020-06-15 11:45 | PN ---
Progress Note, Physician Chief Complaint: Not in distress History of Present Illness: Patient was seen and examined. Awake and alert. Chart was reviewed Denies chest pain, SOB or palpitations - Current Medication List Current Medications: Active Medications Atorvastatin Calcium (Lipitor -) 10 mg PO HS [facility] Last Admin: 06/14/20 21:34 Dose: 10 mg Documented by: Cephalexin HCl (Keflex -) 500 mg PO BID [facility] Last Admin: 06/15/20 10:56 Dose: 500 mg Documented by: Fluticasone Propionate (Flonase -) 1 spray NS DAILY [facility] Last Admin: 06/15/20 10:56 Dose: 1 spray Documented by: Levetiracetam (Keppra -) 500 mg PO DAILY [facility] Last Admin: 06/15/20 10:56 Dose: 500 mg Documented by: Metoprolol Succinate (Toprol Xl -) 12.5 mg PO BID [facility] Last Admin: 06/15/20 10:57 Dose: 12.5 mg Documented by: Nystatin (Mycostatin Cream -) 1 applic TP BID [facility] Last Admin: 06/15/20 10:57 Dose: Not Given Documented by: Pantoprazole Sodium (Protonix -) 40 mg PO BID [facility] Last Admin: 06/15/20 10:57 Dose: 40 mg Documented by: Pregabalin (Lyrica -) 50 mg PO [facility] Last Admin: 06/14/20 21:34 Dose: 50 mg Documented by: - Objective Vital Signs: Vital Signs Temperature 98.4 F 06/15/20 10:00 Pulse Rate 60 06/15/20 10:00 Respiratory Rate 18 06/15/20 10:00 Blood Pressure 155/78 06/15/20 10:00 O2 Sat by Pulse Oximetry (%) 100 06/15/20 10:00 Neck: Yes: Supple Cardiovascular: Yes: Regular Rate and Rhythm, S1, S2. No: Murmur Respiratory: Yes: CTA Bilaterally Gastrointestinal: Yes: Normal Bowel Sounds, Soft. No: Tenderness Edema: No Labs: CBC, BMP 06/14/20 16:15 06/14/20 06:34 Problem List - Problems (1) Acute on chronic kidney failure Code(s): N17.9 - ACUTE KIDNEY FAILURE, UNSPECIFIED; N18.9 - CHRONIC KIDNEY DISEASE, UNSPECIFIED Qualifiers: Acute renal failure type: unspecified Chronic kidney disease stage: unspecified stage Qualified Code(s): N17.9 - Acute kidney failure, unspecified; N18.9 - Chronic kidney disease, unspecified (2) Anemia Code(s): D64.9 - ANEMIA, UNSPECIFIED Qualifiers: Anemia type: unspecified type Qualified Code(s): D64.9 - Anemia, unspecified (3) GI bleed Code(s): K92.2 - GASTROINTESTINAL HEMORRHAGE, UNSPECIFIED Qualifiers: GI bleed type/associated pathology: unspecified gastrointestinal hemorrhage type Qualified Code(s): K92.2 - Gastrointestinal hemorrhage, unspecified (4) HTN (hypertension) Code(s): I10 - ESSENTIAL (PRIMARY) HYPERTENSION (5) SAUL (obstructive sleep apnea) Code(s): G47.33 - OBSTRUCTIVE SLEEP APNEA (ADULT) (PEDIATRIC) (6) Cardiac pacemaker Code(s): Z95.0 - PRESENCE OF CARDIAC PACEMAKER (7) Coronary artery disease Code(s): I25.10 - ATHSCL HEART DISEASE OF [place] CORONARY ARTERY W/O ANG PCTRS Qualifiers: Coronary Disease-Associated Artery/Lesion type: [place] artery [place] vs. transplanted heart: [place] heart Associated angina: without angina Qualified Code(s): I25.10 - Atherosclerotic heart disease of [place] coronary artery without angina pectoris (8) Hyperlipidemia Code(s): E78.5 - HYPERLIPIDEMIA, UNSPECIFIED Qualifiers: Hyperlipidemia type: pure hypercholesterolemia Qualified Code(s): E78.00 - Pure hypercholesterolemia, unspecified; E78.0 - Pure hypercholesterolemia (9) Hypertensive cardiovascular disease Code(s): I11.9 - HYPERTENSIVE HEART DISEASE WITHOUT HEART FAILURE Qualifiers: Heart failure presence: without heart failure Qualified Code(s): I11.9 - Hypertensive heart disease without heart failure (10) Paroxysmal atrial fibrillation Code(s): I48.0 - PAROXYSMAL ATRIAL FIBRILLATION (11) Systolic dysfunction Code(s): I51.9 - HEART DISEASE, UNSPECIFIED Assessment/Plan 1. Anemia s/p transfusion PRBC likely GI source 2. CAD, angina pectoris 3. Diastolic/systolic dysfunction with class 0-1 NYHA classification heart failure 4. Sick sinus syndrome s/p PPM 5. PAF not on anticoagulation due to GI bleed 6. HTN 7. DM 8. Hypercholesterolemia 9. Mitral valve and tricuspid valve regurgitations 10. Aortic valve regurgitation 11. CKD 12. Hyperkalemia PLAN: 1. Follow CBC and transfuse PRBC as needed 2. Continue Metoprolol Succinate 12.5 mg BID 3. Atorvastatin 10 mg QHS 4. ACEI held due to renal insufficiency, but to be considered once renal function stabilizes 5. Watchman as outpatient as planned Adair Singh MD
--- NOTE | 2020-06-15 11:59 | DS ---
Physical Examination Vital Signs: Vital Signs Temperature 98.4 F 06/15/20 10:00 Pulse Rate 60 06/15/20 10:00 Respiratory Rate 18 06/15/20 10:00 Blood Pressure 155/78 06/15/20 10:00 O2 Sat by Pulse Oximetry (%) 100 06/15/20 10:00 Cardiovascular: Yes: S1, S2 Respiratory: Yes: Regular, CTA Bilaterally Gastrointestinal: Yes: Normal Bowel Sounds, Soft Labs: CBC, BMP 06/14/20 16:15 06/14/20 06:34 Discharge Summary Problems reviewed: Yes Reason For Visit: ANEMIA Current Active Problems Acute on chronic kidney failure (Acute) Anemia (Acute) Encounter for screening laboratory testing for COVID-19 virus (Acute) GI bleed (Acute) Guaiac + stool (Acute) Symptomatic anemia (Acute) UTI (urinary tract infection) (Acute) Hospital Course: - Problems (1) Guaiac + stool Assessment/Plan: -Seen by GI -Has had multiple scopes without an actual source of GI bleed identified -Continue to hold AC -s/p 1 U PRBC -Monitor H/H closely -PPI Problems reviewed: Yes Code(s): R19.5 - OTHER FECAL ABNORMALITIES (2) Acute on chronic kidney failure Assessment/Plan: -Baseline Cr at 1.8 -dc IVF -Nephrology consult -/ to UTI? -Monitor trend Problems reviewed: Yes Code(s): N17.9 - ACUTE KIDNEY FAILURE, UNSPECIFIED; N18.9 - CHRONIC KIDNEY DISEASE, UNSPECIFIED Qualifiers: Acute renal failure type: unspecified Chronic kidney disease stage: unspecified stage Qualified Code(s): N17.9 - Acute kidney failure, unspecified; N18.9 - Chronic kidney disease, unspecified (3) Anemia Assessment/Plan: -Multifactorial -Previously low in Iron % -Injectafer once -Continue feosol BID -Hematology consult -s/p 1 U PRBC -Transfuse only if Hg<7.0 to avoid fluid overload -monitor trend -Also check B12, Thyroid and FA Problems reviewed: Yes Code(s): D64.9 - ANEMIA, UNSPECIFIED Qualifiers: Anemia type: unspecified type Qualified Code(s): D64.9 - Anemia, unspecified (4) UTI (urinary tract infection) Assessment/Plan: -UC: Microbiology 06/10/20 01:30 Urine - Urine Clean Catch Urine Culture - Final Escherichia Coli Proteus Species -IV rocephin--to po -ID consult -Afebrile Problems reviewed: Yes Code(s): N39.0 - URINARY TRACT INFECTION, SITE NOT SPECIFIED (5) Coronary artery disease Assessment/Plan: -Cardiology consult -Continue BB + Statin Problems reviewed: Yes Code(s): I25.10 - ATHSCL HEART DISEASE OF [place] CORONARY ARTERY W/O ANG PCTRS Qualifiers: Coronary Disease-Associated Artery/Lesion type: [place] artery [place] vs. transplanted heart: [place] heart Associated angina: without angina Qualified Code(s): I25.10 - Atherosclerotic heart disease of [place] coronary artery without angina pectoris (6) Paroxysmal atrial fibrillation Assessment/Plan: -Chronic, rate controlled -Hold AC -For Watchman device as outpatient -Echo on Cardiology discretion Problems reviewed: Yes Code(s): I48.0 - PAROXYSMAL ATRIAL FIBRILLATION dc snf if cbc stable Condition: Stable - Instructions Diet, Activity, Other Instructions: bmp and cbc twice a week - Home Medications Comprehensive Discharge Medication List: Ambulatory Orders Fluticasone Prop 0.05% Nasal [Flonase -] 1 sprays DAILY 03/10/19 Levetiracetam [Keppra] 500 mg PO DAILY 03/10/19 Metoprolol Succinate [Toprol Xl] 12.5 mg PO BID 03/10/19 Pregabalin [Lyrica] 50 mg PO HS 03/10/19 Simvastatin 10 mg PO HS 03/10/19 Cholecalciferol (Vitamin D3) [Vitamin D3] 2,000 unit PO DAILY 10/16/19 Docusate Sodium [Colace] 200 mg PO HS 10/16/19 Mupirocin Ointment [Bactroban 2% Ointment -] 1 applic BID 10/16/19 Sennosides/Docusate Sodium [Senokot-S Tablet] 2 each PO HS 10/16/19 Acetaminophen [Tylenol .Extra-Strength -] 500 mg PO PRN 12/16/19 Nystatin Cream [Mycostatin Cream -] 1 applic TP BID applic 12/20/19 Ascorbic Acid 500 mg PO BID 06/10/20 Ferrous Sulfate [Feosol] 1 tab PO BID 06/10/20 Insulin Glargine,Hum.rec.anlog [Lantus] 5 unit SQ HS 06/10/20 Insulin Lispro [Humalog] 5 unit SQ AC 06/10/20 Pantoprazole Sodium 40 mg PO BID 06/10/20 Cephalexin Monohydrate [Keflex -] 500 mg PO BID capsule 06/14/20 Sodium Zirconium Cyclosilicate [Lokelma] 10 gm PO DAILY packet 06/14/20
--- NOTE | 2020-06-15 13:28 | PN ---
Progress Note, Physician History of Present Illness: Pt seen and examined at bedside. She feels comfortable. - Current Medication List Current Medications: Active Medications Atorvastatin Calcium (Lipitor -) 10 mg PO HS [facility] Last Admin: 06/14/20 21:34 Dose: 10 mg Documented by: Cephalexin HCl (Keflex -) 500 mg PO BID [facility] Last Admin: 06/15/20 10:56 Dose: 500 mg Documented by: Fluticasone Propionate (Flonase -) 1 spray NS DAILY [facility] Last Admin: 06/15/20 10:56 Dose: 1 spray Documented by: Levetiracetam (Keppra -) 500 mg PO DAILY [facility] Last Admin: 06/15/20 10:56 Dose: 500 mg Documented by: Metoprolol Succinate (Toprol Xl -) 12.5 mg PO BID [facility] Last Admin: 06/15/20 10:57 Dose: 12.5 mg Documented by: Nystatin (Mycostatin Cream -) 1 applic TP BID [facility] Last Admin: 06/15/20 10:57 Dose: Not Given Documented by: Pantoprazole Sodium (Protonix -) 40 mg PO BID [facility] Last Admin: 06/15/20 10:57 Dose: 40 mg Documented by: Pregabalin (Lyrica -) 50 mg PO [facility] Last Admin: 06/14/20 21:34 Dose: 50 mg Documented by: - Objective Vital Signs: Vital Signs Temperature 98.4 F 06/15/20 10:00 Pulse Rate 60 06/15/20 10:00 Respiratory Rate 18 06/15/20 10:00 Blood Pressure 155/78 06/15/20 10:00 O2 Sat by Pulse Oximetry (%) 100 06/15/20 10:00 Constitutional: Yes: Calm Eyes: Yes: Conjunctiva Clear HENT: Yes: Atraumatic Neck: Yes: Supple Cardiovascular: Yes: S1, S2 Respiratory: Yes: CTA Bilaterally Gastrointestinal: Yes: Normal Bowel Sounds, Soft Genitourinary: Yes: WNL Musculoskeletal: Yes: WNL Edema: No Neurological: Yes: Oriented Psychiatric: Yes: Oriented Labs: CBC, BMP 06/14/20 16:15 06/14/20 06:34 INR, PTT INR 0.84 (0.83-1.09) 06/09/20 19:50 Problem List - Problems (1) Acute on chronic kidney failure Code(s): N17.9 - ACUTE KIDNEY FAILURE, UNSPECIFIED; N18.9 - CHRONIC KIDNEY DISEASE, UNSPECIFIED Qualifiers: Acute renal failure type: unspecified Chronic kidney disease stage: unspecified stage Qualified Code(s): N17.9 - Acute kidney failure, unspecified; N18.9 - Chronic kidney disease, unspecified Assessment/Plan Current Medications Generic Name Dose Route Start Last Admin Trade Name Gurinder PRN Reason Stop Dose Admin Atorvastatin Calcium 10 mg 06/10/20 22:00 06/14/20 21:34 Lipitor - PO 10 mg HS ANTONI Administration Cephalexin HCl 500 mg 06/14/20 10:00 06/15/20 10:56 Keflex - PO 500 mg BID ANTONI Administration Fluticasone Propionate 1 spray 06/10/20 10:00 06/15/20 10:56 Flonase - NS 1 spray DAILY ANTONI Administration Levetiracetam 500 mg 06/10/20 10:00 06/15/20 10:56 Keppra - PO 500 mg DAILY ANTONI Administration Metoprolol Succinate 12.5 mg 06/10/20 10:00 06/15/20 10:57 Toprol Xl - PO 12.5 mg BID ANTONI Administration Nystatin 1 applic 06/10/20 10:00 06/15/20 10:57 Mycostatin Cream - TP Not Given BID ANTONI Pantoprazole Sodium 40 mg 06/14/20 10:00 06/15/20 10:57 Protonix - PO 40 mg BID ANTONI Administration Pregabalin 50 mg 06/10/20 22:00 06/14/20 21:34 Lyrica - PO 50 mg HS ANTONI Administration Impression 1. CKD 2. EDGARDO 3. hyperkalemia 4. hld 5. anemia 6. a-fib 7. gi bleed 8. uterine cancer 9. hypernatremia Plan - no new labs - monitor bmp in rehab - avoid nephrotoxins - will need ckd workup as outpt - cardio input appreciated - avoid nsaids
== END 2020-06-15 13:30 | DRG 378 ==
LOC: JER 18:51 → JERBED 20:22 → J4S 06-10 01:02
PROVIDERS: ADMIT Internal Medicine; ATTEND Family Medicine
PROC: 30233N1 Transfusion of Nonautologous Red Blood Cells into Peripheral Vein, Percutaneous Approach (ICD-10-PCS; principal; 2020-06-10)
DX: K92.2 Gastrointestinal hemorrhage, unspecified (principal); C78.00 Secondary malignant neoplasm of unspecified lung; N17.9 Acute kidney failure, unspecified; E87.0 Hyperosmolality and hypernatremia; E87.2 Acidosis; N39.0 Urinary tract infection, site not specified; I13.0 Hypertensive heart and chronic kidney disease with heart failure and stage 1 through stage 4 chronic kidney disease, or unspecified chronic kidney disease; I50.42 Chronic combined systolic (congestive) and diastolic (congestive) heart failure; D64.9 Anemia, unspecified; E78.5 Hyperlipidemia, unspecified; I48.0 Paroxysmal atrial fibrillation; I48.91 Unspecified atrial fibrillation; E87.5 Hyperkalemia; E11.40 Type 2 diabetes mellitus with diabetic neuropathy, unspecified; B96.20 Unspecified Escherichia coli [E. coli] as the cause of diseases classified elsewhere; E11.22 Type 2 diabetes mellitus with diabetic chronic kidney disease; E04.1 Nontoxic single thyroid nodule; N18.9 Chronic kidney disease, unspecified; C55 Malignant neoplasm of uterus, part unspecified; J44.9 Chronic obstructive pulmonary disease, unspecified; R19.5 Other fecal abnormalities; I08.0 Rheumatic disorders of both mitral and aortic valves; E66.9 Obesity, unspecified; Z68.31 Body mass index [BMI] 31.0-31.9, adult; I25.10 Atherosclerotic heart disease of native coronary artery without angina pectoris; G47.33 Obstructive sleep apnea (adult) (pediatric); Z90.49 Acquired absence of other specified parts of digestive tract; Z96.653 Presence of artificial knee joint, bilateral; Z11.59 Encounter for screening for other viral diseases; Z85.038 Personal history of other malignant neoplasm of large intestine; Z95.0 Presence of cardiac pacemaker
CPT/HCPCS: 36415; 36430; 71045-TC-FY; 74176-TC; 80048; 80053; 81003; 82272; 82607; 82728; 82747; 82962; 83540; 83550; 83735; 84100; 84439; 84443; 85014; 85025; 85027; 85610; 85730; 86850; 86900; 86901; 86922; 87086; 87186; 93005; 93010; 97116-GP; 97161-GP; 99285-25; J1439; P9058; U0003

== ENCOUNTER 2020-07-04 06:11 | Day surgery (SDC) | payer OTHER ==
--- OUTSIDE RECORDS SUMMARY | 2020-07-04 06:15 | XMS ---
:1935 Author Organization [facility] Care Team Providers Name Role Phone MD Kyrie Blandon Unavailable Unavailable STAFF, DOCTOR NOT ON Unavailable Unavailable Re-disclosure Warning The records that you are about to access may contain information from federally- assisted alcohol or drug abuse programs. If such information is present, then the following federally mandated warning applies: This information has been disclosed to you from records protected by federal confidentiality rules (42 CFR part 2). The federal rules prohibit you from making any further disclosure of this information unless further disclosure is expressly permitted by the written consent of the person to whom it pertains or as otherwise permitted by 42 CFR part 2. A general authorization for the release of medical or other information is NOT sufficient for this purpose. The Federal rules restrict any use of the information to criminally investigate or prosecute any alcohol or drug abuse patient.The records that you are about to access may contain highly sensitive health information, the redisclosure of which is protected by Article 27-F of the [facility] Public Health law. If you continue you may haveaccess to information: Regarding HIV / AIDS; Provided by facilities licensed or operated by the [facility] Office of Mental Health; or Provided by the [facility] Office for People With Developmental Disabilities. If such information is present, then the following [facility] mandated warning applies: This information has been disclosed to you from confidential records which are protected by state law. State law prohibits you from making any further disclosure of this information without the specific written consent of the person to whom it pertains, or as otherwise permitted by law. Any unauthorized further disclosure in violation of state law may result in a fine or nursing home sentence or both. A general authorization for the release of medical or other information is NOT sufficient authorization for further disclosure. Encounters Encounter Providers Location Date Indications Data Source(s ) Outpatient 04/19/2020 [facility] [place] 09:54:00 AM EDT TREATMENT DECISION H ospital RE-EVALUATION FOR TREATMENT DECISION Outpatient 10/05/2019 11:02:00 AM EST COLON CA [facility] COLON CA Outpatient Attender: DOCTOR 04/15/2019 07:04:00 COLON CA Y ES [place] STAFF AM EDT DIABETIC 169LBS [facility] COLON CA YES DIABETIC 169LBS Outpatient Attender: MD Mittal ICU-LAB 02/04/2019 02:10:00 PM S - [facility] EDT - 02/04/2019 Hospital 11:59:00 PM EDT Insurance Providers Payer name Policy type Policy ID Covered Covered alliance party's Policy P ronnie / Coverage alliance party ID relationship to Noel Inf ormation type noel [place] [id number] HEALTHCARE (MEDICARE) MEDICAID [id number] SP [id number] [place] [id number] PT [id number] HEALTHCARE [facility] MEDICAID [id number] PT [id number] [facility] MEDICARE [id number] SP [id number] MEDICARE [id number] SP [id number] MEDICAID [id number] SP [id number] MEDICARE [id number] PT [id number] V01 [place] MED[place] [id number] 1 [id number] [place] OF [id number] [place] MED[place] [id number] SP [id number] V01 MEDICARE [id number] PT [id number] A MEDICARE [id number] PT [id number] W01 [place] [id number] PART B [place] Medicare Part Medicare [id number] B Outpatient Problems, Conditions, and Diagnoses Code Display Name Description Problem Type Effective Dates Data Source(s) J90 Pleural effusion, not J9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/19/2020 [place] elsewhere classified 09:54:00 AM EDT Hospital K80.20 Calculus of K80.2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/19/2020 [place] gallbladder without 09:54:00 AM EDT Hospital cholecystitis without obstruction K44.9 Diaphragmatic hernia K44.9 Diagnosis 04/19/2020 [place] without obstruction or 09:54:00 AM E DT Hospital gangrene 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 [place]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 09:54:00 AM EDT Hospital 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.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/19/2020 [place] retroperitoneum 09:54:00 AM EDT Hosp ital 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 11:02:00 AM ES 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 Diagnosis 10/05/2019 [place] endometrium 11:02:00 AM EST Hospital C18.2 Malignant neoplasm of C18.2 Diagnosis 10/05/2019 [place] ascending colon 11:02:00 AM EST Hosp ital 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 [place] both cervix and uterus 07:04:00 AM E DT Hospital Z85.42 Personal history of Z85.42 Diagnosis 04/15/2019 [place] malignant neoplasm of 07:04:00 AM ED T Hospital other parts of uterus C18.4 Malignant neoplasm of C18.4 Diagnosis 04/15/2019 [place] transverse colon 07:04:00 AM EDT Hos pital C18.9 Malignant neoplasm of C18.9 Diagnosis 04/15/2019 [place] colon, unspecified 07:04:00 AM EDT H ospital R53.1 Weakness Weakness Diagnosis 02/04/2019 [facility] - New 02:10:00 PM EDT [facility] Results ID Date Data Source [id number] 06/15/2020 11:17:00 AM EDT [facility] Name Value Range Interpretation Code Description Data Hetal rce(s) Supporting Document(s ) HOLOGIC [facility] SARS-CoV-2 TMA PCR This lab was ordered by [facility] and reported by [employer]. ID Date Data Source [id number] 06/14/2020 10:40:00 AM EDT [facility] Name Value Range Interpretation Description Data Sup porting Code Source(s) Document(s ) SARS [facility] coronavirus 2 RNA This lab was ordered by [facility] and reported by [facility]. ID Date Data Source [id number] 06/09/2020 11:51:00 PM EDT [facility] Name Value Range Interpretation Description Data Sup porting Code Source(s) Document(s ) SARS [facility] coronavirus 2 RNA This lab was ordered by [facility] and reported by [facility]. ID Date Data Source [id number] 03/24/2020 12:00:00 AM EDT [facility] Name Value Range Interpretation Code Description Data Hetal rce(s) Supporting Document(s ) 2019-nCoV [facility] RNA XXX AMALIA+probe- Imp This lab was ordered by [facility] and reported by [employer] Procedure
[2020-07-04] MEDS ORDERED: HYDROCORTISONE SOD SUCCINATE 100 MG/2 ML VIAL IVPUSH PRN (12:41)
[2020-07-04] MEDS ORDERED: diphenhydrAMINE HCL 25 MG CAPSULE (FP) PO PRN (12:41)
[2020-07-04] MEDS ORDERED: IRON SUCROSE INJECTION 200 MG in SODIUM CHLORIDE 100 ML IVPB ONE (13:00)
[2020-07-04 13:39] LABS: BASO % 0.7 % (0-2.0); EOS % 1.6 % (0-4.5); HEMATOCRIT 25.2 % (32.4-45.2); HEMOGLOBIN 8.4 GM/dL (10.7-15.3); LYMPH % 6.9 % (8-40); MCH 31.8 pg (25.7-33.7); MCHC 33.4 g/dl (32.0-36.0); MEAN CELL VOLUME 95.1 fl (80-96); NEUT % 79.8 % (42.8-82.8); PLATELET COUNT 134 K/MM3 (134-434); RBC 2.64 M/mm3 (3.60-5.2); RDW 17.6 % (11.6-15.6); WHITE BLOOD COUNT 6.6 K/mm3 (4.0-10.0)
[2020-07-04 14:12] LABS: ALBUMIN 3.6 g/dl (3.4-5.0); BILIRUBIN,DIRECT 0.1 mg/dL (0.0-0.2); BILIRUBIN,TOTAL 0.6 mg/dL (0.2-1); BLOOD UREA NITROGEN 71.8 mg/dL (7-18); CALCIUM 8.7 mg/dL (8.5-10.1); CREATININE 2.1 mg/dL (0.55-1.3); MAGNESIUM 1.9 mg/dL (1.8-2.4); POTASSIUM 4.1 mmol/L (3.5-5.1); TOT PROT 5.9 g/dl (6.4-8.2)
[2020-07-04 15:04] LABS: PLATELET ESTIMATE SLT DECREASE; TEAR DROP CELLS 1+
[2020-07-04 17:35] VITALS: TEMP 97.6
[2020-07-04 17:48] VITALS: BP 136/56; PULSE 61
== END 2020-07-04 15:00 ==
LOC: JONCNONCHE 06:11
PROVIDERS: ATTEND Internal Medicine Hematology & Oncology
PROC: 3E033GC Introduction of Other Therapeutic Substance into Peripheral Vein, Percutaneous Approach (ICD-10-PCS; principal; 2020-07-04)
DX: D50.9 Iron deficiency anemia, unspecified (principal); C18.9 Malignant neoplasm of colon, unspecified; E11.22 Type 2 diabetes mellitus with diabetic chronic kidney disease; N18.9 Chronic kidney disease, unspecified; I25.10 Atherosclerotic heart disease of native coronary artery without angina pectoris; I50.20 Unspecified systolic (congestive) heart failure; I48.91 Unspecified atrial fibrillation; Z95.0 Presence of cardiac pacemaker
CPT/HCPCS: 36415; 80048; 80076; 82728; 83540; 83550; 83615; 83735; 85025; 96365; J1756

== ENCOUNTER 2020-07-11 06:48 | Day surgery (SDC) | payer OTHER ==
--- OUTSIDE RECORDS SUMMARY | 2020-07-11 06:52 | XMS ---
:1935 Author Organization [facility] Care Team Providers Name Role Phone MD [...] is protected by Article 27-F of the [facility] Public Health law. If you continue you may haveaccess to information: Regarding HIV / AIDS; Provided by facilities licensed or operated by the [facility] Office of Mental Health; or Provided by the [facility] Office for People With Developmental Disabilities. If such information is present, then the following [facility] mandated warning applies: This information has [...] law may result in a fine or mcc sentence or both. A general authorization for the release of medical or other information is NOT sufficient authorization for further disclosure. Encounters Encounter Providers Location Date Indications Data Source(s ) Outpatient 04/19/2020 [facility] [place] 09:54:00 AM EDT TREATMENT DECISION H ospital RE-EVALUATION FOR TREATMENT DECISION Outpatient 10/05/2019 11:02:00 AM EST COLON CA [facility] COLON CA Outpatient Attender: DOCTOR 04/15/2019 07:04:00 [place]ON [place] Y ES [place] STAFF AM EDT DIABETIC 169LBS Hospital COLON CA YES DIABETIC 169LBS Outpatient Attender: MD Mittal ICU-LAB 02/04/2019 02:10:00 PM S - [facility] EDT - 02/04/2019 [facility] 11:59:00 PM EDT Insurance Providers Payer name Policy type Policy ID Covered Covered libertarian's Policy P ronnie / Coverage libertarian ID relationship to Noel Inf ormation type noel [place] [id number] SP [id number] HEALTHCARE (MEDICARE) MEDICAID [id number] SP [id number] [place] [id number] PT [id number] [facility] MEDICAID [id number] PT [id number] [facility] MED[facility] [id number] SP [id number] MEDICARE [id number] SP [id number] V01 MEDICAID [id number] SP [id number] MEDICARE [id number] PT [id number] V01 [place] MEDICARE [id number] 1 [id number] PART B [place] MED[place] OF [id number] [place] MED[place] [id number] SP [id number] V01 MEDICARE [id number] PT [id number] A MEDICARE [id number] PT [id number] W01 [place] MEDIC[place] [id number] PART B [place] Medicare Part Medicare [id number] B Outpatient Problems, Conditions, and Diagnoses Code Display Name Description Problem Type Effective Dates Data Source(s) J90 Pleural effusion, not J9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/19/2020 [place] elsewhere classified 09:54:00 AM EDT Hospital K80.20 Calculus of K80.2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/19/2020 [place] gallbladder without 09:54:00 AM EDT Hospital cholecystitis without obstruction K44.9 Diaphragmatic hernia K44.9 Diagnosis 04/19/2020 [place] without obstruction or 09:54:00 AM E DT Hospital gangrene 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 [place]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 09:54:00 AM EDT Hospital 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.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/19/2020 [place] retroperitoneum 09:54:00 AM EDT Hosp ital 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 11:02:00 AM ES 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 Diagnosis 10/05/2019 [place] endometrium 11:02:00 AM EST Hospital C18.2 Malignant neoplasm of C18.2 Diagnosis 10/05/2019 [place] ascending colon 11:02:00 AM EST Hosp ital 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 Results ID Date Data Source [id number] 06/15/2020 11:17:00 AM EDT [facility] Name Value Range Interpretation Code Description Data Hetal rce(s) Supporting Document(s ) HOLOGIC [facility] SARS-CoV-2 TMA PCR This lab was ordered by [facility] and reported by [employer]. ID Date Data Source [id number] 06/14/2020 10:40:00 AM EDT [facility] Name Value Range Interpretation Description Data Sup porting Code Source(s) Document(s ) SARS [facility] coronavirus 2 RNA This lab was ordered by [facility] and reported by [facility]. ID Date Data Source [id number] 06/09/2020 11:51:00 PM EDT [facility] Name Value Range Interpretation Description Data Sup porting Code Source(s) Document(s ) SARS [facility] coronavirus 2 RNA This lab was ordered by [facility] and reported by [facility]. ID Date Data Source [id number] 03/24/2020 12:00:00 AM EDT [facility] Name Value Range Interpretation Code Description Data Hetal rce(s) Supporting Document(s ) 2019-nCoV [facility] RNA XXX AMALIA+probe- Imp This lab was ordered by [facility] and reported by [employer] Procedure
[2020-07-11] MEDS ORDERED: HYDROCORTISONE SOD SUCCINATE 100 MG/2 ML VIAL IVPUSH PRN (13:53)
[2020-07-11] MEDS ORDERED: diphenhydrAMINE HCL 50 MG CAPSULE PO PRN (13:53)
[2020-07-11] MEDS ORDERED: IRON SUCROSE INJECTION 200 MG in SODIUM CHLORIDE 100 ML IVPB ONE (14:00)
[2020-07-11 17:38] VITALS: TEMP 97.5
[2020-07-11 17:39] VITALS: BP 147/47; PULSE 65
== END 2020-07-11 15:15 | disposition home or self-care (01) ==
LOC: JONCCHEMO 06:48
PROVIDERS: ATTEND Internal Medicine Hematology & Oncology
DX: D50.9 Iron deficiency anemia, unspecified (principal)
CPT/HCPCS: 96365; J1756

== ENCOUNTER 2020-07-18 06:33 | Day surgery (SDC) | payer OTHER ==
--- OUTSIDE RECORDS SUMMARY | 2020-07-18 06:36 | XMS ---
[...] is protected by Article 27-F of the [facility] Public Health law. If you continue you may haveaccess to information: Regarding HIV / AIDS; Provided by facilities licensed or operated by the [facility] Office of Mental Health; or Provided by the [facility] Office for People With Developmental Disabilities. If such information is present, then the following [facility] mandated warning applies: This information has been [...] law may result in a fine or care home sentence or both. A general authorization for the release of medical or other information is NOT sufficient authorization for further disclosure. Encounters Encounter Providers Location Date Indications Data Source(s ) Outpatient 04/19/2020 [facility]-EVALUATION [place] 09:54:00 AM EDT TREATMENT DECISION H ospital RE-EVALUATION FOR TREATMENT DECISION Outpatient 10/05/2019 11:02:00 AM EST COLON CA [facility] COLON CA Outpatient Attender: DOCTOR 04/15/2019 07:04:00 [place]ON CA Y ES [place] STAFF AM EDT DIABETIC 169LBS Hospital COLON CA YES DIABETIC 169LBS Outpatient Attender: MD Mittal ICU-LAB 02/04/2019 02:10:00 PM S - [facility] EDT - 02/04/2019 [facility] 11:59:00 PM EDT Insurance Providers Payer name Policy type Policy ID Covered Covered republican's Policy P ronnie / Coverage republican ID relationship to Noel Inf ormation type noel [place] [id number] SP [id number] [facility] (MEDICARE) MEDICAID [id number] SP [id number] [facility] MEDICARE [id number] SP [id number] [place] [id number] PT [id number] HEALTHCARE [facility] MEDICAID [id number] PT [id number] MEDICARE [id number] SP [id number] V01 MEDICAID [id number] SP [id number] MEDICARE [id number] PT [id number] V01 [place] MEDICARE [id number] 1 [id number] PART B [place] MED[place] OF [id number] [place] MED[place] [id number] SP [id number] V01 MEDICARE [id number] PT [id number] MEDICARE [id number] PT [id number] [place] MEDICARE [id number] PART B [place] Medicare Part Medicare [id number] B Outpatient Problems, Conditions, and Diagnoses Code Display Name Description Problem Type Effective Dates Data Source(s) J90 Pleural effusion, not J9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/19/2020 [facility] elsewhere classified 09:54:00 AM EDT Hospital K80.20 Calculus of K80.2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/19/2020 [place] gallbladder without 09:54:00 AM EDT Hospital cholecystitis without obstruction K44.9 Diaphragmatic hernia K44.9 Diagnosis 04/19/2020 [place] without obstruction or 09:54:00 AM E DT Hospital gangrene 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 [facility] [place] goiter 09:54:00 AM EDT Hospital C48.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/19/2020 [facility] [place] retroperitoneum 09:54:00 AM EDT Hosp ital 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 11:02:00 AM ES 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 Diagnosis 10/05/2019 [facility] endometrium 11:02:00 AM EST Hospital C18.2 Malignant neoplasm of C18.2 Diagnosis 10/05/2019 [place] ascending colon 11:02:00 AM EST Hosp ital 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 [place] both cervix and uterus 07:04:00 AM E DT Hospital Z85.42 Personal history of Z85.42 Diagnosis 04/15/2019 [place] malignant neoplasm of 07:04:00 AM ED T Hospital other parts of uterus C18.4 Malignant neoplasm of C18.4 Diagnosis 04/15/2019 [place] transverse colon 07:04:00 AM EDT Hos pital C18.9 Malignant neoplasm of C18.9 Diagnosis 04/15/2019 [facility] colon, unspecified 07:04:00 AM EDT H ospital R53.1 Weakness Weakness Diagnosis 02/04/2019 [facility] - New 02:10:00 PM EDT [facility] Results ID Date Data Source [id number] 07/07/2020 05:38:00 AM EDT [facility] Name Value Range Interpretation Code Description Data Hetal rce(s) Supporting Document(s ) HOLOGIC [facility] SARS-CoV-2 TMA PCR This lab was ordered by [facility] and reported by [employer]. ID Date Data Source [id number] 06/15/2020 11:17:00 AM EDT [facility] Name Value Range Interpretation Code Description Data Hetal rce(s) Supporting Document(s ) HOLOGIC [facility] SARS-CoV-2 TMA PCR This lab was ordered by [facility] and reported by [employer]. ID Date Data Source [id number] 06/14/2020 10:40:00 AM EDT [facility] Name Value Range Interpretation Description Data Sup porting Code Source(s) Document(s ) SARS [facility] coronavirus 2 RNA This lab was ordered by [facility] and reported by [facility]. ID Date Data Source [id number] 06/09/2020 11:51:00 PM EDT [facility] Name Value Range Interpretation Description Data Sup porting Code Source(s) Document(s ) SARS [facility] coronavirus 2 RNA This lab was ordered by [facility] and reported by [facility]. ID Date Data Source [id number] 03/24/2020 12:00:00 AM EDT [facility] Name Value Range Interpretation Code Description Data Hetal rce(s) Supporting Document(s ) 2019-nCoV [facility] RNA XXX AMALIA+probe- Imp This lab was ordered by [facility] and reported by [employer] Procedure
[2020-07-18] MEDS ORDERED: IRON SUCROSE INJECTION 200 MG in SODIUM CHLORIDE 100 ML IVPB ONE (10:00)
[2020-07-18 13:33] LABS: BASO % 0.2 % (0-2.0); EOS % 1.6 % (0-4.5); HEMATOCRIT 25.9 % (32.4-45.2); HEMOGLOBIN 8.4 GM/dL (10.7-15.3); LYMPH % 6.4 % (8-40); MCH 31.8 pg (25.7-33.7); MCHC 32.4 g/dl (32.0-36.0); MEAN CELL VOLUME 98.1 fl (80-96); MEAN PLT VOLUME 10.4 fl (7.5-11.1); MONO % 12.3 % (3.8-10.2); NEUT % 79.5 % (42.8-82.8); PLATELET COUNT 141 K/MM3 (134-434); RBC 2.64 M/mm3 (3.60-5.2); RDW 18.3 % (11.6-15.6); WHITE BLOOD COUNT 6.4 K/mm3 (4.0-10.0)
[2020-07-18 14:18] LABS: ANISOCYTOSIS 1+; MACROCYTOSIS 1+; PLATELET ESTIMATE DECREASED
[2020-07-18 14:48] VITALS: BP 171/65; PULSE 59; TEMP 98.1
== END 2020-07-18 13:00 ==
LOC: JONCCHEMO 06:33
PROVIDERS: ATTEND Internal Medicine Hematology & Oncology
DX: Z53.8 Procedure and treatment not carried out for other reasons (principal)
CPT/HCPCS: 36415; 36430; 85025; 86850; 86900; 86901; 86922; 96365; P9058

== ENCOUNTER 2020-07-20 06:11 | Day surgery (SDC) | payer OTHER ==
[2020-07-20 09:27] VITALS: TEMP 97.7
[2020-07-20] MEDS ORDERED: FUROSEMIDE 40 MG/4 ML INJECTABLE VIAL IVPUSH ONE (12:00)
[2020-07-20 18:06] VITALS: BP 149/73; PULSE 63
[2020-07-20 19:39] LABS: BASO % 0.2 % (0-2.0); EOS % 1.2 % (0-4.5); HEMATOCRIT 34.5 % (32.4-45.2); HEMOGLOBIN 11.8 GM/dL (10.7-15.3); LYMPH % 6.6 % (8-40); MCH 32.7 pg (25.7-33.7); MCHC 34.2 g/dl (32.0-36.0); MEAN CELL VOLUME 95.5 fl (80-96); MEAN PLT VOLUME 10.6 fl (7.5-11.1); MONO % 11.5 % (3.8-10.2); NEUT % 80.5 % (42.8-82.8); PLATELET COUNT 134 K/MM3 (134-434); RBC 3.61 M/mm3 (3.60-5.2); RDW 17.8 % (11.6-15.6)
[2020-07-20 21:18] LABS: ANISOCYTOSIS 1+
[2020-07-20 21:19] LABS: PLATELET ESTIMATE DECREASED
== END 2020-07-20 20:44 ==
LOC: JONCBLOOD 06:11 → J7W 07:26 → JONCBLOOD 20:44
PROVIDERS: ATTEND Internal Medicine Hematology & Oncology
PROC: 30233N1 Transfusion of Nonautologous Red Blood Cells into Peripheral Vein, Percutaneous Approach (ICD-10-PCS; principal; 2020-07-20)
DX: D64.9 Anemia, unspecified (principal)
CPT/HCPCS: 36415; 36430; 85025; 86850; 86900; 86901; 86922; P9058

== ENCOUNTER 2020-09-20 12:13 | Inpatient (IN) | payer OTHER ==
[2020-09-20 14:26] LABS: BASO % 0.2 % (0-2.0); EOS % 1.2 % (0-4.5); HEMATOCRIT 22.3 % (32.4-45.2); HEMOGLOBIN 7.1 GM/dL (10.7-15.3); LYMPH % 9.1 % (8-40); MCH 32.6 pg (25.7-33.7); MCHC 31.9 g/dl (32.0-36.0); MEAN CELL VOLUME 102.2 fl (80-96); MEAN PLT VOLUME 11.2 fl (7.5-11.1); MONO % 8.9 % (3.8-10.2); NEUT % 80.6 % (42.8-82.8); PLATELET COUNT 126 K/MM3 (134-434); RBC 2.18 M/mm3 (3.60-5.2); RDW 16.6 % (11.6-15.6); WHITE BLOOD COUNT 6.4 K/mm3 (4.0-10.0)
[2020-09-20 14:31] LABS: INR 0.97 (0.83-1.09); PROTHROMBIN TIME (PATIENT) 11.8 SEC (9.7-13.0)
[2020-09-20 14:43] LABS: POTASSIUM 5.6 mmol/L (3.5-5.1)
[2020-09-20 14:47] LABS: ALBUMIN 3.5 g/dl (3.4-5.0); CALCIUM 8.7 mg/dL (8.5-10.1)
[2020-09-20 14:53] LABS: BILIRUBIN,TOTAL 0.4 mg/dL (0.2-1); TOT PROT 5.8 g/dl (6.4-8.2)
[2020-09-20 15:07] LABS: ANISOCYTOSIS 1+; MACROCYTOSIS 1+; PLATELET ESTIMATE DECREASED
[2020-09-20] MEDS ORDERED: FUROSEMIDE 40 MG/4 ML INJECTABLE VIAL IVPUSH ONE (15:07)
[2020-09-20] MEDS ORDERED: LACTATED RINGERS SOLUTION 1000 ML INFUS.BAG IV ONE (15:08)
[2020-09-20 15:35] LABS: BLOOD UREA NITROGEN 110.8 mg/dL (7-18)
[2020-09-20] MEDS ORDERED: CEFTRIAXONE 1,000 MG in DEXTROSE 5%-WATER - 50 ML IVPB ONE (15:51)
[2020-09-20] MEDS ORDERED: FUROSEMIDE 40 MG/4 ML INJECTABLE VIAL ONE (15:59)
[2020-09-20] MEDS ORDERED: CEFTRIAXONE 1 GM/50 ML BAG ONE (15:59)
[2020-09-20 16:15] LABS: LDH 433 U/L (84-246)
[2020-09-20] MEDS: SODIUM CHLORIDE 0.45% 500 ML IV SCH (16:25)
[2020-09-20] MEDS ORDERED: VANCOMYCIN 1,000 MG in DEXTROSE 5%-WATER - 250 ML IVPB ONE (16:45)
[2020-09-20] MEDS ORDERED: PIPERACILLIN/TAZOB 4.5 GM 4.5 GM in DEXTROSE 5%-WATER - 100 ML IVPB ONE (16:45)
[2020-09-20] MEDS ORDERED: VANCOMYCIN 1 GRAM (PRE-DOCKED) 1,000 MG/250 ML BAG IVPB ONE (17:30)
[2020-09-20] MEDS ORDERED: PIPERACILLIN/TAZOB 4.5 GM 4.5 GM/100 ML BAG IVPB ONE (17:30)
[2020-09-20 19:21] LABS: POTASSIUM 5.6 mmol/L (3.5-5.1)
[2020-09-20 19:22] LABS: CALCIUM 8.5 mg/dL (8.5-10.1)
[2020-09-20 19:26] LABS: CREATININE 2.8 mg/dL (0.55-1.3)
[2020-09-20 19:41] LABS: BLOOD UREA NITROGEN 105.9 mg/dL (7-18)
[2020-09-20] MEDS ORDERED: HEPARIN NA (PORCINE) 5,000 UNITS/ML 1ML VIAL SQ SCH (22:00)
[2020-09-20] MEDS ORDERED: FLU VACCINE (FLULAVAL) PF 60 MCG/0.5 ML SYRINGE 2020-2021 IM ONE (23:23)
[2020-09-21] MEDS: PREGABALIN 50 MG CAPSULE PO SCH ×2 (00:06→21:22)
[2020-09-21] MEDS: metoPROLOL SUCCINATE 25 MG TAB.SR.24H (FP) PO SCH ×3 (00:06→21:22)
[2020-09-21] MEDS: PANTOPRAZOLE 40 MG TABLET PO SCH ×3 (00:07→21:22)
[2020-09-21] MEDS: ATORVASTATIN CA 10 MG TABLET (FP) PO SCH ×2 (00:07→21:22)
[2020-09-21] MEDS ORDERED: PIPERACILLIN/TAZOB 2.25 GM 2.25 GM in DEXTROSE 5%-WATER - 50 ML IVPB SCH (02:00)
[2020-09-21] MEDS ORDERED: LACTATED RINGERS SOLUTION 1000 ML INFUS.BAG IV ONE (04:10)
[2020-09-21 04:23] LABS: EPI CELLS 2 /uL (0-25.1); HYALINE CASTS 0 /uL (0-3.1); URINE APPEARANCE CLEAR; URINE BACTERIA 3 /uL (0-1359); URINE BILIRUBIN NEGATIVE (NEGATIVE); URINE COLOR YELLOW; URINE GLUCOSE (UA) NEGATIVE (NEGATIVE); URINE KETONE NEGATIVE (NEGATIVE); URINE LEUK ESTERASE NEGATIVE (NEGATIVE); URINE NITRITE NEGATIVE (NEGATIVE); URINE PROTEIN NEGATIVE (NEGATIVE); URINE RBC 7 /uL (0-23.9); URINE UROBILINOGEN 0.2 mg/dL (0.2-1.0); URINE WBC 2 /uL (0-25.8)
[2020-09-21] MEDS ORDERED: PIPERACILLIN/TAZOBACTAM 2.25 GM VIAL IVPB ONE ×2 (04:33→09:23)
[2020-09-21] MEDS ORDERED: DEXTROSE 5%-WATER - 50 ML IVPB ONE ×2 (04:33→09:23)
[2020-09-21 07:23] LABS: POTASSIUM 5.4 mmol/L (3.5-5.1)
[2020-09-21 07:25] LABS: BASO % 0.3 % (0-2.0); HEMATOCRIT 20.4 % (32.4-45.2); LYMPH % 9.8 % (8-40); MCH 32.4 pg (25.7-33.7); MCHC 32.5 g/dl (32.0-36.0); MEAN CELL VOLUME 99.8 fl (80-96); MEAN PLT VOLUME 11.3 fl (7.5-11.1); MONO % 9.3 % (3.8-10.2); NEUT % 79.6 % (42.8-82.8); PLATELET COUNT 116 K/MM3 (134-434); RBC 2.04 M/mm3 (3.60-5.2); RDW 16.2 % (11.6-15.6); WHITE BLOOD COUNT 5.6 K/mm3 (4.0-10.0)
[2020-09-21 07:29] LABS: ALBUMIN 3.1 g/dl (3.4-5.0); BLOOD UREA NITROGEN 100.8 mg/dL (7-18)
[2020-09-21 07:30] LABS: CALCIUM 8.2 mg/dL (8.5-10.1)
[2020-09-21 07:32] LABS: CREATININE 2.7 mg/dL (0.55-1.3); PHOSPHOROUS 5.6 mg/dL (2.5-4.9)
[2020-09-21 07:33] LABS: BILIRUBIN,TOTAL 1.2 mg/dL (0.2-1); TOT PROT 5.2 g/dl (6.4-8.2)
[2020-09-21 07:38] LABS: N-TERMINAL BNP 6828.6 pg/ml (5-450)
[2020-09-21 07:54] LABS: HEMOGLOBIN 6.6 GM/dL (10.7-15.3)
[2020-09-21] MEDS ORDERED: PT OWN MED DRAWER 7, Y5N ONE (09:23)
[2020-09-21 09:32] LABS: ANISOCYTOSIS 1+; HELMET CELLS 1+; MACROCYTOSIS 1+; PLATELET ESTIMATE DECREASED
[2020-09-21] MEDS ORDERED: AZITHROMYCIN 250 MG TABLET PO SCH (10:00)
[2020-09-21] MEDS: SODIUM ZIRCONIUM CYCLOSILICATE (LOKELMA) 10 GM PACKET PO SCH (10:46)
[2020-09-21] MEDS: levETIRAcetam 500 MG TABLET (FP) PO SCH (10:46)
[2020-09-21] MEDS: CEFTRIAXONE 2 GM in DEXTROSE 5%-WATER 2 GM/100 ML BAG IVPB SCH (12:47)
[2020-09-21 13:41] LABS: BASO % 0.1 % (0-2.0); EOS % 0.9 % (0-4.5); HEMATOCRIT 25.8 % (32.4-45.2); HEMOGLOBIN 8.4 GM/dL (10.7-15.3); LYMPH % 8.5 % (8-40); MCH 32.5 pg (25.7-33.7); MCHC 32.6 g/dl (32.0-36.0); MEAN CELL VOLUME 99.6 fl (80-96); MONO % 10.5 % (3.8-10.2); PLATELET COUNT 117 K/MM3 (134-434); RBC 2.59 M/mm3 (3.60-5.2); WHITE BLOOD COUNT 5.7 K/mm3 (4.0-10.0)
[2020-09-21 14:53] LABS: ANISOCYTOSIS 1+; MACROCYTOSIS 1+; PLATELET ESTIMATE DECREASED
[2020-09-21] MEDS ORDERED: SODIUM ZIRCONIUM CYCLOSILICATE (LOKELMA) 5 GM PACKET PO ONE (16:06)
[2020-09-21] MEDS: SODIUM CHLORIDE 0.45% 500 ML IV SCH (17:17)
[2020-09-21] MEDS ORDERED: DEXTROSE 5%-WATER - 1,000 ML with SODIUM BICARBONATE 8.4% - 75 MEQ IV SCH (17:45)
[2020-09-21] MEDS: SODIUM BICARBONATE 8.4% - 75 MEQ in DEXTROSE 5%-WATER - 1,000 ML IV SCH (19:15)
[2020-09-22 07:06] LABS: BASO % 0.3 % (0-2.0); EOS % 0.9 % (0-4.5); HEMATOCRIT 23.3 % (32.4-45.2); HEMOGLOBIN 7.5 GM/dL (10.7-15.3); MCH 31.6 pg (25.7-33.7); MCHC 32.3 g/dl (32.0-36.0); MEAN CELL VOLUME 97.9 fl (80-96); MEAN PLT VOLUME 11.4 fl (7.5-11.1); MONO % 11.5 % (3.8-10.2); NEUT % 77.3 % (42.8-82.8); PLATELET COUNT 115 K/MM3 (134-434); RBC 2.37 M/mm3 (3.60-5.2); RDW 16.3 % (11.6-15.6); WHITE BLOOD COUNT 5.6 K/mm3 (4.0-10.0)
[2020-09-22 07:20] LABS: POTASSIUM 4.8 mmol/L (3.5-5.1)
[2020-09-22 07:26] LABS: ALBUMIN 3.1 g/dl (3.4-5.0); CALCIUM 8.1 mg/dL (8.5-10.1)
[2020-09-22 07:30] LABS: BILIRUBIN,TOTAL 0.2 mg/dL (0.2-1); CREATININE 3.3 mg/dL (0.55-1.3); TOT PROT 5.2 g/dl (6.4-8.2)
[2020-09-22] MEDS: SODIUM BICARBONATE 8.4% - 75 MEQ in DEXTROSE 5%-WATER - 1,000 ML IV SCH ×2 (08:45→13:47)
[2020-09-22 09:27] LABS: ANISOCYTOSIS 0; MACROCYTOSIS 0; PLATELET ESTIMATE NORMAL
[2020-09-22] MEDS ORDERED: DEXTROSE 5%-WATER 100 ML IVPB ONE (10:22)
[2020-09-22] MEDS: levETIRAcetam 500 MG TABLET (FP) PO SCH (10:25)
[2020-09-22] MEDS: PANTOPRAZOLE 40 MG TABLET PO SCH ×2 (10:26→22:22)
[2020-09-22] MEDS: CEFTRIAXONE 2 GM in DEXTROSE 5%-WATER 2 GM/100 ML BAG IVPB SCH (10:27)
[2020-09-22] MEDS: metoPROLOL SUCCINATE 25 MG TAB.SR.24H (FP) PO SCH ×2 (10:34→22:22)
[2020-09-22] MEDS: SODIUM ZIRCONIUM CYCLOSILICATE (LOKELMA) 10 GM PACKET PO SCH (10:39)
[2020-09-22 13:14] VITALS: BMI 30.1
[2020-09-22] MEDS: SODIUM BICARBONATE 650 MG TABLET PO SCH ×2 (17:07→22:22)
[2020-09-22] MEDS: SODIUM CHLORIDE 0.45% 1,000 ML IV SCH (17:08)
[2020-09-22] MEDS: ATORVASTATIN CA 10 MG TABLET (FP) PO SCH (22:22)
[2020-09-22] MEDS: PREGABALIN 50 MG CAPSULE PO SCH (22:22)
[2020-09-23] MEDS: SODIUM CHLORIDE 0.45% 1,000 ML IV SCH (06:14)
[2020-09-23] MEDS: SODIUM BICARBONATE 650 MG TABLET PO SCH ×3 (06:14→23:16)
[2020-09-23 07:27] LABS: BASO % 0.2 % (0-2.0); EOS % 1.2 % (0-4.5); HEMATOCRIT 21.6 % (32.4-45.2); LYMPH % 9.3 % (8-40); MCH 31.8 pg (25.7-33.7); MCHC 32.7 g/dl (32.0-36.0); MEAN CELL VOLUME 97.2 fl (80-96); MONO % 10.9 % (3.8-10.2); NEUT % 78.4 % (42.8-82.8); PLATELET COUNT 103 K/MM3 (134-434); RBC 2.22 M/mm3 (3.60-5.2); RDW 16.5 % (11.6-15.6)
[2020-09-23 07:56] LABS: POTASSIUM 4.3 mmol/L (3.5-5.1)
[2020-09-23 08:10] LABS: CALCIUM 7.9 mg/dL (8.5-10.1)
[2020-09-23 08:11] LABS: ALBUMIN 2.7 g/dl (3.4-5.0); BLOOD UREA NITROGEN 83.2 mg/dL (7-18)
[2020-09-23 08:13] LABS: CREATININE 2.6 mg/dL (0.55-1.3)
[2020-09-23 08:15] LABS: TOT PROT 4.7 g/dl (6.4-8.2)
[2020-09-23 08:17] LABS: BILIRUBIN,TOTAL 0.7 mg/dL (0.2-1)
[2020-09-23] MEDS ORDERED: DEXTROSE 5%-WATER 100 ML IVPB ONE (09:33)
[2020-09-23] MEDS: levETIRAcetam 500 MG TABLET (FP) PO SCH (09:39)
[2020-09-23] MEDS: metoPROLOL SUCCINATE 25 MG TAB.SR.24H (FP) PO SCH ×2 (09:39→23:17)
[2020-09-23] MEDS: PANTOPRAZOLE 40 MG TABLET PO SCH ×2 (09:39→23:17)
[2020-09-23] MEDS: CEFTRIAXONE 2 GM in DEXTROSE 5%-WATER 2 GM/100 ML BAG IVPB SCH (09:39)
[2020-09-23 09:45] LABS: ANISOCYTOSIS 1+; MACROCYTOSIS 1+; PLATELET ESTIMATE NORMAL
[2020-09-23] MEDS: PREGABALIN 50 MG CAPSULE PO SCH (23:16)
[2020-09-23] MEDS: ATORVASTATIN CA 10 MG TABLET (FP) PO SCH (23:16)
[2020-09-23] MEDS: DEXTROSE 5%-WATER - 1,000 ML IV SCH (23:21)
[2020-09-24] MEDS: SODIUM BICARBONATE 650 MG TABLET PO SCH ×3 (06:36→22:21)
[2020-09-24 07:04] LABS: BASO % 0.5 % (0-2.0); EOS % 1.3 % (0-4.5); HEMATOCRIT 27.1 % (32.4-45.2); HEMOGLOBIN 9.1 GM/dL (10.7-15.3); LYMPH % 6.8 % (8-40); MCH 32.1 pg (25.7-33.7); MCHC 33.6 g/dl (32.0-36.0); MEAN CELL VOLUME 95.6 fl (80-96); MEAN PLT VOLUME 10.9 fl (7.5-11.1); MONO % 10.7 % (3.8-10.2); NEUT % 80.7 % (42.8-82.8); PLATELET COUNT 99 K/MM3 (134-434); RBC 2.84 M/mm3 (3.60-5.2); RDW 16.1 % (11.6-15.6); WHITE BLOOD COUNT 5.9 K/mm3 (4.0-10.0)
[2020-09-24 07:26] LABS: POTASSIUM 4.4 mmol/L (3.5-5.1)
[2020-09-24 08:06] LABS: ALBUMIN 2.8 g/dl (3.4-5.0)
[2020-09-24 08:09] LABS: CREATININE 2.3 mg/dL (0.55-1.3)
[2020-09-24 08:11] LABS: BILIRUBIN,TOTAL 0.7 mg/dL (0.2-1)
[2020-09-24] MEDS ORDERED: DEXTROSE 5%-WATER 100 ML IVPB ONE (09:22)
[2020-09-24] MEDS: levETIRAcetam 500 MG TABLET (FP) PO SCH (09:31)
[2020-09-24] MEDS: metoPROLOL SUCCINATE 25 MG TAB.SR.24H (FP) PO SCH ×2 (09:31→22:21)
[2020-09-24] MEDS: CEFTRIAXONE 2 GM in DEXTROSE 5%-WATER 2 GM/100 ML BAG IVPB SCH (09:31)
[2020-09-24] MEDS: PANTOPRAZOLE 40 MG TABLET PO SCH ×2 (09:31→22:21)
[2020-09-24 10:51] LABS: ANISOCYTOSIS 1+; MACROCYTOSIS 1+; PLATELET ESTIMATE DECREASED
[2020-09-24] MEDS ORDERED: PREGABALIN 50 MG CAPSULE PO SCH (22:00)
[2020-09-24] MEDS: ATORVASTATIN CA 10 MG TABLET (FP) PO SCH (22:21)
[2020-09-24] MEDS: PREGABALIN 100 MG CAPSULE PO SCH (22:21)
[2020-09-24] MEDS: DEXTROSE 5%-WATER - 1,000 ML IV SCH (22:21)
[2020-09-25 07:58] LABS: BASO % 0.2 % (0-2.0); EOS % 1.5 % (0-4.5); HEMATOCRIT 26.7 % (32.4-45.2); HEMOGLOBIN 8.9 GM/dL (10.7-15.3); LYMPH % 6.3 % (8-40); MCH 31.9 pg (25.7-33.7); MCHC 33.4 g/dl (32.0-36.0); MEAN CELL VOLUME 95.5 fl (80-96); MONO % 8.9 % (3.8-10.2); NEUT % 83.1 % (42.8-82.8); PLATELET COUNT 100 K/MM3 (134-434); RBC 2.79 M/mm3 (3.60-5.2); RDW 16.2 % (11.6-15.6); WHITE BLOOD COUNT 5.7 K/mm3 (4.0-10.0)
[2020-09-25 08:09] LABS: POTASSIUM 4.5 mmol/L (3.5-5.1)
[2020-09-25 08:13] LABS: ALBUMIN 2.8 g/dl (3.4-5.0); CALCIUM 8.1 mg/dL (8.5-10.1)
[2020-09-25 08:16] LABS: CREATININE 2.2 mg/dL (0.55-1.3)
[2020-09-25 08:17] LABS: BILIRUBIN,TOTAL 0.3 mg/dL (0.2-1)
[2020-09-25 08:18] LABS: TOT PROT 5.1 g/dl (6.4-8.2)
[2020-09-25 08:52] LABS: ANISOCYTOSIS 0; MACROCYTOSIS 0; PLATELET ESTIMATE DECREASED
[2020-09-25] MEDS ORDERED: DEXTROSE 5%-WATER 100 ML IVPB ONE (09:09)
[2020-09-25] MEDS: CEFTRIAXONE 2 GM in DEXTROSE 5%-WATER 2 GM/100 ML BAG IVPB SCH (09:30)
[2020-09-25] MEDS: metoPROLOL SUCCINATE 25 MG TAB.SR.24H (FP) PO SCH ×2 (09:31→21:38)
[2020-09-25] MEDS: levETIRAcetam 500 MG TABLET (FP) PO SCH (09:31)
[2020-09-25] MEDS: PANTOPRAZOLE 40 MG TABLET PO SCH ×2 (09:31→21:38)
[2020-09-25] MEDS: SODIUM BICARBONATE 650 MG TABLET PO SCH ×3 (13:50→21:38)
[2020-09-25] MEDS: ATORVASTATIN CA 10 MG TABLET (FP) PO SCH (21:38)
[2020-09-25] MEDS: PREGABALIN 100 MG CAPSULE PO SCH ×2 (21:38→22:22)
[2020-09-25] MEDS ORDERED: PREGABALIN 50 MG CAPSULE PO ONE (22:04)
[2020-09-26 06:34] LABS: BASO % 0.4 % (0-2.0); EOS % 1.2 % (0-4.5); HEMATOCRIT 27.9 % (32.4-45.2); HEMOGLOBIN 9.2 GM/dL (10.7-15.3); LYMPH % 6.5 % (8-40); MCHC 33.1 g/dl (32.0-36.0); MEAN CELL VOLUME 96.6 fl (80-96); MEAN PLT VOLUME 10.8 fl (7.5-11.1); MONO % 10.9 % (3.8-10.2); PLATELET COUNT 97 K/MM3 (134-434); RBC 2.88 M/mm3 (3.60-5.2); RDW 15.9 % (11.6-15.6); WHITE BLOOD COUNT 5.5 K/mm3 (4.0-10.0)
[2020-09-26 06:45] LABS: POTASSIUM 5.1 mmol/L (3.5-5.1)
[2020-09-26 06:52] LABS: ALBUMIN 2.8 g/dl (3.4-5.0); BLOOD UREA NITROGEN 64.2 mg/dL (7-18); CALCIUM 8.4 mg/dL (8.5-10.1)
[2020-09-26 06:55] LABS: CREATININE 2.1 mg/dL (0.55-1.3)
[2020-09-26 06:57] LABS: BILIRUBIN,TOTAL 0.3 mg/dL (0.2-1); TOT PROT 5.1 g/dl (6.4-8.2)
[2020-09-26] MEDS ORDERED: DEXTROSE 5%-WATER 100 ML IVPB ONE (09:04)
[2020-09-26] MEDS: CEFTRIAXONE 2 GM in DEXTROSE 5%-WATER 2 GM/100 ML BAG IVPB SCH (09:12)
[2020-09-26] MEDS: SODIUM BICARBONATE 650 MG TABLET PO SCH (09:13)
[2020-09-26] MEDS: levETIRAcetam 500 MG TABLET (FP) PO SCH (09:13)
[2020-09-26] MEDS: metoPROLOL SUCCINATE 25 MG TAB.SR.24H (FP) PO SCH ×2 (09:13→23:05)
[2020-09-26] MEDS: PANTOPRAZOLE 40 MG TABLET PO SCH ×2 (09:13→23:06)
[2020-09-26 11:10] LABS: ANISOCYTOSIS 1+; MACROCYTOSIS 1+; PLATELET ESTIMATE DECREASED
[2020-09-26] MEDS ORDERED: PREGABALIN 50 MG CAPSULE PO ONE (22:42)
[2020-09-26] MEDS: ATORVASTATIN CA 10 MG TABLET (FP) PO SCH (23:05)
[2020-09-26] MEDS: PREGABALIN 100 MG CAPSULE PO SCH (23:06)
[2020-09-27 07:28] LABS: HEMATOCRIT 27.5 % (32.4-45.2); HEMOGLOBIN 8.9 GM/dL (10.7-15.3); MCH 31.7 pg (25.7-33.7); MCHC 32.4 g/dl (32.0-36.0); MEAN CELL VOLUME 97.8 fl (80-96); MEAN PLT VOLUME 11.1 fl (7.5-11.1); PLATELET COUNT 95 K/MM3 (134-434); RBC 2.81 M/mm3 (3.60-5.2); RDW 16.4 % (11.6-15.6); WHITE BLOOD COUNT 5.2 K/mm3 (4.0-10.0)
[2020-09-27 07:43] LABS: POTASSIUM 5.3 mmol/L (3.5-5.1)
[2020-09-27 07:46] LABS: BLOOD UREA NITROGEN 67.6 mg/dL (7-18); CALCIUM 8.2 mg/dL (8.5-10.1)
[2020-09-27 07:50] LABS: CREATININE 2.3 mg/dL (0.55-1.3)
[2020-09-27] MEDS ORDERED: SODIUM ZIRCONIUM CYCLOSILICATE (LOKELMA) 5 GM PACKET PO ONE (08:06)
[2020-09-27] MEDS ORDERED: SODIUM POLYSTYRENE SULFONATE 15 GM/60 ML BOTTLE PO ONE (09:50)
[2020-09-27] MEDS ORDERED: DEXTROSE 5%-WATER 100 ML IVPB ONE (10:00)
[2020-09-27] MEDS: levETIRAcetam 500 MG TABLET (FP) PO SCH (10:14)
[2020-09-27] MEDS: PANTOPRAZOLE 40 MG TABLET PO SCH ×2 (10:15→21:43)
[2020-09-27] MEDS: CEFTRIAXONE 2 GM in DEXTROSE 5%-WATER 2 GM/100 ML BAG IVPB SCH (10:15)
[2020-09-27] MEDS: metoPROLOL SUCCINATE 25 MG TAB.SR.24H (FP) PO SCH ×2 (10:16→21:43)
[2020-09-27 17:07] LABS: POTASSIUM 4.5 mmol/L (3.5-5.1)
[2020-09-27 17:10] LABS: BLOOD UREA NITROGEN 65.2 mg/dL (7-18); CALCIUM 8.2 mg/dL (8.5-10.1)
[2020-09-27 17:14] LABS: CREATININE 2.1 mg/dL (0.55-1.3)
[2020-09-27 17:15] LABS: MAGNESIUM 1.8 mg/dL (1.8-2.4)
[2020-09-27] MEDS: ATORVASTATIN CA 10 MG TABLET (FP) PO SCH (21:42)
[2020-09-27] MEDS: PREGABALIN 100 MG CAPSULE PO SCH (21:50)
[2020-09-27] MEDS ORDERED: PREGABALIN 50 MG CAPSULE PO ONE (21:55)
[2020-09-28 06:15] VITALS: TEMP 97.7
[2020-09-28 08:02] LABS: HEMATOCRIT 26.4 % (32.4-45.2); HEMOGLOBIN 8.6 GM/dL (10.7-15.3); MCH 31.8 pg (25.7-33.7); MCHC 32.5 g/dl (32.0-36.0); MEAN CELL VOLUME 97.9 fl (80-96); MEAN PLT VOLUME 11.2 fl (7.5-11.1); PLATELET COUNT 93 K/MM3 (134-434); WHITE BLOOD COUNT 4.7 K/mm3 (4.0-10.0)
[2020-09-28 08:24] LABS: POTASSIUM 4.4 mmol/L (3.5-5.1)
[2020-09-28 08:34] LABS: ALBUMIN 2.8 g/dl (3.4-5.0); BLOOD UREA NITROGEN 62.4 mg/dL (7-18)
[2020-09-28 08:35] LABS: BILIRUBIN,TOTAL 0.2 mg/dL (0.2-1); TOT PROT 4.9 g/dl (6.4-8.2)
[2020-09-28 08:39] LABS: CALCIUM 8.3 mg/dL (8.5-10.1)
[2020-09-28 09:05] VITALS: BP 144/61; PULSE 67
[2020-09-28] MEDS ORDERED: DEXTROSE 5%-WATER 100 ML IVPB ONE (09:19)
[2020-09-28] MEDS: PANTOPRAZOLE 40 MG TABLET PO SCH (09:51)
[2020-09-28] MEDS: CEFTRIAXONE 2 GM in DEXTROSE 5%-WATER 2 GM/100 ML BAG IVPB SCH (09:52)
[2020-09-28] MEDS: levETIRAcetam 500 MG TABLET (FP) PO SCH (09:52)
[2020-09-28] MEDS: metoPROLOL SUCCINATE 25 MG TAB.SR.24H (FP) PO SCH (09:52)
== END 2020-09-28 12:45 | DRG 180 ==
LOC: JER 12:13 → JERBED 18:12 → J5S 23:25 → JICU 09-21 03:32 → J4W 09-24 00:11
PROVIDERS: ADMIT Family Medicine; ATTEND Family Medicine
PROC: 30233N1 Transfusion of Nonautologous Red Blood Cells into Peripheral Vein, Percutaneous Approach (ICD-10-PCS; principal; 2020-09-21)
DX: C78.00 Secondary malignant neoplasm of unspecified lung (principal); J18.9 Pneumonia, unspecified organism; I48.20 Chronic atrial fibrillation, unspecified; E87.2 Acidosis; N17.9 Acute kidney failure, unspecified; E87.0 Hyperosmolality and hypernatremia; J98.11 Atelectasis; I13.0 Hypertensive heart and chronic kidney disease with heart failure and stage 1 through stage 4 chronic kidney disease, or unspecified chronic kidney disease; K92.2 Gastrointestinal hemorrhage, unspecified; I50.89 Other heart failure; C55 Malignant neoplasm of uterus, part unspecified; E87.5 Hyperkalemia; E78.5 Hyperlipidemia, unspecified; K21.9 Gastro-esophageal reflux disease without esophagitis; I25.10 Atherosclerotic heart disease of native coronary artery without angina pectoris; E11.40 Type 2 diabetes mellitus with diabetic neuropathy, unspecified; E11.22 Type 2 diabetes mellitus with diabetic chronic kidney disease; N18.9 Chronic kidney disease, unspecified; D63.1 Anemia in chronic kidney disease; I08.0 Rheumatic disorders of both mitral and aortic valves; E04.1 Nontoxic single thyroid nodule; I95.9 Hypotension, unspecified; R68.0 Hypothermia, not associated with low environmental temperature; G47.33 Obstructive sleep apnea (adult) (pediatric); Z85.42 Personal history of malignant neoplasm of other parts of uterus; Z85.038 Personal history of other malignant neoplasm of large intestine; Z86.73 Personal history of transient ischemic attack (TIA), and cerebral infarction without residual deficits; Z96.653 Presence of artificial knee joint, bilateral; Z95.0 Presence of cardiac pacemaker; Z99.3 Dependence on wheelchair; Z79.01 Long term (current) use of anticoagulants
CPT/HCPCS: 36415; 36430; 71045-TC-FY; 71250-TC; 76775-TC; 80048; 80053; 81003; 82272; 82550; 82607; 82728; 82746; 83036; 83540; 83550; 83615; 83735; 83880; 84100; 84443; 84484; 85025; 85027; 85379; 85610; 85730; 86140; 86850; 86900; 86901; 86922; 87040; 87070; 87086; 87205; 87899; 93005; 93010; 93971-TC; 97116-GP; 97161-GP; 99285-25; C9803; J1644; P9058; U0003